=== PATIENT | female | born 1955 | race Caucasian/White ===

== ENCOUNTER → 2016-02-23 | Outpatient (CLI) | payer OTHER ==
--- NOTE | 2016-02-23 09:04 | DX ---
Left Hip, 2 views HISTORY: Follow-up hip replacement, Z09 COMPARISON: November 13, 2015 Findings: The bipolar left hip replacement remains in excellent anatomic alignment. There is no evide nce for loosening. Heterotopic ossification is present in the soft tissues lateral to the hip. Impression: Stable left hip replacement.
== END ==
LOC: BMCIMAGING 08:25
PROVIDERS: ATTEND Orthopaedic Surgery
DX: Z09 Encounter for follow-up examination after completed treatment for conditions other than malignant neoplasm (principal); Z96.642 Presence of left artificial hip joint

== ENCOUNTER → 2016-04-19 | Outpatient (CLI) | payer OTHER | LOC: BMCIMAGING 13:06 | PROVIDERS: ATTEND Physician Assistant | DX: Z09 Encounter for follow-up examination after completed treatment for conditions other than malignant neoplasm (principal); Z96.642 Presence of left artificial hip joint ==

== ENCOUNTER → 2016-09-07 | Outpatient (CLI) | payer OTHER | LOC: BMCIMAGING 09:11 | PROVIDERS: ATTEND Orthopaedic Surgery | DX: M25.552 Pain in left hip (principal); S72.001A Fracture of unspecified part of neck of right femur, initial encounter for closed fracture; Z96.642 Presence of left artificial hip joint ==

== ENCOUNTER → 2017-01-18 | Outpatient (CLI) | payer OTHER ==
[~2017-01-18] MED LIST: GADOBUTROL 10 ML VIAL IVP ONE
== END ==
LOC: FIMAGING 13:00
PROVIDERS: ATTEND Internal Medicine Hematology & Oncology
DX: M48.52XA Collapsed vertebra, not elsewhere classified, cervical region, initial encounter for fracture (principal); C79.89 Secondary malignant neoplasm of other specified sites; C16.0 Malignant neoplasm of cardia
CPT/HCPCS: A9585; J1642

== ENCOUNTER 2017-02-03 05:24 | Inpatient (IN) | payer OTHER ==
[2017-02-03] MEDS ORDERED: GABAPENTIN 300 MG CAP PO ONE (05:38)
[2017-02-03] MEDS ORDERED: ceFAZolin 2 GM/SWFI 2 GM/20 ML SYR IVP ONE (05:38)
[2017-02-03] MEDS ORDERED: ACETAMINOPHEN 500 MG TAB PO ONE (05:38)
[2017-02-03] MEDS ORDERED: morphINE SR 15 MG TAB PO ONE (05:38)
[2017-02-03] MEDS ORDERED: LR 1,000 ML IV ONE (05:48)
[2017-02-03] MEDS ORDERED: LIDOCAINE 1% 2 ML INJ ID PRN (05:48)
--- NOTE | 2017-02-03 06:06 | CPEKG ---
Heart Rate: 86 RR Interval: 698 P-R Interval: 148 QRSD Interval: 92 QT Interval: 384 QTC Interval: 460 P [place]: 45 QRS [place]: -32 T Wave [place]: 7 EKG Severity - ABNORMAL ECG - EKG Impression: SINUS RHYTHM EKG Impression: LEFT AXIS DEVIATION EKG Impression: PROBABLE LEFT VENTRICULAR HYPERTROPHY Electronically Signed By: Lance Suarez 03-Feb-2017 07:49:37
[2017-02-03] MEDS ORDERED: BACITRACIN 50,000 UNITS/10 ML SYR IRR ONE (06:26)
[2017-02-03] MEDS ORDERED: SURGIFLO MATRIX KIT WITH THROMBIN 8ml TP ONE (06:27)
[2017-02-03] MEDS ORDERED: CHLORHEXIDINE GLUC HIBICLENS 118 ML BTL TP ONE (06:27)
[2017-02-03] MEDS ORDERED: THROMBIN (BOVINE) 20,000 UNIT VIAL TP ONE (06:27)
[2017-02-03] MEDS ORDERED: MIDAZOLAM 2 MG/2 ML VIAL IVP ONE (07:10)
[2017-02-03] MEDS ORDERED: PROMETHAZINE HCL 25 MG/ML INJ IVP PRN ×2 (07:10→10:23)
[2017-02-03] MEDS ORDERED: NALOXONE HCL 0.4 MG/ML INJ IVP PRN (07:10)
[2017-02-03] MEDS ORDERED: ONDANSETRON 4 MG/2 ML VIAL IVP PRN ×2 (07:10→10:23)
[2017-02-03] MEDS ORDERED: ALBUTEROL 3 ML DEYVIAL IH PRN (07:10)
[2017-02-03] MEDS ORDERED: HYDROmorphONE/DILAUDID 1 MG/ML INJ IVP PRN ×2 (07:10→10:23)
--- NOTE | 2017-02-03 07:12 | PDANEPAE ---
ANE History of Present Illness C7 corpectomy ANE Past Medical History - Cardiovascular History Hx Hypertension: No Hx Arrhythmias: No Hx Chest Pain: No Hx Coronary Artery / Peripheral Vascular Disease: No Hx CHF / Valvular Disease: No Hx Palpitations: No - Pulmonary History Hx COPD: No Hx Asthma/Reactive Airway Disease: No Hx Recent Upper Respiratory Infection: No Hx Oxygen in Use at Home: No Hx Sleep Apnea: No Sleep Apnea Screening Result - Last Documented: Negative Pulmonary History Comment: SOB W/EXERTION - Neurologic History Hx Cerebrovascular Accident: No Hx Seizures: No Hx Dementia: No Neurologic History Comment: Peripheral neuropathy secondary to chemotherapy - Endocrine History Hx Diabetes: No Endocrine History Comment: Hypothyroid - Renal History Hx Renal Disorders: No - Liver History Hx Hepatic Disorders: Yes Hepatic History Comment: ESOPHAGEAL. Liver metastases. 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 last chemo 01-06-17 - Congenital Disorder History Hx Congenital Disorders: No - GI History Hx Gastrointestinal Disorders: Yes Gastrointestinal History Comment: Esophageal cancer - Other Health History Other Health History: Hx of DVT 03/2014 l leg, on xarelto - Chronic Pain History Chronic Pain: Yes (stomach, lower back, l hip) - Surgical History Prior Surgeries: I & D HIP W/WOUND VAC. Liver biopsy, colonoscopy. partial hip replacment L september 2015, hysterectomy 10/22 ANE Review of Systems Review of Systems: - Exercise capacity METS (RN): 3 METS ANE Patient History - Allergies Allergies/Adverse Reactions: naproxen Allergy (Severe, Verified 02/01/17 11:28) Hives, TROUBLE BREATHING NSAIDS (Non-Steroidal Anti-Inflamma Allergy (Intermediate, Verified 02/01/17 11: 28) Hives Penicillins Allergy (Intermediate, Verified 02/01/17 11:29) Hives Sulfa (Sulfonamide Antibiotics) Allergy (Intermediate, Verified 02/01/17 11:29) Hives - Home Medications Home Medications: Levothyroxine [Synthroid 112 mcg (*)] 112 mcg PO DAILY06 11/27/15 [Last Taken 04:00] Rivaroxaban [Xarelto 10mg (*)] 20 mg PO HS 11/27/15 [Last Taken 01/28/17] Acetaminophen [Tylenol 325mg (*)] 325 mg PO DAILY PRN 01/31/17 [Last Taken 02/03 04:00] Famotidine [Pepcid 20 MG (*)] 20 mg PO DAILY 01/31/17 [Last Taken 02/03/17 04:00 ] Herbals/Supplements -Info Only 1 ea PO DAILY 01/31/17 [Last Taken 1 Week Ago ~] Hyoscyamine Sulfate [Levsin, Hyomax-Sl 0.125 mg (*)] 0.125 mg PO DAILY PRN 01/31 [Last Taken Unknown] oxyCODONE IR [Oxycodone Ir (*)] 5 mg PO DAILY PRN 01/31/17 [Last Taken 1 Week Ago ~01/27/17] traZODone [traZODONE 50MG (*)] 25 mg PO HS PRN 01/31/17 [Last Taken 2 Days Ago ~ 02/01/17] Ciprofloxacin [Cipro] BID 02/03/17 [Last Taken 02/03/17 04:00] - NPO status NPO Since - Liquids (Date): 02/02/17 NPO Since - Liquids (Time): 19:30 NPO Since - Solids (Date): 02/02/17 NPO Since - Solids (Time): 19:30 - Smoking Hx Smoking Status: Never smoked - Family Anes Hx Family Hx Anesthesia Complications: None ANE Labs/Vital Signs - Vital Signs Blood Pressure: 117/91 Heart Rate: 95 Respiratory Rate: 14 O2 Sat (%): 96 Height: 165.1 cm Weight: 74.843 kg ANE Physical Exam - Airway Neck exam: FROM Mallampati Score: Class 2 Mouth exam: normal dental/mouth exam - Pulmonary Pulmonary: clear to auscultation - Cardiovascular Cardiovascular: regular rate and rhythym - ASA Status ASA Status: III ANE Anesthesia Plan Anesthesia Plan: general endotracheal anesthesia Lines/Monitors: arterial line Total IV Anesthesia: Yes
[2017-02-03] MEDS ORDERED: ACETAMINOPHEN 325 MG TAB PO ONE (07:15)
[2017-02-03] MEDS ORDERED: PROPOFOL/EMULSION 500 MG/50 ML BOTTLE IV ONE ×3 (07:16)
[2017-02-03] MEDS ORDERED: REMIFENTANIL HCL 1 MG VIAL ONE ×3 (07:16)
[2017-02-03 07:21] LABS: PLATELET COUNT 262 10^3/uL (150-400)
[2017-02-03] MEDS ORDERED: SUCCINYLCHOLINE CHLORIDE 200 MG/10 ML SYR IVP ONE (07:27)
[2017-02-03 07:32] LABS: INR 1.11 (0.83-1.16); PROTIME(PATIENT) 14.5 SEC (12.0-15.0)
--- NOTE | 2017-02-03 07:32 | PDHPUP ---
History & Physical Update H&P update statement: This history and physical update is based on an assessment of the patient which was completed after admission or registration (within 24 hours), but prior to the surgery/procedure. H&P update: H&P reviewed & patient examined, no change in patient's condition since H&P completed (Patient seen at 7 am this morning. Consents signed and site marked. All questions answered. We will check some labs given her current chemo and history of elevated coags.)
[2017-02-03] MEDS ORDERED: DEXAMETHASONE 4 MG/ML VIAL ONE (08:32)
[2017-02-03] MEDS ORDERED: ONDANSETRON 4 MG/2 ML VIAL ONE (08:33)
[2017-02-03] MEDS ORDERED: METOCLOPRAMIDE 10 MG/2 ML VIAL ONE (08:33)
[2017-02-03] MEDS ORDERED: RANITIDINE 50 MG/2 ML VIAL ONE (08:34)
[2017-02-03] MEDS ORDERED: THROMBIN (BOVINE) 5,000 UNIT VIAL TP ONE (09:34)
--- NOTE | 2017-02-03 10:15 | POSTANESTH ---
Post Anesthetic Evaluation Cardiovascular Status: Normal, Stable Respiratory Status: Normal, Stable Level of Consciousness/Mental Status: Can Participate in Eval, Alert and Oriented Pain Control: Adequate, Prn Tx Ordered Nausea/Vomiting Control: Adequate, Prn Tx Ordered Complications Possibly Related to Anesthesia: None Noted
[2017-02-03] MEDS ORDERED: ACETAMINOPHEN 325 MG TAB PO PRN (10:20)
[2017-02-03] MEDS ORDERED: traZODone 50 MG TAB PO PRN (10:20)
[2017-02-03] MEDS ORDERED: HYOSCYAMINE SULFATE 0.125 MG TAB PO PRN (10:20)
[2017-02-03] MEDS ORDERED: fentaNYL 100 MCG/2 ML INJ ONE (10:21)
[2017-02-03] MEDS ORDERED: DIAZEPAM 10 MG/2 ML SYR IVP PRN (10:23)
[2017-02-03] MEDS ORDERED: diphenhydrAMINE 25 MG CAP PO PRN (10:23)
[2017-02-03] MEDS ORDERED: LACTULOSE 20 GM/30 ML UDCUP PO PRN (10:23)
[2017-02-03] MEDS ORDERED: POLYETHYLENE GLYCOL 3350 17 GM PKT PO PRN (10:23)
[2017-02-03] MEDS ORDERED: BISACODYL 10 MG SUPP PR PRN (10:23)
[2017-02-03] MEDS ORDERED: ONDANSETRON DISINTEGRATING 4 MG TAB PO PRN (10:23)
[2017-02-03] MEDS ORDERED: MAGNESIUM HYDROXIDE 30 ML UDCUP PO PRN (10:23)
[2017-02-03] MEDS: fentaNYL 100 MCG/2 ML INJ IVP PRN ×2 (10:24→10:40)
--- NOTE | 2017-02-03 10:35 | POSTOPPROG ---
Post Op Note Date of Operation: 02/03/17 Surgeon: Kenneth Sanchez Auto Service Instructor: Kamala Kirk PA-C Anesthesiologist: David Anesthesia: GET(General Endotracheal) Pre-op Diagnosis: cervical fracture, metastasis Post-op Diagnosis: same Indication: instability Procedure: C7 corpectomy, C6-T1 anterior fusion Findings: Please see dictation Inf/Abcess present in the surg proc area at time of surgery?: No Depth: Organ Space EBL: 50-100 Complications: none Drains: Shaka Wood Specimen(s): C7 vertebral body sent for permanent PA Addendum - Addendum .: S: Pt in PACU, c/o low back pain. Denies neck pain. 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 Ok to resume xarelto POD#7 Call NS with any issues D/w Dr Sanchez
[2017-02-03] MEDS ORDERED: DIAZEPAM 10 MG/2 ML SYR ONE (10:56)
--- NOTE | 2017-02-03 11:17 | GOP ---
[f rep st] OPERATIVE REPORT DATE OF OPERATION: 02/03/2017 SURGEON: Kenneth Sanchez MD MEDICAL APPARATUS MODEL MAKER: STACIE Dyson. ANESTHESIA: General. PREOPERATIVE DIAGNOSIS: 1. C7 pathologic compression fracture and kyphotic deformity. 2. Neck pain. POSTOPERATIVE DIAGNOSIS: 1. C7 pathologic compression fracture and kyphotic deformity. 2. Neck pain. PROCEDURE PERFORMED: 1. Anterior arthrodesis with approach to C6, C7, T1. 2. C6-C7 and C7-T1 diskectomies with osteophytetctomies and foraminotomies. 3. C7 corpectomy with spinal cord decompression. 4. Interbody fusion between the endplates of C6-C7 and C7-T1 with a 22 mm Medtronic anatomic PEEK cage filled with morselized allograft. 5. Anterior cervical fusion C6-T1 spanning the C7 level with a 35 mm Medtronic Translational plate with screws into C6 and T1 and 1 screw into the interbody graft. 6. Use of intraoperative fluoroscopy, less than 1 hour physician time. 7. Use of neuromonitoring. 8. Use of operating microscope. FINDINGS: very soft C7 bone; osteoporitic C6 and T1 bone SPECIMENS: The C7 vertebral body was sent to Pathology for permanent analysis. ESTIMATED BLOOD LOSS: 100 mL. INDICATIONS: The patient is a 61-year-old woman with known history of metastatic cancer. She develop neck pain and imaging demonstrated a pathologic compression deformity of C7 in addition to additional metastatic lesions. After discussion of risks, benefits, and treatment alternatives, we decided to proceed forth with surgical stabilization in preparation for possible radiation therapy. DESCRIPTION OF PROCEDURE: Patient was brought to the operating theater and underwent general endotracheal anesthesia without complications. She had Venodynes, LEBRON hose, and the appropriate lines placed by Anesthesia. Her head was placed in slight extension on the operating table and all bony prominences were inspected and padded. Using lateral fluoroscopy and spinal needle, we picked our entry point to the C6 through T1 levels. This was marked as a transverse incision on the right side of her neck. The visualization down to the C7-T1 level was somewhat challenging secondary the patient's shoulders. This area then prepped and draped in the usual sterile surgical fashion. A time -out was completed per protocol. The patient received antibiotics within 1 hour of incision. The incision was taken down with the scalp blade and then, using monopolar, taken down through subcutaneous tissues to the level of the platysma. A Weitlaner was placed to maintain our exposure. We opened the fibers of the platysma cranially and caudally. Using both blunt and sharp dissection, we traveled in a plane medial to the carotid sheath and lateral to the esophagus and trachea to reach the prevertebral fascia. We placed a bayonetted needle into the disk space of C6-C7 and confirmed our level using lateral fluoroscopy. The patient's tissues were noted to be extremely soft at the C7 level. We elevated the longus colli muscles from the anterior vertebral bodies of C6, C7 and T1 and deep retractors were placed to maintain exposure. The microscope was brought into the field to assist with microscopic dissection and to maintain illumination and magnification. We placed a [place] pin into the vertebral body of C6 and T1 and confirmed our level using lateral fluoroscopy. At this point, we were able to use an 11 blade to incise the C6-C7 and C7-T1 disc spaces. We completed a C6-C7 and C7- T1 diskectomy, foraminotomies and osteophytectomies using pituitaries, curettes and Kerrison punches. At this point, the patient's tissue of the C7 vertebral body was noted to be so soft we were able to removed the bone with just the pituitaries and Kerrison punches. We sent much of this bone off to Pathology for permanent analysis. We continued dorsally until we identified the ligament , which we opened with the angled curettes. We completed our decompression posteriorly and laterally and then prepared the cartilaginous endplates of C6 and T1. We measured the interbody space and placed a 22 mm PEEK cage with morselized allograft between the endplates of C6 and T1. We removed the [place] pins and drilled down the anterior osteophytes. We secured a 35 mm Medtronic [place] translational plate onto the vertebral bodies of C6 and T1 with 1 screw into the interbody graft. AP and lateral x-rays demonstrated good placement of the hardware. The wound was irrigated copiously with bacitracin irrigation and a drain left in the subfascial space. The wound was closed in multiple layers using Vicryl sutures in the deep layers and Dermabond for the skin. The patient's wounds were dressed sterilely. She was awakened, extubated and taken to the recovery room in stable condition. There were no complications and no noted changes on neuromonitoring throughout the procedure. COMPLICATIONS: None. /[id number]/MODL MTDD
[2017-02-03] MEDS ORDERED: ceFAZolin 2 GM/DEXTROSE 100 ML IV SCH (14:00)
[2017-02-03] MEDS: ACETAMINOPHEN 500 MG TAB PO SCH ×2 (14:05→23:12)
[2017-02-03] MEDS: oxyCODONE IR 5 MG TAB PO PRN ×2 (14:07→20:20)
[2017-02-03] MEDS: NS W/ 20 KCl/L 1,000 ML IV SCH (14:08)
[2017-02-03] MEDS: CYCLOBENZAPRINE 10 MG TAB PO PRN (16:02)
[2017-02-03] MEDS: ceFAZolin 2 GM/DEXTROSE 100 ML IV SCH ×2 (16:03→23:13)
[2017-02-03] MEDS: CIPROFLOXACIN 500 MG TAB PO SCH (20:16)
[2017-02-03] MEDS: FAMOTIDINE 20 MG TAB PO SCH (20:17)
[2017-02-03] MEDS: SENNOSIDES/DOCUSATE SODIUM TAB PO SCH (20:18)
[2017-02-04] MEDS: oxyCODONE IR 5 MG TAB PO PRN ×3 (00:45→21:19)
[2017-02-04] MEDS: NS W/ 20 KCl/L 1,000 ML IV SCH (00:45)
[2017-02-04] MEDS: ACETAMINOPHEN 500 MG TAB PO SCH ×3 (05:17→21:17)
[2017-02-04] MEDS: LEVOTHYROXINE 112 MCG TAB PO SCH (05:17)
[2017-02-04 05:37] LABS: PLATELET COUNT 245 10^3/uL (150-400)
[2017-02-04] MEDS ORDERED: FAMOTIDINE 20 MG TAB PO SCH (09:00)
[2017-02-04] MEDS: SENNOSIDES/DOCUSATE SODIUM TAB PO SCH ×2 (09:03→21:18)
[2017-02-04] MEDS: FAMOTIDINE 20 MG TAB PO SCH ×2 (09:05→21:18)
[2017-02-04] MEDS: CIPROFLOXACIN 500 MG TAB PO SCH ×2 (09:05→21:19)
[2017-02-04] MEDS: CYCLOBENZAPRINE 10 MG TAB PO PRN ×2 (09:05→18:12)
--- NOTE | 2017-02-04 10:01 | ASMTCMCOM ---
CM Note CM Note Notes: Patient is POD #1 C7 corpectomy and C6-T1 anterior fusion. She lives with her and is normally independent. PT has cleared her for home with supervision. If she has any discharge needs, CM will assist. Date Signed: 02/04/2017 10:01 AM Electronically Signed By:Claudine Ortez RN
--- NOTE | 2017-02-04 11:57 | SOAPPROG ---
SOAP Progress Note Assessment/Plan: Assessment: POD #1 sp C7 corpectomy and C6-T 1 ACDF doing well with improved swallowing and shoulder pain Plan: Xrays cspine prior to DC DC SALVADOR per Dr. Sanchez Continue collar DC today to home with family as long xrays look good. discussed with Dr. Sanchez 02/04/17 11:57 Subjective: awake, alert, pain controlled, swallowing well. No new issues. urine clear with no further blood Objective: Vital Signs Temp Pulse Resp BP Pulse Ox 36.9 C 63 12 111/86 H 96 02/04/17 07:32 02/04/17 07:32 02/04/17 07:32 02/04/17 07:32 02/04/17 07:32 Laboratory Results 02/04/17 05:15 02/04/17 05:15 02/03/17 02/04/17 02/05/17 05:59 05:59 05:59 Intake Total 3383 Output Total 1170 Balance 2213 PT 14.5 SEC (12.0-15.0) 02/03/17 07:08 INR 1.11 (0.83-1.16) 02/03/17 07:08 Neuro: HOWELL, sens +LT equal strenght and sensation throughout [place]: 20ml Incision: CDI ICD10 Worksheet Patient Problems: Problems Problem Status Onset Prosthetic hip infection Acute
[2017-02-04 17:29] VITALS: RESP 16
[2017-02-05] MEDS: ACETAMINOPHEN 500 MG TAB PO SCH (05:09)
[2017-02-05] MEDS: LEVOTHYROXINE 112 MCG TAB PO SCH (05:09)
[2017-02-05] MEDS: oxyCODONE IR 5 MG TAB PO PRN ×2 (05:10→11:28)
[2017-02-05 08:28] VITALS: BP 134/96; PULSE 74; TEMP 97.9; O2SAT 95
[2017-02-05] MEDS: CIPROFLOXACIN 500 MG TAB PO SCH (09:27)
[2017-02-05] MEDS: SENNOSIDES/DOCUSATE SODIUM TAB PO SCH (09:27)
[2017-02-05] MEDS: FAMOTIDINE 20 MG TAB PO SCH (09:28)
--- NOTE | 2017-02-05 09:57 | SOAPPROG ---
SOAP Progress Note Assessment/Plan: Assessment: POD#2 s/p C7 corpectomy, C6-T1 fusion, doing well, hand numbness improved Plan: - patient says her hand numbness thought to be from neuropathy is much improved - d/c home today - scripts for oxycodone, flexeril, lovenox in chart - d/c [place] drain - cervical collar in place, fits well - cervical xrays show intact hardware with good alignment 02/05/17 09:55 Subjective: doing well, eating breakfast Objective: Vital Signs Temp Pulse Resp BP Pulse Ox 36.6 C 74 16 134/96 H 95 02/05/17 08:00 02/05/17 08:00 02/05/17 08:00 02/05/17 08:00 02/05/17 08:00 Laboratory Results 02/04/17 05:15 02/04/17 05:15 02/04/17 02/05/17 02/06/17 05:59 05:59 05:59 Intake Total 3383 500 Output Total 1170 Balance 2213 500 PT 14.5 SEC (12.0-15.0) 02/03/17 07:08 INR 1.11 (0.83-1.16) 02/03/17 07:08 AAOx3, full strength and sensation, no drift, wound c/d/i - Pending Discharge Pending Discharge Within 24 Hours: Yes Pending Discharge Date: 02/06/17 Pending Discharge Time: 11:00 ICD10 Worksheet Patient Problems: Problems Problem Status Onset Prosthetic hip infection Acute
--- NOTE | 2017-02-05 12:53 | PDIAF ---
- Diagnosis Diagnosis: cervical stenosis Code Status: Full Code - Medication Management Discharge Medications: Medications to Continue on Transfer Levothyroxine [Synthroid 112 mcg (*)] 112 mcg PO DAILY06 11/27/15 [Last Taken 04:00] Famotidine [Pepcid 20 MG (*)] 20 mg PO DAILY 01/31/17 [Last Taken 02/03/17 04:00 ] Herbals/Supplements -Info Only 1 ea PO DAILY 01/31/17 [Last Taken 1 Week Ago ~] Hyoscyamine Sulfate [Levsin, Hyomax-Sl 0.125 mg (*)] 0.125 mg PO DAILY PRN 01/31 [Last Taken Unknown] Ciprofloxacin [Cipro] 500 mg PO BID 02/03/17 [Last Taken 02/03/17 04:00] Acetaminophen [Tylenol ES 500 mg (*)] 1,000 mg PO Q8HRS tab 02/04/17 [Last Taken Unknown] Cyclobenzaprine [Flexeril 10 MG (*)] 10 mg PO TID PRN #60 tab 02/04/17 [Last Taken Unknown] Polyethylene Glycol 3350 [Miralax 17 gm (*)] 17 gm PO DAILY PRN pkt 02/04/17 [ Last Taken Unknown] Sennosides/Docusate Sodium [Senokot-S] 1 - 2 tab PO BID tab 02/04/17 [Last Taken Unknown] oxyCODONE IR [Oxycodone Ir (*)] 5 - 10 mg PO Q4HRS PRN #60 tab 02/04/17 [Last Taken Unknown] Enoxaparin [Lovenox 40 MG (*)] 40 mg SC DAILY #4 syr 02/06/17 [Last Taken Unknown] Rivaroxaban [Xarelto] 20 mg PO DAILY #1 tab 02/10/17 [Last Taken Unknown] Discharge Medications: Refer to the Discharge Home Medication list for PRN reason. - Orders Services needed: Home Care, Registered Nurse Home Care Face to Face: I certify that this patient was under my care and that I had the required [id number] encounter meeting the encounter requirements on the discharge day. My findings support the fact that the patient is homebound as defined in Home Care Face to Face Continued: CMS Chapter 7 Medicare Benefits Manual 30.1.1 , The condition of the patient is such that there exists a normal inability to leave home and consequently, leaving home would require a considerable and taxing effort. Isolation Type: None Diet Recommendation: no restrictions on diet Diet Texture: Regular Texture Diet, Dysphagia 2 - Mechanically Altered - Chopped , Ground, Thin Liquids, Meds Whole w/Liquids Osmin Stockings Discontinue Date: wear fo 5 days post op Wound Care Instructions: keep dry - Follow Up Care Current Providers and Referrals: Riki Chen MD [Primary Care Provider] - Kenneth Sanchez MD [Medical Doctor] -
--- NOTE | 2017-02-05 14:54 | ASDISCHSUM ---
Discharge Information Plan Status:Home with No Needs Medically Cleared to Leave:02/04/2017 Discharge Date:02/05/2017 01:47 PM CM D/C Disposition:Home, Routine, Self-Care ADT D/C Disposition:Home, Routine, Self-Care Projected Discharge Date:02/05/2017 12:00 AM Transportation at D/C:Family Discharge Delay Reason: Follow-Up Date:02/05/2017 12:00 AM Discharge Slot: Final Diagnosis:Cervical spine fx, malignancy Placement Information Patient Contact Information Contact Name:OUMOU Relationship: Address:[address] City:[place] Alternate Phone: [facility]/Zip Code:[place] [address] Email: Financial Information Financial Class:[employer] Primary Plan Desc:[facility] [place] [facility] Primary Plan Number:[id number] Secondary Plan Desc: Secondary Plan Number: Assessment Information [facility] CM Progress Note CM Note CM Note Notes: Patient is POD #1 C7 corpectomy and C6-T1 anterior fusion. She lives with her and is normally independent. PT has cleared her for home with supervision. If she has any discharge needs, CM will assist. Date Signed: 02/04/2017 10:01 AM Electronically Signed By:Claudine Ortez RN Case Management Discharge Plan Note Case Management Discharge Discharge Order Complete? Answers: Yes Patient to Obtain Answers: via Family Medications Transportation Arranged Answers: Family/Friends Transport will Pick (Date 02/05/2017 12:00 AM & Time) Family Notified Answers: Yes Notes: present to transport patient home Discharge Comments Notes: Patient has been discharged home. She and report that she will have family and friends at home to supervise her needs. Date Signed: 02/05/2017 11:27 AM Electronically Signed By:Mile Shields LCSW [facility] CM Progress Note CM Note CM Note Notes: Patient asked if she could have a HC RN assist with administrating the Lovenox injection. Contact made to 7 HC agencies who were either unable to staff her needs due to the holiday, didn't go to her location or didn't feel it was a skilled need. Contacted and gave him that info. Suggested that she could come back to [facility] for injection Monday or a friend? or perhaps her pharmacy would be willing to assist? He will check those options. Date Signed: 02/05/2017 02:54 PM Electronically Signed By:Mile Shields LCSW Intervention Information
[2017-02-06] MEDS ORDERED: ENOXAPARIN 40 MG/0.4 ML SYR SC SCH (09:00)
== END 2017-02-05 13:47 | disposition home or self-care (01) | DRG 472 ==
LOC: F3N 05:24
PROVIDERS: ADMIT Neurological Surgery; ATTEND Neurological Surgery
PROC: [UNRECOGNIZED PROCEDURE] (principal; 2017-02-03 07:15)
PROC: 0RG10A0 Fusion of Cervical Vertebral Joint with Interbody Fusion Device, Anterior Approach, Anterior Column, Open Approach (ICD-10-PCS; principal; 2017-02-03 07:15)
PROC: 8E0WXBZ Computer Assisted Procedure of Trunk Region (ICD-10-PCS; principal; 2017-02-03 07:15)
PROC: BR111ZZ Fluoroscopy of Cervical Disc(s) using Low Osmolar Contrast (ICD-10-PCS; principal; 2017-02-03 07:15)
PROC: 0RT50ZZ Resection of Cervicothoracic Vertebral Disc, Open Approach (ICD-10-PCS; principal; 2017-02-03 07:15)
PROC: 0RG40A0 Fusion of Cervicothoracic Vertebral Joint with Interbody Fusion Device, Anterior Approach, Anterior Column, Open Approach (ICD-10-PCS; principal; 2017-02-03 07:15)
DX: M84.58XA Pathological fracture in neoplastic disease, other specified site, initial encounter for fracture (principal); M48.02 Spinal stenosis, cervical region; C79.51 Secondary malignant neoplasm of bone; M54.2 Cervicalgia; C78.7 Secondary malignant neoplasm of liver and intrahepatic bile duct; C16.0 Malignant neoplasm of cardia; I10 Essential (primary) hypertension; E03.9 Hypothyroidism, unspecified; Z88.0 Allergy status to penicillin; Z88.2 Allergy status to sulfonamides
CPT/HCPCS: 92526-GN; 92610-GN; 97116-GP; 97161-GP; 97165-GO; 97535-GO; C1713; J0330; J0690; J1100; J2250; J2405; J2704; J2765; J2780; J3010

== ENCOUNTER 2017-02-11 11:17 | Inpatient (IN) | payer OTHER ==
[2017-02-11] MEDS ORDERED: NS 1,000 ML IV ONE (12:14)
[2017-02-11] MEDS ORDERED: ACETAMINOPHEN 325 MG TAB PO ONE (12:15)
--- NOTE | 2017-02-11 12:21 | EDPHY ---
H & P Time Seen by Provider: 02/11/17 11:55 HPI/ROS: CHIEF COMPLAINT: Hematuria HISTORY OF PRESENT ILLNESS: Patient is had 3 urinary tract infections in the last 6 weeks and previously after 10 days of Cipro her symptoms would go way, and then her symptoms come back. She finished her 3rd course of Cipro yesterday and then today had recurrence of hematuria and worsening low back pain. Back pain is associated with the hematuria, not with weakness or numbness in extremities. She has chronic neuropathy in her feet but that is unchanged from usual, no incontinence. No recent trauma or injury. Hematuria not associated with dysuria or frequency. No lightheadedness or dizziness. Symptoms moderate to severe today. REVIEW OF SYSTEMS: Eye: no change in vision ENT: no sore throat Cardiac: no chest pain or syncope Pulmonary: no cough or SOB Abdomen: no vomiting, diarrhea, abdominal pain Musculoskeletal: Back pain which the patient says is only better with Tylenol Skin: No bruising Neuro: no headache, peripheral neuropathy which is stable. Constitutional: no fever : HPI A comprehensive 10 point review of systems is otherwise negative aside from elements mentioned in the history of present illness. PAST MEDICAL HISTORY: Includes esophageal cancer, appendectomy and hysterectomy , frequent UTIs. DVT on Xarelto Social history: Here with spouse General Appearance: Alert and conversant, cooperative. Eyes: No scleral icterus. ENT, Mouth: Normal mucous membranes. Respiratory: Normal respiratory effort, breath sounds equal, lungs are clear to auscultation. Cardiovascular: Regular rate and rhythm. Gastrointestinal: Abdomen is soft and non tender. Neurological: Alert, normal motor and both feet with plantar and dorsiflexion, 2+ patellar reflexes bilaterally, toes downgoing, sensation present to light touch in both feet. Skin: Warm and dry, no rashes. Musculoskeletal: No peripheral edema. No midline spinal tenderness in the lumbar region. Psychiatric: Not agitated. Emergency Department course/MDM: Patient had PET-CT reviewed Dr. Sadler dated 01/31 which shows severe obstructive left-sided uropathy. Patient likely has recurrent and resistant UTI because of this, will consider admission with IV antibiotics and Urology consultation. Will likely need drainage of some type for her left obstructive uropathy in order to clear her UTI. Penicillin allergy a rash without critical symptoms. IV ceftriaxone 1 g, urine culture, urology consultation and admission. 1232: [place] will consult for urology, for obstruction. Smoking Status: Never smoked Constitutional: Initial Vital Signs Temperature (C) 36.5 C 02/11/17 11:19 Heart Rate 108 H 02/11/17 11:19 Respiratory Rate 18 02/11/17 11:19 Blood Pressure 135/95 H 02/11/17 11:19 O2 Sat (%) 97 02/11/17 11:19 O2 Delivery Mode Room Air Allergies/Adverse Reactions: naproxen Allergy (Severe, Verified 02/11/17 11:19) Hives, TROUBLE BREATHING adhesive tape Allergy (Intermediate, Verified 02/11/17 11:19) Rash NSAIDS (Non-Steroidal Anti-Inflamma Allergy (Intermediate, Verified 02/11/17 11: 19) Hives Penicillins Allergy (Intermediate, Verified 02/11/17 11:19) Hives Sulfa (Sulfonamide Antibiotics) Allergy (Intermediate, Verified 02/11/17 11:19) Hives Home Medications: Medication Instructions Recorded Levothyroxine [Synthroid 112 mcg 112 mcg PO DAILY06 11/27/15 (*)] Famotidine [Pepcid 20 MG (*)] 20 mg PO DAILY 01/31/17 Herbals/Supplements -Info Only 1 ea PO DAILY 01/31/17 Hyoscyamine Sulfate [Levsin, 0.125 mg PO DAILY PRN 01/31/17 Hyomax-Sl 0.125 mg (*)] Ciprofloxacin [Cipro] 500 mg PO BID 02/03/17 Acetaminophen [Tylenol ES 500 mg 1,000 mg PO Q8HRS tab 02/04/17 (*)] Cyclobenzaprine [Flexeril 10 MG 10 mg PO TID PRN #60 tab 02/04/17 (*)] Polyethylene Glycol 3350 [Miralax 17 gm PO DAILY PRN pkt 02/04/17 17 gm (*)] Sennosides/Docusate Sodium 1 - 2 tab PO BID tab 02/04/17 [Senokot-S] oxyCODONE IR [Oxycodone Ir (*)] 5 - 10 mg PO Q4HRS PRN #60 tab 02/04/17 Rivaroxaban [Xarelto] 20 mg PO DAILY #1 tab 02/10/17 Medical Decision Making Differential Diagnosis: Differential for hematuria considered including but not limited to coagulopathy , renal colic, UTI, renal cancer or tumor, other bladder problem Consult/Admit Bed Type: [place] [id number] - Data Points Laboratory Results: Laboratory Results 02/11/17 12:30 02/11/17 02/11/17 02/11/17 12:30 12:30 11:40 WBC 8.74 10^3/uL 10^3/uL (3.80-9.50) RBC 3.75 10^6/uL L 10^6/uL (4.18-5.33) Hgb 11.8 g/dL L g/dL (12.6-16.3) Hct 35.1 % L % (38.0-47.0) MCV 93.6 fL fL (81.5-99.8) MCH 31.5 pg pg (27.9-34.1) MCHC 33.6 g/dL g/dL (32.4-36.7) RDW 16.1 % H % (11.5-15.2) Plt Count 396 10^3/uL 10^3/uL (150-400) MPV 9.0 fL fL (8.7-11.7) Neut % (Auto) 74.2 % % (39.3-74.2) Lymph % (Auto) 16.0 % % (15.0-45.0) [place] % (Auto) 7.0 % % (4.5-13.0) Eos % (Auto) 1.7 % % (0.6-7.6) Baso % (Auto) 0.5 % % (0.3-1.7) Nucleat RBC Rel Count 0.0 % % (0.0-0.2) Absolute Neuts (auto) 6.49 10^3/uL 10^3/uL (1.70-6.50) Absolute Lymphs (auto) 1.40 10^3/uL 10^3/uL (1.00-3.00) Absolute Monos (auto) 0.61 10^3/uL 10^3/uL (0.30-0.80) Absolute Eos (auto) 0.15 10^3/uL 10^3/uL (0.03-0.40) Absolute Basos (auto) 0.04 10^3/uL 10^3/uL (0.02-0.10) Absolute Nucleated RBC 0.00 10^3/uL 10^3/uL (0-0.01) Immature Gran % 0.6 % % (0.0-1.1) Immature Gran # 0.05 10^3/uL 10^3/uL (0.00-0.10) Sodium Pending Potassium Pending Chloride Pending Carbon Dioxide Pending Anion Gap Pending BUN Pending Creatinine Pending Estimated GFR Pending Glucose Pending Calcium Pending Urine Color RED Urine Appearance MODERATELY TURBID Urine pH 6.0 (5.0-7.5) Ur Specific [place] 1.019 (1.002-1.030) Urine Protein 2+ H (NEGATIVE) Urine Ketones NEGATIVE (NEGATIVE) Urine Blood 3+ H (NEGATIVE) Urine Nitrate NEGATIVE (NEGATIVE) Urine Bilirubin NEGATIVE (NEGATIVE) Urine Urobilinogen NEGATIVE EU EU (0.2-1.0) Ur Leukocyte Esterase NEGATIVE (NEGATIVE) Urine RBC 50-182 /hpf H /hpf (0-3) Urine WBC 50-182 /hpf H /hpf (0-3) Ur Epithelial Cells NONE SEEN /lpf /lpf (NONE-1+) Urine Bacteria 4+ /hpf H /hpf (NONE SEEN) Urine Mucus TRACE /lpf /lpf (NONE-1+) Urine Glucose 1+ H (NEGATIVE) Medications Given: Discontinued Medications Acetaminophen (Tylenol) 650 mg PO EDNOW ONE Stop: 02/11/17 12:16 Last Admin: 02/11/17 12:34 Dose: 650 mg Ceftriaxone Sodium/Dextrose (Rocephin 1 Gm (Premix)) 50 mls @ 100 mls/hr IV EDNOW ONE PRN Reason: Protocol Stop: 02/11/17 12:44 Last Admin: 02/11/17 12:35 Dose: 50 mls Sodium Chloride (Ns) 1,000 mls @ 0 mls/hr IV EDNOW ONE; Wide Open PRN Reason: Protocol Stop: 02/11/17 12:15 Last Admin: 02/11/17 12:35 Dose: 1,000 mls Departure - Departure Disposition: [facility] Inpatient Acute Clinical Impression: Obstructive uropathy Urinary tract infection Qualifiers: Urinary tract infection type: site unspecified Hematuria presence: with hematuria Qualified Code(s): N39.0 - Urinary tract infection, site not specified Condition: Fair Referrals: Diamante Lofton MD [Primary Care Provider] - As per Instructions
[2017-02-11 12:40] LABS: PLATELET COUNT 396 10^3/uL (150-400)
[2017-02-11] MEDS ORDERED: ACETAMINOPHEN 325 MG TAB PO PRN (14:47)
[2017-02-11] MEDS ORDERED: ONDANSETRON DISINTEGRATING 4 MG TAB PO PRN (14:47)
[2017-02-11] MEDS ORDERED: traZODone 50 MG TAB PO PRN (14:50)
[2017-02-11] MEDS ORDERED: SENNOSIDES/DOCUSATE SODIUM TAB PO PRN (14:50)
[2017-02-11] MEDS ORDERED: POLYETHYLENE GLYCOL 3350 17 GM PKT PO PRN (14:50)
[2017-02-11] MEDS ORDERED: NS 1,000 ML IV SCH (15:00)
--- NOTE | 2017-02-11 15:03 | PDGENHP ---
History and Physical - Chief Complaint left flank pain, hematuria - History of Present Illness This is a 61 yo F with hx of Esophageal cancer with known mets to thoracic spine with recent C6-T1 fusion due to pathological C7 fracture who has been having UTI symptoms for the last 30 days. She has been receiving treatment with Cipro per her Oncologist. She initially was treated with 7 days of Cipro and she felt better but when sx's came back a second round of Cipro for 10 days was started. She also did well initially after the second regimen but when sx's returned she was restarted on a third course. She now has completed the third course and is complaining of left flank pain and hematuria. A recent PET-CT on 01/31 at [facility] is c/w Left sided uropathy In the E.D., Urology was consulted. She was given Rocephin. She c/o left flank pain She has been afebrile. She denies dysuria or increased urinary frequency. PMHx: Esophageal cancer, appendectomy, frequent UTI's, Hypothyroidism, Hx of DVT many years ago, chronic AC PSHx: c7 corpectomy, c6-t1 fusion, hysterectomy, left hip replacement soc hx: no tobacco, social etoh, fmhx: nc History Information - Allergies/Home Medication List Allergies/Adverse Reactions: naproxen Allergy (Severe, Verified 02/11/17 11:19) Hives, TROUBLE BREATHING adhesive tape Allergy (Intermediate, Verified 02/11/17 11:19) Rash NSAIDS (Non-Steroidal Anti-Inflamma Allergy (Intermediate, Verified 02/11/17 11: 19) Hives Penicillins Allergy (Intermediate, Verified 02/11/17 11:19) Hives Sulfa (Sulfonamide Antibiotics) Allergy (Intermediate, Verified 02/11/17 11:19) Hives Home Medications: Levothyroxine [Synthroid 112 mcg (*)] 112 mcg PO DAILY06 11/27/15 [Last Taken 04:00] Famotidine [Pepcid 20 MG (*)] 20 mg PO DAILY 01/31/17 [Last Taken 02/03/17 04:00 ] Herbals/Supplements -Info Only 1 ea PO DAILY 01/31/17 [Last Taken 1 Week Ago ~] Hyoscyamine Sulfate [Levsin, Hyomax-Sl 0.125 mg (*)] 0.125 mg PO DAILY PRN 01/31 [Last Taken Unknown] Rivaroxaban [Xarelto] 20 mg PO HS 02/11/17 [Last Taken 02/10/17] Sennosides/Docusate Sodium [Senokot-S] 1 - 2 tab PO BID PRN 02/11/17 [Last Taken Unknown] traZODone [traZODONE 50MG (*)] 50 mg PO HS PRN 02/11/17 [Last Taken Unknown] I have personally reviewed and updated: medical history, social history, surgical history - Social History Smoking Status: Never smoked Review of Systems Review of Systems: ROS: 10pt was reviewed & negative except for what was stated in HPI & below Physical Exam Physical Exam: Temp Pulse Resp BP Pulse Ox 36.9 C 101 H 18 134/107 H 95 02/11/17 13:25 02/11/17 13:25 02/11/17 13:25 02/11/17 13:25 02/11/17 13:25 Constitutional: no apparent distress Eyes: PERRL, EOMI Ears, Nose, Mouth, Throat: moist mucous membranes, hearing normal Cardiovascular: regular rate and rhythym, no murmur, rub, or gallop, No edema Respiratory: no respiratory distress, no rales or rhonchi, clear to auscultation Gastrointestinal: normoactive bowel sounds, soft, non-tender abdomen Genitourinary: other (left CVA tenderness) Skin: warm Musculoskeletal: full muscle strength Neurologic: AAOx3 Psychiatric: interacting appropriately, not anxious, not encephalopathic, thought process linear Lab Data & Imaging Review 02/11/17 12:30 02/11/17 12:30 WBC 8.74 10^3/uL (3.80-9.50) 02/11/17 12:30 RBC 3.75 10^6/uL (4.18-5.33) L 02/11/17 12:30 Hgb 11.8 g/dL (12.6-16.3) L 02/11/17 12:30 Hct 35.1 % (38.0-47.0) L 02/11/17 12:30 MCV 93.6 fL (81.5-99.8) 02/11/17 12:30 MCH 31.5 pg (27.9-34.1) 02/11/17 12:30 MCHC 33.6 g/dL (32.4-36.7) 02/11/17 12:30 RDW 16.1 % (11.5-15.2) H 02/11/17 12:30 Plt Count 396 10^3/uL (150-400) 02/11/17 12:30 MPV 9.0 fL (8.7-11.7) 02/11/17 12:30 Neut % (Auto) 74.2 % (39.3-74.2) 02/11/17 12:30 Lymph % (Auto) 16.0 % (15.0-45.0) 02/11/17 12:30 [place] % (Auto) 7.0 % (4.5-13.0) 02/11/17 12:30 Eos % (Auto) 1.7 % (0.6-7.6) 02/11/17 12:30 Baso % (Auto) 0.5 % (0.3-1.7) 02/11/17 12:30 Nucleat RBC Rel Count 0.0 % (0.0-0.2) 02/11/17 12:30 Absolute Neuts (auto) 6.49 10^3/uL (1.70-6.50) 02/11/17 12:30 Absolute Lymphs (auto) 1.40 10^3/uL (1.00-3.00) 02/11/17 12:30 Absolute Monos (auto) 0.61 10^3/uL (0.30-0.80) 02/11/17 12:30 Absolute Eos (auto) 0.15 10^3/uL (0.03-0.40) 02/11/17 12:30 Absolute Basos (auto) 0.04 10^3/uL (0.02-0.10) 02/11/17 12:30 Absolute Nucleated RBC 0.00 10^3/uL (0-0.01) 02/11/17 12:30 Immature Gran % 0.6 % (0.0-1.1) 02/11/17 12:30 Immature Gran # 0.05 10^3/uL (0.00-0.10) 02/11/17 12:30 Sodium 142 mEq/L (134-144) 02/11/17 12:30 Potassium 3.9 mEq/L (3.5-5.2) 02/11/17 12:30 Chloride 107 mEq/L (97-110) 02/11/17 12:30 Carbon Dioxide 19 mEq/l (22-31) L 02/11/17 12:30 Anion Gap 16 mEq/L (8-16) 02/11/17 12:30 BUN 14 mg/dL (7-23) 02/11/17 12:30 Creatinine 0.7 mg/dL (0.6-1.0) 02/11/17 12:30 Estimated GFR > 60 02/11/17 12:30 Glucose 90 mg/dL (70-100) 02/11/17 12:30 Calcium 10.0 mg/dL (8.5-10.4) 02/11/17 12:30 Urine Color RED 02/11/17 11:40 Urine Appearance MODERATELY TURBID 02/11/17 11:40 Urine pH 6.0 (5.0-7.5) 02/11/17 11:40 Ur Specific [place] 1.019 (1.002-1.030) 02/11/17 11:40 Urine Protein 2+ (NEGATIVE) H 02/11/17 11:40 Urine Ketones NEGATIVE (NEGATIVE) 02/11/17 11:40 Urine Blood 3+ (NEGATIVE) H 02/11/17 11:40 Urine Nitrate NEGATIVE (NEGATIVE) 02/11/17 11:40 Urine Bilirubin NEGATIVE (NEGATIVE) 02/11/17 11:40 Urine Urobilinogen NEGATIVE EU (0.2-1.0) 02/11/17 11:40 Ur Leukocyte Esterase NEGATIVE (NEGATIVE) 02/11/17 11:40 Urine RBC 50-182 /hpf (0-3) H 02/11/17 11:40 Urine WBC 50-182 /hpf (0-3) H 02/11/17 11:40 Ur Epithelial Cells NONE SEEN /lpf (NONE-1+) 02/11/17 11:40 Urine Bacteria 4+ /hpf (NONE SEEN) H 02/11/17 11:40 Urine Mucus TRACE /lpf (NONE-1+) 02/11/17 11:40 Urine Glucose 1+ (NEGATIVE) H 02/11/17 11:40 Assessment & Plan Assessment: #Obstructive uropathy #Urinary tract infection #chronic AC due to hx of DVT #Esophageal cancer #Left flank pain #Hematuria Plan: -Given recent reported imaging, will hold off additional imaging -Urology consult, await reccs -Hold Xarelto -IVF -Cont Rocephin -restart home meds -Full code
[2017-02-11] MEDS: CYCLOBENZAPRINE 10 MG TAB PO PRN (15:58)
[2017-02-11] MEDS ORDERED: LR 1,000 ML IV ONE (16:40)
[2017-02-11] MEDS ORDERED: LIDOCAINE 2% JELLY 20 ML (UROJECT) ONE (16:41)
[2017-02-11] MEDS ORDERED: IOPAMIDOL (ISOVUE-300) 150 ML BTL ONE (16:41)
--- NOTE | 2017-02-11 16:41 | PDCONSULT ---
Educational Sign Language Interpreter Note: CC left obstructive nephropathy HPI Very pleasant 61F w metastatic esophageal cancer presented to ER today w recurrent UTI, left flank pain. Had PET CT 01/2017 at [facility]. ER doctor reviewed these images and so did I - CT shows left hydronephrosis, hydroureter, hydro goes all the way down to the very distal ureter and there does seem to be an area of surrounding inflammation where the dilation of the ureter ends, but it is hard to tell given noncon with this film. Her left kidney has very good parenchyma and no perinepheric stranding at time of the image in January. She has had recurrent UTIs -I reviewed the UTIs in our system - recent Strep Agalactiae, but alcala sens E coli in the past. She was supposed to see me in clinic a few weeks ago, but due to cervical fx from mets and ortho procedure, she had to postpone that appointment. PMHx: Esophageal cancer, appendectomy, frequent UTI's, Hypothyroidism, Hx of DVT many years ago, chronic AC PSHx: c7 corpectomy, c6-t1 fusion, hysterectomy, left hip replacement soc hx: no tobacco, social etoh, fmhx: nc ROS 14PT ROS performed, as stated in HPI, otherwise negative PE AFVSS Gen NAD A&O Neck in C collar from recent fusion. Healing neck scar. CV regular Lungs Normal effort Abd soft Ext warm CVA tenderness - Yes left side Labs Cr. 0.7 WBC 8.74 UCx pending, but UA w WBC 50-182 RBC 50-182, Bacteria 4+ A/P Left sided obstructive nephropathy with UTI Needs stent today to decompress system. Will hold off on any ureteroscopy for purpose of investigating the obstruction today given UTI and risk of causing systemic infection with high pressure fluids needed for ureteroscopy. 1g Rocephin re dose in the OR for procedure. Discussed the above rationale for stent, discussed risks of injury to ureter, bladder, urethra, but those risks are VERY low. Benefits of relief of obs outweigh any risks. Discussed stent can be irritating. Also discussed option of perc neph, but I feel perc neph is too morbid for this lady and recommended against it. Only perc neph if I can't place the stent. Discussed that we can investigate the obstruction better with possible CT urogram and/or diagnostic ureteroscopy once the infection resolves. She understands and agrees to proceed today.
[2017-02-11] MEDS ORDERED: IOPAMIDOL (ISOVUE-M 300) 15 ML VIAL ONE (16:59)
[2017-02-11] MEDS ORDERED: MIDAZOLAM 2 MG/2 ML VIAL ONE (17:14)
[2017-02-11] MEDS ORDERED: MIDAZOLAM 2 MG/2 ML VIAL IVP ONE (17:15)
--- NOTE | 2017-02-11 17:18 | PDANEPAE ---
ANE History of Present Illness ureteral stent placement ANE Past Medical History - Cardiovascular History Hx Hypertension: No Hx Arrhythmias: No Hx Chest Pain: No Hx Coronary Artery / Peripheral Vascular Disease: No Hx CHF / Valvular Disease: No Hx Palpitations: No - Pulmonary History Hx COPD: No Hx Asthma/Reactive Airway Disease: No Hx Recent Upper Respiratory Infection: No Hx Oxygen in Use at Home: No Hx Sleep Apnea: No Sleep Apnea Screening Result - Last Documented: Positive Pulmonary History Comment: SOB W/EXERTION - Neurologic History Hx Cerebrovascular Accident: No Hx Seizures: No Hx Dementia: No Neurologic History Comment: Peripheral neuropathy secondary to chemotherapy - Endocrine History Hx Diabetes: No Hypothyroid: No Hyperthyroid: No Endocrine History Comment: Hypothyroid - Renal History Hx Renal Disorders: Yes Renal History Comment: ureteral compression - Liver History Hx Hepatic Disorders: Yes Hepatic History Comment: ESOPHAGEAL. Liver metastases. 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 last chemo 01-06-17 - Congenital Disorder History Hx Congenital Disorders: No - GI History Hx Gastrointestinal Disorders: Yes Gastrointestinal History Comment: Esophageal cancer - Other Health History Other Health History: Hx of DVT 03/2014 l leg, on xarelto - Chronic Pain History Chronic Pain: Yes (stomach, lower back, l hip) - Surgical History Prior Surgeries: I & D HIP W/WOUND VAC. Liver biopsy, colonoscopy. partial hip replacment L september 2015, hysterectomy 10/22 ANE Review of Systems Review of Systems: - Exercise capacity METS (RN): 3 METS ANE Patient History - Allergies Allergies/Adverse Reactions: naproxen Allergy (Severe, Verified 02/11/17 11:19) Hives, TROUBLE BREATHING adhesive tape Allergy (Intermediate, Verified 02/11/17 11:19) Rash NSAIDS (Non-Steroidal Anti-Inflamma Allergy (Intermediate, Verified 02/11/17 11: 19) Hives Penicillins Allergy (Intermediate, Verified 02/11/17 11:19) Hives Sulfa (Sulfonamide Antibiotics) Allergy (Intermediate, Verified 02/11/17 11:19) Hives - Home Medications Home Medications: Levothyroxine [Synthroid 112 mcg (*)] 112 mcg PO DAILY06 11/27/15 [Last Taken 04:00] Famotidine [Pepcid 20 MG (*)] 20 mg PO DAILY 01/31/17 [Last Taken 02/03/17 04:00 ] Herbals/Supplements -Info Only 1 ea PO DAILY 01/31/17 [Last Taken 1 Week Ago ~] Hyoscyamine Sulfate [Levsin, Hyomax-Sl 0.125 mg (*)] 0.125 mg PO DAILY PRN 01/31 [Last Taken Unknown] Rivaroxaban [Xarelto] 20 mg PO HS 02/11/17 [Last Taken 02/10/17] Sennosides/Docusate Sodium [Senokot-S] 1 - 2 tab PO BID PRN 02/11/17 [Last Taken Unknown] traZODone [traZODONE 50MG (*)] 50 mg PO HS PRN 02/11/17 [Last Taken Unknown] - NPO status NPO Since - Liquids (Date): 02/11/17 NPO Since - Liquids (Time): 14:00 NPO Since - Solids (Date): 02/11/17 NPO Since - Solids (Time): 08:00 - Anes Hx Anes Hx: no prior problems - Smoking Hx Smoking Status: Never smoked - Family Anes Hx Family Hx Anesthesia Complications: None ANE Labs/Vital Signs - Labs Result Diagrams: 02/11/17 12:30 02/11/17 12:30 - Vital Signs Blood Pressure: 151/97 Heart Rate: 81 Respiratory Rate: 16 O2 Sat (%): 99 Height: 165.1 cm Weight: 74.843 kg ANE Physical Exam - Airway Neck exam: C-collar in place Mallampati Score: Class 2 - Pulmonary Pulmonary: no respiratory distress - Cardiovascular Cardiovascular: regular rate and rhythym - ASA Status ASA Status: III ANE Anesthesia Plan Anesthesia Plan: GA w LMA
[2017-02-11] MEDS ORDERED: fentaNYL 100 MCG/2 ML INJ ONE (17:24)
[2017-02-11] MEDS ORDERED: PROPOFOL 200 MG/20 ML VIAL ONE (17:24)
[2017-02-11] MEDS ORDERED: LIDOCAINE 2% 5 ML SDV ONE (17:25)
[2017-02-11] MEDS ORDERED: DEXAMETHASONE 4 MG/ML VIAL ONE (17:25)
[2017-02-11] MEDS ORDERED: ONDANSETRON 4 MG/2 ML VIAL ONE (17:25)
[2017-02-11] MEDS ORDERED: METOPROLOL TARTRATE 5 MG/5 ML INJ ONE (17:48)
[2017-02-11] MEDS ORDERED: OPIUM/BELLADONNA ALKALO SUPP PR ONE (17:50)
--- NOTE | 2017-02-11 18:00 | POSTOPPROG ---
Post Op Note Date of Operation: 02/11/17 Surgeon: Madhuri Ontiveros Pre-op Diagnosis: left obstructive nephropathy, UTi Post-op Diagnosis: left obstructive nephropathy, cystitis, UTi Indication: left obstructive nephrpathy, UTI Procedure: cystoscopy, left ureteral stent placement, intraoperative fluoroscopy Findings: cystitis Inf/Abcess present in the surg proc area at time of surgery?: Yes Depth: Organ Space (bladder) EBL: Minimal Complications: none patient tolerated procedure well Drains: Other (dalal catheter) Specimen(s): urine for culture
[2017-02-11] MEDS ORDERED: HYDROmorphONE/DILAUDID 1 MG/ML INJ IVP PRN (18:07)
[2017-02-11] MEDS ORDERED: NALOXONE HCL 0.4 MG/ML INJ IVP PRN (18:07)
[2017-02-11] MEDS ORDERED: ONDANSETRON 4 MG/2 ML VIAL IVP PRN (18:07)
[2017-02-11] MEDS ORDERED: fentaNYL 100 MCG/2 ML INJ IVP PRN (18:07)
[2017-02-11] MEDS ORDERED: LR 500 ML IV PRN (18:07)
[2017-02-11] MEDS ORDERED: ALBUTEROL 3 ML DEYVIAL IH PRN (18:07)
--- NOTE | 2017-02-11 18:07 | POSTANESTH ---
Post Anesthetic Evaluation Cardiovascular Status: Normal, Stable Respiratory Status: Normal, Stable Level of Consciousness/Mental Status: Can Participate in Eval Pain Control: Adequate, Prn Tx Ordered Nausea/Vomiting Control: Adequate, Prn Tx Ordered Complications Possibly Related to Anesthesia: None Noted
[2017-02-11] MEDS: PHENAZOPYRIDINE HCL 200 MG TAB PO PRN (18:42)
[2017-02-11] MEDS: HYDROCODONE/APAP 5/325 TAB PO PRN (20:23)
--- NOTE | 2017-02-12 00:58 | GCON ---
[f rep st] CONSULTATION INITIAL ONCOLOGY VISIT REASON FOR VISIT: Evaluation and management for esophageal cancer. PRIMARY ONCOLOGIST: Dr. Valentina Chen. HISTORY OF PRESENT ILLNESS: The patient is a 61-year-old woman who was initially diagnosed with metastatic esophageal cancer in February 2014. It was a lower esophageal primary and she had associated liver metastasis. She was initially treated with FOLFOX with a good response, but developed peripheral neuropathy. She was maintained on 5-FU plus leucovorin, but eventually progressed. She was changed to Abraxane plus ramucirumab, and she was on this starting in June 2015 through about August 2015. She had to have Abraxane dropped due to neuropathy, but was able to switch to single agent ramucirumab. But then while vacationing in [place] she fell and fractured her hip. She then started on 5-FU, cisplatin and Irinotecan in June of 2016 and has been on that with a good result. She had been doing well and the last chemotherapy was on January 06, 2017. She was having some trouble with left hydroureteronephrosis and then was having some painless hematuria. She was treated with ciprofloxacin which seemed to clear her symptoms and then it recurred. She was restarted on the ciprofloxacin, I believe, around February 01. Because of the left hydronephrosis, she was recommended to see Urology, but had not been able to get in to see them. In the interim, she had a C6-T1 fusion due to a pathological C7 fracture by Dr. Sanchez. She finished her antibiotics a couple of days ago, but has started having hematuria again. She was also having back pain. She called me earlier today with these symptoms, and because of the recent surgery, cancer, and problems with infections, I referred her to the ER. At that time, I was unaware about the hydronephrosis. She was evaluated in the ER and her urine is abnormal again. But while here, she was evaluated by Urology and is being taken for stent placement. The patient is currently in the OR, so she was unavailable for questioning and information is obtained from the chart. Her is in the room. She was also started on Rocephin and had been complaining of left flank pain but no fever. ALLERGIES: She is allergic to Naprosyn, NSAIDs, penicillins, and sulfa. MEDICATION: Home medications include Xarelto, trazodone, oxycodone, senna, MiraLAX, levothyroxine, Levsin, famotidine, Flexeril, and Tylenol. PAST MEDICAL HISTORY: Chronic illnesses include: 1. Esophageal cancer as per History of Present Illness. 2. History of DVT. 3. B12 deficiency. 4. Drug induced peripheral neuropathy. 5. Hypothyroidism. 6. Hypertension. 7. MRSA left hip early 2016 PAST SURGICAL HISTORY: Includes a C7 corpectomy and C6-T1 fusion, hysterectomy , and left hip replacement. She has had knee surgery and tonsillectomy as well. SOCIAL HISTORY: She denies tobacco and only drinks alcohol occasionally. She is . 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 She has 2 children. PHYSICAL EXAM: VITALS SIGN: Temperature is 37.1, pulse 81, blood pressure 151/ 97. The rest of the physical exam unable to perform at this time. LAB DATA: CBC: White count is 8700, hemoglobin 11.8, platelet count 396,000. Chemistry panel is unremarkable. UA is abnormal, 3+ blood, 2+ protein, some white cells, and 4+ bacteria. Micro is pending. She had a PET-CT scan on January 31 that shows that she may have a T3 metastasis that is slightly increased in size. C7 lesion was stable, and she has a large hypermetabolic left adrenal gland consistent with metastases. Liver METS are about the same. Peritoneal carcinomatosis is also about the same IMPRESSION: 1. Left hydroureteronephrosis with blood and recurrent infections. 2. Metastatic esophageal cancer. Currently disease seems to be under decent control with 5-FU, cisplatin. Irinotecan has been on hold lately. PLAN: I agree with urology evaluation. It sounds like they are going to place a stent tonight. She also will continue antibiotics and cultures are pending. Hopefully, if she is draining well and feeling better, she might be able to go home in the next day or 2. She was actually due for chemotherapy on the , but did not receive it. But once she recovers, then she can return back to the office to restart chemotherapy and meet with Dr. Chen. Will follow along with you in the hospital. /[id number]/MODL MTDD
[2017-02-12] MEDS: HYDROCODONE/APAP 5/325 TAB PO PRN ×3 (01:07→12:36)
[2017-02-12 05:03] LABS: PLATELET COUNT 370 10^3/uL (150-400)
--- NOTE | 2017-02-12 05:06 | GOP ---
[f rep st] OPERATIVE REPORT DATE OF OPERATION: 02/11/2017 SURGEON: Madhuri Ontiveros MD PREOPERATIVE DIAGNOSIS: Left obstructive uropathy and urinary tract infection. POSTOPERATIVE DIAGNOSIS: Left obstructive uropathy, cystitis, and urinary tract infection. PROCEDURE PERFORMED: Cystoscopy, left ureteral stent placement. FINDINGS: Intraoperative fluoroscopy finding was cystitis. SPECIMENS: Urine for culture. ESTIMATED BLOOD LOSS: None. DESCRIPTION OF PROCEDURE: The patient was taken back to the cystoscopy suite, placed on the cystoscopy table in the supine position. General anesthesia induced without complication. A timeout performed and core measures satisfied including placement of a Nanci Hugger, SCDs, and administration of 1 g of Rocephin. Of note, she had received Rocephin already in the ER 4 hours prior. She was brought to the end of the table, placed in a dorsal lithotomy position. All pressure points padded. Genitalia draped and prepped in a standard surgical fashion with Betadine. A rigid cystoscope easily cannulated her urethral meatus, was advanced atraumatically into the bladder. Do cystoscopy performed and there was severe cystitis with debris in the bladder. The left ureteral orifice was identified, easily cannulated with a Glidewire, and then Glidewire with fluoroscopic guidance was advanced into the left collecting system. Then, a 6-[place] 26 cm double-J stent was advanced over the wire with fluoroscopic and videoscopic guidance. There was a nice curl in the renal pelvis, a nice curl in the bladder, and at this point, the scope was removed. A 16-[place] Citizen Banegas catheter was placed with lidocaine Uro-jet given prior, and then a belladonna opium suppository placed for comfort. She was woken from anesthesia and transferred to PACU in good condition. She will keep the Banegas in for overnight and we will watch and see how she does. If she continues to do well, we will discharge her tomorrow. COMPLICATIONS: None. The patient tolerated the procedure well. DRAINS: A Banegas catheter. INDICATIONS FOR PROCEDURE: The patient is a very pleasant 61-year-old female with a history of metastatic esophageal cancer and she has had recurrent urinary tract infections over the past few months. She presented to the ER today with signs of UTI and she had had a PET scan at the [facility] in January 2017 showing left hydronephrosis and hydroureter. The ER doctor called the urologist director radiation oncology, which was me, and I came to see her and she had symptoms of very bothersome left flank pain. Given her urinary tract infection, obstruction, I felt it was necessary to place a stent today to relieve that obstruction. The rationale, risks, and benefits were discussed including that the left pain that she feels may not be relieved with the stent and she understood this. She signed the consent and agreed to proceed. /[id number]/MODL MTDD
[2017-02-12] MEDS: LEVOTHYROXINE 112 MCG TAB PO SCH (05:32)
[2017-02-12] MEDS: FAMOTIDINE 20 MG TAB PO SCH (08:22)
--- NOTE | 2017-02-12 10:47 | PDDCSUM ---
Discharge Summary Discharge Summary: 61 yo female with esophogeal cancer and recently diagnosed obstructive uropathy admitted for obstructive uropathy mgmt and acute cystitis today i offered inpatient until urine cultures have returned, but she is requesting discharge She had left ureteral stent placed on the day of admission Rocephin was started she feels better, Left flank pain is much improved Had dalal catheter placed by urology, draining well, some hematuria but also on Pyridium ucx NGTF, but she will f/u with Urology on Monday where they can be followed will d/c on Omnicef BID until results of cultures are available. Hold Xarelto until hematuria resolves. Can be discussed on f/u cleared for d/c by Urology D/W Weston #Obstructive uropathy #Urinary tract infection #chronic AC due to hx of DVT #Esophageal cancer #Left flank pain #Hematuria Exam: VSS NAD AAOX3 RRR CTA B S/NT/ND MILD LEFT CVA TENDERNESS (IMPROVED) no le edema Meds: see med rec F/U: per above. Will also f/u with Onc next week total time spent on d/c is 35 mins
[2017-02-12] MEDS: OPIUM/BELLADONNA ALKALO SUPP PR PRN (11:03)
[2017-02-12] MEDS: PHENAZOPYRIDINE HCL 200 MG TAB PO PRN (11:27)
[2017-02-12] MEDS: OXYBUTYNIN 5 MG EXT REL TAB PO SCH (11:51)
[2017-02-12] MEDS: HYOSCYAMINE SULFATE 0.125 MG TAB PO PRN (13:22)
--- NOTE | 2017-02-12 13:27 | PDMN ---
Medical Necessity Medical necessity: C/M review: Patient meets INPT criteria under [facility] Urologic disease GRG: Acute and persistent severe bladder spasms, urinary tract infection, cystitis, S/P 02/11/2017 surgery - cystoscopy, left ureteral stent placement for left obstructive uropathy, hematuria, hydronephrosis requiring 02/12 discharge cancellation due to severity of bladder spasms, and ongoing UTI , cystitis, ongoing IV Ceftriaxone QD, IV fluids, IV Morphine, comorbid UTI x 30 days treated with 3 courses of oral Cipro (first course 7 days, second course 10 days, third course completed just prior this admission, failed outpt therapy, metastatic esophageal cancer with metastasis to liver and thoracic spine treated with chemotherapy, last chemo treatment 01/06/2017, 02/03/2017 surgery C7 corpectomy and C6-T1 fusion for pathologic C7 fracture, History of DVTs on chronic anticoagulation. MD anticipates > 2 MN LOS for ongoing med nec for eval and TX of above.
--- NOTE | 2017-02-12 13:39 | SOAPPROG ---
SOAP Progress Note Assessment/Plan: E&M esophageal cancer * Met Esophageal cancer: last chemo was 5FU + cis 01/06. Has been under good control. Labs ok today. * Left hydroureternephrosis: s/p left stent 02/11 * Recurrent UTI: hopefully stenting and rocephin will allow it to clear * Pain control: will get her on her home regimen Subjective: Was feeling better and hoping to go home this morning but started having low back and pelvis pain. doing a little better now. Objective: Vital Signs Temp Pulse Resp BP Pulse Ox 36.9 C 89 16 121/76 H 93 02/12/17 07:58 02/12/17 07:58 02/12/17 07:58 02/12/17 07:58 02/12/17 07:58 Physical Exam - Physical Exam General Appearance: no apparent distress Respiratory: lungs clear Cardiac/Chest: regular rate, rhythm Abdomen: non-tender, soft, No hepatomegaly ICD10 Worksheet Patient Problems: Problems Problem Status Onset Obstructive uropathy Acute Urinary tract infection Acute Prosthetic hip infection Acute
--- NOTE | 2017-02-12 13:43 | ASMTCMCOM ---
CM Note CM Note Notes: Pt admitted w/UTI, obstructive uropathy management; she has esophageal Ca and is pt at [facility]. Pt lives at home w/supportive . Discussed w/RN, no dc needs anticipated but CM will follow. Date Signed: 02/12/2017 01:43 PM Electronically Signed By:Maribeth Turner RN
--- NOTE | 2017-02-12 13:47 | ASMTCMCOM ---
CM Note CM Note Notes: PT recommendation pending. Cleared by OT. Anticipate pt will likely need C RN and PT, left voicemail for [facility] notifying them of pt's admission. Pt is on dialysis and will be dialyzed here tomorrow. CM will follow. Date Signed: 02/12/2017 01:47 PM Electronically Signed By:Maribeth Turner RN
[2017-02-12] MEDS: CYCLOBENZAPRINE 10 MG TAB PO PRN (13:53)
--- NOTE | 2017-02-12 13:54 | ASMTCMCOM ---
CM Note CM Note Notes: Please disregard last case management note which was entered at 13:47 on 02/12/17; this note was intended for different patient. Date Signed: 02/12/2017 01:54 PM Electronically Signed By:Maribeth Turner RN
[2017-02-12] MEDS: ACETAMINOPHEN 500 MG TAB PO PRN (18:03)
[2017-02-13] MEDS: ACETAMINOPHEN 500 MG TAB PO PRN ×4 (01:27→23:54)
[2017-02-13] MEDS: LEVOTHYROXINE 112 MCG TAB PO SCH (05:16)
[2017-02-13] MEDS: OXYBUTYNIN 5 MG EXT REL TAB PO SCH (08:48)
[2017-02-13] MEDS: CYCLOBENZAPRINE 10 MG TAB PO PRN ×2 (08:49→20:55)
[2017-02-13] MEDS: FAMOTIDINE 20 MG TAB PO SCH (08:49)
[2017-02-13] MEDS: OPIUM/BELLADONNA ALKALO SUPP PR PRN (12:53)
[2017-02-13] MEDS: oxyCODONE IR 5 MG TAB PO PRN (13:05)
[2017-02-13] MEDS: PHENAZOPYRIDINE HCL 200 MG TAB PO PRN (13:06)
[2017-02-13] MEDS: HYOSCYAMINE SULFATE 0.125 MG TAB PO PRN (13:23)
[2017-02-13] MEDS ORDERED: SIMETHICONE 80 MG TAB CHEW PO PRN (13:32)
--- NOTE | 2017-02-13 13:34 | HOSPPROG ---
Hospitalist Progress Note Assessment/Plan: 61 yo female with metastatic esophogeal cancer and recently diagnosed obstructive uropathy 1. obstructive uropathy -s/p L stent, discussed care with Dr Hernandez, she will come in to re-eval as now with L sided pain -CT stat ordered (concerning for stent issue vs obstruction) -IV dilaudid helped -urine cultures neg, stopped rocephin -Banegas removed earlier, still with some spasms #chronic AC due to hx of DVT -usually on xarelto, held bc of procedure/hematuria -restart tomorrow #metastatic Esophageal cancer -appreciate oncology consult #recent C6-T1 fusion due to pathological C7 fracture -in collar DISPO- > 2 mdnts likely due to worsening pain, need to eval/IV pain meds PCP FULL CODE DVT prophy- xarelto chronically Subjective: Per nursing, was feeling well in AM and eager to go home but by early PM was having significant L flank/LQ spasms. Says 'same as yesterday', but was not responding to meds like yesterday. Throughout PM became more painful and not responding to IV morhine or valium. Discussed with Dr Hernandez, stat CT ordered, dilaudid given- helped. Objective: Vital Signs Temp Pulse Resp BP Pulse Ox 97.9 F 85 12 111/76 96 02/13/17 07:38 02/13/17 07:38 02/13/17 07:38 02/13/17 07:38 02/13/17 07:38 02/12/17 02/13/17 02/14/17 11:59 11:59 11:59 Intake Total 950 Output Total 650 Balance 300 - Time Spent With Patient Time Spent with Patient: greater than 35 minutes Time Spent with Patient: Greater than 35 minutes spent on this patients care, greater than 50% of time spent counseling, educating, and coordinating care regarding the above mentioned plan. - Physical Exam Constitutional: chronically ill appearing, other (significant distress/pain, panting/verge of tears) Ears, Nose, Mouth, Throat: moist mucous membranes Cardiovascular: tachycardia, No edema Respiratory: clear to auscultation, other (hyperventilating bc of pain) Gastrointestinal: tenderness (L flank/pelvis/LLQ), No guarding, No rebound Skin: warm Psychiatric: interacting appropriately ICD10 Worksheet Patient Problems: Problems Problem Status Onset Obstructive uropathy Acute Urinary tract infection Acute Prosthetic hip infection Acute
[2017-02-13] MEDS: DIAZEPAM 10 MG/2 ML SYR IVP PRN ×2 (14:30→14:53)
[2017-02-13] MEDS: HYDROmorphONE/DILAUDID 1 MG/ML INJ IVP PRN (15:29)
[2017-02-13] MEDS ORDERED: IOPAMIDOL (ISOVUE-300) 100 ML BTL ONE (17:29)
[2017-02-13] MEDS: TAMSULOSIN HCL 0.4 MG CAP PO SCH (18:41)
[2017-02-13] MEDS ORDERED: BISACODYL 10 MG SUPP PR PRN (20:42)
[2017-02-13] MEDS ORDERED: LACTULOSE 20 GM/30 ML UDCUP PO PRN (20:42)
[2017-02-13] MEDS: SENNOSIDES/DOCUSATE SODIUM TAB PO SCH (20:56)
[2017-02-13] MEDS: MAGNESIUM HYDROXIDE 30 ML UDCUP PO SCH (23:47)
[2017-02-14] MEDS: LEVOTHYROXINE 112 MCG TAB PO SCH (04:29)
[2017-02-14] MEDS: ACETAMINOPHEN 500 MG TAB PO PRN ×2 (06:26→16:35)
[2017-02-14] MEDS: HYDROmorphONE/DILAUDID 1 MG/ML INJ IVP PRN (06:47)
--- NOTE | 2017-02-14 07:41 | SOAPPROG ---
SOAP Progress Note Assessment/Plan: Assessment: s/p Left ureteral stone for left hydro. Met esophageal cancer, carcinomatosis. Having bouts of severe left flank and abdominal pain. However, pain not clearly stent related. She had episodes like this prior to her stent. I personally reviewed her CT images today. CT shows resolution of hydro. Also urologic findings on CT shows R 4cm angiomyolipoma, known finding. Her urine culture has reported to be negative. However, I visually saw severe cystitis on her cysto with I placed the stent. Plan: Recommend continue stent for now. Consider IR angioablation of the right AML due to risk of spontaneous hemorrhage. Follow up in my office in 1 week for re-evaluation. Subjective: Having bouts of severe pain in her abdomen and left flank. She had her comment that exact same pain episodes happened 2 x before hospitalization and before stent was placed. She doesn't think the pain episodes in the hospital are stent related. Objective: Vital Signs Temp Pulse Resp BP Pulse Ox 36.9 C 87 14 101/68 92 02/13/17 22:14 02/13/17 22:14 02/13/17 22:14 02/13/17 22:14 02/13/17 22:14 02/13/17 02/14/17 02/15/17 05:59 05:59 05:59 Intake Total 950 550 Output Total 650 800 Balance 300 -250 Gen NAD A&O very comfortable CV regular Lungs normal effort Abd mild tenderness to palpation across entire lower abdomen. +CVA tenderness and tenderness lower flank - Time Spent With Patient Time Spent With Patient: 30 min ICD10 Worksheet Patient Problems: Problems Problem Status Onset Obstructive uropathy Acute Urinary tract infection Acute Prosthetic hip infection Acute
[2017-02-14] MEDS: FAMOTIDINE 20 MG TAB PO SCH (08:25)
[2017-02-14] MEDS: SENNOSIDES/DOCUSATE SODIUM TAB PO SCH ×2 (08:25→21:08)
[2017-02-14] MEDS: OXYBUTYNIN 5 MG EXT REL TAB PO SCH (08:25)
[2017-02-14] MEDS: TAMSULOSIN HCL 0.4 MG CAP PO SCH (08:25)
[2017-02-14] MEDS: MAGNESIUM HYDROXIDE 30 ML UDCUP PO SCH ×2 (08:32→19:21)
[2017-02-14] MEDS: CYCLOBENZAPRINE 10 MG TAB PO PRN ×2 (08:33→21:31)
[2017-02-14] MEDS ORDERED: HYDROmorphONE/DILAUDID 2 MG TAB PO PRN ×2 (09:08→20:58)
[2017-02-14] MEDS ORDERED: DIAZEPAM 2 MG TAB PO PRN (09:08)
--- NOTE | 2017-02-14 09:08 | HOSPPROG ---
Hospitalist Progress Note Assessment/Plan: 61 yo female with metastatic esophageal cancer and recently diagnosed obstructive uropathy 1. obstructive uropathy -s/p L stent, care per Dr Hernandez -CT stat revwd with her, asked radiology to compare to a prev done at [facility] to see if increased bulky mets in peritoneum -try to establish PO pain/nausea regimen -urine cultures neg, stopped rocephin yesterday -Banegas removed yest -repeat UA and cx sent #chronic AC due to hx of DVT -usually on xarelto, held bc of procedure/hematuria -restart today #metastatic Esophageal cancer -discussed care plan with Dr Chen and Dr Valladares -really appreciate their assistance #recent C6-T1 fusion due to pathological C7 fracture -in collar #constipation -aggressive bowel regimen DISPO- possible dc tomorrow PCP FULL CODE DVT prophy- xarelto chronically Subjective: [place] well in AM, really wanted to go home. However, in PM started to have severe abd pain/cramping again (but shorter episode and less severe than yesterday's episode). + n/v with pain. Objective: Vital Signs Temp Pulse Resp BP Pulse Ox 96.6 F L 87 18 120/85 H 91 L 02/14/17 08:00 02/14/17 08:00 02/14/17 08:00 02/14/17 08:00 02/14/17 08:00 02/12/17 02/13/17 02/14/17 11:59 11:59 11:59 Intake Total 950 550 Output Total 650 800 Balance 300 -250 - Time Spent With Patient Time Spent with Patient: greater than 35 minutes Time Spent with Patient: Greater than 35 minutes spent on this patients care, greater than 50% of time spent counseling, educating, and coordinating care regarding the above mentioned plan. - Pending Discharge Pending Discharge Within 48 Hours: Yes Pending Discharge Date: 02/16/17 Pending Discharge Time: 11:00 - Physical Exam Constitutional: chronically ill appearing, uncomfortable Ears, Nose, Mouth, Throat: moist mucous membranes Cardiovascular: regular rate and rhythym Respiratory: no rales or rhonchi, clear to auscultation Gastrointestinal: tenderness, No guarding, No rebound, No distension Skin: warm Psychiatric: interacting appropriately, not anxious, not encephalopathic, thought process linear ICD10 Worksheet Patient Problems: Problems Problem Status Onset Obstructive uropathy Acute Urinary tract infection Acute Prosthetic hip infection Acute
[2017-02-14] MEDS ORDERED: HYDROmorphone HCL/NS/PF 0.4 MG/2 ML SYR IVP PRN (09:24)
[2017-02-14] MEDS: ONDANSETRON 4 MG/2 ML VIAL IVP PRN ×3 (14:31→21:34)
[2017-02-14] MEDS: HYDROmorphone HCL/NS/PF 0.4 MG/2 ML SYR IVP PRN ×2 (14:34→22:07)
[2017-02-14] MEDS: HYOSCYAMINE SULFATE 0.125 MG TAB PO PRN (15:19)
--- NOTE | 2017-02-14 15:27 | SOAPPROG ---
SOAP Progress Note Assessment/Plan: Assessment: 1.) Esophageal Carcinoma with metastatic disease to C7, S/P C6-T1 fusion. Has been on systemic Tx with Cisplatin/5 FU infusional therapy. Suspected intra- abdominal disease progression. D/W patient at the bedside and patient has follow up with Dr. Valentina Chen later this week in the office. 2.) Constipation- D/W patient and balance staff inspector. Continue mult-agent approach. Likely to have some relief w/ repeat enema and bulk agent, stimulants 3.) Left hydroneproureteral obstruction, S/P Ureteral stent decompression. 4.) UTI 5.) Hx. of DVT- has been on Xarelto 6.) Discharge planning: likely discharge once severe constipation relieved. Plan: See above comments. our service will follow as inpatient/outpatient. Discharge when stable. 02/14/17 15:22 Subjective: Spasming GI pain associated with her constipation. She is uncomfortable from her constipation pain and having nausea. Objective: [place]ber[place], VSS as noted here HEENT- anicteric, no oral thrush Neck in hard collar Chest- clear CVS- RSR, no S3, S4 ABD- active BS, tender throughout EXT- minimal edema Vital Signs Temp Pulse Resp BP Pulse Ox 35.9 C L 87 18 120/85 H 91 L 02/14/17 08:00 02/14/17 08:00 02/14/17 08:00 02/14/17 08:00 02/14/17 08:00 02/13/17 02/14/17 02/15/17 05:59 05:59 05:59 Intake Total 950 550 Output Total 650 800 Balance 300 -250 ICD10 Worksheet Patient Problems: Problems Problem Status Onset Obstructive uropathy Acute Urinary tract infection Acute Prosthetic hip infection Acute
[2017-02-14] MEDS: RIVAROXABAN 20 MG TAB PO SCH (18:40)
[2017-02-14] MEDS ORDERED: HYOSCYAMINE SULFATE 0.125 MG TAB PO PRN (20:58)
[2017-02-14] MEDS: POLYETHYLENE GLYCOL 3350 17 GM PKT PO SCH (21:09)
[2017-02-14] MEDS: DIAZEPAM 10 MG/2 ML SYR IVP PRN (22:16)
[2017-02-14] MEDS: oxyCODONE IR 5 MG TAB PO PRN (22:16)
[2017-02-15] MEDS: LEVOTHYROXINE 112 MCG TAB PO SCH (05:03)
[2017-02-15 07:46] VITALS: O2SAT 94
[2017-02-15] MEDS: ONDANSETRON 4 MG/2 ML VIAL IVP PRN (08:06)
[2017-02-15] MEDS: ACETAMINOPHEN 500 MG TAB PO PRN ×3 (08:07→17:45)
[2017-02-15] MEDS: SENNOSIDES/DOCUSATE SODIUM TAB PO SCH (08:07)
[2017-02-15] MEDS: OXYBUTYNIN 5 MG EXT REL TAB PO SCH (08:08)
[2017-02-15] MEDS: FAMOTIDINE 20 MG TAB PO SCH (08:08)
[2017-02-15] MEDS: TAMSULOSIN HCL 0.4 MG CAP PO SCH (08:09)
[2017-02-15] MEDS: POLYETHYLENE GLYCOL 3350 17 GM PKT PO SCH (08:25)
[2017-02-15 15:16] VITALS: BP 111/86; PULSE 95; RESP 16; TEMP 98.6
[2017-02-15] MEDS: MAGNESIUM HYDROXIDE 30 ML UDCUP PO SCH (15:24)
[2017-02-15] MEDS ORDERED: MAGNESIUM CITRATE 300 ML BOTTLE PO ONE (15:45)
--- NOTE | 2017-02-15 16:01 | ASMTCMCOM ---
CM Note CM Note Notes: Plan remains the same, pt will dc home w/support of when medically stable. CM available for any changes. DC Plan: Home Date Signed: 02/15/2017 04:00 PM Electronically Signed By:Stella Peralta RN
[2017-02-15] MEDS: RIVAROXABAN 20 MG TAB PO SCH (17:45)
--- NOTE | 2017-02-16 10:08 | GDS ---
[f rep st] DISCHARGE SUMMARY SERVICE: [facility] hospitalist. CONSULTATIONS: Hematology/Oncology and Urology. PROCEDURES: Left ureteral stent placement by Dr. Ontiveros, two abdominal x- rays showing no indication of small-bowel obstruction, and abdomen CT showing peritoneal carcinomatosis, stable, small volume free fluid, liver and pelvis, slightly increased resolution of left hydro with left double-J ureteral stent, focal biliary ductal dilatation, stable esophageal wall thickening, stable. INITIAL H AND P: Please see previously dictated note by Dr. Pineda. ADMISSION DIAGNOSES: Left obstructive uropathy, possible urinary tract infection, chronic anticoagulation secondary to deep vein thrombosis, metastatic esophageal cancer. DISCHARGE DIAGNOSES: Left obstructive uropathy, possible urinary tract infection, chronic anticoagulation secondary to deep vein thrombosis, metastatic esophageal cancer, significant constipation. HOSPITAL COURSE: The patient was admitted for definitive treatment of left obstructive uropathy. Dr. Ontiveros was consulted, took her to the surgical suite and placed a left ureteral stent. She was initially started on Rocephin IV because of concern for a urinary tract infection. However, urine culture final showed no colony-forming units, and antibiotics were discontinued. A repeat urinalysis showed ongoing hematuria and pyuria, so another culture was sent and was pending at time of discharge. Patient's chronic anticoagulation had been held prior to the surgery and was restarted on the day prior to discharge because of her very high risk of recurrent thromboembolic event, with known metastatic esophageal cancer. She was initially going to be discharged the day following her procedure, but developed fairly significant left-sided abdominal pain and cramping, so her discharge was held. She developed the same similar pain the following day, it was quite severe and slow to respond to IV pain medications or benzodiazepines. Abdominal x-ray showed stent in good placement, with no indication of small-bowel obstruction. She had ongoing pain , so a stat CT was done, with results as above. A fairly aggressive bowel protocol was started, and the next day, she had a similar episode, but not quite as severe, and it was responsive to medications. On the day of discharge , she had no significant pain, and she was very eager to go home. Oral pain medication, nausea medication, and benzodiazepine/muscle relaxants were given. Hematology saw her during her stay, and arrangements have been made for her to follow up this week with her primary critical power install technician, Dr. Chen. On the day of discharge, she was tolerating a diet, ambulating, urinating, and had some small bowel movements. DISCHARGE INSTRUCTIONS: Bowel regimen will be continued. If at any time she has return of debilitating pain, she should return to the emergency department for evaluation. She has a followup appointment scheduled with Dr. Ontiveros next week. Urine culture is pending at time of discharge and will need to be followed up. She also has ongoing anemia, and this can be revisited with Hematology/Oncology as needed. DISCHARGE MEDICATIONS: Pyridium 200 mg as needed for bladder pain, Tylenol as needed for mild pain, Flexeril 10 mg as needed for spasms related to her neck injury (she has followup with Dr. Sanchez in a few days), Valium 2 mg to take as needed for abdominal spasm, Dilaudid 2 mg to take as needed for abdominal pain, Zofran to take as needed for nausea, Ditropan 10 mg daily, oxycodone to take as needed for pain, Xarelto daily, Flomax daily, and she should continue with thyroid medication, Levsin, and bowel medications. /[id number]/MODL MTDD
--- NOTE | 2017-02-16 13:56 | ASDISCHSUM ---
Discharge Information Plan Status:Home with No Needs Medically Cleared to Leave: Discharge Date:02/15/2017 07:01 PM CM D/C Disposition:Home, Routine, Self-Care ADT D/C Disposition:Home, Routine, Self-Care Projected Discharge Date:02/15/2017 07:01 PM Transportation at D/C: Discharge Delay Reason: Follow-Up Date:02/15/2017 07:01 PM Discharge Slot: Final Diagnosis: Placement Information Patient Contact Information Contact Name:OUMOU Relationship: Address:[address] [place] Alternate Phone: [facility]/Zip Code:[place] [address] Email: Financial Information Financial Class:[employer] Primary Plan Desc:[facility] Primary Plan Number:[id number] Secondary Plan Desc: Secondary Plan Number: Assessment Information [facility] CM Progress Note CM Note CM Note Notes: Pt admitted w/UTI, obstructive uropathy management; she has esophageal Ca and is pt at [facility]. Pt lives at home w/supportive . Discussed w/RN, no dc needs anticipated but CM will follow. Date Signed: 02/12/2017 01:43 PM Electronically Signed By:Maribeth Turner RN [facility] CM Progress Note CM Note CM Note Notes: PT recommendation pending. Cleared by OT. Anticipate pt will likely need C RN and PT, left voicemail for [facility] notifying them of pt's admission. Pt is on dialysis and will be dialyzed here tomorrow. CM will follow. Date Signed: 02/12/2017 01:47 PM Electronically Signed By:Maribeth Turner RN [facility] CM Progress Note CM Note CM Note Notes: Please disregard last case management note which was entered at 13:47 on 02/12/17; this note was intended for different patient. Date Signed: 02/12/2017 01:54 PM Electronically Signed By:Maribeth Turner RN [facility] CM Progress Note CM Note CM Note Notes: Plan remains the same, pt will dc home w/support of when medically stable. CM available for any changes. DC Plan: Home Date Signed: 02/15/2017 04:00 PM Electronically Signed By:Stella Peralta RN Intervention Information Intervention Type:*Incorrect Registration Date of Service:02/11/2017 02:50 PM Patient Type:Observation Staff Member:ELYSE Lopez, Sadia Hours:0.25 Discipline: Severity:1 (0-1 Hours) Comment:Registered inpatient, admit order writ ten for observation status.
== END 2017-02-15 19:01 | disposition home or self-care (01) | DRG 699 ==
LOC: INTOOBSV 12:23 → F3E 13:20 → OBSVTOIN 02-12 11:51
PROVIDERS: ADMIT Internal Medicine Pulmonary Disease; ATTEND Family Medicine
PROC: 0T777DZ Dilation of Left Ureter with Intraluminal Device, Via Natural or Artificial Opening (ICD-10-PCS; principal; 2017-02-11 17:00)
DX: N13.9 Obstructive and reflux uropathy, unspecified (principal); C15.9 Malignant neoplasm of esophagus, unspecified; C78.6 Secondary malignant neoplasm of retroperitoneum and peritoneum; K59.00 Constipation, unspecified; N30.10 Interstitial cystitis (chronic) without hematuria; D64.9 Anemia, unspecified; E03.9 Hypothyroidism, unspecified; G62.0 Drug-induced polyneuropathy; T45.1X5A Adverse effect of antineoplastic and immunosuppressive drugs, initial encounter; Z86.718 Personal history of other venous thrombosis and embolism; Z79.01 Long term (current) use of anticoagulants; Z96.642 Presence of left artificial hip joint; Z98.1 Arthrodesis status
CPT/HCPCS: 96365; 97165-GO; C1758; C1769; C2625; G0378; J0696; J1100; J1170; J2250; J2405; J2704; J3010; Q9967

== ENCOUNTER 2017-02-19 12:31 | Inpatient (IN) | payer OTHER ==
--- NOTE | 2017-02-19 13:35 | EDPHY ---
H & P Stated Complaint: back pain Source: Patient Exam Limitations: No limitations - Medical/Surgical History Hx Asthma: No Hx Chronic Respiratory Disease: No Hx Diabetes: No Hx Cardiac Disease: No Hx Renal Disease: No Hx Cirrhosis: No Hx Alcoholism: No Hx HIV/AIDS: No Hx Splenectomy or Spleen Trauma: No Other PMH: Appendectomy, hysterectomy, (2016), esophogial/stomach/liver cancer, Frequent UTIs partial hip replacement. - Social History Smoking Status: Never smoked Time Seen by Provider: 02/19/17 13:34 Constitutional: Initial Vital Signs Temperature (C) 36.7 C 02/19/17 12:45 Heart Rate 129 H 02/19/17 12:45 Respiratory Rate 20 02/19/17 12:45 O2 Sat (%) 99 02/19/17 12:45 O2 Delivery Mode Room Air Allergies/Adverse Reactions: naproxen Allergy (Severe, Verified 02/11/17 11:19) Hives, TROUBLE BREATHING adhesive tape Allergy (Intermediate, Verified 02/11/17 11:19) Rash NSAIDS (Non-Steroidal Anti-Inflamma Allergy (Intermediate, Verified 02/11/17 11: 19) Hives Penicillins Allergy (Intermediate, Verified 02/11/17 11:19) Hives Sulfa (Sulfonamide Antibiotics) Allergy (Intermediate, Verified 02/11/17 11:19) Hives Home Medications: Medication Instructions Recorded Levothyroxine [Synthroid 112 mcg 112 mcg PO DAILY06 11/27/15 (*)] Famotidine [Pepcid 20 MG (*)] 20 mg PO DAILY 01/31/17 Herbals/Supplements -Info Only 1 ea PO DAILY 01/31/17 Hyoscyamine Sulfate [Levsin, 0.125 mg PO DAILY PRN 01/31/17 Hyomax-Sl 0.125 mg (*)] Cyclobenzaprine [Flexeril 10 MG 10 mg PO TID PRN #60 tab 02/04/17 (*)] Polyethylene Glycol 3350 [Miralax 17 gm PO DAILY PRN pkt 02/04/17 17 gm (*)] oxyCODONE IR [Oxycodone Ir (*)] 5 - 10 mg PO Q4HRS PRN #60 tab 02/04/17 Sennosides/Docusate Sodium 1 - 2 tab PO BID PRN 02/11/17 [Senokot-S] traZODone [traZODONE 50MG (*)] 50 mg PO HS PRN 02/11/17 Phenazopyridine HCl [Pyridium] 200 mg PO PC PRN #20 tab 02/12/17 Acetaminophen [Tylenol ES 500 mg 1,000 mg PO Q6HRS PRN tab 02/15/17 (*)] Cyclobenzaprine [Flexeril 10 MG 10 mg PO TID PRN #30 tab 02/15/17 (*)] Diazepam [Valium 2 MG (*)] 2 mg PO Q6HRS PRN #10 tab 02/15/17 HYDROmorphone HCL [Dilaudid 2 mg 2 mg PO Q4HRS PRN #20 tab 02/15/17 (*)] Ondansetron Odt [Zofran Odt 4 mg 4 mg PO Q4HRS PRN #30 tab 02/15/17 (*)] Oxybutynin Chloride Xl [Ditropan 10 mg PO DAILY #30 tab 02/15/17 Xl 5mg (*)] Rivaroxaban [Xarelto] 20 mg PO DAILY AT 6PM tab 02/15/17 Sennosides/Docusate Sodium 1 - 2 tab PO BID tab 02/15/17 [Senokot-S] Simethicone [Mylicon] 80 mg PO Q6 PRN tab.chew 02/15/17 Tamsulosin HCl [Flomax 0.4 MG (*)] 0.4 mg PO DAILY #7 cap 02/15/17 oxyCODONE IR [Oxycodone Ir (*)] 5 mg PO Q4HRS PRN tab 02/15/17 Medical Decision Making ED Course/Re-evaluation: 1500: The patient is signed out to me at change of shift by Dr. Zazueta. Per report, we are awaiting CT results. 15 12: I received a call from Dr. Robert Browning. He states that there is no change in her CT scan compared to 6 days ago. There are no new metastatic lesions or abnormalities. I discussed the result with the patient. I answered all her questions. She continues to have significant pain. Patient is not feel she would tolerate discharge home. She will be admitted for further evaluation and treatment. I discussed case with Dr. Allred. Due the patient's ongoing pain she was given fentanyl 100 mcg IV. 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 The patient had a cervical spinal fusion [address] Sanchez and is currently in a cervical collar. She presents today with acute low back and left hip pain. She broke her left hip 1 year ago and had a partial hip replacement, but states this pain is acute. The patient is very uncomfortable. She took Dilaudid at 10:30 AM and continues to have pain. REVIEW OF SYSTEMS: A 10 point review of systems was performed and is negative with the exception of the elements mentioned in the history of present illness. PHYSICAL EXAM: HR, BP, O2 Sat, RR. Temp noted General Appearance: Alert, well hydrated, appropriate, and non-toxic appearing. Head: Atraumatic without scalp tenderness or obvious injury Eyes: Pupils equal, round, reactive to light and accommodation, EOMI, no trauma , no injection. Ears: Clear bilaterally, no perforation, normal landmarks Nose: Atraumatic, no rhinorrhea, clear. Throat: There is no erythema or exudates, no lesions, normal tonsils, mucus membranes moist. Neck: Supple, 2+ carotid upstroke, nontender, no lymphadenopathy. Respiratory: No retractions, no distress, no wheezes, and no accessory muscle use. Lungs are clear to auscultation bilaterally. Cardiovascular: Regular rate and rhythm, no murmurs, rubs, or gallops. Bilateral carotid, radial, dorsalis pedis, and posterior tibial pulses intact. Good capillary refill all extremities. Gastrointestinal: Abdomen is soft, nontender, non-distended, no masses, no rebound, no guarding, no peritoneal signs. Musculoskeletal: Normal active ROM of all extremities, atraumatic. Neurological: Alert, appropriate, and interactive. The patient has normal DTRs and non-focal cranial nerves, motor, sensory, and cerebellar exam. Skin: No rashes, good turgor, no nodules on palpation. Past medical history: Esophageal cancer with metastasis to the liver and spine. DVT on Xarelto, Frequent UTIs. Past surgical history: Cervical fusion 2 weeks ago, Appendectomy, Hysterectomy. Family history: Noncontributory. Social history: Here with spouse. DIAGNOSTICS/PROCEDURES/CRITICAL CARE TIME: PET-CT reviewed by the radiologist Dr. Sadler 01/31/17 shows severe obstructive left-sided uropathy. DIFFERENTIAL DIAGNOSIS: The differential diagnosis for the patient's back pain included but was not limited to musculo-skeletal pain, epidural abscess, herniated disk, spinal fracture, and intra-abdominal causes including urinary system. 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 The patient appears to be in severe pain. She has been managing her pain with Valium, Flexeril, and Dilaudid at home, but continues to be in severe pain. Plan for CT lumbar spine and pelvis to rule out metastasis. 3:00 p.m.: The patient was signed out to Dr. Juarez pending CT imaging. ( Rafy Zazueta) - Data Points Laboratory Results: 02/19/17 13:30 Urine Color RED Urine Appearance TURBID Urine pH TNP Ur Specific Hamilton TNP Urine Protein TNP Urine Ketones TNP Urine Blood TNP Urine Nitrate TNP Urine Bilirubin TNP Urine Urobilinogen TNP Ur Leukocyte Esterase TNP Urine RBC 50-182 /hpf H /hpf (0-3) Urine WBC 50-182 /hpf H /hpf (0-3) Ur Epithelial Cells 2+ /lpf H /lpf (NONE-1+) Urine Mucus 2+ /lpf H /lpf (NONE-1+) Urine Glucose TNP Medications Given: Discontinued Medications Hydromorphone HCl (Dilaudid) 4 mg PO EDNOW ONE Stop: 02/19/17 13:48 Last Admin: 02/19/17 13:53 Dose: 4 mg Hydromorphone HCl (Dilaudid) 1 mg IVP EDNOW ONE Stop: 02/19/17 15:18 Last Admin: 02/19/17 15:18 Dose: 1 mg Sodium Chloride (Ns) 1,000 mls @ 0 mls/hr IV ONCE ONE PRN Reason: Wide Open Stop: 02/19/17 15:19 Last Admin: 02/19/17 15:19 Dose: 1,000 mls Ondansetron HCl (Zofran Odt) 4 mg PO EDNOW ONE Stop: 02/19/17 13:58 Last Admin: 02/19/17 13:57 Dose: 4 mg Departure - Departure Disposition: [facility] Acute Clinical Impression: Back pain Qualifiers: Back pain location: low back pain Chronicity: acute Back pain laterality: midline Sciatica presence: without sciatica Qualified Code(s): M54.5 - Low back pain Esophageal cancer Qualifiers: Malignant neoplasm of esophagus location: unspecified location Qualified Code(s ): C15.9 - Malignant neoplasm of esophagus, unspecified Condition: Fair Referrals: Diamante Lofton MD [Primary Care Provider] - As per Instructions Report Scribed for: Rafy Zazueta Report Scribed by: Seema Rodriguez Date of Report: 02/19/17 Time of Report: 15:15
[2017-02-19] MEDS ORDERED: HYDROmorphONE/DILAUDID 2 MG TAB PO ONE (13:47)
[2017-02-19] MEDS ORDERED: ONDANSETRON DISINTEGRATING 4 MG TAB ONE (13:55)
[2017-02-19] MEDS ORDERED: ONDANSETRON DISINTEGRATING 4 MG TAB PO ONE (13:57)
[2017-02-19] MEDS ORDERED: HYDROmorphONE/DILAUDID 1 MG/ML INJ ONE (15:12)
[2017-02-19] MEDS ORDERED: HYDROmorphONE/DILAUDID 1 MG/ML INJ IVP ONE (15:17)
[2017-02-19] MEDS ORDERED: NS 1,000 ML IV ONE (15:18)
[2017-02-19] MEDS ORDERED: fentaNYL 100 MCG/2 ML INJ IVP ONE (15:26)
[2017-02-19] MEDS: HYDROmorphONE/DILAUDID 1 MG/ML INJ IVP PRN ×4 (17:26→20:29)
[2017-02-19] MEDS ORDERED: HYDROmorphONE/DILAUDID 6 MG/30 ML PCA IV PRN (18:39)
[2017-02-19] MEDS ORDERED: NALOXONE HCL 0.4 MG/ML INJ IVP PRN (18:39)
[2017-02-19] MEDS ORDERED: ONDANSETRON DISINTEGRATING 4 MG TAB PO PRN ×2 (18:40→18:42)
[2017-02-19] MEDS ORDERED: ONDANSETRON 4 MG/2 ML VIAL IVP PRN (18:40)
[2017-02-19] MEDS ORDERED: ACETAMINOPHEN 325 MG TAB PO PRN (18:40)
[2017-02-19] MEDS ORDERED: POLYETHYLENE GLYCOL 3350 17 GM PKT PO PRN (18:42)
[2017-02-19] MEDS ORDERED: SIMETHICONE 80 MG TAB CHEW PO PRN (18:42)
[2017-02-19] MEDS ORDERED: CYCLOBENZAPRINE 10 MG TAB PO PRN (18:42)
[2017-02-19] MEDS ORDERED: HYOSCYAMINE SULFATE 0.125 MG TAB PO PRN (18:42)
[2017-02-19] MEDS ORDERED: PHENAZOPYRIDINE HCL 200 MG TAB PO PRN (18:42)
[2017-02-19] MEDS ORDERED: ZOLPIDEM TARTRATE 5 MG TAB PO PRN (18:42)
[2017-02-19] MEDS ORDERED: traZODone 50 MG TAB PO PRN (18:42)
[2017-02-19] MEDS ORDERED: SENNOSIDES/DOCUSATE SODIUM TAB PO PRN (18:42)
--- NOTE | 2017-02-19 19:29 | GHP ---
[f rep st] HISTORY AND PHYSICAL DATE OF ADMISSION: 02/19/2017 The patient is a 61-year-old female with a history of metastatic esophageal cancer with metastasis to her cervical spine, liver and peritoneum, who is was recently admitted with urinary urgency and foun d to have ureteral obstruction, so subsequently underwent ureteral stent placement. She also, over , had cervical spine corpectomy and fusion given metastasis there. She was discharged from the hospital 3 days ago, and she had new low back pain; really more significant worse sabas of her previous low back pain. She does not have any incontinence or lower extremity weakness. In fact, she has urinary urgency, which is reasonably attributed to her stent. She has not had feve r, chills. During our interview she is quite uncomfortable, having a hard time getting comfortable i n one position, moving around. REVIEW OF SYSTEMS: Complete 10-point review of systems conducted. Negative except as noted in the H PI. PAST MEDICAL HISTORY: 1. Esophageal cancer, metastatic when she presented. She has been treated only with chemotherapy. Last chemotherapy January 06. 2. Appendectomy. 3. Recurrent UTIs. 4. Hypothyroidism. 5. History of remote DVT, on chronic anticoagulation. 6. C7 corpectomy. 7. C6-T1 fusion. 8. Hysterectomy. 9. Left hip replacement. SOCIAL HISTORY: No tobacco. Social alcohol. . FAMILY HISTORY: Reviewed and unremarkable. ALLERGIES: Naproxen, adhesive tape, NSAID, penicillin, sulfa. MEDICATIONS: Trazodone, zolpidem, tamsulosin, simethicone, senna, docusate, rivaroxaban, polyethylen e glycol, oxycodone, oxybutynin, ondansetron, levothyroxine, Levsin, hydromorphone, famoti dine, diazepam, cyclobenzaprine and Tylenol. PHYSICAL EXAM: PRESENTING VITALS: Temp 36.7, blood pressure 160/112, now 144/84. Pulse 120s, now 1 02. Breathing 20 times a minute, 99% on room air. GENERAL: Uncomfortable. Moving around. HEENT: Sclerae anicteric. Oropharynx clear. Mucous membr anes moist. NECK: Supple. No lymphadenopathy or JVD. LUNGS: Clear to auscultation bilaterally. HEART: S1, S2. ABDOMEN: Soft, nontender, nondistended. LOWER EXTREMITIES: Without edema. Calves are nontender. SPINE: There is no tenderness to palpation over her vertebrae. There is no lower e xtremity weakness. LABS: White count 5, hematocrit 29, platelets are 356,000. Sodium 142, potassium 4.1, chloride 109, bicarb 21, BUN 8, creatinine 0.7. LFTs are essentially normal. CEA normal. Pelvis CT shows no evidence of pelvic fracture or metastasis. Peritoneal carcinomatosis and thickeni ng of her colon. Lumbar spine CT shows no pathologic fractures. Small lucency in the superior endplate of T12 is uncha nged, indeterminate from metastatic disease, peritoneal carcinomatosis, right renal angiomyolipoma. I reviewed and interpreted the images myself. I have discussed the case Dr. Jovanna Juarez. ASSESSMENT/PLAN: A 61-year-old female with pain secondary to esophageal cancer. 1. Pain. I think the patient probably warrants long-acting pain medicine, so I will put her on Dila udid patient controlled analgesia, start MS Contin and will follow. She has not had much relief from muscle relaxants so we will leave them as is. Will perform a lumbar spine MRI. 2. History of deep venous thrombosis. Will continue her anticoagulation. 3. Neck collar. She has a neck collar which that is interfering with her port. [facility] a different neck collar, or modify the one she has with scissors. I have made it jun ar that a soft collar is probably not adequate. 4. Esophageal cancer. She is due for chemotherapy this Monday. This admission probably does not re present a contraindication. 5. Prophylaxis. Therapeutically anticoagulated. DISPOSITION: Inpatient status. CODE: Full. /[id number]/MODL
[2017-02-19] MEDS: morphINE SR 15 MG TAB PO SCH (20:05)
[2017-02-19] MEDS: RIVAROXABAN 20 MG TAB PO SCH (22:24)
[2017-02-19] MEDS ORDERED: ALTEPLASE 2 MG VIAL IVP ONE (22:41)
[2017-02-20] MEDS: LEVOTHYROXINE 112 MCG TAB PO SCH (04:51)
--- NOTE | 2017-02-20 06:34 | PDMN ---
Medical Necessity Medical necessity: Pt meets INPT criteria per MD and 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
[2017-02-20] MEDS ORDERED: GADOBUTROL 10 ML VIAL IVP ONE (08:41)
[2017-02-20] MEDS: DIAZEPAM 2 MG TAB PO PRN (08:51)
[2017-02-20] MEDS: FAMOTIDINE 20 MG TAB PO SCH (08:53)
[2017-02-20] MEDS: morphINE SR 15 MG TAB PO SCH ×2 (08:53→21:59)
[2017-02-20] MEDS: TAMSULOSIN HCL 0.4 MG CAP PO SCH (08:53)
[2017-02-20] MEDS: OXYBUTYNIN 5 MG EXT REL TAB PO SCH (08:53)
[2017-02-20] MEDS ORDERED: Herbals/Supplements -Info Only PO SCH (09:00)
[2017-02-20] MEDS ORDERED: ENOXAPARIN 40 MG/0.4 ML SYR SC SCH (09:00)
--- NOTE | 2017-02-20 13:05 | HOSPPROG ---
Hospitalist Progress Note Assessment/Plan: 61 yo with a history of metastatic esophageal cancer is admitted with recurrent back pain. Evaluation is fairly unremarkable. Pt reviewed with Dr. Kendrick who feels symptoms are likely from constipation. # Back pain: MRI is unremarkable, pelvic CT OK. poss constipation from narcotic use * bowel protocol * dc in 1-2 days depending on pain control # Metastatic esophageal cancer with peritoneal carcinomatosis * Chemo, followed by Dr. Chen * Does not appear to be contributing to her current pain complaints * Follow up scheduled later this week. # Recent cervical fusion, currently has a hard collar on # Ureteral obstruction, s/p stent last week, follow up with urology as scheduled after hospitalization. # Hypothyroidism, on replacement, will make sure current TSH given constipation # Hx DVT on chronic anticoag with Xarelto. Subjective: Patient new to me and chart reviewed. Quite comfortable today and denies significant pain. Does admit to some constipation prior to admission. Objective: Vital Signs Temp Pulse Resp BP Pulse Ox 36.9 C 86 15 89/60 L 93 02/20/17 12:05 02/20/17 12:05 02/20/17 12:05 02/20/17 12:05 02/20/17 12:05 Laboratory Results 02/20/17 05:00 02/19/17 02/20/17 02/21/17 05:59 05:59 05:59 Intake Total 900 Balance 900 - Physical Exam Constitutional: chronically ill appearing Eyes: PERRL Ears, Nose, Mouth, Throat: moist mucous membranes Cardiovascular: regular rate and rhythym Respiratory: no respiratory distress Gastrointestinal: normoactive bowel sounds, No guarding, No distension Genitourinary: no bladder fullness Skin: warm, No normal color (Pale) Neurologic: AAOx3 Psychiatric: interacting appropriately ICD10 Worksheet Patient Problems: Problems Problem Status Onset Prosthetic hip infection Acute Urinary tract infection Acute Obstructive uropathy Acute Back pain Acute Esophageal cancer Acute
--- NOTE | 2017-02-20 13:47 | GCON ---
[f rep st] CONSULTATION MEDICAL FOLLOWUP CONSULTATION. REASON FOR CONSULTATION: Ongoing management of metastatic esophageal carcinoma and pain. RECOMMENDATIONS: 1. Agree with TESTER EQUIPMENT for now. 2. Start Metamucil and MiraLAX to help regulate the patient's stools. 3. We will convert her to appropriate long and short-acting pain medication when her requirements ar e known. 4. Provided there are no unforeseen circumstances, the patient will need to follow up in the office on Monday of this week for chemotherapy as planned. ASSESSMENT: This 61-year-old white female with a history of metastatic esophageal carcinoma presente d to the emergency room last night with severe left flank and lower back pain that could not be contr olled at home. She tells me that the pain had been building for several days but became unbearable l ast night. She has also noted she has had some constipation, which she feels like is "moving." She has had some intermittent diarrhea also. The patient has not been taking her pain medication on a re gular basis, but has been using a variety of medications for pain control at home, including oxycodon e, trazodone, and Tylenol. She feels the Tylenol seems to work fairly well. Her pain is much better today. She has had a bowel movement. The pain in her low back and left flan k is under excellent control at this time. Barring unforeseen circumstances, I would expect that she will be in the hospital another 24-48 hours. This will allow her to have her chemotherapy as planne d on Monday of this week. HISTORY OF PRESENT ILLNESS: Please see assessment. PAST MEDICAL HISTORY: Remarkable for her esophageal cancer. This presented with metastatic disease. She had C7 vertebral involvement at the time of her diagnosis and underwent a C7 corpectomy and a C 6 through T1 fusion. She is currently on chemotherapy with cisplatin and 5 fluorouracil. This has b een keeping her cancer under reasonable control. Her past medical history is also remarkable for rec urrent urinary tract infections and hypothyroidism. She has had a hysterectomy as well as a left hip replacement. PAST SURGICAL HISTORY: In addition to her cervical spine surgery includes appendectomy and her previ ously mentioned hip replacement. She has also had hysterectomy. SOCIAL HISTORY: The patient lives in the [facility]. She lives at home with her . She do es not smoke or drink. FAMILY HISTORY: Noncontributory to this admission. REVIEW OF SYSTEMS: Remarkable for some occasional nausea and vomiting. She has the above mentioned low back and left flank pain, which is now improved. She has intermittent diarrhea and constipation. Her 10 system review is otherwise unremarkable. PHYSICAL EXAMINATION: GENERAL: Reveals a well-developed alert woman in a hard cervical collar, but in no acute distress at this time. LUNGS: Clear to auscultation. CARDIAC: Shows a regular rhythm. ABDOMEN: Shows a soft abdomen. Active bowel sounds. There is no significant tenderness noted in he r abdominal exam or in palpation of her left flank at this time. LABORATORY: Showed normal creatinine of 0.6. Her CBC from the 15 February 2017 showed normal white count of 5.62 with a hemoglobin of 9.4 and a platelet count 356,000. Thank you very much for allowing us to participate in this pleasant woman's care. We look forward to assisting you with management during this hospitalization and also after discharge. /[id number]/MODL
--- NOTE | 2017-02-20 15:29 | ASMTCMCOM ---
CM Note CM Note Notes: Pt admitted with back pain. Hx of met esophageal CA. 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 She is a pt at [facility] and has a chemo treatment this Monday. Lives at home with her . OT cleared, PT is pending. CM will follow for any d/c needs. Date Signed: 02/20/2017 03:29 PM Electronically Signed By:MATY Merchant
[2017-02-20] MEDS ORDERED: diphenhydrAMINE 25 MG CAP PO PRN (16:45)
[2017-02-20] MEDS: RIVAROXABAN 20 MG TAB PO SCH (17:26)
[2017-02-20] MEDS: POLYETHYLENE GLYCOL 3350 17 GM PKT PO SCH (17:26)
[2017-02-20] MEDS: PSYLLIUM METAMUCIL 1 PKT PO SCH (22:00)
[2017-02-21] MEDS: LEVOTHYROXINE 112 MCG TAB PO SCH (05:43)
[2017-02-21] MEDS: PSYLLIUM METAMUCIL 1 PKT PO SCH ×2 (09:12→20:40)
[2017-02-21] MEDS: OXYBUTYNIN 5 MG EXT REL TAB PO SCH (09:12)
[2017-02-21] MEDS: POLYETHYLENE GLYCOL 3350 17 GM PKT PO SCH (09:12)
[2017-02-21] MEDS: morphINE SR 15 MG TAB PO SCH ×2 (09:13→20:37)
[2017-02-21] MEDS: TAMSULOSIN HCL 0.4 MG CAP PO SCH (09:13)
[2017-02-21] MEDS: FAMOTIDINE 20 MG TAB PO SCH (09:13)
--- NOTE | 2017-02-21 10:25 | SOAPPROG ---
SOAP Progress Note Assessment/Plan: Assessment: - Pain - under good control at this time. We will need to change her to oral pain meds in anticipation of discharge to home tomorrow 22 FEB 2017. - Esophageal CA - she is scheduled to chemo in the office on 23 FEB 2017 - she should keep this appointment. - Constipation/diarrhea - continue psyllium and miralax. Plan: convert to non IV pain meds Hope to d/c to home tomorrow. Subjective: Minor L flank pain. Eating toast. Objective: Vital Signs Temp Pulse Resp BP Pulse Ox 36.9 C 97 16 101/63 94 02/21/17 08:00 02/21/17 08:00 02/21/17 08:00 02/21/17 08:00 02/21/17 08:00 Laboratory Results 02/20/17 05:00 02/19/17 02/20/17 02/21/17 23:59 23:59 23:59 Intake Total 700 1724 808 Balance 700 1724 808 Physical Exam - Physical Exam General Appearance: alert, no apparent distress Neck: other (hard cervical collar in place) Respiratory: chest non-tender, lungs clear Cardiac/Chest: regular rate, rhythm Abdomen: normal bowel sounds, non-tender, soft Neuro/Psych: alert, normal mood/affect, oriented x 3 ICD10 Worksheet Patient Problems: Problems Problem Status Onset Back pain Acute Esophageal cancer Acute Obstructive uropathy Acute Prosthetic hip infection Acute Urinary tract infection Acute
[2017-02-21] MEDS ORDERED: LACTULOSE 20 GM/30 ML UDCUP PO PRN (11:41)
--- NOTE | 2017-02-21 11:45 | HOSPPROG ---
Hospitalist Progress Note Assessment/Plan: 61 yo with a history of metastatic esophageal cancer is admitted with recurrent back pain. Evaluation is fairly unremarkable. Pt reviewed with Dr. Kendrick who feels symptoms are likely from constipation. 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 Good BM yesterday. # Back pain: MRI is unremarkable, pelvic CT OK. poss constipation from narcotic use * BM yesterday and feels better. * continue miralax and senna * add lactulose prn * dc tomorrow after converting IV pain meds to oral today. # Metastatic esophageal cancer with peritoneal carcinomatosis * Chemo, followed by Dr. Chen * Chemo on , keep appointment # Recent cervical fusion, currently has a hard collar on # Ureteral obstruction, s/p stent last week, follow up with urology as scheduled after hospitalization. # Hypothyroidism, on replacement, will make sure current TSH given constipation # Hx DVT on chronic anticoag with Xarelto. 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 no bm today. abdo better also Objective: Vital Signs Temp Pulse Resp BP Pulse Ox 36.8 C 90 17 105/63 93 02/21/17 11:30 02/21/17 11:30 02/21/17 11:30 02/21/17 11:30 02/21/17 11:30 Laboratory Results 02/20/17 05:00 02/20/17 02/21/17 02/22/17 05:59 05:59 05:59 Intake Total 900 2332 Balance 900 2332 - Physical Exam Constitutional: chronically ill appearing Cardiovascular: regular rate and rhythym Respiratory: no respiratory distress Gastrointestinal: normoactive bowel sounds, tenderness (soft with mild tenderness), No guarding ICD10 Worksheet Patient Problems: Problems Problem Status Onset Prosthetic hip infection Acute Urinary tract infection Acute Obstructive uropathy Acute Back pain Acute Esophageal cancer Acute
[2017-02-21] MEDS ORDERED: HYDROmorphONE/DILAUDID 1 MG/ML INJ IVP PRN (11:50)
[2017-02-21] MEDS: HYDROmorphONE/DILAUDID 2 MG TAB PO PRN ×2 (15:05→23:30)
[2017-02-21] MEDS: ACETAMINOPHEN 500 MG TAB PO PRN (15:23)
--- NOTE | 2017-02-21 15:58 | ASMTCMCOM ---
CM Note CM Note Notes: PT/OT have cleared pt. She is followed by Dr Chen and the current plan is for her to d/c and have her chemo appt or Monday. Anticipate she will d/c with no CM needs but will continue to follow for any change in needs. Date Signed: 02/21/2017 03:57 PM Electronically Signed By:MATY Merchant
[2017-02-21] MEDS: RIVAROXABAN 20 MG TAB PO SCH (18:25)
[2017-02-22] MEDS: LEVOTHYROXINE 112 MCG TAB PO SCH (05:57)
[2017-02-22 07:52] VITALS: RESP 18
[2017-02-22] MEDS: OXYBUTYNIN 5 MG EXT REL TAB PO SCH (08:17)
[2017-02-22] MEDS: POLYETHYLENE GLYCOL 3350 17 GM PKT PO SCH (08:17)
[2017-02-22] MEDS: morphINE SR 15 MG TAB PO SCH (08:17)
[2017-02-22] MEDS: FAMOTIDINE 20 MG TAB PO SCH (08:17)
[2017-02-22] MEDS: TAMSULOSIN HCL 0.4 MG CAP PO SCH (08:17)
[2017-02-22] MEDS: PSYLLIUM METAMUCIL 1 PKT PO SCH (08:18)
--- NOTE | 2017-02-22 11:00 | GDS ---
[f rep st] DISCHARGE SUMMARY ALL DIAGNOSES: 1. Back pain, better controlled. 2. Metastatic esophageal cancer. 3. Recent cervical fusion with a hard collar. 4. Ureteral obstruction, status post a stent placement last week by Urology. 5. Hypothyroid. 6. History of a deep vein thrombosis. ALL CONSULTATIONS: Oncology, Dr. Kendrick. FOLLOWUP: 1. Dr. Chen tomorrow for chemotherapy. 2. Dr. Ontiveros for management of her ureteral stent. 3. Dr. Sanchez given her recent cervical corpectomy. HOSPITAL COURSE: A 61-year-old female, admitted with uncontrolled low back pain. MRI showed no evid ence of metastatic disease to her low back. Started on MS Contin as well as continued her p.o. Dilau did. She initially required an IV TRANSLATOR DEAF but was transitioned well to p.o. narcotics the day before dis charge. Unclear exactly the precipitant of her pain though it did improve with a bowel movement. Sh arnaud will also be sent out with a bowel regimen. She will follow up with the above physicians for ongoing management of her esophageal cancer and its complications. Dr. Chen will start immunotherapy tomorrow and consider radiation. I discussed this with Dr. Kendrick. BILLING: I spent more than 30 minutes on the day of discharge coordinating care. /[id number]/MODL
[2017-02-22] MEDS: HYDROmorphONE/DILAUDID 2 MG TAB PO PRN (11:20)
[2017-02-22] MEDS: ACETAMINOPHEN 500 MG TAB PO PRN (12:15)
[2017-02-22] MEDS: DIAZEPAM 2 MG TAB PO PRN (12:20)
[2017-02-22] MEDS ORDERED: LIDOCAINE 5% 1 EA PATCH TD SCH (12:45)
[2017-02-22 13:43] VITALS: BP 94/56; PULSE 86; TEMP 98.3; O2SAT 95
[2017-02-22] MEDS ORDERED: PATCH REMOVAL 1 EA PATCH TD SCH (21:00)
--- NOTE | 2017-02-23 13:53 | ASDISCHSUM ---
Discharge Information Plan Status: Medically Cleared to Leave: Discharge Date:02/22/2017 03:32 PM CM D/C Disposition: ADT D/C Disposition:Home, Routine, Self-Care Projected Discharge Date:02/22/2017 03:32 PM Transportation at D/C: Discharge Delay Reason: Follow-Up Date:02/22/2017 03:32 PM Discharge Slot: Final Diagnosis: Placement Information Patient Contact Information Contact Name:OUMOU Relationship: Address:[address] City:[place] Alternate Phone: State/Zip Code:[place] [address] Email: Financial Information Financial Class:[employer] Primary Plan Desc:JERMAINE O O OPEN ACC LOCAL Primary Plan Number:[id number] Secondary Plan Desc: Secondary Plan Number: Assessment Information [facility] CM Progress Note CM Note CM Note Notes: Pt admitted with back pain. Hx of met esophageal CA. Currently on FORENSIC SPECIALIST. She is a pt at [facility] and has a chemo treatment this Monday. Lives at home with her . OT cleared, PT is pending. CM will follow for any d/c needs. Date Signed: 02/20/2017 03:29 PM Electronically Signed By:MATY Merchant [facility] CM Progress Note CM Note CM Note Notes: PT/OT have cleared pt. She is followed by Dr Chen and the current plan is for her to d/c and have her chemo appt or Monday. Anticipate she will d/c with no CM needs but will continue to follow for any change in needs. Date Signed: 02/21/2017 03:57 PM Electronically Signed By:MATY Merchant Intervention Information Intervention Type:*Incorrect Registration Date of Service:02/20/2017 06:32 AM Patient Type:Inpatient Staff Member:ELYSE Gotti, Shirley Hours: Discipline: Severity: Comment:
== END 2017-02-22 15:32 | disposition home or self-care (01) | DRG 552 ==
LOC: OBSVTOIN 15:25 → F1N 16:23
PROVIDERS: ADMIT Internal Medicine; ATTEND Student in an Organized Health Care Education/Training Program
DX: M54.5 Low back pain (principal); K59.00 Constipation, unspecified; C15.9 Malignant neoplasm of esophagus, unspecified; C79.51 Secondary malignant neoplasm of bone; C78.7 Secondary malignant neoplasm of liver and intrahepatic bile duct; C78.6 Secondary malignant neoplasm of retroperitoneum and peritoneum; N13.8 Other obstructive and reflux uropathy; E03.9 Hypothyroidism, unspecified; Z98.1 Arthrodesis status; Z86.718 Personal history of other venous thrombosis and embolism; Z87.440 Personal history of urinary (tract) infections; Z96.642 Presence of left artificial hip joint; Z79.01 Long term (current) use of anticoagulants
CPT/HCPCS: 96374; 97116-GP; 97161-GP; 97165-GO; 97530-GP; 97535-GO; A9585; J1170; J1642; J2997; J3010

== ENCOUNTER 2017-02-23 21:51 | Inpatient (IN) | payer OTHER ==
[2017-02-23] MEDS ORDERED: HYDROmorphONE/DILAUDID 2 MG TAB ONE (22:18)
[2017-02-23] MEDS ORDERED: HYDROmorphONE/DILAUDID 2 MG TAB PO ONE (22:22)
--- NOTE | 2017-02-23 22:23 | EDPHY ---
H & P Stated Complaint: lower back pain Time Seen by Provider: 02/23/17 22:23 HPI/ROS: HPI: This is a 61-year-old female who presents with Chief Complaint: Lower back pain Location: Body Quality: Pain Duration: 1-2 hours Signs and Symptoms: No bleeding, no radiation, no numbness, no weakness, no tingling, no incontinence, no decreased range of motion, + swelling, + pain Timing: Acute on chronic Severity: 11/15 Context: Patient has a history of metastatic esophageal cancer with mets to her cervical spine, liver and peritoneum who presents with acute on chronic intractable lower back and neck pain since this evening around 6:00 p.m. approximately 2 hr prior to arrival. reports that she finished chemotherapy around 5:30 p.m. she then ate dinner. Approximately 1 hr later she began to experience pain that quickly accelerated and is unable to be controlled. gave patient her long-acting MS Contin as well as 4 mg of Dilaudid and Flexeril without pain relief. is extremely frustrated yet been to the emergency room 3 times for uncontrolled pain and feels like he is unable to manage her pain at home. Patient was recently admitted 02/19/2017 to 02/22/2017 for uncontrolled low back pain with an MRI showing no evidence of metastatic disease to her low back. She was controlled on MS Contin as well as p.o. Dilaudid for breakthrough pain. Unclear exactly the precipitant of her pain though did improve with a bowel movement in because of this she was started on a bowel regimen. She followed up with Dr. Chen today and was started on chemotherapy after 6 weeks break. Modifying Factors: Comment: ROS: Limited due to clinical condition Constitutional: No fever, no chills, no weight loss Eyes: No blurred vision Respiratory: No shortness of breath, no cough Cardiovascular: No chest pain Gastrointestinal: No nausea, no vomiting no diarrhea Genitourinary: No dysuria Extremities: No myalgias Neurologic: No weakness, no numbness Skin: No rashes Hematologic: No bruising, no bleeding MEDICAL/SURGICAL/SOCIAL HISTORY: Medical/surgical history: Appendectomy, hysterectomy, (2016), esophageal/stomach /liver cancer, Frequent UTIs partial hip replacement, wound vac after hip surgery Social history: . CONSTITUTIONAL: Pacing around room, crying, yelling out, chronically ill- appearing adult white female, awake and alert, no obvious distress HEENT: Atraumatic and normocephalic. NECK: supple, no midline tenderness, flexion 45 degrees, extension 45 degrees, right and left lateral flexion 45 degrees. No meningismus. Cardiovascular: Normal S1/S2, tachycardia, regular rhythm, without murmur rub or gallop. PULMONARY/CHEST: Symmetrical and nontender. no crepitus. Clear to auscultation bilaterally. Good air movement. No accessory muscle usage. ABDOMEN: Soft, nondistended, nontender, no ecchymosis. PELVIC: no pain with rocking; bilateral hips flexion 125 degrees, extension 30 degrees, with no pain internal rotation and no pain external rotation. BACK: No midline tenderness, no paraspinous spasm, deep tendon reflexes 2/2, no pain with straight leg raise EXTREMITIES: 2/2 pulses, no deformities, no clubbing, no cyanosis or edema. Calves nontender. NEUROLOGICAL: no focal neuro deficits. GCS 15. Light touch sensation intact. SKIN: Warm and dry, no erythema. no rash. Good capillary refill. Source: Patient, Family ( and daughter) Exam Limitations: No limitations - Personal History Current Tetanus/Diphtheria Vaccine: Yes - Medical/Surgical History Hx Asthma: No Hx Chronic Respiratory Disease: No Hx Diabetes: No Hx Cardiac Disease: No Hx Renal Disease: No Hx Cirrhosis: No Hx Alcoholism: No Hx HIV/AIDS: No Hx Splenectomy or Spleen Trauma: No Other PMH: Appendectomy, hysterectomy, (2016), esophogial/stomach/liver cancer, Frequent UTIs partial hip replacement, wound vac after hip surgery - Social History Smoking Status: Never smoked Constitutional: Initial Vital Signs Temperature (C) 36.8 C 02/23/17 21:52 Heart Rate 121 H 02/23/17 21:52 Respiratory Rate 26 H 02/23/17 21:52 Blood Pressure 154/100 H 02/23/17 21:52 O2 Sat (%) 99 02/23/17 21:52 O2 Delivery Mode Nasal Cannula O2 (L/minute) 2 Allergies/Adverse Reactions: naproxen Allergy (Severe, Verified 02/23/17 21:55) Hives, TROUBLE BREATHING adhesive tape Allergy (Intermediate, Verified 02/23/17 21:55) Rash NSAIDS (Non-Steroidal Anti-Inflamma Allergy (Intermediate, Verified 02/23/17 21: 55) Hives Penicillins Allergy (Intermediate, Verified 02/23/17 21:55) Hives Sulfa (Sulfonamide Antibiotics) Allergy (Intermediate, Verified 02/23/17 21:55) Hives Home Medications: Medication Instructions Recorded Famotidine [Pepcid 20 MG (*)] 20 mg PO DAILY 01/31/17 Herbals/Supplements -Info Only 1 ea PO DAILY 01/31/17 Hyoscyamine Sulfate [Levsin, 0.125 mg PO DAILY PRN 01/31/17 Hyomax-Sl 0.125 mg (*)] Sennosides/Docusate Sodium 1 - 2 tab PO BID PRN 02/11/17 [Senokot-S] traZODone [traZODONE 50MG (*)] 50 mg PO HS PRN 02/11/17 Acetaminophen [Tylenol ES 500 mg 1,000 mg PO Q6HRS PRN tab 02/15/17 (*)] Cyclobenzaprine [Flexeril 10 MG 10 mg PO TID PRN #30 tab 02/15/17 (*)] Ondansetron Odt [Zofran Odt 4 mg 4 mg PO Q4HRS PRN #30 tab 02/15/17 (*)] Tamsulosin HCl [Flomax 0.4 MG (*)] 0.4 mg PO DAILY #7 cap 02/15/17 Diazepam [Valium 2 MG (*)] 2 mg PO Q6HRS PRN 02/19/17 Oxybutynin Chloride [Ditropan Xl] 10 mg PO DAILY 02/19/17 Phenazopyridine HCl [Pyridium] 200 mg PO DAILY PRN 02/19/17 Polyethylene Glycol 3350 [Miralax 17 gm PO DAILY PRN 02/19/17 17 gm (*)] Rivaroxaban [Xarelto] 20 mg PO DAILY@18 02/19/17 Simethicone [Mylicon] 80 mg PO Q6 PRN 02/19/17 Zolpidem Tartrate [Ambien 5MG (*)] 2.5 mg PO HS PRN 02/19/17 HYDROmorphone HCL [Dilaudid 2 mg 2 - 4 mg PO Q4HRS PRN #30 tab 02/22/17 (*)] Levothyroxine [Synthroid 112 mcg 112 mcg PO DAILY06 #30 tab 02/22/17 (*)] morphINE SR [Ms Contin/Oramorph 15 15 mg PO BID #60 tab 02/22/17 mg (*)] Medical Decision Making ED Course/Re-evaluation: Labs, IV fluids, IV medications ordered Patient given 2 mg p.o. Dilaudid and IV fentanyl 100 mcg upon arrival 2320: Reassessed patient who reports pain is down to 7/10. IV Ativan 2 mg given Placed on manager monitoring and oxygen 2 L nasal cannula 0054: Notified by nurse that patient is lying in bed now but acute moving legs and around in bed and patient's family is concerned that she is still in pain. IV Dilaudid 2 mg ordered Unfortunately we do not have any beds available at this facility as patient will need admission for intractable pain. Will keep in ER until AM when beds become available. 0125: Spoke with Dr. Novoa who kindly agrees to admit patient once beds become available. 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 Benefit from inpatient custodial placement. 0135: Reassessed patient who is sleeping soundly. This patient was seen under the supervision of my secondary supervising physician. I evaluated care for this patient independently. Discussed this patient with Dr. Alexis who did not see the patient. Patient's presentation, labs/imaging, treatment and plan of care were discussed with secondary supervising physician. Differential Diagnosis: Differential diagnosis includes but is not limited to chronic pain, metastatic disease, chemotherapy side effects, encephalopathy. - Data Points Laboratory Results: Laboratory Results 02/23/17 23:10 02/23/17 23:10 02/24/17 02/23/17 02/23/17 00:35 23:10 23:10 WBC 5.30 10^3/uL 10^3/uL (3.80-9.50) RBC 3.32 10^6/uL L 10^6/uL (4.18-5.33) Hgb 10.2 g/dL L g/dL (12.6-16.3) Hct 30.6 % L % (38.0-47.0) MCV 92.2 fL fL (81.5-99.8) MCH 30.7 pg pg (27.9-34.1) MCHC 33.3 g/dL g/dL (32.4-36.7) RDW 15.6 % H % (11.5-15.2) Plt Count 551 10^3/uL H 10^3/uL (150-400) MPV 9.0 fL fL (8.7-11.7) Neut % (Auto) 88.4 % H % (39.3-74.2) Lymph % (Auto) 8.9 % L % (15.0-45.0) Nolan % (Auto) 1.9 % L % (4.5-13.0) Eos % (Auto) 0.0 % L % (0.6-7.6) Baso % (Auto) 0.2 % L % (0.3-1.7) Nucleat RBC Rel Count 0.0 % % (0.0-0.2) Absolute Neuts (auto) 4.69 10^3/uL 10^3/uL (1.70-6.50) Absolute Lymphs (auto) 0.47 10^3/uL L 10^3/uL (1.00-3.00) Absolute Monos (auto) 0.10 10^3/uL L 10^3/uL (0.30-0.80) Absolute Eos (auto) 0.00 10^3/uL L 10^3/uL (0.03-0.40) Absolute Basos (auto) 0.01 10^3/uL L 10^3/uL (0.02-0.10) Absolute Nucleated RBC 0.00 10^3/uL 10^3/uL (0-0.01) Immature Gran % 0.6 % % (0.0-1.1) Immature Gran # 0.03 10^3/uL 10^3/uL (0.00-0.10) PT 25.0 SEC H SEC (12.0-15.0) INR 2.26 H (0.83-1.16) APTT 39.4 SEC H SEC (23.0-38.0) Sodium 141 mEq/L mEq/L (135-145) Potassium 3.7 mEq/L mEq/L (3.5-5.2) Chloride 104 mEq/L mEq/L (97-110) Carbon Dioxide 18 mEq/l L D mEq/l (22-31) Anion Gap 19 mEq/L H mEq/L (8-16) BUN 14 mg/dL mg/dL (7-23) Creatinine 0.6 mg/dL mg/dL (0.6-1.0) Estimated GFR > 60 Glucose 129 mg/dL H mg/dL (70-100) Calcium 10.4 mg/dL mg/dL (8.5-10.4) Total Bilirubin 0.9 mg/dL D mg/dL (0.1-1.4) Conjugated Bilirubin 0.0 mg/dL mg/dL (0.0-0.5) Unconjugated Bilirubin 0.9 mg/dL mg/dL (0.0-1.1) AST 38 IU/L IU/L (14-46) ALT 30 IU/L IU/L (9-52) Alkaline Phosphatase 179 IU/L H IU/L (38-126) Total Protein 6.9 g/dL g/dL (6.3-8.2) Albumin 4.3 g/dL g/dL (3.5-5.0) Lipase 429 IU/L H IU/L (23-300) Medications Given: Discontinued Medications Fentanyl (Sublimaze) 50 mcg IVP EDNOW ONE Stop: 02/23/17 22:35 Last Admin: 02/23/17 23:28 Dose: Not Given Fentanyl (Sublimaze) 100 mcg IVP EDNOW ONE Stop: 02/23/17 23:17 Last Admin: 02/23/17 23:17 Dose: 100 mcg Hydromorphone HCl (Dilaudid) 2 mg PO EDNOW ONE Stop: 02/23/17 22:23 Last Admin: 02/23/17 22:23 Dose: 2 mg Hydromorphone HCl (Dilaudid) 1 mg IVP EDNOW ONE Stop: 02/23/17 23:33 Last Admin: 02/23/17 23:40 Dose: 1 mg Hydromorphone HCl (Dilaudid) 2 mg IVP EDNOW ONE Stop: 02/24/17 00:49 Last Admin: 02/24/17 00:50 Dose: 2 mg Sodium Chloride (Ns) 1,000 mls @ 0 mls/hr IV EDNOW ONE; Wide Open PRN Reason: Protocol Stop: 02/23/17 22:35 Last Admin: 02/23/17 23:17 Dose: 1,000 mls Lorazepam (Ativan Injection) 2 mg IVP EDNOW ONE Stop: 02/23/17 23:20 Last Admin: 02/23/17 23:27 Dose: 2 mg Departure - Departure Disposition: [facility] Inpatient Acute Clinical Impression: Metastatic cancer, Intractable pain Condition: Fair Referrals: Diamante Lofton MD [Primary Care Provider] - As per Instructions
[2017-02-23] MEDS ORDERED: fentaNYL 100 MCG/2 ML INJ IVP ONE ×2 (22:34→23:16)
[2017-02-23] MEDS ORDERED: NS 1,000 ML IV ONE (22:34)
[2017-02-23 23:17] LABS: PLATELET COUNT 551 10^3/uL (150-400)
[2017-02-23] MEDS ORDERED: LORazepam 2 MG/ML INJ IVP ONE (23:19)
[2017-02-23] MEDS ORDERED: HYDROmorphONE/DILAUDID 1 MG/ML INJ IVP ONE (23:32)
[2017-02-24] MEDS ORDERED: HYDROmorphONE/DILAUDID 1 MG/ML INJ IVP ONE (00:48)
[2017-02-24] MEDS ORDERED: HYDROmorphONE/DILAUDID 2 MG/ML INJ ONE (00:49)
[2017-02-24 01:12] LABS: INR 2.26 (0.83-1.16)
[2017-02-24] MEDS ORDERED: ONDANSETRON DISINTEGRATING 4 MG TAB PO PRN (01:37)
[2017-02-24] MEDS ORDERED: HYDROmorphONE/DILAUDID 1 MG/ML INJ IVP PRN (01:37)
--- NOTE | 2017-02-24 01:58 | PDGENHP ---
History and Physical - Chief Complaint Back pain - History of Present Illness 61 yo F w/ metastatic esophageal CA w/ metastases to C-spine, liver, and peritoneum presents with ongoing back pain. Patient was admitted from 02/19-02/22 for treatment of intractable back pain of unclear etiology. MRI of L-spine showed only mild DJD. Per family at bedside, patient was doing somewhat ok at home until yesterday when her pain became difficult to control. She has acute pain episodes that lead to delirium per family. They describe these symptoms as similar to prior presentation. Patient is currently heavily sedated and unable to contribute to HPI. History Information - Allergies/Home Medication List Allergies/Adverse Reactions: naproxen Allergy (Severe, Verified 02/23/17 21:55) Hives, TROUBLE BREATHING adhesive tape Allergy (Intermediate, Verified 02/23/17 21:55) Rash NSAIDS (Non-Steroidal Anti-Inflamma Allergy (Intermediate, Verified 02/23/17 21: 55) Hives Penicillins Allergy (Intermediate, Verified 02/23/17 21:55) Hives Sulfa (Sulfonamide Antibiotics) Allergy (Intermediate, Verified 02/23/17 21:55) Hives Home Medications: Famotidine [Pepcid 20 MG (*)] 20 mg PO DAILY 01/31/17 [Last Taken 02/19/17 0800] Herbals/Supplements -Info Only 1 ea PO DAILY 01/31/17 [Last Taken 1 Week Ago ~] Hyoscyamine Sulfate [Levsin, Hyomax-Sl 0.125 mg (*)] 0.125 mg PO DAILY PRN 01/31 [Last Taken 02/19/17] Sennosides/Docusate Sodium [Senokot-S] 1 - 2 tab PO BID PRN 02/11/17 [Last Taken 02/18/17 PM] traZODone [traZODONE 50MG (*)] 50 mg PO HS PRN 02/11/17 [Last Taken Unknown] Diazepam [Valium 2 MG (*)] 2 mg PO Q6HRS PRN 02/19/17 [Last Taken 02/19/17 0845] Oxybutynin Chloride [Ditropan Xl] 10 mg PO DAILY 02/19/17 [Last Taken 02/19/17] Phenazopyridine HCl [Pyridium] 200 mg PO DAILY PRN 02/19/17 [Last Taken 0800] Polyethylene Glycol 3350 [Miralax 17 gm (*)] 17 gm PO DAILY PRN 02/19/17 [Last Taken Unknown] Rivaroxaban [Xarelto] 20 mg PO DAILY@18 02/19/17 [Last Taken 02/18/17] Simethicone [Mylicon] 80 mg PO Q6 PRN 02/19/17 [Last Taken Unknown] Zolpidem Tartrate [Ambien 5MG (*)] 2.5 mg PO HS PRN 02/19/17 [Last Taken Unknown ] I have personally reviewed and updated: family history, medical history - Past Medical History cancer (Esophageal), DVT - Surgical History Reports: hysterectomy, spinal surgery (C7 corpectomy, C6-T1 fusion) - Family History Additional family history: Unable to provide - Social History Smoking Status: Never smoked Review of Systems Review of Systems: ROS: 10pt was reviewed & negative except for what was stated in HPI & below Physical Exam Physical Exam: Temp Pulse Resp BP Pulse Ox 36.8 C 114 H 16 146/97 H 97 02/23/17 21:52 02/24/17 00:00 02/24/17 00:00 02/24/17 00:00 02/24/17 00:00 Constitutional: other (C-collar in place, sedated) Eyes: PERRL, anicteric sclera Ears, Nose, Mouth, Throat: moist mucous membranes, no oral mucosal ulcers Cardiovascular: regular rate and rhythym, no murmur, rub, or gallop Respiratory: no respiratory distress, clear to auscultation Gastrointestinal: normoactive bowel sounds, soft, non-tender abdomen Skin: warm, normal color Neurologic: sensation intact bilaterally, other (Sedated) Lab Data & Imaging Review 02/23/17 23:10 02/23/17 23:10 WBC 5.30 10^3/uL (3.80-9.50) 02/23/17 23:10 RBC 3.32 10^6/uL (4.18-5.33) L 02/23/17 23:10 Hgb 10.2 g/dL (12.6-16.3) L 02/23/17 23:10 Hct 30.6 % (38.0-47.0) L 02/23/17 23:10 MCV 92.2 fL (81.5-99.8) 02/23/17 23:10 MCH 30.7 pg (27.9-34.1) 02/23/17 23:10 MCHC 33.3 g/dL (32.4-36.7) 02/23/17 23:10 RDW 15.6 % (11.5-15.2) H 02/23/17 23:10 Plt Count 551 10^3/uL (150-400) H 02/23/17 23:10 MPV 9.0 fL (8.7-11.7) 02/23/17 23:10 Neut % (Auto) 88.4 % (39.3-74.2) H 02/23/17 23:10 Lymph % (Auto) 8.9 % (15.0-45.0) L 02/23/17 23:10 Harrison % (Auto) 1.9 % (4.5-13.0) L 02/23/17 23:10 Eos % (Auto) 0.0 % (0.6-7.6) L 02/23/17 23:10 Baso % (Auto) 0.2 % (0.3-1.7) L 02/23/17 23:10 Nucleat RBC Rel Count 0.0 % (0.0-0.2) 02/23/17 23:10 Absolute Neuts (auto) 4.69 10^3/uL (1.70-6.50) 02/23/17 23:10 Absolute Lymphs (auto) 0.47 10^3/uL (1.00-3.00) L 02/23/17 23:10 Absolute Monos (auto) 0.10 10^3/uL (0.30-0.80) L 02/23/17 23:10 Absolute Eos (auto) 0.00 10^3/uL (0.03-0.40) L 02/23/17 23:10 Absolute Basos (auto) 0.01 10^3/uL (0.02-0.10) L 02/23/17 23:10 Absolute Nucleated RBC 0.00 10^3/uL (0-0.01) 02/23/17 23:10 Immature Gran % 0.6 % (0.0-1.1) 02/23/17 23:10 Immature Gran # 0.03 10^3/uL (0.00-0.10) 02/23/17 23:10 PT 25.0 SEC (12.0-15.0) H 02/24/17 00:35 INR 2.26 (0.83-1.16) H 02/24/17 00:35 APTT 39.4 SEC (23.0-38.0) H 02/24/17 00:35 Sodium 141 mEq/L (135-145) 02/23/17 23:10 Potassium 3.7 mEq/L (3.5-5.2) 02/23/17 23:10 Chloride 104 mEq/L (97-110) 02/23/17 23:10 Carbon Dioxide 18 mEq/l (22-31) L D 02/23/17 23:10 Anion Gap 19 mEq/L (8-16) H 02/23/17 23:10 BUN 14 mg/dL (7-23) 02/23/17 23:10 Creatinine 0.6 mg/dL (0.6-1.0) 02/23/17 23:10 Estimated GFR > 60 02/23/17 23:10 Glucose 129 mg/dL (70-100) H 02/23/17 23:10 Calcium 10.4 mg/dL (8.5-10.4) 02/23/17 23:10 Total Bilirubin 0.9 mg/dL (0.1-1.4) D 02/23/17 23:10 Conjugated Bilirubin 0.0 mg/dL (0.0-0.5) 02/23/17 23:10 Unconjugated Bilirubin 0.9 mg/dL (0.0-1.1) 02/23/17 23:10 AST 38 IU/L (14-46) 02/23/17 23:10 ALT 30 IU/L (9-52) 02/23/17 23:10 Alkaline Phosphatase 179 IU/L (38-126) H 02/23/17 23:10 Total Protein 6.9 g/dL (6.3-8.2) 02/23/17 23:10 Albumin 4.3 g/dL (3.5-5.0) 02/23/17 23:10 Lipase 429 IU/L (23-300) H 02/23/17 23:10 Assessment & Plan Assessment: 61 yo F w/ metastatic esophageal cancer presents with intractable back pain after recent admission for the same. Plan: 1. Acute on chronic back pain - With recurrent delirium-inducing pain episodes seemingly only remedied by high dose IV opiates. Recent admission did not elucidate cause of pain noting MRI showed only mild DJD. Constipation was cited as a possible contributor; also wonder if peritoneal mets and sigmoid inflammation could be playing a role. It is unclear how frequently patient is using pain medications at home, grandson thinks she may be having trouble swallowing pills. - Will control pain for now with Dilaudid IV and PO - Consider palliative care consult for symptom management - May benefit from Fentanyl patch or liquid analgesics 2. Metastatic esophageal CA - With mets to C-spine, liver, and peritoneum. She is currently receiving chemotherapy. 3. Hx DVT - On therapeutic AC with Xarelto chronically. Diet - Regular Code - Full Ppx - Xarelto Dispo - Admit to observation status
[2017-02-24] MEDS ORDERED: HYDROmorphONE/DILAUDID 2 MG TAB ONE ×2 (03:21→03:22)
[2017-02-24] MEDS: ACETAMINOPHEN 325 MG TAB PO PRN ×2 (03:34→07:34)
[2017-02-24] MEDS: HYDROmorphONE/DILAUDID 2 MG TAB PO PRN ×4 (03:34→14:22)
[2017-02-24] MEDS: HYDROmorphONE/DILAUDID 1 MG/ML INJ IVP PRN ×4 (03:35→14:22)
[2017-02-24 06:05] LABS: PLATELET COUNT 362 10^3/uL (150-400)
[2017-02-24] MEDS ORDERED: NS 1,000 ML IV SCH (07:00)
[2017-02-24] MEDS ORDERED: HYOSCYAMINE SULFATE 0.125 MG TAB PO PRN (12:55)
[2017-02-24] MEDS ORDERED: traZODone 50 MG TAB PO PRN (12:55)
[2017-02-24] MEDS ORDERED: POLYETHYLENE GLYCOL 3350 17 GM PKT PO PRN (12:55)
[2017-02-24] MEDS ORDERED: ZOLPIDEM TARTRATE 5 MG TAB PO PRN (12:55)
[2017-02-24] MEDS ORDERED: CYCLOBENZAPRINE 10 MG TAB PO PRN (12:55)
[2017-02-24] MEDS ORDERED: PHENAZOPYRIDINE HCL 200 MG TAB PO PRN (12:55)
--- NOTE | 2017-02-24 12:56 | HOSPPROG ---
Hospitalist Progress Note Assessment/Plan: # paroxysms of severe L sided pelvic/back pain - discussed at length with family , Dr Kendrick and Dr Graves - ddx: metastatic disease not seen on previous imaging, pain from obstructed ureter, pain from sigmoid colon - check bone scan, consider flex sig if no clear etiology - cont symptomatic treatment for now # esophageal cancer - treatment per onc # hx DVT - xarelto 35 minutes of direct face to face patient care time spent Objective: Vital Signs Temp Pulse Resp BP Pulse Ox 36.9 C 78 12 112/72 95 02/24/17 12:00 02/24/17 12:00 02/24/17 12:00 02/24/17 12:00 02/24/17 12:00 Laboratory Results 02/24/17 05:59 02/24/17 05:59 PT 25.0 SEC (12.0-15.0) H 02/24/17 00:35 INR 2.26 (0.83-1.16) H 02/24/17 00:35 ICD10 Worksheet Patient Problems: Problems Problem Status Onset Prosthetic hip infection Acute Urinary tract infection Acute Obstructive uropathy Acute Back pain Acute Esophageal cancer Acute Metastatic cancer Acute Intractable pain Acute
--- NOTE | 2017-02-24 13:12 | SOAPPROG ---
KULWINDER Progress Note Assessment/Plan: Assessment: - LL back pain - recurrent. I'm suspicious that this might be malignant in nature. She is point tender over her L sacroiliac area. Pain is also reproduced by pressure on her L anterior iliac crest. Her LLQ of the abdomen is not tender. I would recommend a bone scan to further evaluate for bony metastatic lesions. If one is found that correlates, then palliative XRT may be appropriate. - nausea - probably secondary to pain meds/chemo - esophageal CA - had treatment yesterday (cisplatin and CI 5FU). See consultation note from earlier this week. Plan: - Agree with bone scan - work on pain management. Consider adding dexamethasone 4mg BID to pain regimen. - control nausea Subjective: Nauseated from pain meds. She doesn't think it is from chemo. Objective: Vital Signs Temp Pulse Resp BP Pulse Ox 36.9 C 78 12 112/72 95 02/24/17 12:00 02/24/17 12:00 02/24/17 12:00 02/24/17 12:00 02/24/17 12:00 Laboratory Results 02/24/17 05:59 02/24/17 05:59 PT 25.0 SEC (12.0-15.0) H 02/24/17 00:35 INR 2.26 (0.83-1.16) H 02/24/17 00:35 Physical Exam - Physical Exam General Appearance: moderate distress Respiratory: lungs clear Cardiac/Chest: regular rate, rhythm Abdomen: soft Back: Other (tender over L SI region and L iliac crest) Neuro/Psych: oriented x 3 ICD10 Worksheet Patient Problems: Problems Problem Status Onset Intractable pain Acute Metastatic cancer Acute Back pain Acute Esophageal cancer Acute Obstructive uropathy Acute Prosthetic hip infection Acute Urinary tract infection Acute
[2017-02-24] MEDS: morphINE SR 15 MG TAB PO SCH ×3 (14:22→23:00)
[2017-02-24] MEDS: DIAZEPAM 2 MG TAB PO PRN (14:23)
[2017-02-24] MEDS ORDERED: NALOXONE HCL 0.4 MG/ML INJ IVP PRN (14:35)
--- NOTE | 2017-02-24 14:47 | ASMTCMCOM ---
CM Note CM Note Notes: Pt in current treatment for esophageal ca admitted for LL back pain. Testing in progress to determine cause. Pt not available to discuss DC plan. Pt discharged from [facility] on 02/22 with no identified needs at that time. Pt would benefit from a community-based palliative care referral. Pt may also benefit from HC RN. CM will continue to follow for DC needs. Date Signed: 02/24/2017 02:47 PM Electronically Signed By:Elba Smith LCSW
[2017-02-24] MEDS: morphINE PCA 30 MG/30 ML PCA IV PRN (15:16)
[2017-02-24] MEDS: LORazepam 2 MG/ML INJ IVP PRN (15:52)
[2017-02-24] MEDS: ACETAMINOPHEN 500 MG TAB PO SCH ×2 (16:48→23:00)
[2017-02-24] MEDS ORDERED: DEXMEDETOMIDINE HCL 400 MCG in NS 100 ML IV SCH (17:30)
--- NOTE | 2017-02-24 17:33 | ASMTCMCOM ---
CM Note CM Note Notes: Pt tx to ICU where she will put on precedex. Talked with pt's and children about community-based palliative care at [place]. They were interested but want to wait to see the course of her treatment. CM to follow. Date Signed: 02/24/2017 05:32 PM Electronically Signed By:Elba Smith LCSW
[2017-02-24] MEDS: DEXMEDETOMIDINE IN 0.9 % NACL 100 ML IV SCH ×2 (17:42→22:27)
[2017-02-24] MEDS ORDERED: ALTEPLASE 2 MG VIAL IVP PRN (17:56)
[2017-02-24] MEDS ORDERED: KETOROLAC 15 MG/1 ML SDV IVP SCH (18:00)
[2017-02-24] MEDS: DEXAMETHASONE 4 MG/ML VIAL IVP SCH (21:20)
[2017-02-24] MEDS: ONDANSETRON 4 MG/2 ML VIAL IVP PRN (21:44)
[2017-02-24] MEDS: RIVAROXABAN 20 MG TAB PO SCH (23:00)
[2017-02-25] MEDS: DEXAMETHASONE 4 MG/ML VIAL IVP SCH ×2 (00:58→05:23)
[2017-02-25] MEDS: LEVOTHYROXINE 112 MCG TAB PO SCH (05:23)
[2017-02-25 06:07] LABS: PLATELET COUNT 435 10^3/uL (150-400)
[2017-02-25] MEDS: morphINE PCA 30 MG/30 ML PCA IV PRN (07:44)
--- NOTE | 2017-02-25 08:56 | HOSPPROG ---
Hospitalist Progress Note Assessment/Plan: # pain crisis - unclear etiology, suspect bony mets though not seen on previous imaging -> check bone scan today - other less likely considerations include pain from obstructed ureter, pain from inflamed sigmoid colon - cont precedex, morphine gtt, increase MS contin 15->30, add roxinol today, cont dilaudid PO # esophageal cancer - treatment per onc # hx DVT - xarelto Subjective: pain better controlled overnight; denies abdominal pain; discussed at length with patient and her son Objective: Vital Signs Temp Pulse Resp BP Pulse Ox 37.1 C 62 18 117/68 98 02/25/17 07:46 02/25/17 08:15 02/25/17 08:15 02/25/17 08:15 02/25/17 08:15 Laboratory Results 02/25/17 05:15 02/25/17 05:15 02/24/17 02/25/17 02/26/17 05:59 05:59 05:59 Intake Total 855.5 Output Total 1800 Balance -944.5 PT 25.0 SEC (12.0-15.0) H 02/24/17 00:35 INR 2.26 (0.83-1.16) H 02/24/17 00:35 - Time Spent With Patient Time Spent with Patient: greater than 35 minutes Time Spent with Patient: Greater than 35 minutes spent on this patients care, greater than 50% of time spent counseling, educating, and coordinating care regarding the above mentioned plan. - Physical Exam Constitutional: other (somnolent) Cardiovascular: regular rate and rhythym, no murmur, rub, or gallop Respiratory: no respiratory distress, no rales or rhonchi, clear to auscultation Gastrointestinal: normoactive bowel sounds, soft, non-tender abdomen ICD10 Worksheet Patient Problems: Problems Problem Status Onset Prosthetic hip infection Acute Urinary tract infection Acute Obstructive uropathy Acute Back pain Acute Esophageal cancer Acute Metastatic cancer Acute Intractable pain Acute
[2017-02-25] MEDS: GABAPENTIN 300 MG CAP PO SCH ×3 (09:13→21:39)
[2017-02-25] MEDS: FAMOTIDINE 20 MG TAB PO SCH (09:13)
[2017-02-25] MEDS: ACETAMINOPHEN 500 MG TAB PO SCH ×3 (09:14→21:39)
[2017-02-25] MEDS: morphINE SR 30 MG TAB PO SCH ×2 (09:16→21:39)
[2017-02-25] MEDS: TAMSULOSIN HCL 0.4 MG CAP PO SCH (09:16)
--- NOTE | 2017-02-25 09:36 | PDMN ---
Medical Necessity Medical necessity: C/M review: Patient meets INPT criteria under MCG M-63 Back pain, Pain management GRG, medical Oncology GRG: Acute and persistent severe pain crisis of unclear etiology, suspect bony metastasis requiring planned 2017 whole body scan (nuclear medicine), transfer 02/24/2017 pm from med/surg to SDU, planned Palliative Care consult, ongoing IV Precedex infusion, IV Morphine [employer]OR[employer] PHYSICAL THERAPIST, titration of oral MC contin, continue oral Dilaudid in SDU, comorbid metastatic esophageal cancer. MD anticipates > 2 MN LOS for ongoing med nec for eval and TX of above.
[2017-02-25] MEDS: OXYBUTYNIN 5 MG EXT REL TAB PO SCH (10:30)
[2017-02-25] MEDS: DEXMEDETOMIDINE IN 0.9 % NACL 100 ML IV SCH (10:30)
[2017-02-25] MEDS ORDERED: POVIDONE-IODINE 30 GM OINTTUBE TP PRN (11:54)
--- NOTE | 2017-02-25 13:37 | SOAPPROG ---
SOAP Progress Note Assessment/Plan: Assessment/Plan: 61 yo woman w esophageal cancer on treatment admitted w pain crisis 1. pain crisis - in left sacral area MRI and bone scan unrevealing up walking around today w PT doing better on current pain regimen unclear etiology sigmoid inflammation 2. nausea - improved 3. esophageal ca - last treated w 5Fu/cisplatin on 02/23/2018 02/25/17 13:34 4. Hx of dvt - xarelto Subjective: In ICU on precedex due to increasing pain better on current pain regimen she did get some steroids yesterday Objective: Vital Signs Temp Pulse Resp BP Pulse Ox 37.1 C 70 15 109/60 100 02/25/17 07:46 02/25/17 10:00 02/25/17 10:00 02/25/17 10:00 02/25/17 10:00 PT 25.0 SEC (12.0-15.0) H 02/24/17 00:35 INR 2.26 (0.83-1.16) H 02/24/17 00:35 Up walking w PT ICD10 Worksheet Patient Problems: Problems Problem Status Onset Intractable pain Acute Metastatic cancer Acute Back pain Acute Esophageal cancer Acute Obstructive uropathy Acute Prosthetic hip infection Acute Urinary tract infection Acute
[2017-02-25] MEDS: BIOTENE DRY MOUTH MOUTHWASH 237 ML BTL MM PRN (14:31)
[2017-02-25] MEDS: RIVAROXABAN 20 MG TAB PO SCH (18:14)
[2017-02-26] MEDS: LEVOTHYROXINE 112 MCG TAB PO SCH (06:31)
--- NOTE | 2017-02-26 08:48 | HOSPPROG ---
Hospitalist Progress Note Assessment/Plan: # pain crisis - still unclear etiology, but pain is much better controlled - considerations include ureteral stent, sigmoid inflammation though on exam these are unlikely - concerned that she is somewhat somnolent, will taper off narcotics slightly - MS Contin 30 bid -> 15 TID - cont gabapentin 300 tid - cont apap 1G TID - add lidoderm patch # esophageal cancer - treatment per onc # hx DVT - xarelto Subjective: pain much better today; somewhat somnolent Objective: Vital Signs Temp Pulse Resp BP Pulse Ox 35.9 C L 58 L 9 L 122/68 H 98 02/26/17 06:00 02/26/17 06:00 02/26/17 06:00 02/26/17 06:00 02/26/17 06:00 02/25/17 02/26/17 02/27/17 05:59 05:59 05:59 Intake Total 550 Balance 550 PT 25.0 SEC (12.0-15.0) H 02/24/17 00:35 INR 2.26 (0.83-1.16) H 02/24/17 00:35 high risk uptitrating narcotics - Physical Exam Constitutional: no apparent distress, appears nourished, other (sleeping but easily awakes and is alert) Cardiovascular: regular rate and rhythym, no murmur, rub, or gallop Respiratory: no respiratory distress, no rales or rhonchi, clear to auscultation Gastrointestinal: normoactive bowel sounds, soft, non-tender abdomen ICD10 Worksheet Patient Problems: Problems Problem Status Onset Prosthetic hip infection Acute Urinary tract infection Acute Obstructive uropathy Acute Back pain Acute Esophageal cancer Acute Metastatic cancer Acute Intractable pain Acute
[2017-02-26] MEDS: GABAPENTIN 300 MG CAP PO SCH ×3 (09:20→23:05)
[2017-02-26] MEDS: ACETAMINOPHEN 500 MG TAB PO SCH ×3 (09:20→23:19)
[2017-02-26] MEDS: FAMOTIDINE 20 MG TAB PO SCH (09:20)
[2017-02-26] MEDS: TAMSULOSIN HCL 0.4 MG CAP PO SCH (09:20)
[2017-02-26] MEDS: morphINE SR 15 MG TAB PO SCH ×3 (09:20→23:06)
[2017-02-26] MEDS: OXYBUTYNIN 5 MG EXT REL TAB PO SCH (09:20)
[2017-02-26] MEDS: LIDOCAINE 5% 1 EA PATCH TD SCH (09:21)
--- NOTE | 2017-02-26 11:49 | SOAPPROG ---
SOAP Progress Note Assessment/Plan: Assessment/Plan: 61 yo woman w esophageal cancer on treatment admitted w pain crisis 1. pain crisis - in left sacral area MRI, CT, and bone scan unrevealing pain really localized over left SI joint up walking around today w PT but pain still present reports very different pain than C spine involvement of cancer doing better on current pain regimen ?benefit of anti-inflammatory but reports steroids no help out PT may be beneficial 2. nausea - improved 3. esophageal ca - last treated w 5Fu/cisplatin on 02/23/2018 02/25/17 13:34 4. Hx of dvt - xarelto 02/26/17 11:50 Subjective: no acute events off precedex pain 02/15 Objective: Vital Signs Temp Pulse Resp BP Pulse Ox 35.9 C L 52 L 17 119/62 98 02/26/17 06:00 02/26/17 08:35 02/26/17 08:35 02/26/17 08:35 02/26/17 08:35 02/25/17 02/26/17 02/27/17 05:59 05:59 05:59 Intake Total 550 Balance 550 PT 25.0 SEC (12.0-15.0) H 02/24/17 00:35 INR 2.26 (0.83-1.16) H 02/24/17 00:35 Gen - NAD, sitting in chair HEENT - C collar, anicteric CV - RRR Resp - clear to auscultation Abd - soft, NT Ext - no sig edema TTP over let SI joint ICD10 Worksheet Patient Problems: Problems Problem Status Onset Intractable pain Acute Metastatic cancer Acute Back pain Acute Esophageal cancer Acute Obstructive uropathy Acute Prosthetic hip infection Acute Urinary tract infection Acute
[2017-02-26] MEDS: DIAZEPAM 2 MG TAB PO PRN (12:13)
[2017-02-26] MEDS: BIOTENE DRY MOUTH MOUTHWASH 237 ML BTL MM PRN (12:15)
[2017-02-26] MEDS ORDERED: GADOBUTROL 10 ML VIAL IVP ONE (12:48)
[2017-02-26] MEDS: RIVAROXABAN 20 MG TAB PO SCH (17:16)
[2017-02-26] MEDS: morphINE 10 MG/0.5 ML UDSYR PO PRN (23:04)
[2017-02-26] MEDS: SENNOSIDES/DOCUSATE SODIUM TAB PO PRN (23:05)
[2017-02-26] MEDS: ACETAMINOPHEN 650 MG/20.3 ML UDCUP PO SCH (23:13)
[2017-02-26] MEDS: PATCH REMOVAL 1 EA PATCH TD SCH (23:17)
[2017-02-27] MEDS: DIAZEPAM 2 MG TAB PO PRN (03:28)
[2017-02-27] MEDS: LEVOTHYROXINE 112 MCG TAB PO SCH (06:35)
[2017-02-27 06:51] LABS: PLATELET COUNT 417 10^3/uL (150-400)
[2017-02-27] MEDS: morphINE 10 MG/0.5 ML UDSYR PO PRN (06:55)
[2017-02-27] MEDS: ONDANSETRON 4 MG/2 ML VIAL IVP PRN (07:01)
[2017-02-27] MEDS: HYDROmorphONE/DILAUDID 1 MG/ML INJ IVP PRN (07:05)
[2017-02-27] MEDS ORDERED: fentaNYL 100 MCG/2 ML INJ IVP ONE (07:13)
[2017-02-27] MEDS ORDERED: fentaNYL 100 MCG/2 ML INJ ONE (07:18)
[2017-02-27] MEDS: LORazepam 2 MG/ML INJ IVP PRN (07:25)
[2017-02-27] MEDS: DEXMEDETOMIDINE IN 0.9 % NACL 100 ML IV SCH (07:26)
[2017-02-27] MEDS: LIDOCAINE 5% 1 EA PATCH TD SCH (10:24)
[2017-02-27] MEDS: ACETAMINOPHEN 650 MG/20.3 ML UDCUP PO SCH ×2 (11:12→17:32)
[2017-02-27] MEDS: TAMSULOSIN HCL 0.4 MG CAP PO SCH (11:13)
[2017-02-27] MEDS: FAMOTIDINE 20 MG TAB PO SCH (11:13)
[2017-02-27] MEDS: morphINE SR 15 MG TAB PO SCH ×3 (11:13→21:02)
[2017-02-27] MEDS: OXYBUTYNIN 5 MG EXT REL TAB PO SCH (11:13)
[2017-02-27] MEDS: SENNOSIDES/DOCUSATE SODIUM TAB PO PRN (11:13)
[2017-02-27] MEDS: GABAPENTIN 300 MG CAP PO SCH ×3 (11:13→21:02)
[2017-02-27] MEDS: BIOTENE DRY MOUTH MOUTHWASH 237 ML BTL MM PRN (11:15)
--- NOTE | 2017-02-27 13:29 | PDPCPN ---
Palliative Care Progress Note Assessment/Plan: Referring provider: Dr Ventura Reason for consult: Complex medical decision making Symptom control HPI: Lola Saba is a 61 yo with PMH met esophageal cancer with mets to liver and spine admitted to the hospital with back pain. Recent hospital admission for similar issue. Silva states her pain started about an hour after she had a "bigger" dinner with chocolate pudding and pasta last night. She describes is as a dull ache that comes and goes located mostly in her lower left back with some radiation to her mid back and abdomen. Denies any radiation down her legs. She states it is hard for her to describe but she also gets anxious due to not being able to control the pain. She admits when she is in the hospital the pain gets better but she is also eating a blander diet and when she gets home she likes to eat richer foods like nachos. She states she has a hx of IBS and wonders if the pain is more related to IBS then something new. Her pain has improved throughout the day today. Some constipation with no BM in a few days, getting bowel regimen last night. She states she varies between constipation and diarrhea. We talked about her goals which are to continue with chemo as well as quality of life. She enjoys being mentally clear and being physically independent. She is hoping to get back to working but also wants to make sure her symptom are controlled. She understands the incurable nature of her cancer but is hoping with treatment she can continue to live with quality of life. Assessment: Physical: - Pain: left back pain, abdominal pain - suspect more due to IBS as no acute cause found yet - continue hyoscyamine PRN for abdominal cramping - follow simple diet without a lot of rich foods - continue to work on opiate induced constipation as below - on scheduled MScontin 15 mg TID, gabapentin 300mg TID, and tylenol scheduled - continue roxanol 5mg PO PRN - weakness - PT/OT - constipation - continue bowel regimen with senna and colace scheduled Emotional/psychological: Has a lot of support from family. Advanced Care Planning: Is patient decisional?: Yes Code Status: Full MD POA: unknown MDPOA Plan: Will continue to follow for symptom management. Would benefit from outpatient community based palliative care for ongoing symptom management and support. Subjective: my pain is getting better Objective: Social History: to [place]. 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 Has 2 adult children local. Medication list reviewed ROS: General: fatigue, weakness, weight loss ENT: dry mouth, dysphagia Resp: negative GI: constipation, abdominal pain : negative MS: left back pain Skin: negative Neuro: negative Psych: negative Functional assessment: PPS: 50% Functional status: needs some help with ADLs. Vital Signs Temp Pulse Resp BP Pulse Ox 36.5 C 62 10 L 101/73 100 02/27/17 11:27 02/27/17 11:27 02/27/17 11:27 02/27/17 11:27 02/27/17 11:27 Laboratory Results 02/27/17 06:40 02/27/17 06:40 02/26/17 02/27/17 02/28/17 05:59 05:59 05:59 Intake Total 550 1000 20.4 Output Total 1000 Balance 550 0 20.4 PT 25.0 SEC (12.0-15.0) H 02/24/17 00:35 INR 2.26 (0.83-1.16) H 02/24/17 00:35 Physical Exam - Physical Exam General Appearance: alert, no apparent distress Respiratory: No respiratory distress, No accessory muscle use Skin: normal color, warm/dry Extremities: No pedal edema Neuro/Psych: alert, oriented x 3 ICD10 Worksheet Patient Problems: Problems Problem Status Onset Intractable pain Acute Metastatic cancer Acute Palliative care encounter Acute Back pain Acute Esophageal cancer Acute Obstructive uropathy Acute Prosthetic hip infection Acute Urinary tract infection Acute - ICD10 Problem Qualifiers (1) Palliative care encounter
--- NOTE | 2017-02-27 14:49 | SOAPPROG ---
SOAP Progress Note Assessment/Plan: Assessment/Plan: 61 yo woman w esophageal cancer on treatment admitted w/ pain crisis (LLQ primarily, on admission also L iliac crest/SI jt). * Pain: very unclear etiology. Extensive evaluation demonstrates no bone etiology (chronic L hip pain longstanding/unchanged, chronic R hip fracture since 09/2016). CT earlier this month with stable carcinomatosis. Pain began prior to L ureteral stent. UCx neg. ?GI origin. - As etiology unclear after extensive evaluation, pain management seems best plan - Appreciate palliative care consultation * Metastatic esophageal cancer: most recent chemo C15D1 cis/5FU 02/23/17. * Hx of LLE 04/2014 DVT: Xarelto 02/27/17 14:53 Subjective: LLQ pain was significant this morning, much better now. She feels it is different than her chronic L hip pain. O: VS reviewed. Gen: A&O, NAD. Lungs: breathing comfortably. Abd: soft, NT. Laboratory Tests 02/23/17 02/27/17 02/27/17 23:10 06:40 06:40 WBC 5.59 Hgb 9.4 L Hct 28.7 L Plt Count 417 H Sodium 140 Potassium 4.5 Chloride 102 Carbon Dioxide 25 Anion Gap 13 BUN 23 Creatinine 0.8 Estimated GFR > 60 Glucose 92 Total Bilirubin 0.9 D Conjugated Bilirubin 0.0 Unconjugated Bilirubin 0.9 AST 38 ALT 30 Alkaline Phosphatase 179 H Objective: Vital Signs Temp Pulse Resp BP Pulse Ox 36.5 C 62 10 L 101/73 100 02/27/17 11:27 02/27/17 11:27 02/27/17 11:27 02/27/17 11:27 02/27/17 11:27 Laboratory Results 02/27/17 06:40 02/27/17 06:40 02/26/17 02/27/17 02/28/17 05:59 05:59 05:59 Intake Total 550 1000 20.4 Output Total 1000 Balance 550 0 20.4 PT 25.0 SEC (12.0-15.0) H 02/24/17 00:35 INR 2.26 (0.83-1.16) H 02/24/17 00:35 ICD10 Worksheet Patient Problems: Problems Problem Status Onset Intractable pain Acute Metastatic cancer Acute Palliative care encounter Acute Back pain Acute Esophageal cancer Acute Obstructive uropathy Acute Prosthetic hip infection Acute Urinary tract infection Acute
[2017-02-27] MEDS: RIVAROXABAN 20 MG TAB PO SCH (17:32)
[2017-02-27] MEDS: PATCH REMOVAL 1 EA PATCH TD SCH (21:00)
--- NOTE | 2017-02-27 21:41 | HOSPPROG ---
Hospitalist Progress Note Assessment/Plan: #. Left hip/abdominal pain - overnight with acute worsening again necessitating use of Precedex. Palliative care and orthopedic consults today. I will defer to Palliative care regarding and pain medication adjustments. Await orthopedic recommendations. #. Esophageal Cancer - metastatic but negative bone scan. Dr. Chen following as outpatient and patient motivated to keep up with her chemotherapy regimen. #. Femoral Neck Fracture - this was noted on MRI and apparently old for last summer. Orthopedic surgery consulted. #. Hx DVT - on Xarelto. #. Bowel/Bladder - bowel regimen in place. #. Dispo - hopeful for discharge home to keep outpatient follow up with Dr. Chen. Subjective: F/U pain complaints. Patient states her pain is localzing around the left hip area. She had acute worsening this morning requiring use of precedex to make her comfortable. Objective: Vital Signs Temp Pulse Resp BP Pulse Ox 36.9 C 67 11 L 103/66 96 02/27/17 21:00 02/27/17 21:00 02/27/17 21:00 02/27/17 21:00 02/27/17 21:00 Laboratory Results 02/27/17 06:40 02/27/17 06:40 02/26/17 02/27/17 02/28/17 05:59 05:59 05:59 Intake Total 550 1000 620.4 Output Total 1000 Balance 550 0 620.4 PT 25.0 SEC (12.0-15.0) H 02/24/17 00:35 INR 2.26 (0.83-1.16) H 02/24/17 00:35 - Physical Exam Constitutional: no apparent distress, not in pain Cardiovascular: regular rate and rhythym, no murmur, rub, or gallop Respiratory: no respiratory distress, no rales or rhonchi Gastrointestinal: normoactive bowel sounds, soft, non-tender abdomen Genitourinary: No dalal in urethra Skin: no rashes or abrasions, No erythema, No fluctuance Neurologic: AAOx3 Psychiatric: not anxious ICD10 Worksheet Patient Problems: Problems Problem Status Onset Intractable pain Acute Metastatic cancer Acute Palliative care encounter Acute Back pain Acute Esophageal cancer Acute Obstructive uropathy Acute Prosthetic hip infection Acute Urinary tract infection Acute
--- NOTE | 2017-02-28 01:50 | GCON ---
[f rep st] CONSULTATION ORTHOPEDIC CONSULTATION DATE OF CONSULTATION: 02/27/2017 CHIEF COMPLAINT: Left posterior-lateral flank/buttock pelvic pain. HISTORY OF PRESENT ILLNESS: This is a 61-year-old female with metastatic esophageal cancer with metastases to her C-spine, liver, and peritoneum. She notes acute onset of back and left posterior lateral pelvic pain. She describes the pain currently as 4/10 and achy. She denies any numbness or tingling or radiation of the pain up her back or down her lower extremity. She denies any right-sided symptoms whatsoever. She is unable to locate the pain and/or able to make it worse. She is unclear on what exacerbates or relieves her pain other than pain medication. Of note, patient did have a left bipolar [place]miarthro[place], which was subsequently irrigated and debrided by Dr. Matt for a periprosthetic joint infection. She has done well since this. She currently denies any fevers, chills, redness, swelling, drainage, or pain about the hip itself. She was also diagnosed with a nondisplaced femoral neck insufficiency fracture on her right hip several months ago. She did not undergo any sort of surgery for this. She has been weightbearing as tolerated. She has no symptoms on the right side. ALLERGIES: Include naproxen, adhesive tape, nonsteroidal anti-inflammatories, penicillin, and sulfa. MEDICATIONS: At home, include famotidine, herbal supplements, hyoscyamine sulfate, docusate/Senokot, trazodone, diazepam, oxybutynin chloride, polyethylene glycol, Xarelto, simethicone, Ambien. PAST MEDICAL HISTORY: As above. Also with a history of DVT. PAST SURGICAL HISTORY: Includes hysterectomy, recent spinal surgery, a C7 corpectomy for a metastatic lesion, also with a C6-T1 fusion, as well as the left hip hemiarthroplasty. SOCIAL HISTORY: Patient denies smoking. REVIEW OF SYSTEMS: Ten point is reviewed and negative except for what is stated in HPI and below. PHYSICAL EXAMINATION: VITAL SIGNS: Stable. There is no fever. CONSTITUTIONAL : She is awake, alert and oriented x3, in no acute distress. LUNGS: She has easy and non labored breathing. GI: Soft, nontender abdomen. EXTREMITIES: Left lower extremity examination, patient has well-healed posterior lateral incision. There is no erythema, drainage, or signs of infection. No swelling. She does have a Lidoderm patch on the posterior lateral aspect of the gluteus medius muscle belly. She has no pain with log roll of the left lower extremity. She is able to flex to 90 degrees without pain. External rotation to 50, internal rotation to 10. She has no tenderness to palpation over the iliac crest, ASIS, pubic symphysis, adductor tubercle, groin ileus psoas, greater trochanter, SI joint, hamstring origins, or lumbar spine. She is able to ambulate without pain, but does have an altered gait, which she cannot explain and states it is not due to pain. LABORATORY DATA: Reviewed. White count is within normal limits 5.59, hemoglobin 9.4, neutrophil percentage 86.0. IMAGING: Reviewed. Pelvis MRI reveals bone marrow edema in the right femoral neck, significant artifact in the left hemipelvis related to the left hemiarthroplasty, which is interfering with soft tissue evaluation in her area of pain. AP pelvis x-ray, there is subtle cortical step-off on the right femoral neck. This is likely healed, as she is not having any pain. She has no pain with log roll of the right hip and has full motion. The left hip bipolar hemiarthroplasty is cemented without signs of fracture. There appears to be Bynum class 3 heterotopic ossification in the adductor complex of the left hip. This does not coincide with any abnormalities in her recent bone scan , however. ASSESSMENT AND PLAN: A 61-year-old female with metastatic esophageal cancer with vague left hip/flank pain. It is very unlikely that her pain source is coming from the hemiarthroplasty. It is possible there are insufficiency fractures of the pelvis, however, that were not identified on the MRI due to artifact. However, she has no tenderness to palpation and, therefore, these are also unlikely. It is possible these are related to muscle spasm given the acuity and severity and/or deconditioning. Likelihood of a periprosthetic joint infection is very low based on current labs, signs and symptoms, and imaging from the patient. I would recommend physical therapy without weightbearing restrictions. The patient is not having any symptoms in her right hip. This is a known non-operatively treated femoral neck stress fracture , which appears to be clinically healed. The patient understands and agrees with this treatment plan. Questions were answered. /[id number]/MODL MTDD
[2017-02-28] MEDS: ACETAMINOPHEN 650 MG/20.3 ML UDCUP PO SCH ×5 (02:11→21:03)
[2017-02-28] MEDS: LEVOTHYROXINE 112 MCG TAB PO SCH (06:42)
[2017-02-28] MEDS: HYDROmorphONE/DILAUDID 1 MG/ML INJ IVP PRN ×3 (06:47→11:55)
[2017-02-28] MEDS: LORazepam 2 MG/ML INJ IVP PRN (06:47)
[2017-02-28] MEDS: GABAPENTIN 300 MG CAP PO SCH ×4 (11:18→21:02)
[2017-02-28] MEDS: FAMOTIDINE 20 MG TAB PO SCH ×2 (11:18→13:06)
[2017-02-28] MEDS: OXYBUTYNIN 5 MG EXT REL TAB PO SCH ×2 (11:18→13:05)
[2017-02-28] MEDS: morphINE SR 15 MG TAB PO SCH ×4 (11:18→21:02)
[2017-02-28] MEDS: SENNOSIDES/DOCUSATE SODIUM TAB PO PRN ×2 (11:19→13:04)
[2017-02-28] MEDS: TAMSULOSIN HCL 0.4 MG CAP PO SCH ×2 (11:19→12:54)
[2017-02-28] MEDS: LIDOCAINE 5% 1 EA PATCH TD SCH (11:27)
[2017-02-28] MEDS: morphINE 10 MG/0.5 ML UDSYR PO PRN (11:29)
[2017-02-28] MEDS: DIAZEPAM 2 MG TAB PO PRN (12:21)
--- NOTE | 2017-02-28 13:40 | PDPCPN ---
Palliative Care Progress Note Assessment/Plan: HPI: Lola Saba is a 61 yo with PMH met esophageal cancer with mets to liver and spine admitted to the hospital with back pain. Recent hospital admission for similar issue. Work up negative for acute cause of pain. Silva seen this Am and again in the afternoon. Had another pain episode this early AM needing IV dilaudid and ativan x1 each. MScontin delayed administration with increased pain this morning. Seen again this afternoon with much improved pain and tolerable pain level. No BM yet but taking senna. Discussed with , RN, and DR Vo to readdress pain plan. Allergic to most topical and adhesives so will avoid fentanyl patch for now. Also try heating pad. Assessment: Physical: - Pain: left back pain, abdominal pain - suspect more due to IBS as no acute cause found yet - continue hyoscyamine PRN for abdominal cramping - follow simple diet without a lot of rich foods - continue to work on opiate induced constipation as below - Reschedule MScontin 15mg QAM and 30 mg QHS to help with AM pain - heating pad PRN - on gabapentin 300mg TID, and tylenol scheduled - continue roxanol 5mg PO PRN - weakness - PT/OT - constipation - continue bowel regimen with senna and colace scheduled Emotional/psychological: Has a lot of support from family. Advanced Care Planning: Is patient decisional?: Yes Code Status: Full MD POA: unknown MDPOA Plan: Will continue to follow for symptom management. Would benefit from outpatient community based palliative care for ongoing symptom management and support. Subjective: I think i'm improving Objective: Vital Signs Temp Pulse Resp BP Pulse Ox 36.9 C 67 17 128/84 H 98 02/28/17 06:40 02/28/17 06:40 02/28/17 06:40 02/28/17 06:40 02/28/17 06:40 Laboratory Results 02/27/17 06:40 02/27/17 06:40 02/27/17 02/28/17 03/01/17 05:59 05:59 05:59 Intake Total 1000 770.4 Output Total 1000 Balance 0 770.4 PT 25.0 SEC (12.0-15.0) H 02/24/17 00:35 INR 2.26 (0.83-1.16) H 02/24/17 00:35 Physical Exam - Physical Exam General Appearance: alert, no apparent distress Respiratory: No respiratory distress, No accessory muscle use Skin: normal color, warm/dry Extremities: No pedal edema Neuro/Psych: alert, oriented x 3 ICD10 Worksheet Patient Problems: Problems Problem Status Onset Intractable pain Acute Metastatic cancer Acute Palliative care encounter Acute Back pain Acute Esophageal cancer Acute Obstructive uropathy Acute Prosthetic hip infection Acute Urinary tract infection Acute - ICD10 Problem Qualifiers (1) Palliative care encounter
--- NOTE | 2017-02-28 15:37 | ASMTCMCOM ---
CM Note CM Note Notes: Spoke to patient and about HC services on discharge. They have had [facility] in the past and would like to use them again. HC: PT/OT/RN/[facility]. Contact made and referral sent to [facility]. Date Signed: 02/28/2017 03:37 PM Electronically Signed By:Mile Shields LCSW
[2017-02-28] MEDS: RIVAROXABAN 20 MG TAB PO SCH (18:01)
[2017-02-28] MEDS ORDERED: NS 1,000 ML IV ONE (18:04)
--- NOTE | 2017-02-28 18:13 | HOSPPROG ---
Hospitalist Progress Note Assessment/Plan: # acute hypotension- called by nurse for systolic blood pressure in the 80s- patient p.o. intake very poor today suspect volume related - normal saline bolus now on follow # Left hip/abdominal pain - intermittent acute worsening throughout the day MRI (personally reviewed and interpreted) no acute fractures found Oxygen saturations 96% on room air - orthopedic recommendations- no clear fracture as cause - adjusting MS Contin doses today to increase p.m. dosing to 30 mg assisting in early a.m. pain - will cleanup other pain medications to avoid somnolence - up titrate bowel regimen # Esophageal Cancer - metastatic but negative bone scan. Dr. Chen following as outpatient and patient motivated to keep up with her chemotherapy regimen. # Femoral Neck Fracture - this was noted on MRI and apparently old for last summer. Orthopedic surgery consulted- no intervention recommended # Hx DVT - on Xarelto- creatinine is 0.8 # Bowel/Bladder - increase bowel regimen in place. # Dispo - hopeful for discharge home to keep outpatient follow up with Dr. Chen Have discussed the case with palliative care and RN- will titrate medications to encourage long-acting pain meds and improved coverage of chronic symptoms Subjective: Pain Objective: Vital Signs Temp Pulse Resp BP Pulse Ox 36.9 C 83 12 78/57 L 96 02/28/17 17:51 02/28/17 17:51 02/28/17 17:51 02/28/17 17:51 02/28/17 17:51 Laboratory Results 02/27/17 06:40 02/27/17 06:40 02/27/17 02/28/17 03/01/17 05:59 05:59 05:59 Intake Total 1000 770.4 240 Output Total 1000 Balance 0 770.4 240 PT 25.0 SEC (12.0-15.0) H 02/24/17 00:35 INR 2.26 (0.83-1.16) H 02/24/17 00:35 - Physical Exam Constitutional: chronically ill appearing Eyes: anicteric sclera Ears, Nose, Mouth, Throat: dry mucous membranes Cardiovascular: regular rate and rhythym Respiratory: no respiratory distress Gastrointestinal: normoactive bowel sounds Genitourinary: no bladder fullness Skin: warm Musculoskeletal: No asymmetric calves Neurologic: AAOx3 Psychiatric: other (Somnolent) Lymph, Heme, Immunologic: no cervical LAD ICD10 Worksheet Patient Problems: Problems Problem Status Onset Intractable pain Acute Metastatic cancer Acute Palliative care encounter Acute Back pain Acute Esophageal cancer Acute Obstructive uropathy Acute Prosthetic hip infection Acute Urinary tract infection Acute
[2017-02-28] MEDS: SENNOSIDES/DOCUSATE SODIUM TAB PO SCH (21:02)
[2017-02-28] MEDS: PATCH REMOVAL 1 EA PATCH TD SCH (21:12)
[2017-03-01] MEDS: DIAZEPAM 2 MG TAB PO PRN (03:03)
[2017-03-01] MEDS: HYDROmorphONE/DILAUDID 1 MG/ML INJ IVP PRN ×2 (03:04→11:36)
[2017-03-01] MEDS: morphINE SR 15 MG TAB PO SCH ×3 (06:29→21:06)
[2017-03-01] MEDS: LEVOTHYROXINE 112 MCG TAB PO SCH (06:29)
[2017-03-01] MEDS: GABAPENTIN 300 MG CAP PO SCH ×3 (09:31→21:11)
[2017-03-01] MEDS: OXYBUTYNIN 5 MG EXT REL TAB PO SCH (09:31)
[2017-03-01] MEDS: TAMSULOSIN HCL 0.4 MG CAP PO SCH (09:31)
[2017-03-01] MEDS: FAMOTIDINE 20 MG TAB PO SCH (09:31)
[2017-03-01] MEDS: LIDOCAINE 5% 1 EA PATCH TD SCH (09:32)
[2017-03-01] MEDS: POLYETHYLENE GLYCOL 3350 17 GM PKT PO SCH ×2 (09:44→14:33)
[2017-03-01] MEDS: SENNOSIDES/DOCUSATE SODIUM TAB PO SCH ×2 (09:44→21:06)
[2017-03-01] MEDS: SIMETHICONE 80 MG TAB CHEW PO PRN (09:49)
[2017-03-01] MEDS: ACETAMINOPHEN 650 MG/20.3 ML UDCUP PO SCH (09:49)
[2017-03-01] MEDS ORDERED: NS 1,000 ML IV ONE (10:10)
[2017-03-01] MEDS: morphINE 10 MG/0.5 ML UDSYR PO PRN ×2 (11:05→13:07)
--- NOTE | 2017-03-01 11:21 | SOAPPROG ---
SOAP Progress Note Assessment/Plan: Assessment/Plan: 61 yo woman w esophageal cancer on treatment admitted w/ pain crisis (LLQ primarily, on admission also L iliac crest/SI jt). * Pain: very unclear etiology. Extensive evaluation demonstrates no bone etiology (chronic L hip pain longstanding/unchanged, chronic R hip fracture since 09/2016). CT earlier this month with stable carcinomatosis. Pain began prior to L ureteral stent. UCx neg. ?GI origin. h/o IBS, pain today seems very crampy in nature. - start duloxetine - ?GI consultation - Appreciate palliative care consultation, d/w with Flori Mercedes today * Metastatic esophageal cancer: most recent chemo C15D1 cis/5FU 02/23/17. * Hx of LLE 04/2014 DVT: Xarelto 03/01/17 11:20 Subjective: Significant left bacl/LLQ pain this morning. Sounds cramping in nature. Daughter, Arminda, present. O: VS reviewed. Gen: significant pain. Comes and goes in waves, needs to sit up forward intermittently. Laboratory Tests 02/27/17 03/01/17 06:40 04:25 WBC 4.88 Hgb 8.3 L Plt Count 263 D BUN 23 Creatinine 0.8 Objective: Vital Signs Temp Pulse Resp BP Pulse Ox 36.9 C 81 16 79/53 L 98 03/01/17 08:00 03/01/17 08:00 03/01/17 08:00 03/01/17 08:00 03/01/17 08:00 Laboratory Results 03/01/17 04:25 02/27/17 06:40 02/28/17 03/01/17 03/02/17 05:59 05:59 05:59 Intake Total 770.4 5335 Balance 770.4 5335 PT 25.0 SEC (12.0-15.0) H 02/24/17 00:35 INR 2.26 (0.83-1.16) H 02/24/17 00:35 ICD10 Worksheet Patient Problems: Problems Problem Status Onset Intractable pain Acute Metastatic cancer Acute Palliative care encounter Acute Back pain Acute Esophageal cancer Acute Obstructive uropathy Acute Prosthetic hip infection Acute Urinary tract infection Acute
[2017-03-01] MEDS: DULoxetine 30 MG CAP PO SCH (12:24)
[2017-03-01] MEDS: NS 1,000 ML IV SCH (12:25)
--- NOTE | 2017-03-01 13:26 | HOSPPROG ---
Hospitalist Progress Note Assessment/Plan: # acute hypotension- intermittent SBP 80s- patient p.o. intake remains nearly nothing in last 24 hours - suspect volume related Oxygen saturations 93% on room air - repeat NS bolus now - start maintenance fluids # Left hip/abdominal pain - intermittent acute worsening - uptitrated evening MS Contin to 30mg - avoided 0700 poain - however with new crampy pain 1000 MRI (personally reviewed and interpreted) no acute fractures found - remains unclear if pain orthopedic in origin or GI - diarrhea yesterday followed by no BM- normal WBC CT abdomen 02/13/17 (personally reviewed and interpreted) carcinomatosis - minimal free fluid- double J ureteral stent - check Abd xray now to rule-out SBO - continue adjusted MS Contin doses 15mg QAM, 15mg Qnoon and 30mg QPM- prn roxanol or IV dilaudid - cymbalt added today by ONC - orthopedic recommendations- no clear fracture as cause - continue bowel regimen # Esophageal Cancer - metastatic Bone Scan (reviewed) negative for bone mets. Dr. Chen following as outpatient and patient motivated to keep up with her chemotherapy regimen. # Femoral Neck Fracture Right- this was noted on MRI and apparently old for last summer. Orthopedic surgery consulted- no intervention recommended # Hx DVT - on Xarelto- creatinine is 0.8 # Bowel/Bladder - increase bowel regimen in place. # Dispo - hopeful for discharge home to keep outpatient follow up with Dr. Chen Have discussed the case with Oncology - source of pain is very unclear- checking flim today and adding Cymbalta - consider GI consult if persists Subjective: pain with associated SOB Objective: Vital Signs Temp Pulse Resp BP Pulse Ox 36.9 C 81 16 98/70 L 98 03/01/17 08:00 03/01/17 08:00 03/01/17 08:00 03/01/17 10:45 03/01/17 08:00 Laboratory Results 03/01/17 04:25 02/27/17 06:40 02/28/17 03/01/17 03/02/17 05:59 05:59 05:59 Intake Total 770.4 5335 Balance 770.4 5335 PT 25.0 SEC (12.0-15.0) H 02/24/17 00:35 INR 2.26 (0.83-1.16) H 02/24/17 00:35 - Physical Exam Constitutional: chronically ill appearing Eyes: anicteric sclera Ears, Nose, Mouth, Throat: dry mucous membranes Cardiovascular: regular rate and rhythym Respiratory: no respiratory distress, no rales or rhonchi Gastrointestinal: normoactive bowel sounds, tenderness, No guarding, No rebound Genitourinary: no bladder fullness Skin: warm Musculoskeletal: No asymmetric calves Neurologic: AAOx3 Psychiatric: depressed, flat affect Lymph, Heme, Immunologic: no cervical LAD ICD10 Worksheet Patient Problems: Problems Problem Status Onset Intractable pain Acute Metastatic cancer Acute Palliative care encounter Acute Back pain Acute Esophageal cancer Acute Obstructive uropathy Acute Prosthetic hip infection Acute Urinary tract infection Acute
[2017-03-01] MEDS: ACETAMINOPHEN 500 MG TAB PO SCH ×2 (16:16→21:07)
[2017-03-01] MEDS: BIOTENE DRY MOUTH MOUTHWASH 237 ML BTL MM PRN (16:18)
[2017-03-01] MEDS: RIVAROXABAN 20 MG TAB PO SCH (18:10)
[2017-03-02] MEDS: LEVOTHYROXINE 112 MCG TAB PO SCH (05:47)
[2017-03-02] MEDS: morphINE SR 15 MG TAB PO SCH ×3 (07:41→20:16)
[2017-03-02] MEDS: morphINE 10 MG/0.5 ML UDSYR PO PRN ×3 (08:35→20:40)
[2017-03-02] MEDS: OXYBUTYNIN 5 MG EXT REL TAB PO SCH (08:36)
[2017-03-02] MEDS: FAMOTIDINE 20 MG TAB PO SCH (08:36)
[2017-03-02] MEDS: SIMETHICONE 80 MG TAB CHEW PO PRN ×2 (08:36→14:13)
[2017-03-02] MEDS: DULoxetine 30 MG CAP PO SCH (08:36)
[2017-03-02] MEDS: GABAPENTIN 300 MG CAP PO SCH (08:36)
[2017-03-02] MEDS: ACETAMINOPHEN 500 MG TAB PO SCH ×3 (08:37→23:34)
[2017-03-02] MEDS: TAMSULOSIN HCL 0.4 MG CAP PO SCH (08:37)
[2017-03-02] MEDS: POLYETHYLENE GLYCOL 3350 17 GM PKT PO SCH (08:37)
[2017-03-02] MEDS: DIAZEPAM 2 MG TAB PO PRN (09:05)
[2017-03-02] MEDS: HYDROmorphONE/DILAUDID 1 MG/ML INJ IVP PRN ×4 (09:05→20:16)
[2017-03-02] MEDS: SENNOSIDES/DOCUSATE SODIUM TAB PO SCH ×2 (09:48→20:16)
[2017-03-02] MEDS ORDERED: PROTOCOL POTASSIUM 1 DOSE MISC PRN (10:11)
[2017-03-02] MEDS ORDERED: METOCLOPRAMIDE 10 MG TAB PO PRN (10:17)
--- NOTE | 2017-03-02 10:30 | SOAPPROG ---
SOAP Progress Note Assessment/Plan: Assessment: SOAP Progress Note Assessment/Plan: Assessment/Plan: 61 yo woman w esophageal cancer on treatment admitted w/ pain crisis (LLQ primarily, on admission also L iliac crest/SI jt). * Pain: Unclear etiology. ? motility abnormality related to peritoneal carcinomatosis. Intermittent, acute, seems spasmotic. Triggered by eating. Extensive evaluation demonstrates no bone etiology (chronic L hip pain longstanding/unchanged, chronic R hip fracture since 09/2016). CT earlier this month with stable carcinomatosis. Pain began prior to L ureteral stent. UCx neg. Duloxetine started yesterday, so far, no significant improvement. - Agree with GI consultation - Appreciate palliative care consultation - Consider integrative therapy consult. Pain seems 'real', but she may benefit from some strategies to help her cope with it, ie reiki, massage, meditation, acupuncture, etc. * Metastatic esophageal cancer: most recent chemo C15D1 cis/5FU 02/23/17. * Hx of LLE 04/2014 DVT: Xarelto Subjective: clearly in severe pain, unable to answer my questions. pain increased after taking a bit of food. Objective: Vital Signs Temp Pulse Resp BP Pulse Ox 36.6 C 80 16 108/67 94 03/02/17 07:42 03/02/17 07:42 03/02/17 07:42 03/02/17 07:42 03/02/17 07:42 Laboratory Results 03/02/17 04:25 03/02/17 04:25 03/01/17 03/02/17 03/03/17 05:59 05:59 05:59 Intake Total 5335 2930 Output Total 500 Balance 5335 2430 PT 25.0 SEC (12.0-15.0) H 02/24/17 00:35 INR 2.26 (0.83-1.16) H 02/24/17 00:35 Physical Exam - Physical Exam General Appearance: severe distress Abdomen: soft, other (tender to palp, R>L, /increased bowel sounds) Neuro/Psych: other (appears somewhat dissociated, doesn't answer questions) ICD10 Worksheet Patient Problems: Problems Problem Status Onset Intractable pain Acute Metastatic cancer Acute Palliative care encounter Acute Back pain Acute Esophageal cancer Acute Obstructive uropathy Acute Prosthetic hip infection Acute Urinary tract infection Acute
[2017-03-02] MEDS ORDERED: POTASSIUM CL 10 MEQ TAB PO ONE (11:06)
[2017-03-02] MEDS ORDERED: POTASSIUM Cl (KCl) 50 ML IV SCH (11:30)
[2017-03-02] MEDS: ONDANSETRON 4 MG/2 ML VIAL IVP PRN (11:40)
[2017-03-02] MEDS ORDERED: LORazepam 0.5 MG TAB PO PRN (11:52)
[2017-03-02] MEDS: POTASSIUM Cl (KCl) 20 MEQ in D5W 50 ML IV SCH ×2 (11:53→14:14)
--- NOTE | 2017-03-02 11:58 | HOSPPROG ---
Hospitalist Progress Note Assessment/Plan: # Abdominal pain - intermittent acute worsening - uptitrated evening MS Contin to 30mg - without meaningful change- pattern upredictable MRI (personally reviewed and interpreted) no acute fractures found - remains unclear if pain orthopedic in origin or GI - diarrhea yesterday followed by no BM- normal WBC CT abdomen 02/13/17 (personally reviewed and interpreted) carcinomatosis - minimal free fluid- double J ureteral stent Abd xray (personally reviewed and interpreted) possible ileus - continue adjusted MS Contin doses 15mg QAM, 15mg Qnoon and 30mg QPM- prn roxanol or IV dilaudid - cont new cymbalta - consulting GI - for recs regarding additional work up - consulting integrative care for pain management assistance and coping strategies # anxiety - pt expressing a panicky feeling today - certainly is contributing to pain - trial prn ativan # intermittent hypotension- SBP 80s-100's patient p.o. intake remains minimal in last 24 hours - suspect volume related Oxygen saturations 98% on room air - cont maintenance fluids 3 hypokalemia - electrolyte protocol # Esophageal Cancer - metastatic Bone Scan (reviewed) negative for bone mets. Dr. Chen following as outpatient and patient motivated to keep up with her chemotherapy regimen. # Femoral Neck Fracture Right- this was noted on MRI and apparently old for last summer. Orthopedic surgery consulted- no intervention recommended # Hx DVT - on Xarelto- creatinine is 0.7 # Bowel/Bladder - increase bowel regimen in place. # Dispo - hopeful for discharge home Have discussed the case with Dr. Loomis - he will consult and leave recs for possible diagnostic options Subjective: pain intermittently severe Objective: Vital Signs Temp Pulse Resp BP Pulse Ox 36.6 C 66 20 103/64 99 03/02/17 07:42 03/02/17 11:47 03/02/17 11:47 03/02/17 11:47 03/02/17 11:47 Laboratory Results 03/02/17 10:30 03/02/17 10:30 03/01/17 03/02/17 03/03/17 05:59 05:59 05:59 Intake Total 5335 2930 Output Total 500 Balance 5335 2430 PT 25.0 SEC (12.0-15.0) H 02/24/17 00:35 INR 2.26 (0.83-1.16) H 02/24/17 00:35 - Physical Exam Constitutional: chronically ill appearing Eyes: anicteric sclera Ears, Nose, Mouth, Throat: dry mucous membranes Cardiovascular: regular rate and rhythym Respiratory: no respiratory distress, no rales or rhonchi Gastrointestinal: normoactive bowel sounds, tenderness Genitourinary: no bladder fullness Skin: warm Musculoskeletal: No asymmetric calves Neurologic: AAOx3 Psychiatric: anxious, depressed Lymph, Heme, Immunologic: no cervical LAD ICD10 Worksheet Patient Problems: Problems Problem Status Onset Intractable pain Acute Metastatic cancer Acute Palliative care encounter Acute Back pain Acute Esophageal cancer Acute Obstructive uropathy Acute Prosthetic hip infection Acute Urinary tract infection Acute
--- NOTE | 2017-03-02 13:02 | GCON ---
[f rep st] CONSULTATION INPATIENT CONSULTATION NOTE REFERRING PHYSICIAN: Kimmy Vo MD REASON FOR CONSULTATION: Nausea and abdominal pain. CHIEF COMPLAINT: Nausea. HISTORY OF PRESENT ILLNESS: Briefly, the patient is a 61-year-old female with metastatic esophageal cancer, who presented to the hospital earlier this week for the evaluation of left lower quadrant abdominal pain. She reports that her abdominal symptoms have been gradually worsening during her hospital stay. She now has a significant degree of associated nausea and vomiting, as well. During my viait today, in fact, she is fairly miserable with abdominal pain and nausea and retching, that she has a difficult time answering questions. Her hospital course has included abd and hip x-ray. She was noted to have some bony fractures, but they are not felt to explain her symptoms. Her abdominal x-ray was consistent with partial ileus. She has had significant difficulty with po intake. She reports no fevers, chills. She denies bloody emesis. Her esophageal cancer has been complicated by wide metastases, including to the abdominal cavity. ALLERGIES: Naprosyn, adhesive tape, NSAIDs, penicillin, and sulfa. MEDICATIONS: Home medicines were histamine receptor blockers, laxative therapies, trazodone, diazepam, Pyridium, MiraLAX, Xarelto, Mylicon, and Ambien. PAST MEDICAL HISTORY: Includes esophageal cancer and DVT. PAST SURGICAL HISTORY: Includes hysterectomy and spinal surgery. FAMILY HISTORY: She reports no history of esophagus cancer. SOCIAL HISTORY: She does not smoke, use drugs, or drink alcohol. REVIEW OF SYSTEMS: A complete 10-point review of systems was negative except for those details described in the History of Present Illness. PHYSICAL EXAMINATION: GENERAL: This is a well-developed female, in moderate distress. She has significant hyperventilation and nausea with associated nonproductive retching. HEENT: Her pupils are equal, round, and reactive to light and accommodation. Her sclerae are nonicteric. Oropharynx is clear. NECK: Supple without lymphadenopathy. HEART: Regular without murmur. ABDOMEN : Her abdomen is diffusely tender. EXTREMITIES: Free of cyanosis, clubbing, and edema. NEUROLOGIC: Grossly nonfocal. LABORATORY DATA: Reveals a white count of 5.7, hemoglobin of 8.2, hematocrit of 25.7, and platelet count of 284. INR of 2.21. Sodium of 137, potassium of 3.2, chloride of 108, bicarb of 22, BUN of 12, creatinine of 0.7. IMAGING DATA: Abdominal x-ray on 03/01/2017 revealed possible ileus. MRI and x -ray of the pelvis on 02/26/2017 revealed subcapital right hip fracture with soft tissue edema. Bone scan on 02/25/2017 revealed normal bone scan without evidence of osseous metastatic disease. IMPRESSION AND RECOMMENDATIONS: Nausea, vomiting, abdominal pain. I suspect the patient's symptoms are related to her esophageal cancer with widely spread intraabdominal metastases. It is also possible she could have some localizing worsening disease in the esophagus and stomach. Medication side effect related to increasing narcotic dose is also possible. Ongoing progressing ileus is also possible. While she is having some bowel movements, she reports that she feels constipated. LEGAL OFFICER metastasis could explain worsening nausea, but patient denies dizziness. And, LEGAL OFFICER mets would not be explanation for pain. Still, could consider brain imaging. Upper GI series or abdominal/chest CAT scan could be helpful to evaluate for localizing gastric and esophageal spread of her primary malignancy. Abd CT might also help resolve is intra-abdominal mets are leading to any degree of partial obstuction or, fistual, fluid collection, ileus, etc. At this point, I recommend ongoing symptomatic care with antiemetics and pain therapies. I do not suspect that there will be a reversible source of her symptoms that could be discovered with additional GI workup. Consider additional abdominal imaging. Will sign off, call with questions. /[id number]/MODL MTDD
[2017-03-02] MEDS: LORazepam 2 MG/ML INJ IVP PRN (17:35)
[2017-03-02] MEDS: RIVAROXABAN 20 MG TAB PO SCH (18:11)
[2017-03-02] MEDS: NS 1,000 ML IV SCH (20:45)
[2017-03-02] MEDS: POTASSIUM Cl (KCl) 10 MEQ in NS 100 ML IV SCH (23:58)
[2017-03-03] MEDS: morphINE 10 MG/0.5 ML UDSYR PO PRN ×5 (00:37→16:48)
[2017-03-03] MEDS: POTASSIUM Cl (KCl) 10 MEQ in NS 100 ML IV SCH ×3 (01:28→04:19)
[2017-03-03] MEDS: HYDROmorphONE/DILAUDID 1 MG/ML INJ IVP PRN ×4 (07:43→20:09)
[2017-03-03] MEDS: morphINE SR 15 MG TAB PO SCH ×3 (07:45→20:04)
[2017-03-03] MEDS: LEVOTHYROXINE 112 MCG TAB PO SCH (07:45)
[2017-03-03] MEDS: ACETAMINOPHEN 500 MG TAB PO SCH ×4 (08:04→21:14)
[2017-03-03] MEDS: FAMOTIDINE 20 MG TAB PO SCH (08:06)
[2017-03-03] MEDS: TAMSULOSIN HCL 0.4 MG CAP PO SCH (08:06)
[2017-03-03] MEDS: DULoxetine 30 MG CAP PO SCH (08:06)
[2017-03-03] MEDS: POLYETHYLENE GLYCOL 3350 17 GM PKT PO SCH (08:07)
[2017-03-03] MEDS: LORazepam 2 MG/ML INJ IVP PRN ×3 (08:28→21:15)
[2017-03-03] MEDS: SENNOSIDES/DOCUSATE SODIUM TAB PO SCH ×2 (08:34→20:10)
[2017-03-03] MEDS ORDERED: POTASSIUM CL 10 MEQ TAB PO ONE (09:53)
[2017-03-03] MEDS: NS 1,000 ML IV SCH ×2 (10:05→18:59)
[2017-03-03] MEDS: OXYBUTYNIN 5 MG EXT REL TAB PO SCH (10:05)
--- NOTE | 2017-03-03 12:01 | PDPCPN ---
Palliative Care Progress Note Assessment/Plan: HPI: Lola Saba is a 61 yo with PMH met esophageal cancer with mets to liver and spine admitted to the hospital with back pain. Recent hospital admission for similar issue. Work up negative for acute cause of pain. Met with Silva, her daughter and DIL at the bedside with Elba CHARLES this morning. Discussed her medication regimen as well as resulting anxiety that comes due to pain crisis. Silva states she feels her pain is better and was feeling pretty good last night and this morning. Per RN she had another pain crisis this morning that needed IV dilaudid and ativan. Silva still states pain is crampy/ achy and comes and goes. Last BM 2 days ago. eating fair. Assessment: Physical: - Pain: left back pain, abdominal pain - on scheduled: MS contin 15 mg QAM Qafternoon 30mg QHS Gabapentin 300mg TID tylenol 1000mg TID cymbalta 30mg QD Recommend trying scheduled hyoscyamine BID - For PRN Roxanol 5-10 mg PO Q2hr PRN Ativan 0.5-1 mg PO Q4hr PRN dilaudid IV- tried to use last as will not be available at home -prevent opiate induced constipation as below - weakness - PT/OT - constipation - continue bowel regimen with senna and colace scheduled Emotional/psychological: Has a lot of support from family. Advanced Care Planning: Is patient decisional?: Yes Code Status: Full MD POA: Dusty is MDPOA Plan: CM setting up outpt palliative care to continue to follow for symptom management. Subjective: my pain is tolerable right now Objective: Vital Signs Temp Pulse Resp BP Pulse Ox 36.3 C 69 21 H 122/69 H 97 03/03/17 07:37 03/03/17 07:37 03/03/17 07:37 03/03/17 07:37 03/03/17 07:37 Laboratory Results 03/02/17 10:30 03/03/17 06:15 03/02/17 03/03/17 03/04/17 05:59 05:59 05:59 Intake Total 2930 200 Output Total 500 685 200 Balance 2430 -485 -200 PT 25.0 SEC (12.0-15.0) H 02/24/17 00:35 INR 2.26 (0.83-1.16) H 02/24/17 00:35 Physical Exam - Physical Exam General Appearance: alert, no apparent distress Respiratory: No respiratory distress, No accessory muscle use Skin: normal color, warm/dry Extremities: No pedal edema Neuro/Psych: alert, oriented x 3 ICD10 Worksheet Patient Problems: Problems Problem Status Onset Intractable pain Acute Metastatic cancer Acute Palliative care encounter Acute Back pain Acute Esophageal cancer Acute Obstructive uropathy Acute Prosthetic hip infection Acute Urinary tract infection Acute - ICD10 Problem Qualifiers (1) Palliative care encounter
[2017-03-03] MEDS: HYOSCYAMINE SULFATE 0.125 MG TAB PO SCH ×2 (12:28→17:00)
--- NOTE | 2017-03-03 14:31 | SOAPPROG ---
SOAP Progress Note Assessment/Plan: Assessment/Plan: 61 yo woman w esophageal cancer on treatment admitted w/ pain crisis (LLQ primarily, on admission also L iliac crest/SI jt). * Pain: very unclear etiology. Extensive evaluation demonstrates no bone etiology (chronic L hip pain longstanding/unchanged, chronic R hip fracture since 09/2016). CT 02/13/17 earlier this month with stable carcinomatosis ( compared with [facility] PET 01/2017). Pain began prior to L ureteral stent. UCx neg. Seems most likely GI origin. h/o IBS, pain today seems very crampy in nature, and has known peritoneal involvement. Unclear why it has worsened. At this point, focusing on symptomatic management and then continuing with cancer therapy. - continue duloxetine - schedule hyoscyamine and simethicone - Appreciate palliative care consultation, d/w with Flori Mercedes today * Metastatic esophageal cancer: most recent chemo C15D1 cis/5FU 02/23/17. * Hx of LLE 04/2014 DVT: Xarelto 03/03/17 14:29 Subjective: Better morning so far. Daughter, Arminda, and DIL, Francisco, present. O: VS reviewed. Gen: Appears comfortable. Mildly sedated but participates in entire conversation. Abd: soft. Objective: Vital Signs Temp Pulse Resp BP Pulse Ox 36.3 C 69 21 H 122/69 H 97 03/03/17 07:37 03/03/17 07:37 03/03/17 07:37 03/03/17 07:37 03/03/17 07:37 Laboratory Results 03/02/17 10:30 03/03/17 06:15 03/02/17 03/03/17 03/04/17 05:59 05:59 05:59 Intake Total 2930 200 Output Total 500 685 202 Balance 2430 -485 -202 PT 25.0 SEC (12.0-15.0) H 02/24/17 00:35 INR 2.26 (0.83-1.16) H 02/24/17 00:35 ICD10 Worksheet Patient Problems: Problems Problem Status Onset Intractable pain Acute Metastatic cancer Acute Palliative care encounter Acute Back pain Acute Esophageal cancer Acute Obstructive uropathy Acute Prosthetic hip infection Acute Urinary tract infection Acute
[2017-03-03] MEDS: RIVAROXABAN 20 MG TAB PO SCH (17:00)
[2017-03-03] MEDS ORDERED: BISACODYL 10 MG SUPP PR PRN (17:47)
[2017-03-03] MEDS ORDERED: LACTULOSE 20 GM/30 ML UDCUP PO PRN (17:59)
[2017-03-03] MEDS ORDERED: MAGNESIUM HYDROXIDE 30 ML UDCUP PO PRN (17:59)
[2017-03-03] MEDS: HALOPERIDOL LACT 5 MG/ML INJ IVP PRN (18:59)
--- NOTE | 2017-03-03 19:33 | HOSPPROG ---
Hospitalist Progress Note Assessment/Plan: Assessment: 61 yo F p/w acute abdominal pain in setting of esophageal cancer and peritoneal carcinamatosis Plan: # Abdominal pain. Primary symptom, intermittent, severe, uncontrolled in outpt setting, unclear if related to peritoneal mets vs. bowel spasm vs. colonic inflammation vs. ileus vs. functional component - intermittent acute worsening, quiescent today but flared in evening with increased visitors - MRI w/o orthopedic etiology of pain - reviewed 02/19/[address] w/ Dr. Ventura and discussed case, there is some colonic thickening which could be a contributing factor if it is e/o inflammation, will follow-up w/ GI residential solar sales consultant in AM to discuss limited colonoscopy - abd x-ray w/ possible ileus, will continue to work on bowels to ensure that ileus/distention not exacerbating issue - appreciate Palliative care consult today, Flori Arboleda rec scheduled hyoscamine - cont MS Contin doses - cont PRN tx w/ dilaudid (dose range expanded), PRN ativan (PO and IV), as well as haldol (given potentiating anxiety/functional component) - d/w Milagros Jacobsen, she reports she will notify [facility] and request assistance beginning Monday - offered on-call accupuncturist if patient is interested - counseled patient regarding above; plan to reassess with patient and family tomorrow - d/w Dr. Pineda, swing shift, signed out that if pain crisis occurs, trial current meds w/ current dose ranges, and, if not controlled, utilize anxiolytics preferentially # Anxiety. Contributing to pain, hence the dissociative effect of precedex in SDU resulting in more successful mgmt - counseled patient that precedex is an emergent, temporizing tool, and that use of PRN ativan may be more effective moving forward - expanded PO dose range - cont cymbalta # Acute hypotension. 2/2 hypovolemia in setting of poor PO intake, cont to monitor # Hypokalemia. Acute, 2/2 poor PO intake, monitoring # Esophageal Cancer. Stage IV, metastatic w/ peritoneal carcinamatosis - Dr. Chen is outpt f/u, patient planning on ongoing chemo if pain is able to be stabilized # Femoral Neck Fracture Right. Old, this was noted on MRI and apparently old for last summer - Orthopedic surgery consulted, no intervention recommended # Hx DVT. Cont on xarelto Diet. As tolerates PPx. High risk, xarelto Code. Full Dispo. ADD uncertain, pain yet to be consistently controlled. Subjective: pain crisis this AM, controlled w/ current Rx; comfortable now Objective: Vital Signs Temp Pulse Resp BP Pulse Ox 36.4 C 84 19 126/75 H 92 03/03/17 15:34 03/03/17 15:34 03/03/17 15:34 03/03/17 15:34 03/03/17 15:34 Laboratory Results 03/02/17 10:30 03/03/17 18:30 03/02/17 03/03/17 03/04/17 05:59 05:59 05:59 Intake Total 2930 200 2017 Output Total 500 685 202 Balance 2430 -485 1815 PT 25.0 SEC (12.0-15.0) H 02/24/17 00:35 INR 2.26 (0.83-1.16) H 02/24/17 00:35 - Time Spent With Patient Time Spent with Patient: greater than 35 minutes Time Spent with Patient: Greater than 35 minutes spent on this patients care, greater than 50% of time spent counseling, educating, and coordinating care regarding the above mentioned plan. - Physical Exam Constitutional: no apparent distress, not in pain, chronically ill appearing, No uncomfortable Cardiovascular: regular rate and rhythym, no murmur, rub, or gallop Respiratory: no respiratory distress, no rales or rhonchi, clear to auscultation Gastrointestinal: No normoactive bowel sounds (hypoactive), No guarding, No distension Neurologic: AAOx3 Psychiatric: interacting appropriately, not anxious, not encephalopathic, thought process linear ICD10 Worksheet Patient Problems: Problems Problem Status Onset Prosthetic hip infection Acute Urinary tract infection Acute Obstructive uropathy Acute Back pain Acute Esophageal cancer Acute Metastatic cancer Acute Intractable pain Acute Palliative care encounter Acute
[2017-03-04] MEDS: HYOSCYAMINE SULFATE 0.125 MG TAB PO SCH ×4 (00:43→18:35)
[2017-03-04] MEDS: HYDROmorphONE/DILAUDID 1 MG/ML INJ IVP PRN ×2 (02:37→13:57)
[2017-03-04] MEDS: HALOPERIDOL LACT 5 MG/ML INJ IVP PRN (02:45)
[2017-03-04 04:12] LABS: PLATELET COUNT 262 10^3/uL (150-400)
[2017-03-04] MEDS: NS 1,000 ML IV SCH ×2 (06:17→16:01)
[2017-03-04] MEDS: LEVOTHYROXINE 112 MCG TAB PO SCH (06:17)
[2017-03-04] MEDS: morphINE SR 15 MG TAB PO SCH ×3 (06:17→21:06)
[2017-03-04] MEDS: DULoxetine 30 MG CAP PO SCH (10:16)
[2017-03-04] MEDS: TAMSULOSIN HCL 0.4 MG CAP PO SCH (10:16)
[2017-03-04] MEDS: OXYBUTYNIN 5 MG EXT REL TAB PO SCH (10:16)
[2017-03-04] MEDS: FAMOTIDINE 20 MG TAB PO SCH (10:17)
[2017-03-04] MEDS: ACETAMINOPHEN 500 MG TAB PO SCH ×4 (10:17→21:07)
[2017-03-04] MEDS: SENNOSIDES/DOCUSATE SODIUM TAB PO SCH ×2 (10:18→21:06)
[2017-03-04] MEDS: POLYETHYLENE GLYCOL 3350 17 GM PKT PO SCH (10:19)
[2017-03-04] MEDS ORDERED: HALOPERIDOL 2 MG TAB PO PRN (15:59)
[2017-03-04] MEDS: LORazepam 2 MG/ML INJ IVP PRN (16:00)
--- NOTE | 2017-03-04 16:13 | HOSPPROG ---
Hospitalist Progress Note Assessment/Plan: Assessment: 61 yo F p/w acute abdominal pain in setting of esophageal cancer and peritoneal carcinomatosis Plan: # Abdominal pain. Primary symptom, intermittent, severe, uncontrolled in outpt setting, unclear if related to peritoneal mets vs. bowel spasm vs. colonic inflammation vs. ileus, but does have strong stress/anxiety component - intermittent acute worsening, quiescent today but flared last evening - abd x-ray w/ possible ileus, will continue to work on bowels to ensure that ileus/distention not exacerbating issue - cont scheduled hyoscamine - cont MS Contin doses - cont PRN tx w/ dilaudid (dose range expanded), PRN ativan (PO and IV), as well as haldol (given potentiating anxiety/functional component) - [facility] and requested assistance beginning Monday - will d/w Dr. Valentin regarding possible sigmoidoscopy/colonoscopy to eval thickened colon on CT - counseled patient regarding above; plan to reassess with patient and family tomorrow # Anxiety. Contributing to pain, hence the dissociative effect of precedex in SDU resulting in more successful mgmt - cont cymbalta - dose ativan 1st for pain # Acute hypotension. 2/2 hypovolemia in setting of poor PO intake, cont to monitor # Hypokalemia. Acute, 2/2 poor PO intake, monitoring # Esophageal Cancer. Stage IV, metastatic w/ peritoneal carcinomatosis - Dr. Chen is outpt f/u, patient planning on ongoing chemo if pain is able to be stabilized - above d/w Dr. Kendrick # Femoral Neck Fracture Right. Old, this was noted on MRI and apparently old for last summer - Orthopedic surgery consulted, no intervention recommended # Hx DVT. Cont on xarelto Diet. As tolerates PPx. High risk, xarelto Code. Full Dispo. ADD uncertain, pain yet to be consistently controlled. Subjective: patient w/ some agitation / pain last PM, responded to reassurance from family + Rx; some confusion and agitation regarding meds this AM; ate lunch and worked w/ PT Objective: Vital Signs Temp Pulse Resp BP Pulse Ox 36.5 C 76 15 108/77 98 03/04/17 08:00 03/04/17 08:00 03/04/17 08:00 03/04/17 08:00 03/04/17 08:00 Laboratory Results 03/04/17 02:55 03/04/17 02:55 03/03/17 03/04/17 03/05/17 05:59 05:59 05:59 Intake Total 200 2392 Output Total 685 752 Balance -485 1640 PT 25.0 SEC (12.0-15.0) H 02/24/17 00:35 INR 2.26 (0.83-1.16) H 02/24/17 00:35 - Time Spent With Patient Time Spent with Patient: greater than 35 minutes Time Spent with Patient: Greater than 35 minutes spent on this patients care, greater than 50% of time spent counseling, educating, and coordinating care regarding the above mentioned plan. - Physical Exam Constitutional: no apparent distress, chronically ill appearing, uncomfortable, No not in pain (4/10) Cardiovascular: regular rate and rhythym, no murmur, rub, or gallop, No edema Respiratory: reduced air movement (bilat bases), No expiratory wheeze, No inspiratory crackles, No bronchial breath sounds Gastrointestinal: normoactive bowel sounds, distension (mild), No tenderness, No guarding Neurologic: AAOx3 Psychiatric: interacting appropriately, not anxious, not encephalopathic, thought process linear, other (lethargic but arousable to tactile/verbal stimuli ) ICD10 Worksheet Patient Problems: Problems Problem Status Onset Prosthetic hip infection Acute Urinary tract infection Acute Obstructive uropathy Acute Back pain Acute Esophageal cancer Acute Metastatic cancer Acute Intractable pain Acute Palliative care encounter Acute
--- NOTE | 2017-03-04 16:15 | ASMTCMCOM ---
CM Note CM Note Notes: Pt, dtr, Arminda, dtr-in-law Flori Singh, DIET ATTENDANT and this CM met yesterday to discuss ongoing pain management and DC plan. Flori adjusted some of pt's meds. Family agreed to a [facility] palliative referral which was made. They will come to meet with family prior to DC to go over pain mgmt plan. Dtr also considering hiring pvt duty help for the first week or so to assist pt and her . Forrest simpson requested to help with this. Pt is set up with [facility] for RN, PT, OT, RN CARDIAC. Pt could also use ST as well. Lm for [facility]. [facility] would like to be notified 24 hrs before DC so they can arrange to meet with family. CM will continue to follow. Date Signed: 03/04/2017 04:14 PM Electronically Signed By:Elba Smith LCSW
[2017-03-04] MEDS: RIVAROXABAN 20 MG TAB PO SCH (18:36)
[2017-03-04] MEDS: LORazepam 0.5 MG TAB PO PRN (21:07)
[2017-03-05] MEDS: HYOSCYAMINE SULFATE 0.125 MG TAB PO SCH ×5 (00:06→23:45)
[2017-03-05] MEDS: LEVOTHYROXINE 112 MCG TAB PO SCH (06:31)
[2017-03-05] MEDS: morphINE SR 15 MG TAB PO SCH ×3 (06:32→21:19)
[2017-03-05] MEDS: ACETAMINOPHEN 500 MG TAB PO SCH ×3 (08:20→23:45)
[2017-03-05] MEDS: POLYETHYLENE GLYCOL 3350 17 GM PKT PO SCH (08:21)
[2017-03-05] MEDS: SENNOSIDES/DOCUSATE SODIUM TAB PO SCH ×2 (08:21→21:18)
[2017-03-05] MEDS: DULoxetine 30 MG CAP PO SCH (08:22)
[2017-03-05] MEDS: TAMSULOSIN HCL 0.4 MG CAP PO SCH (08:22)
[2017-03-05] MEDS: OXYBUTYNIN 5 MG EXT REL TAB PO SCH (08:22)
[2017-03-05] MEDS: FAMOTIDINE 20 MG TAB PO SCH (08:22)
[2017-03-05] MEDS: LORazepam 0.5 MG TAB PO PRN (08:22)
[2017-03-05] MEDS: HYDROmorphONE/DILAUDID 1 MG/ML INJ IVP PRN ×3 (11:07→17:10)
[2017-03-05] MEDS: LORazepam 2 MG/ML INJ IVP PRN (11:25)
--- NOTE | 2017-03-05 12:45 | SOAPPROG ---
[facility] Progress Note Assessment/Plan: Assessment: - Pain - seems to be under adequate control at the moment on current med regimen. - nausea - under control - esophageal CA - Had palliative care consult and family meeting yesterday. She will hopefully be discharged from the hospital in the next 24-48hrs. The plan is to use [facility] upon discharge. She will need to follow up with our office within the week to decide on future course of action as far as her esophageal CA is concerned. Plan: - Hope to d/c from hospital in next 24-48 hours - Follow up with Dr. Chen/[facility] within 1 week - D/C with [facility] I'll sign off for now. Please call with additional questions. I answered her questions and her 's question to their satisfaction today. Subjective: Pain under good control. She is asking for pain meds at the first hint that pain is 'ramping up'. Objective: Vital Signs Temp Pulse Resp BP Pulse Ox 37.0 C 95 18 122/90 H 97 03/05/17 08:39 03/05/17 12:16 03/05/17 12:16 03/05/17 12:16 03/05/17 12:16 Laboratory Results 03/04/17 02:55 03/04/17 02:55 03/03/17 03/04/17 03/05/17 23:59 23:59 23:59 Intake Total 2017 715 350 Output Total 702 550 Balance 1315 165 350 PT 25.0 SEC (12.0-15.0) H 02/24/17 00:35 INR 2.26 (0.83-1.16) H 02/24/17 00:35 Physical Exam - Physical Exam General Appearance: alert Respiratory: lungs clear Cardiac/Chest: regular rate, rhythm Skin: pallor Neuro/Psych: normal mood/affect, oriented x 3 ICD10 Worksheet Patient Problems: Problems Problem Status Onset Intractable pain Acute Metastatic cancer Acute Palliative care encounter Acute Back pain Acute Esophageal cancer Acute Obstructive uropathy Acute Prosthetic hip infection Acute Urinary tract infection Acute
[2017-03-05] MEDS: RIVAROXABAN 20 MG TAB PO SCH (17:11)
--- NOTE | 2017-03-05 19:30 | HOSPPROG ---
Hospitalist Progress Note Assessment/Plan: Assessment: 61 yo F p/w acute abdominal pain in setting of esophageal cancer and peritoneal carcinomatosis Plan: # Abdominal pain. Primary symptom, intermittent, severe, uncontrolled in outpt setting, unclear if related to peritoneal mets vs. bowel spasm vs. colonic inflammation vs. ileus, but does have strong stress/anxiety component - intermittent acute worsening, quiescent today and patient is being much more proactive in requesting pain Rx prior to severe escalations - cont scheduled hyoscamine - cont MS Contin doses - cont PRN tx w/ PRN ativan (PO and IV) 1st line, dilaudid (PO and IV) 2nd line , as well as haldol (until intranasal ketamine available) 3rd line - for "last resort" strategy of pain mgmt at home, I have suggested starting a low dose of intranasal ketamine (given the potentiating anxiety/functional component) given it's accessible administration and likelihood of being able to effectively de-escalate the stress-component of her pain - provided w/ Rx (after receiving pharmacy assistance w/ appropriate dosing), and he will fill at local pharmacy ([facility]) either this afternoon or tomorrow AM, and the compounded Rx should be available 03/06 evening for family to bring in and get reconciled as "home medication" - I would recommend trialing the above method of 1st line (PO ativan), 2nd line (PO dilaudid), "last resort" (IN ketamine) if needed while she is hospitalized, to help instill confidence that future pain crises can be averted at home w/ a structured plan - counseled patient and regarding above, they are very satisfied w/ this approach and willing to trial - [facility] (accupuncture/massage) requested and beginning Monday; recommend patient receive resources for outpt therapy as adjunctive method of pain mgmt - d/w Dr. Valentin regarding possible sigmoidoscopy/colonoscopy to eval thickened colon on CT, he did not advise additional imaging/scoping, but did rec obtaining previous colonoscopy records (from [facility]) for him to eval - see RN note by July 07, nursing plan includes keeping nursing assistance during pain crises to family and familiar RNs only, avoiding stat teams (if possible) to avoid escalating anxiety/stress component # Anxiety. Contributing to pain, hence the dissociative effect of precedex in SDU resulting in more successful mgmt - cont cymbalta - dose ativan 1st for pain - will benefit from [facility] services from [facility], patient and family very interested # Acute hypotension. 2/2 hypovolemia in setting of poor PO intake, cont to monitor # Hypokalemia. Acute, 2/2 poor PO intake, monitoring # Esophageal Cancer. Stage IV, metastatic w/ peritoneal carcinomatosis - Dr. Chen is outpt f/u, patient planning on ongoing chemo if pain is able to be stabilized - d/w Dr. Kendrick, patient and would like to meet w/ oncology tomorrow to discuss when she will restart chemo, and whether it will be possible to receive first dosing before discharge # Femoral Neck Fracture Right. Old, this was noted on MRI and apparently old for last summer - Orthopedic surgery consulted, no intervention recommended, able to weight-bear , no pain # Hx DVT. Cont on xarelto Diet. As tolerates PPx. High risk, xarelto Code. Full Dispo. ADD uncertain, pain yet to be consistently controlled. Recommend co-rounding on patient w/ oncology to demonstrate effective communication between providers and family Recommend rounding on patient when or other family members present, as the patient's memory on pain Rx is limits her ability to convey information to her family effectively and has been a chief concern of family Subjective: asked for pain Rx today, ate breakfast, patient feels confident in her plan Objective: Vital Signs Temp Pulse Resp BP Pulse Ox 37.1 C 82 18 111/72 94 03/05/17 16:56 03/05/17 16:56 03/05/17 16:56 03/05/17 16:56 03/05/17 16:56 Laboratory Results 03/04/17 02:55 03/04/17 02:55 03/04/17 03/05/17 03/06/17 05:59 05:59 05:59 Intake Total 2392 690 Output Total 752 Balance 1640 690 PT 25.0 SEC (12.0-15.0) H 02/24/17 00:35 INR 2.26 (0.83-1.16) H 02/24/17 00:35 - Time Spent With Patient Time Spent with Patient: greater than 35 minutes Time Spent with Patient: Greater than 35 minutes spent on this patients care, greater than 50% of time spent counseling, educating, and coordinating care regarding the above mentioned plan. - Physical Exam Constitutional: no apparent distress, chronically ill appearing, uncomfortable ( Left flank) Cardiovascular: regular rate and rhythym, no murmur, rub, or gallop, No edema Respiratory: no respiratory distress, no rales or rhonchi, clear to auscultation Gastrointestinal: normoactive bowel sounds, soft, non-tender abdomen, no palpable masses, No distension Musculoskeletal: other (no tenderness over left hip/iliac crest) Neurologic: AAOx3 Psychiatric: interacting appropriately, not anxious, not encephalopathic, thought process linear, other (more alert than day prior) ICD10 Worksheet Patient Problems: Problems Problem Status Onset Prosthetic hip infection Acute Urinary tract infection Acute Obstructive uropathy Acute Back pain Acute Esophageal cancer Acute Metastatic cancer Acute Intractable pain Acute Palliative care encounter Acute
--- NOTE | 2017-03-05 21:56 | GCON ---
[f rep st] CONSULTATION GASTROENTEROLOGY INPATIENT CONSULTATION DATE OF CONSULTATION: 03/05/2017 REASON FOR CONSULTATION: I was kindly requested to see this patient by Dr. Vinnie Chavira in consultation for the chief complaint of an abnormal x-ray of the abdomen. HISTORY OF PRESENT ILLNESS: She is a 61-year-old white female, who recently had CT and MRI lumbar spine imaging performed. Both showed her known peritoneal carcinomatosis in the pelvis, with peritoneal implants, free fluid in the pelvis, and some secondary thickening of the sigmoid colon in the low pelvis. This was unchanged. She has known esophageal cancer with metastatic disease, including to her C- spine, liver, and peritoneum. She was admitted to the hospital with intractable back pain. This also involved the left lower quadrant, as well as the left iliac crest and left-sided SI joint. She has a left ureteral stent. She has a past history of irritable bowel syndrome. Presently, she is feeling somewhat better. In terms of intensity, the pain can be quite severe. PAST MEDICAL HISTORY: 1. As above. 2. DVT. 3. Hysterectomy. 4. Spine surgery. 5. Otherwise, noncontributory. INPATIENT MEDICATIONS: Include Xarelto and pain medications. ALLERGIES: Include naproxen, adhesive tape, nonsteroidals, penicillin, and sulfa. SOCIAL HISTORY: No cigarettes. FAMILY HISTORY: Negative for similar abdominal pain. REVIEW OF SYSTEMS: Positive review of systems as per my HPI. Otherwise, a complete review of systems is negative. PHYSICAL EXAMINATION: CONSTITUTIONAL: Sedated. VITAL SIGNS: Stable. SKIN: Warm, dry. EYES: Pupils equal, round, and react to light and accommodation. EAR, NOSE, MOUTH AND THROAT: Moist mucous membranes. No masses seen. CARDIOVASCULAR: Normal S2. Normal PMI. RESPIRATORY: Lungs clear to auscultation and percussion anteriorly. GASTROINTESTINAL: Soft. No masses felt. NEUROLOGIC: Sensation intact bilaterally. Sedated. PSYCHIATRIC: Sedated. MUSCULOSKELETAL: Strength grossly normal throughout. Normal station. LABORATORIES: Include the above. ASSESSMENT: Abnormal x-ray of the gastrointestinal tract, with thickening in the sigmoid colon seen on CT and MRI of the lumbar spine. Both of these were done for unrelated reasons. Indeed, a more formal CT scan of the abdomen and pelvis with IV contrast did not mention significant thickening of the sigmoid colon. Regardless, I suspect the thickening of her sigmoid colon in the low pelvis is not significant and secondary to irritation from her peritoneal carcinomatosis in this area, which is also causing free fluid in the pelvis. I do not suspect it is the primary cause of her pain symptoms. Even if it was contributing, very little therapeutic management options to help this. No flexible sigmoidoscopy or colonoscopy needed at this juncture. PLAN: As above. Thank you for allowing me to help in the management of this patient. /[id number]/MODL MTDD
[2017-03-06] MEDS: LEVOTHYROXINE 112 MCG TAB PO SCH (05:06)
[2017-03-06] MEDS: HYOSCYAMINE SULFATE 0.125 MG TAB PO SCH ×4 (05:06→23:38)
[2017-03-06] MEDS: POLYETHYLENE GLYCOL 3350 17 GM PKT PO SCH (08:46)
[2017-03-06] MEDS: SENNOSIDES/DOCUSATE SODIUM TAB PO SCH ×2 (08:47→21:20)
[2017-03-06] MEDS: TAMSULOSIN HCL 0.4 MG CAP PO SCH (08:47)
[2017-03-06] MEDS: ACETAMINOPHEN 500 MG TAB PO SCH ×3 (08:47→21:19)
[2017-03-06] MEDS: OXYBUTYNIN 5 MG EXT REL TAB PO SCH (08:47)
[2017-03-06] MEDS: morphINE SR 15 MG TAB PO SCH ×3 (08:48→21:18)
[2017-03-06] MEDS: FAMOTIDINE 20 MG TAB PO SCH (08:48)
[2017-03-06] MEDS: DULoxetine 30 MG CAP PO SCH (08:48)
[2017-03-06] MEDS ORDERED: morphINE 10 MG/0.5 ML UDSYR PO PRN (09:08)
[2017-03-06] MEDS: HYDROmorphONE/DILAUDID 1 MG/ML INJ IVP PRN (11:55)
--- NOTE | 2017-03-06 16:40 | HOSPPROG ---
Hospitalist Progress Note Assessment/Plan: 61 yo F p/w acute abdominal pain in setting of esophageal cancer and peritoneal carcinomatosis Plan: # Abdominal pain. P on long acting MS contin w roxanol for breakthrough in process of obtaining ketamine nasal spray 2/2 known intraperitoneal mets unremarkable exam Anxiety. Contributing to pain, hence the dissociative effect of precedex in SDU resulting in more successful mgmt cont cymbalta dose ativan 1st for pain will benefit from [facility] services from [facility], patient and family very interested Acute hypotension. 2/2 hypovolemia in setting of poor PO intake, cont to monitor not hypotensive Hypokalemia. Acute, 2/2 poor PO intake, monitoring Esophageal Cancer. Stage IV, metastatic w/ peritoneal carcinomatosis Dr. Chen is outpt f/u, patient planning on ongoing chemo if pain is able to be stabilized Femoral Neck Fracture Right. Old, this was noted on MRI and apparently old for last summer Orthopedic surgery consulted, no intervention recommended, able to weight- bear, no pain # Hx DVT. Cont on xarelto Diet. As tolerates PPx. High risk, xarelto Code. Full Dispo. ADD uncertain, pain yet to be consistently controlled. Subjective: pain reasonably well controlled. case d/w dr brandon. 35 minutes spent at bedside Objective: Vital Signs Temp Pulse Resp BP Pulse Ox 37.0 C 70 16 143/87 H 94 03/06/17 16:00 03/06/17 16:00 03/06/17 16:00 03/06/17 16:00 03/06/17 16:00 Laboratory Results 03/04/17 02:55 03/04/17 02:55 03/05/17 03/06/17 03/07/17 05:59 05:59 05:59 Intake Total 690 450 Balance 690 450 PT 25.0 SEC (12.0-15.0) H 02/24/17 00:35 INR 2.26 (0.83-1.16) H 02/24/17 00:35 - Physical Exam Constitutional: no apparent distress, appears nourished Eyes: PERRL, anicteric sclera Ears, Nose, Mouth, Throat: moist mucous membranes, hearing normal, other (neck w hard collar) Cardiovascular: regular rate and rhythym, no murmur, rub, or gallop Respiratory: no respiratory distress, no rales or rhonchi Gastrointestinal: normoactive bowel sounds, soft, non-tender abdomen Genitourinary: no bladder fullness, No dalal in urethra Skin: warm, normal color Musculoskeletal: full muscle strength, no muscle tenderness Neurologic: AAOx3 Psychiatric: interacting appropriately ICD10 Worksheet Patient Problems: Problems Problem Status Onset Intractable pain Acute Metastatic cancer Acute Palliative care encounter Acute Back pain Acute Esophageal cancer Acute Obstructive uropathy Acute Prosthetic hip infection Acute Urinary tract infection Acute
--- NOTE | 2017-03-06 16:54 | ASMTCMCOM ---
CM Note CM Note Notes: Spoke with Arminda ([phone]) at [facility]; updates provided. Arminda plans to be onsite tomorrow to meet with pt. CM will continue to follow. DC plan: Home with [facility] Date Signed: 03/06/2017 04:54 PM Electronically Signed By:Lucinda Allred RN
[2017-03-06] MEDS: RIVAROXABAN 20 MG TAB PO SCH (17:36)
[2017-03-06] MEDS ORDERED: KETAMINE EACHNARE PRN (18:00)
[2017-03-07] MEDS: HYOSCYAMINE SULFATE 0.125 MG TAB PO SCH ×4 (05:08→23:43)
[2017-03-07] MEDS: LEVOTHYROXINE 112 MCG TAB PO SCH (05:08)
[2017-03-07] MEDS: morphINE SR 15 MG TAB PO SCH ×3 (06:22→21:07)
[2017-03-07] MEDS: ONDANSETRON 4 MG/2 ML VIAL IVP PRN (08:27)
[2017-03-07] MEDS: LORazepam 2 MG/ML INJ IVP PRN ×2 (08:42→17:20)
[2017-03-07] MEDS: HYDROmorphONE/DILAUDID 1 MG/ML INJ IVP PRN (09:30)
[2017-03-07] MEDS: DULoxetine 30 MG CAP PO SCH (10:15)
[2017-03-07] MEDS: OXYBUTYNIN 5 MG EXT REL TAB PO SCH (10:15)
[2017-03-07] MEDS: ACETAMINOPHEN 500 MG TAB PO SCH ×3 (10:16→21:08)
[2017-03-07] MEDS: TAMSULOSIN HCL 0.4 MG CAP PO SCH (10:16)
[2017-03-07] MEDS: FAMOTIDINE 20 MG TAB PO SCH (10:16)
[2017-03-07] MEDS: SENNOSIDES/DOCUSATE SODIUM TAB PO SCH ×2 (10:21→21:08)
[2017-03-07] MEDS: POLYETHYLENE GLYCOL 3350 17 GM PKT PO SCH (10:22)
--- NOTE | 2017-03-07 15:09 | ASMTCMCOM ---
CM Note CM Note Notes: Arminda with [facility] here to meet with patient and today - [facility] will see her at home 03/15/17; consent signed. I called [facility] to give them an update - we anticipate discharge home tomorrow. Current CM Discharge Plan: home with [facility] and [facility] Date Signed: 03/07/2017 03:08 PM Electronically Signed By:Claudine Ortez RN
--- NOTE | 2017-03-07 15:54 | HOSPPROG ---
Hospitalist Progress Note Assessment/Plan: 61 yo F p/w acute abdominal pain in setting of esophageal cancer and peritoneal carcinomatosis Plan: # Abdominal pain. P on long acting MS contin w roxanol for breakthrough in process of obtaining ketamine nasal spray 2/2 known intraperitoneal mets unremarkable exam Anxiety. Contributing to pain, hence the dissociative effect of precedex in SDU resulting in more successful mgmt cont cymbalta dose ativan 1st for pain will benefit from Integrative Med services from [facility], patient and family very interested Acute hypotension. 2/2 hypovolemia in setting of poor PO intake, cont to monitor not hypotensive Hypokalemia. Acute, 2/2 poor PO intake, monitoring Esophageal Cancer. Stage IV, metastatic w/ peritoneal carcinomatosis Dr. Chen is outpt f/u, patient planning on ongoing chemo if pain is able to be stabilized Femoral Neck Fracture Right. Old, this was noted on MRI and apparently old for last summer Orthopedic surgery consulted, no intervention recommended, able to weight- bear, no pain # Hx DVT. Cont on xarelto Diet. As tolerates PPx. High risk, xarelto Code. Full Dispo. ADD uncertain, pain yet to be consistently controlled. Subjective: 40' spent on case, 30 of which spent at bedside wi pt and family Objective: Vital Signs Temp Pulse Resp BP Pulse Ox 36.7 C 87 18 122/79 H 96 03/07/17 08:08 03/07/17 08:08 03/07/17 08:08 03/07/17 08:08 03/07/17 08:08 Laboratory Results 03/04/17 02:55 03/04/17 02:55 03/06/17 03/07/17 03/08/17 05:59 05:59 05:59 Intake Total 650 Balance 650 PT 25.0 SEC (12.0-15.0) H 02/24/17 00:35 INR 2.26 (0.83-1.16) H 02/24/17 00:35 - Physical Exam Constitutional: no apparent distress, appears nourished Eyes: PERRL, anicteric sclera Ears, Nose, Mouth, Throat: moist mucous membranes, hearing normal Cardiovascular: regular rate and rhythym, no murmur, rub, or gallop Respiratory: no respiratory distress, no rales or rhonchi Gastrointestinal: normoactive bowel sounds, soft, non-tender abdomen Genitourinary: no bladder fullness, No dalal in urethra Skin: warm, normal color Musculoskeletal: full muscle strength, no muscle tenderness Neurologic: AAOx3, sensation intact bilaterally Psychiatric: interacting appropriately, not anxious Lymph, Heme, Immunologic: no cervical LAD, no supraclavicular LAD ICD10 Worksheet Patient Problems: Problems Problem Status Onset Prosthetic hip infection Acute Urinary tract infection Acute Obstructive uropathy Acute Back pain Acute Esophageal cancer Acute Metastatic cancer Acute Intractable pain Acute Palliative care encounter Acute
[2017-03-07] MEDS: RIVAROXABAN 20 MG TAB PO SCH (17:20)
[2017-03-08] MEDS: HYOSCYAMINE SULFATE 0.125 MG TAB PO SCH ×2 (06:11→11:44)
[2017-03-08] MEDS: morphINE SR 15 MG TAB PO SCH ×2 (06:11→11:44)
[2017-03-08] MEDS: LEVOTHYROXINE 112 MCG TAB PO SCH (06:11)
[2017-03-08 08:42] VITALS: BP 123/80; PULSE 59; RESP 18; TEMP 98.5; O2SAT 96
[2017-03-08] MEDS: FAMOTIDINE 20 MG TAB PO SCH (09:34)
[2017-03-08] MEDS: TAMSULOSIN HCL 0.4 MG CAP PO SCH (09:34)
[2017-03-08] MEDS: DULoxetine 30 MG CAP PO SCH (09:34)
[2017-03-08] MEDS: OXYBUTYNIN 5 MG EXT REL TAB PO SCH (09:35)
[2017-03-08] MEDS: ACETAMINOPHEN 500 MG TAB PO SCH (09:35)
[2017-03-08] MEDS: SENNOSIDES/DOCUSATE SODIUM TAB PO SCH (09:35)
--- NOTE | 2017-03-08 10:07 | HOSPPROG ---
Hospitalist Progress Note Assessment/Plan: 61 yo F p/w acute abdominal pain in setting of esophageal cancer and peritoneal carcinomatosis Plan: # Abdominal pain. P on long acting MS contin w roxanol for breakthrough in process of obtaining ketamine nasal spray 2/2 known intraperitoneal mets unremarkable exam Anxiety. Contributing to pain, hence the dissociative effect of precedex in SDU resulting in more successful mgmt cont cymbalta dose ativan 1st for pain will benefit from Integrative Med services from [facility], patient and family very interested Acute hypotension. 2/2 hypovolemia in setting of poor PO intake, cont to monitor not hypotensive Hypokalemia. Acute, 2/2 poor PO intake, monitoring Esophageal Cancer. Stage IV, metastatic w/ peritoneal carcinomatosis Dr. Chen is outpt f/u, patient planning on ongoing chemo if pain is able to be stabilized Femoral Neck Fracture Right. Old, this was noted on MRI and apparently old for last summer Orthopedic surgery consulted, no intervention recommended, able to weight- bear, no pain # Hx DVT. Cont on xarelto Diet. As tolerates PPx. High risk, xarelto Code. Full home today > 30 minutes on dc Subjective: ready for dc Objective: Vital Signs Temp Pulse Resp BP Pulse Ox 36.9 C 59 L 18 123/80 H 96 03/08/17 08:40 03/08/17 08:40 03/08/17 08:40 03/08/17 08:40 03/08/17 08:40 Laboratory Results 03/04/17 02:55 03/04/17 02:55 03/07/17 03/08/17 03/09/17 05:59 05:59 05:59 Intake Total 650 1800 Balance 650 1800 PT 25.0 SEC (12.0-15.0) H 02/24/17 00:35 INR 2.26 (0.83-1.16) H 02/24/17 00:35 - Physical Exam Constitutional: no apparent distress, appears nourished Eyes: PERRL, anicteric sclera Ears, Nose, Mouth, Throat: moist mucous membranes, hearing normal Cardiovascular: regular rate and rhythym, no murmur, rub, or gallop Respiratory: no respiratory distress, no rales or rhonchi Gastrointestinal: normoactive bowel sounds, soft, non-tender abdomen Genitourinary: no bladder fullness, No dalal in urethra Skin: warm, normal color Musculoskeletal: full muscle strength Neurologic: AAOx3 Psychiatric: interacting appropriately ICD10 Worksheet Patient Problems: Problems Problem Status Onset Intractable pain Acute Metastatic cancer Acute Palliative care encounter Acute Back pain Acute Esophageal cancer Acute Obstructive uropathy Acute Prosthetic hip infection Acute Urinary tract infection Acute
--- NOTE | 2017-03-08 10:20 | PDIAF ---
- Diagnosis Diagnosis: esophageal CA Code Status: Full Code - Medication Management Discharge Medications: Medications to Continue on Transfer Famotidine [Pepcid 20 MG (*)] 20 mg PO DAILY 01/31/17 [Last Taken 02/23/17] Herbals/Supplements -Info Only 1 ea PO DAILY 01/31/17 [Last Taken 1 Week Ago ~] Hyoscyamine Sulfate [Levsin, Hyomax-Sl 0.125 mg (*)] 0.125 mg PO DAILY PRN 01/31 [Last Taken 02/19/17] Sennosides/Docusate Sodium [Senokot-S] 1 - 2 tab PO BID PRN 02/11/17 [Last Taken 02/18/17 PM] traZODone [traZODONE 50MG (*)] 50 mg PO HS PRN 02/11/17 [Last Taken Unknown] Acetaminophen [Tylenol ES 500 mg (*)] 1,000 mg PO Q6HRS PRN tab 02/15/17 [Last Taken 02/23/17 09:00] Cyclobenzaprine [Flexeril 10 MG (*)] 10 mg PO TID PRN #30 tab 02/15/17 [Last Taken 02/23/17 18:00] Ondansetron Odt [Zofran Odt 4 mg (*)] 4 mg PO Q4HRS PRN #30 tab 02/15/17 [Last Taken Unknown] Tamsulosin HCl [Flomax 0.4 MG (*)] 0.4 mg PO DAILY #7 cap 02/15/17 [Last Taken 02/23/17] Diazepam [Valium 2 MG (*)] 2 mg PO Q6HRS PRN 02/19/17 [Last Taken 02/19/17 0845] Oxybutynin Chloride [Ditropan Xl] 10 mg PO DAILY 02/19/17 [Last Taken 02/23/17] Phenazopyridine HCl [Pyridium] 200 mg PO DAILY PRN 02/19/17 [Last Taken 0800] Polyethylene Glycol 3350 [Miralax 17 gm (*)] 17 gm PO DAILY PRN 02/19/17 [Last Taken Unknown] Rivaroxaban [Xarelto] 20 mg PO DAILY@18 02/19/17 [Last Taken 02/23/17] Simethicone [Mylicon] 80 mg PO Q6 PRN 02/19/17 [Last Taken Unknown] Zolpidem Tartrate [Ambien 5MG (*)] 2.5 mg PO HS PRN 02/19/17 [Last Taken Unknown ] HYDROmorphone HCL [Dilaudid 2 mg (*)] 2 - 4 mg PO Q4HRS PRN #30 tab 02/22/17 [ Last Taken 02/23/17 20:00 2 TABS] Levothyroxine [Synthroid 112 mcg (*)] 112 mcg PO DAILY06 #30 tab 02/22/17 [Last Taken 02/23/17] DULoxetine [Cymbalta 30 MG (*)] 30 mg PO DAILY #30 cap 03/08/17 [Last Taken Unknown] Gluc Oxid/l-Peroxid/Muramidase [Biotene Mouthwash (*)] 15 ml MM Q8H PRN #1 bottle 03/08/17 [Last Taken Unknown] LORazepam [Ativan (*)] 0.5 - 1 mg PO Q4HRS PRN #30 tab 03/08/17 [Last Taken Unknown] morphINE SR [Ms Contin/Oramorph 15 mg (*)] 15 mg PO BID@0700,1200 #60 tab [Last Taken Unknown] morphINE SR [Ms Contin/Oramorph 15 mg (*)] 30 mg PO HS #30 tab 03/08/17 [Last Taken Unknown] morphINE [Roxanol 10 mg/0.5 ml oral soln (*)] 5 - 10 mg PO Q2HRS PRN #100 udsyr 03/08/17 [Last Taken Unknown] Discharge Medications: Refer to the Discharge Home Medication list for PRN reason. - Orders Services needed: Home Care, Registered Nurse, Certified Special Delivery Clerk, Master Airfield Operations Specialist, Physical Therapy, Occupational Therapy Home Care Face to Face: I certify that this patient was under my care and that I had the required [id number] encounter meeting the encounter requirements on the discharge day. My findings support the fact that the patient is homebound as defined in Home Care Face to Face Continued: CMS Chapter 7 Medicare Benefits Manual 30.1.1 , The condition of the patient is such that there exists a normal inability to leave home and consequently, leaving home would require a considerable and taxing effort. Isolation Type: None Diet Texture: Regular Texture Diet, Thin Liquids, Meds Whole w/Liquids - Follow Up Care Current Providers and Referrals: Diamante Lofton MD [Primary Care Provider] - As per Instructions
[2017-03-08] MEDS: POLYETHYLENE GLYCOL 3350 17 GM PKT PO SCH (10:33)
--- NOTE | 2017-03-08 17:03 | ASDISCHSUM ---
Discharge Information Plan Status:Home with Home Health Medically Cleared to Leave: Discharge Date:03/08/2017 01:12 PM D/C Disposition:Home Health Service ADT D/C Disposition:Home, Routine, Self-Care Projected Discharge Date:03/06/2017 11:00 AM Transportation at D/C:Family Discharge Delay Reason: Follow-Up Date:03/06/2017 11:00 AM Discharge Slot: Final Diagnosis:Acute pain: Esophageal CA mets to liver and spine Placement Information Referral Type:*Home Health Care Services Referral ID:[id number] Provider Name:[facility] Address 1:[address] Address 2: City:[place] Selection Factors: State:[place] Referral Type:Palliative Care Referral ID:[id number] Provider Name:[facility] Address 1:[address] Phone Number: Address 2: Fax Number: [facility]:[place] Selection Factors: State:[place] Patient Contact Information Contact Name:OUMOU Relationship: Address:[address] City:[place] Alternate Phone: State/Zip Code:[place] [address] Email: Financial Information Financial Class:[id number] [facility] Number:[id number] Secondary Plan Desc: Secondary Plan Number: Assessment Information [facility] CM Progress Note CM Note CM Note Notes: Pt in current treatment for esophageal ca admitted for LL back pain. Testing in progress to determine cause. Pt not available to discuss DC plan. Pt discharged from [facility] on 02/22 with no identified needs at that time. Pt would benefit from a community-based palliative care referral. Pt may also benefit from HC RN. CM will continue to follow for DC needs. Date Signed: 02/24/2017 02:47 PM Electronically Signed By:Elba Smith LCSW [facility] CM Progress Note CM Note CM Note Notes: Pt tx to ICU where she will put on precedex. Talked with pt's and children about community-based palliative care at [place]. They were interested but want to wait to see the course of her treatment. CM to follow. Date Signed: 02/24/2017 05:32 PM Electronically Signed By:Elba Smith LCSW [facility] CM Progress Note CM Note CM Note Notes: Spoke to patient and about HC services on discharge. They have had [facility] in the past and would like to use them again. HC: PT/OT/RN/CHUCKING MACHINE OPERATOR. Contact made and referral sent to [facility]. Date Signed: 02/28/2017 03:37 PM Electronically Signed By:Mile Shields LCSW [facility] CM Progress Note CM Note CM Note Notes: Pt, dtr, Arminda, dtr-in-law Flori Singh, MIGUELINA and this CM met yesterday to discuss ongoing pain management and DC plan. Flori adjusted some of pt's meds. Family agreed to a [facility] palliative referral which was made. They will come to meet with family prior to DC to go over pain mgmt plan. Dtr also considering hiring pvt duty help for the first week or so to assist pt and her . Forrest castorenabladimir calvin requested to help with this. Pt is set up with [facility] for RN, PT, OT, CHUCKING MACHINE OPERATOR. Pt could also use ST as well. for [facility]. [facility] would like to be notified 24 hrs before DC so they can arrange to meet with family. CM will continue to follow. Date Signed: 03/04/2017 04:14 PM Electronically Signed By:Elba Smith LCSW [facility] CM Progress Note CM Note CM Note Notes: Spoke with Arminda ([phone]) at [facility]; updates provided. Arminda plans to be onsite tomorrow to meet with pt. CM will continue to follow. DC plan: Home with [facility] Date Signed: 03/06/2017 04:54 PM Electronically Signed By:Lucinda Allred RN [facility] CM Progress Note CM Note CM Note Notes: Arminda with [facility] here to meet with patient and today - [facility] will see her at home 03/15/17; consent signed. I called [facility] to give them an update - we anticipate discharge home tomorrow. Current CM Discharge Plan: home with [facility] and [facility] Date Signed: 03/07/2017 03:08 PM Electronically Signed By:Claudine Ortez RN Case Management Discharge Plan Note Case Management Discharge Discharge Order Complete? Answers: Yes Patient to Obtain Answers: Independently Medications Transportation Arranged Answers: Family/Friends Faxed Final Orders Answers: Yes Family Notified Answers: Yes Discharge Comments Notes: Patient was discharged home with [facility] (to see patient 03/15) and [facility]. I spoke with patient's son multiple times during the day to help him understand the role of [facility]. He requested information on additional services at home, particularly someone to stay with his mother when his father was at work. I explained that this role was best filled by private duty caregivers. I emailed him a list of these, per his request. In the meantime, patient's son called [facility] and requested that their nurse stay at the home for 2-4 hours. He also requested a CHUCKING MACHINE OPERATOR, which [facility] cannot staff in patient's location. I spoke with both [facility] and patient's son multiple times and got conflicting stories, ultimately coninciding with [facility] telling patient's son they could not meet his needs. Patient's son then called me to tell me he was coming to the hospital to talk to me face to face. We sat down and I tried to explain, again, the difference between home care and private duty caregiving. He requested that I call another home care agency - [facility] - to see if they could provide skilled and unskilled are. He requested that I make the call on speakerphone so that he could hear the conversation. I did this, and Smitha from [facility] explained what had been discussed before: they staff skilled care and not unskilled. She offered to run insurance benefits for the skilled care. In the meantime, I called [facility] back, spoke with a animal shelter supervisor named [facility], and requested that they open patient as originally planned with the understanding that there would be no CHUCKING MACHINE OPERATOR, only RN/PT/OT. Cuauhtemoc wanted to make sure that patient's son understood that an RN would not be available for his originally requested needs (2-4 hours, as mentioned above). I confirmed with Ulisses, patient's son, that he understood this, and he did. Per [facility], they will have an RN open patient tomorrow or the next day. Ulisses was ok with this. I encouraged him to call us with any questions or concerns. Date Signed: 03/08/2017 04:57 PM Electronically Signed By:Claudine Ortez RN Intervention Information
--- NOTE | 2017-03-09 03:05 | GDS ---
[f rep st] DISCHARGE SUMMARY DISCHARGE DIAGNOSES: 1. Esophageal cancer, widely metastatic. 2. Pain crisis. 3. Intractable back pain. 4. Encephalopathy, now resolved. CONSULTATIONS: Gastroenterology and Oncology. HOSPITAL COURSE: The patient was admitted with pain crisis. The patient had a lot of anxiety around pain. She had previously been on MS Contin. She had encephalopathy in the setting of pain and pain medications. After considerable effort, the patient was stabilized on a regimen of MS Contin 15 b.i .d. with 30 at night, as well as Roxanol for breakthrough pain and ketamine for pain crises. She was noted to have colon thickening. This was felt consistent with possible metastatic disease, but would not change her prognosis. She is discharged home today with these new prescriptions, as well as an outpatient followup with Dr. Chen for consideration of ongoing outpatient chemotherapy. /[id number]/MODL
== END 2017-03-08 13:12 | disposition home health service (06) | DRG 947 ==
LOC: F1N 02-24 10:10 → F2N 02-24 17:18 → OBSVTOIN 02-25 09:20 → F1N 03-02 14:47
PROVIDERS: ADMIT Student in an Organized Health Care Education/Training Program; ATTEND Internal Medicine
DX: G89.3 Neoplasm related pain (acute) (chronic) (principal); G92 Toxic encephalopathy; C15.9 Malignant neoplasm of esophagus, unspecified; T40.2X5A Adverse effect of other opioids, initial encounter; T48.1X5A Adverse effect of skeletal muscle relaxants [neuromuscular blocking agents], initial encounter; T40.605A Adverse effect of unspecified narcotics, initial encounter; M84.551A Pathological fracture in neoplastic disease, right femur, initial encounter for fracture; K56.7 Ileus, unspecified; C79.51 Secondary malignant neoplasm of bone; C78.7 Secondary malignant neoplasm of liver and intrahepatic bile duct; C78.6 Secondary malignant neoplasm of retroperitoneum and peritoneum; K58.1 Irritable bowel syndrome with constipation; K59.03 Drug induced constipation; I95.9 Hypotension, unspecified; E87.6 Hypokalemia; E86.1 Hypovolemia; Z87.440 Personal history of urinary (tract) infections; F41.1 Generalized anxiety disorder; Z88.0 Allergy status to penicillin; Z88.1 Allergy status to other antibiotic agents; Z98.1 Arthrodesis status; Z86.718 Personal history of other venous thrombosis and embolism; Z96.641 Presence of right artificial hip joint
CPT/HCPCS: 86301-90; 92526-GN; 92610-GN; 96374; 97110-GP; 97116-GP; 97162-GP; 97166-GO; 97530-GO; 97530-GP; 97535-GO; A9503; A9585; J1100; J1170; J1630; J1642; J2060; J2270; J2405; J3010

== ENCOUNTER 2017-03-17 02:15 | Inpatient (IN) | payer OTHER ==
[2017-03-17] MEDS ORDERED: HYDROmorphONE/DILAUDID 1 MG/ML INJ IVP ONE (02:58)
--- NOTE | 2017-03-17 03:23 | EDPHY ---
H & P Stated Complaint: Altered mental status x3 days. Time Seen by Provider: 03/17/17 02:35 HPI/ROS: Chief Complaint: Anxiety, headache, behavior change HPI: 61-year-old woman with a history of metastatic esophageal cancer with recent admissions for pain control. Patient has been home for about a week. She is on a regimen of daily morphine, any her oxycodone, hydrocodone. She also is taking medications for agitation including Ativan, Valium, and she has ketamine spray as needed. states that for the last 3 days in the afternoon she is getting increasingly agitated. She is unable to take her pain medications because she is not willing to swallow them because of throat pain. He is given her ketamine spray for the last 3 evenings with minimal relief. Tonight he gave her ketamine spray twice, each 3 hr apart. Patient has been up and pacing around the house with her walker. She is restless will not sit still. Also complaining of a new headache for the last several days. No nausea or vomiting. She does have. Is of lucency were she is able to converse when she is medicated however 's concern that she is unable to swallow her medications and he is not able to keep up with her and she is occasionally refusing to take her pills. No fevers or chills. ROS: 10 point Review of Systems is negative except as noted in the HPI. Family History: Physical Exam: Gen: Awake, Alert, No Distress mild confusion HEENT: Nose: no rhinorrhea Eyes: PERRLA, EOMI Mouth: By mucosa Neck: Soft collar in place Chest: She has tenderness to the left anterior lower ribs, lungs clear to auscultation Heart: S1, S2 normal, no murmur Abd: Soft, mild right upper quadrant tenderness, no guarding Back: no CVA tenderness, no midline tenderness Ext: no edema, non-tender Skin: no rash Neuro: CN II-XII intact, Sensation grossly intact, Strength 5/5 in bilateral upper and lower extremities - Personal History Current Tetanus/Diphtheria Vaccine: Unsure Current Tetanus Diphtheria and Acellular Pertussis (TDAP): Unsure - Medical/Surgical History Hx Asthma: No Hx Chronic Respiratory Disease: No Hx Diabetes: No Hx Cardiac Disease: No Hx Renal Disease: No Hx Cirrhosis: No Hx Alcoholism: No Hx HIV/AIDS: No Hx Splenectomy or Spleen Trauma: No Other PMH: Appendectomy, hysterectomy, (2016), esophogial/stomach/liver cancer, Frequent UTIs partial hip replacement, wound vac after hip surgery, Ureter stent , C7 sx. - Social History Smoking Status: Never smoked Constitutional: Initial Vital Signs Temperature (C) 37.4 C 03/17/17 02:20 Heart Rate 118 H 03/17/17 02:20 Respiratory Rate 17 03/17/17 02:20 Blood Pressure 118/80 03/17/17 02:20 O2 Sat (%) 97 03/17/17 02:20 O2 Delivery Mode Room Air Allergies/Adverse Reactions: naproxen Allergy (Severe, Verified 02/23/17 21:55) Hives, TROUBLE BREATHING adhesive tape Allergy (Intermediate, Verified 02/23/17 21:55) Rash NSAIDS (Non-Steroidal Anti-Inflamma Allergy (Intermediate, Verified 02/23/17 21: 55) Hives Penicillins Allergy (Intermediate, Verified 02/23/17 21:55) Hives Sulfa (Sulfonamide Antibiotics) Allergy (Intermediate, Verified 02/23/17 21:55) Hives Home Medications: Medication Instructions Recorded Famotidine [Pepcid 20 MG (*)] 20 mg PO DAILY 01/31/17 Hyoscyamine Sulfate [Levsin, 0.125 mg PO DAILY PRN 01/31/17 Hyomax-Sl 0.125 mg (*)] Sennosides/Docusate Sodium 1 - 2 tab PO BID PRN 02/11/17 [Senokot-S] Acetaminophen [Tylenol ES 500 mg 1,000 mg PO Q6HRS PRN tab 02/15/17 (*)] Cyclobenzaprine [Flexeril 10 MG 10 mg PO TID PRN #30 tab 02/15/17 (*)] Diazepam [Valium 2 MG (*)] 2 mg PO Q6HRS PRN 02/19/17 Phenazopyridine HCl [Pyridium] 200 mg PO DAILY PRN 02/19/17 Polyethylene Glycol 3350 [Miralax 17 gm PO DAILY PRN 02/19/17 17 gm (*)] Rivaroxaban [Xarelto] 20 mg PO DAILY@18 02/19/17 Simethicone [Mylicon] 80 mg PO Q6 PRN 02/19/17 HYDROmorphone HCL [Dilaudid 2 mg 2 - 4 mg PO Q4HRS PRN #30 tab 02/22/17 (*)] Levothyroxine [Synthroid 112 mcg 112 mcg PO DAILY06 #30 tab 02/22/17 (*)] DULoxetine [Cymbalta 30 MG (*)] 30 mg PO DAILY #30 cap 03/08/17 Gluc Oxid/l-Peroxid/Muramidase 15 ml MM Q8H PRN #1 bottle 03/08/17 [Biotene Mouthwash (*)] LORazepam [Ativan (*)] 0.5 - 1 mg PO Q4HRS PRN #30 tab 03/08/17 morphINE SR [Ms Contin/Oramorph 15 15 mg PO BID@0700,1200 #60 tab 03/08/17 mg (*)] morphINE SR [Ms Contin/Oramorph 15 30 mg PO HS #30 tab 03/08/17 mg (*)] morphINE [Roxanol 10 mg/0.5 ml 5 - 10 mg PO Q2HRS PRN #100 udsyr 03/08/17 oral soln (*)] Medical Decision Making - Diagnostics Imaging Results: CT scan of the head is negative. Study interpreted by Dr. Andres. Imaging: Discussed imaging studies w/ scallop raker Radiologist ED Course/Re-evaluation: 61-year-old woman with metastatic esophageal cancer who is coming in dehydrated , pain is not adequately controlled and altered. She is also complaining of headache. is taking care of her at home with some resources but does not really have home care anything set up at this point. He feels that he is unable to adequately care for her. She is not drinking liquids. She is not swallowing her pain medicines is getting quite agitated and wondering because of this. She is clinically dehydrated here. Will give her some IV fluids. I have also ordered analgesia 1 mg of hydromorphone IV. Will discussed with hospitalist for admission for pain control, hydration and consultation with case management for implementing further services. - Data Points Medications Given: Discontinued Medications Hydromorphone HCl (Dilaudid) 1 mg IVP EDNOW ONE Stop: 03/17/17 02:59 Last Admin: 03/17/17 03:43 Dose: 1 mg Departure - Departure Disposition: [facility] Inpatient Acute Clinical Impression: Dehydration, Pain Condition: Fair Referrals: Diamante Lofton MD [Primary Care Provider] - As per Instructions
[2017-03-17] MEDS: NS 1,000 ML IV SCH ×3 (04:12→11:24)
[2017-03-17] MEDS ORDERED: HALOPERIDOL LACT 5 MG/ML INJ IVP ONE (04:14)
[2017-03-17 04:20] LABS: PLATELET COUNT 444 10^3/uL (150-400)
--- NOTE | 2017-03-17 04:59 | PDGENHP ---
History and Physical - Chief Complaint Delirium episodes - History of Present Illness 61 yo F w/ hx of metastatic esophageal CA and DVT presents again with repeated episodes of delirium. Patient was admitted for several weeks in February for management of severe symptom burden. During that stay her treatment was initially focused on pain as patient was complaining of abdominal and back pain. During her course it became clear that anxiety was playing a significant role in her symptoms. She required aggressive therapies including a stint in the ICU for Precedex. She was discharged on 03/08 with a myriad of oral medications aimed at pain and anxiety for control of her symptoms. These medications included MS Contin, oxycodone, hydromorphone, cyclobenzaprine, diazepam, lorazepam, haloperidol, ketamine, and duloxetine. Her Dusty explains that after discharge a combination of these medications were able to calm her "episodes". As the week wore on, however, her "episodes" became more frequent and difficult to control. On the evening prior to admission patient experienced an "episode" for more than 3 hours so they decided to come to the ED. They even tried ketamine twice during that episode without control. In terms of what Dusty describes as her "episodes", he has a hard time describing this in clear terms. As far as I can gather she experiences acute onset of altered mental status during which the patient communicates minimally. She usually closes her eyes, moves her jaw, and will often pace without aim. For example, during today's episode, patient walked into the laundry room and tried to walk out of a non-existent door on the other side of the room for several minutes. Dusty states that she has not been complaining of pain during these episodes and does not appear particularly anxious. Dusty also states that she usually does not remember what happens during these episodes. When I ask the patient about today's episode, she cannot recall the events that spanned over those 3 hours. History Information - Allergies/Home Medication List Allergies/Adverse Reactions: naproxen Allergy (Severe, Verified 02/23/17 21:55) Hives, TROUBLE BREATHING adhesive tape Allergy (Intermediate, Verified 02/23/17 21:55) Rash NSAIDS (Non-Steroidal Anti-Inflamma Allergy (Intermediate, Verified 02/23/17 21: 55) Hives Penicillins Allergy (Intermediate, Verified 02/23/17 21:55) Hives Sulfa (Sulfonamide Antibiotics) Allergy (Intermediate, Verified 02/23/17 21:55) Hives Home Medications: Famotidine [Pepcid 20 MG (*)] 20 mg PO DAILY 01/31/17 [Last Taken 02/23/17] Hyoscyamine Sulfate [Levsin, Hyomax-Sl 0.125 mg (*)] 0.125 mg PO DAILY PRN 01/31 [Last Taken 02/19/17] Sennosides/Docusate Sodium [Senokot-S] 1 - 2 tab PO BID PRN 02/11/17 [Last Taken 02/18/17 PM] Diazepam [Valium 2 MG (*)] 2 mg PO Q6HRS PRN 02/19/17 [Last Taken 02/19/17 0845] Phenazopyridine HCl [Pyridium] 200 mg PO DAILY PRN 02/19/17 [Last Taken 0800] Polyethylene Glycol 3350 [Miralax 17 gm (*)] 17 gm PO DAILY PRN 02/19/17 [Last Taken Unknown] Rivaroxaban [Xarelto] 20 mg PO DAILY@18 02/19/17 [Last Taken 02/23/17] Simethicone [Mylicon] 80 mg PO Q6 PRN 02/19/17 [Last Taken Unknown] I have personally reviewed and updated: family history, medical history - Past Medical History cancer (Esophageal), DVT - Surgical History Reports: hysterectomy, spinal surgery (C7 corpectomy, C6-T1 fusion) - Family History Positive for: cancer - Social History Smoking Status: Never smoked Review of Systems Review of Systems: ROS: 10pt was reviewed & negative except for what was stated in HPI & below Physical Exam Physical Exam: Temp Pulse Resp BP Pulse Ox 37.4 C 89 20 125/75 H 95 03/17/17 02:20 03/17/17 04:31 03/17/17 04:31 03/17/17 04:20 03/17/17 04:31 O2 (L/minute) 2 Constitutional: no apparent distress, not in pain Eyes: PERRL, EOMI Ears, Nose, Mouth, Throat: moist mucous membranes, no oral mucosal ulcers Cardiovascular: regular rate and rhythym, systolic murmur Respiratory: no respiratory distress, clear to auscultation Gastrointestinal: normoactive bowel sounds, tenderness (Epi-gastric) Skin: warm, other ([place] chest) Neurologic: CN II-XII Intact, other (A&Ox2: person and place) Psychiatric: interacting appropriately, flat affect Lab Data & Imaging Review 03/17/17 04:00 03/17/17 04:00 WBC 5.64 10^3/uL (3.80-9.50) 03/17/17 04:00 RBC 2.68 10^6/uL (4.18-5.33) L 03/17/17 04:00 Hgb 7.9 g/dL (12.6-16.3) L 03/17/17 04:00 Hct 24.6 % (38.0-47.0) L 03/17/17 04:00 MCV 91.8 fL (81.5-99.8) 03/17/17 04:00 MCH 29.5 pg (27.9-34.1) 03/17/17 04:00 MCHC 32.1 g/dL (32.4-36.7) L 03/17/17 04:00 RDW 18.2 % (11.5-15.2) H 03/17/17 04:00 Plt Count 444 10^3/uL (150-400) H 03/17/17 04:00 MPV 9.2 fL (8.7-11.7) 03/17/17 04:00 Neut % (Auto) 68.3 % (39.3-74.2) 03/17/17 04:00 Lymph % (Auto) 17.4 % (15.0-45.0) 03/17/17 04:00 [place] % (Auto) 12.1 % (4.5-13.0) 03/17/17 04:00 Eos % (Auto) 0.4 % (0.6-7.6) L 03/17/17 04:00 Baso % (Auto) 0.7 % (0.3-1.7) 03/17/17 04:00 Nucleat RBC Rel Count 0.0 % (0.0-0.2) 03/17/17 04:00 Absolute Neuts (auto) 3.86 10^3/uL (1.70-6.50) 03/17/17 04:00 Absolute Lymphs (auto) 0.98 10^3/uL (1.00-3.00) L 03/17/17 04:00 Absolute Monos (auto) 0.68 10^3/uL (0.30-0.80) 03/17/17 04:00 Absolute Eos (auto) 0.02 10^3/uL (0.03-0.40) L 03/17/17 04:00 Absolute Basos (auto) 0.04 10^3/uL (0.02-0.10) 03/17/17 04:00 Absolute Nucleated RBC 0.00 10^3/uL (0-0.01) 03/17/17 04:00 Immature Gran % 1.1 % (0.0-1.1) 03/17/17 04:00 Immature Gran # 0.06 10^3/uL (0.00-0.10) 03/17/17 04:00 Sodium 140 mEq/L (135-145) 03/17/17 04:00 Potassium 3.6 mEq/L (3.5-5.2) 03/17/17 04:00 Chloride 103 mEq/L (97-110) 03/17/17 04:00 Carbon Dioxide 23 mEq/l (22-31) 03/17/17 04:00 Anion Gap 14 mEq/L (8-16) 03/17/17 04:00 BUN 17 mg/dL (7-23) 03/17/17 04:00 Creatinine 0.9 mg/dL (0.6-1.0) 03/17/17 04:00 Estimated GFR > 60 03/17/17 04:00 Glucose 106 mg/dL (70-100) H 03/17/17 04:00 Calcium 9.0 mg/dL (8.5-10.4) 03/17/17 04:00 Imaging Review: CTH Prelim: Negative unenhanced CT of the head. Results called to Dr. Alden Alexis at 3:43 am. MB Assessment & Plan Assessment: 61 yo F w/ metastatic esophageal CA and hx of DVT presents again with acute delirium episodes of unclear etiology. Plan: 1. Acute delirium episodes - These episodes are quite atypical and it is unclear wether they are due to pain, anxiety, seizures, or possibly psychiatric disease. See HPI for expanded description. Family has had difficulty controlling the episodes despite use of MS Contin, oxycodone, hydromorphone, cyclobenzaprine, diazepam, lorazepam, haloperidol, ketamine, and duloxetine. During her last 2 admissions work-up was focused on finding a source of pain in her LLQ and L flank as it was thought that severe pain was inducing delirium; it was postulated that the source of pain was peritoneal mets as MRI of pelvis and L-spine were not otherwise elucidating. Interestingly, her states that she has not complained of significant pain during the last week to explain these most recent episodes. CTH performed on admission showed no acute abnormality and her laboratory work-up is relatively unremarkable aside from fairly stable anemia. - Will control pain and anxiety with Dilaudid IV and Ativan IV PRN for now - Will order Neurology consult to help consider the possibility of seizures contributing to her presentation, I will defer to them wether a trial of Keppra and evaluation with an MRI of the brain are merited - Consider Psychiatry consult if symptom control remains elusive 2. Metastatic esophageal cancer - Withe mets to C-spine, liver, and peritoneum. She is in the process of receiving chemotherapy. 3. Hx of DVT - On Xarelto 4. Status post cervical spinal fusion - C-collar in place; has been in place for 6 weeks and patient is due for possible removal. 5. Chronic R femoral neck fx - Noted last admission; Ortho consulted at that time and no intervention recommended. 6. Normocytic anemia - Slightly worsened from prior, no e/o bleeding. Will send iron panel. Diet - Regular Code - Full Ppx - Xarelto Dispo - Admit to observation status
[2017-03-17] MEDS: LORazepam 2 MG/ML INJ IVP PRN ×4 (05:47→23:37)
[2017-03-17] MEDS: HYDROmorphONE/DILAUDID 1 MG/ML INJ IVP PRN ×4 (05:47→16:25)
[2017-03-17] MEDS: ONDANSETRON 4 MG/2 ML VIAL IVP PRN ×3 (09:21→20:58)
--- NOTE | 2017-03-17 09:38 | NEUROPROG ---
Assessment: HOSPITAL NEUROLOGY CONSULT REQUESTING: Brandon Thacker MD REASON: spells HPI: 61 year old woman with metastatic esophageal cancer, cancer related pain, anxiety presented to our ED yesterday with worsening episodes of agitation and delirium. She was discharged form our hospital on 03/08 for admission related to pain control, where her pain episodes were associated with profound anxiety and agitation. She did require a brief stay in the ICU for dexmedetomidine infusion. She was discharged with MS contin, oxycodone, hydromorphone and cyclobenzaprine for pain control. Diazepam, lorazepam, duloxetine, haloperidol and intranasal ketamine were prescribed for anxiety/agitation. Since her discharge her notes she will have spells where she seems to pace around , sometimes become incoherent. Most of the time she responds appropriately, but sometimes she will just sit down, her jaw will move [id number], and she will pick at herself and fumble her hands. He states the anxiety medication, particularly haloperidol, will slowly resolve the episodes. He has needed to use ketamine a few times for "bad" episodes, and this will also seem to calm the episodes. He's not noted any convulsive activity. No indication of DELGADO, neck stiffness or photophobia per patient report. ROS: As per the HPI, otherwise a complete 12 point ROS was performed and is negative ALLERGIES AND MEDS: As recorded in the EMR - reviewed and reconciled PFSH: As per the intake H&P by Dr. Thacker from today EXAM: VS reviewed in EMR GEN: chronically ill appearing woman laying in NAD HEENT: NCAT, sclera anicteric, conjunctiva not injected, MMM, oropharynx clear, no scalp tenderness NECK: supple, nontender, no meningismus CV: RRR s1 s2 wo m/r/c/g. Carotid pulses 2+ wo bruit NEURO: MS: somnolent, arouses to voice, oriented to self only. Speech nondysarthric, but content is perseverative. No obvious language disturbance. Follows simple commands with prompting. Attends to both sides. Unable to assess higher cortical function due to somnolence. CN: pupils 3mm round OS, 3.5mm round OD and both reactive. Intolerant of fundoscopy. Blinks to threat OU. Primary gaze centered. Full horizontal ocular motility when tracking examiner. Grimace to nox stim of the face. Face symmetric. Hearing grossly intact to spoken word. Palatoglossal movements intact. Shoulder shrug intact. MOTOR: normal bulk. Low tone. No adventitial movements. Raises arms and legs against gravity - doesn't participate in formal exam SENSORY: localizes to nox stim in BUEs, withdraws briskly to nox stim BLEs COORD: no gross ataxia. REFLEX: plantars down. No clonus. DTRS 2/4. GAIT: unable to safely assess DATA REVIEW: Labs reviewed in EMR PERSONALLY INTERPRETED RESULTS AND DATA: CT head wo - nothing acute - otherwise unremarkable study IMPRESSION AND RECOMMENDATIONS: // DELIRIUM // METASTATIC ESOPHAGEAL CANCER // ANXIETY // AGITATION // CHRONIC PAIN Patient will spells of abnormal behavior, likely delirium from pain, anxiety and polypharmacy. However, some features of her spells could represent seizure activity. Her cancer history is of concern, as well. Will evaluate for brain mets with MRI brain wow. Check routine EEG for any epileptiform discharges. May need CSF sampling. Delirium precautions - lights on/window shade up from [id number], frequent orientation, regular meal times, OOB to chair when able (or at least HOB elevated), sensory optimization, family at bedside, streamline sedating/ disinhibiting medications. Objective: Vital Signs Temp Pulse Resp BP Pulse Ox 36.4 C 105 H 18 137/82 H 100 03/17/17 09:16 03/17/17 09:16 03/17/17 09:16 03/17/17 09:16 03/17/17 09:16 03/16/17 03/17/17 03/18/17 05:59 05:59 05:59 Intake Total 200 Balance 200 Allergies/Adverse Reactions: naproxen Allergy (Severe, Verified 02/23/17 21:55) Hives, TROUBLE BREATHING adhesive tape Allergy (Intermediate, Verified 02/23/17 21:55) Rash NSAIDS (Non-Steroidal Anti-Inflamma Allergy (Intermediate, Verified 02/23/17 21: 55) Hives Penicillins Allergy (Intermediate, Verified 02/23/17 21:55) Hives Sulfa (Sulfonamide Antibiotics) Allergy (Intermediate, Verified 02/23/17 21:55) Hives
--- NOTE | 2017-03-17 11:33 | WOCRNPDOC ---
WOCRN Advanced Assessment Note - Skin Integrity Problem, Advanced Assess Left Gluteal Cleft Pressure Injury Dressing Type: Open to Air Exudate Amount: None Exudate Characteristic(s): None Integumentary Issue Intervention: Dressing Applied, Hydrogel Applied Magdalena Wound Tissue: Blanching, Intact [place] Wound Swelling: None Wound Bed Color: Red Wound Bed Constitution: Red/[place] - Non Granular Tissue Site Odor: None Site Measurement - Head-to-Toe Length X Width X Depth (cm): 0.9cmx0.8cmx0.1cm Pressure Injury Stage: Stage 2 Pressure Injury Present on Admit: Yes (Hospitalist notified) Skin Integrity Problem Comment: Discrete, circular-shaped partial-thickness wound on patient's L intergluteal cleft, consistent in appearance w/ stage 2 pressure injury. Periwound skin is intact, blanching. Protective dressing applied and pressure-relieving precautions initiated.
--- NOTE | 2017-03-17 12:27 | HOSPPROG ---
Hospitalist Progress Note Assessment/Plan: # Acute delirium episodes - Suspect polypharmacy, she appears over-medicated. Acknowledge her prior pain crises and she is certainly comfortable from pain perspective. Reviewed medications with pt, and pharmacist. Also consider underlying neurologic etiology such as seizure, brain mets, infection. -D/C Valium, cont prn ativan -D/C Dilaudid, increase MS Contin to 30 mg TID with roxanol for breakthrough -D/C Flexeril -MRI with and without contrast today -Neurology to consult regarding indication for EEG and / or LP # Metastatic esophageal cancer - Withe mets to C-spine, liver, and peritoneal carcinomatosis. She is in the process of receiving chemotherapy. -will alert oncology of her admission -pain control as above # Left ureteral stent - hematuria noted. Cr normal. notes left flank pain was prior pain complaint, though no pain currently. -consider imaging to evaluate stent placement # Hx of DVT 2014 - On Xarelto, last dose Monday. -hold for possible LP in am # Status post cervical spinal fusion - C-collar in place; has been in place for 6 weeks and pt had appt today for possible removal, which was canceled due to admission -neurosurgery has ordered c-spine films, appreciate their attention # Chronic R femoral neck fx - Noted last admission; Ortho consulted at that time and no intervention recommended. # Normocytic anemia - Slightly worsened from prior, no e/o bleeding. -iron studies c/w ACD Diet - Regular Code - Full Ppx - Xarelto Dispo - Change to inpt for ongoing neurologic evaluation and medication management Subjective: Pt is resting, a bit somnolent, but awakens to verbal stimuli and answers questions with yes/no replies. Denies pain at this time. Objective: Vital Signs Temp Pulse Resp BP Pulse Ox 36.4 C 105 H 18 137/82 H 100 03/17/17 09:16 03/17/17 09:16 03/17/17 09:16 03/17/17 09:16 03/17/17 09:16 03/16/17 03/17/17 03/18/17 05:59 05:59 05:59 Intake Total 200 Balance 200 - Physical Exam Constitutional: no apparent distress Eyes: PERRL Ears, Nose, Mouth, Throat: moist mucous membranes Cardiovascular: regular rate and rhythym Respiratory: no respiratory distress Gastrointestinal: normoactive bowel sounds, soft, non-tender abdomen Skin: warm Musculoskeletal: generalized weakness Psychiatric: encephalopathic ICD10 Worksheet Patient Problems: Problems Problem Status Onset Dehydration Acute Pain Acute Back pain Acute Esophageal cancer Acute Intractable pain Acute Metastatic cancer Acute Obstructive uropathy Acute Palliative care encounter Acute Prosthetic hip infection Acute Urinary tract infection Acute
[2017-03-17] MEDS: SENNOSIDES/DOCUSATE SODIUM TAB PO PRN (14:04)
[2017-03-17] MEDS: DULoxetine 30 MG CAP PO SCH (14:04)
[2017-03-17] MEDS: FAMOTIDINE 20 MG TAB PO SCH (14:04)
[2017-03-17] MEDS: morphINE 10 MG/0.5 ML UDSYR PO PRN ×3 (14:04→23:08)
[2017-03-17] MEDS: LEVOTHYROXINE 112 MCG TAB PO SCH (14:19)
[2017-03-17] MEDS ORDERED: morphINE SR 15 MG TAB PO SCH (16:00)
[2017-03-17] MEDS: morphINE SR 30 MG TAB PO SCH ×2 (17:36→21:01)
--- NOTE | 2017-03-17 17:41 | ASMTCMCOM ---
CM Note CM Note Notes: Pt with hx of metastatic esophageal cancer admitted with acute delerium and for pain control. Pt has had two recent admissions. At her last admission she DC'd with [facility]. Both were alerted to her admission. Pt had a neuro consult and a brain MRI is pending. CM will continue to follow. Date Signed: 03/17/2017 05:41 PM Electronically Signed By:Elba Smith LCSW
[2017-03-17] MEDS ORDERED: GADOBUTROL 10 ML VIAL IVP ONE (18:35)
[2017-03-17] MEDS: LORazepam 0.5 MG TAB PO PRN (21:01)
[2017-03-17] MEDS: SIMETHICONE 80 MG TAB CHEW PO PRN (23:08)
[2017-03-18] MEDS: HYDROmorphONE/DILAUDID 1 MG/ML INJ IVP PRN ×2 (00:42→20:37)
[2017-03-18] MEDS: NS 1,000 ML IV SCH ×2 (00:42→09:55)
[2017-03-18] MEDS: LORazepam 2 MG/ML INJ IVP PRN (02:52)
[2017-03-18] MEDS ORDERED: HALOPERIDOL LACT 5 MG/ML INJ IVP ONE (03:08)
--- NOTE | 2017-03-18 04:34 | CPEEG ---
[f rep st] ELECTROENCEPHALOGRAM [facility] EEG REPORT DATE OF STUDY: 03/17/2017 INTRODUCTION: This is a multichannel EEG using standard international 10-20 system of disc electrode placement. A single EKG channel is monitored for the duration of the study. This study is undertak en for evaluation of paroxysmal spells of abnormal behavior. Pertinent medications include duloxetin e, hydromorphone, lorazepam, morphine. The duration of the study is 22 minutes. DESCRIPTION OF RECORDING: For the entirety of the tracing, there is continuous and variable 5-6 Hz t heta activity with periods of superimposed 4 Hz delta. The tracing is frequently contaminated by paula ctrode artifact at F7, F8, and F3 derivations. No activating measures were undertaken. No sleep cyc ling was observed. The EKG demonstrated normal sinus rhythm. INTERPRETATION: This is an abnormal EKG due to the presence of continuous and variable generalized s lowing in the theta and delta bandwidths. CLINICAL CORRELATION: This EEG represents a nonspecific encephalopathy, likely toxic/metabolic origi n. No focal lateralizing epileptiform discharges. /[id number]/MODL
[2017-03-18] MEDS: LEVOTHYROXINE 112 MCG TAB PO SCH (05:40)
--- NOTE | 2017-03-18 07:50 | PDMN ---
Medical Necessity Medical necessity: C/M review: Patient meets INPT criteria per [employer] M-590 Delirium: Acute and persistent delirium episodes of ubnclear etiology, suspect polypharmacy, pain, hematuria, requiring planned Oncology consult, possible 03/18 lumbar puncture, ongoing frequent doses IV Dilaudid, IV Morphine, IV Ativan, IV fluids, pulse oximetry, supplemental O2, acute inpt PT/OT/ST, comorbid esophageal cancer metastatic to C-spine, liver, peritoneal carcinomatosis currently receiving chemotherapy, left ureteral stent, history of DVT in 2014, Xarelto on hold, S/P post cervical spinal fusion, chronic right femoral neck fracture nonoperative, noromocytic anemia. MD anticipates > 2 MN LOS for ongoing med nec for eval and TX of above.
[2017-03-18] MEDS: FAMOTIDINE 20 MG TAB PO SCH (09:20)
[2017-03-18] MEDS: DULoxetine 30 MG CAP PO SCH (09:20)
[2017-03-18] MEDS: morphINE SR 30 MG TAB PO SCH (09:20)
[2017-03-18] MEDS: SENNOSIDES/DOCUSATE SODIUM TAB PO PRN (09:34)
--- NOTE | 2017-03-18 10:12 | NEUSURGPN ---
Assessment/Plan: 61 yo female s/p ACDF C6-T1 by Dr. Sanchez on 01/24/17. Patient had follow up appointment with Dr. Sanchez for routine postop check, but missed due to hospitalization. C-spine x-rays reviewed and hardware is stable - Hard collar discontinued - Continue to refrain from lifting more than 10-15 pounds - Avoid Ibuprofen, Motrin, Aleve, Advil, NSAIDs as these inhibit the bone growth and fusion process - FU with Dr. Sanchez in 6 weeks with new C-spine x-rays Subjective: Having some neck pain that radiates to the tops of the shoulders. Objective: Awake. Alert. Following commands Strength full Incision c/d/i Neurosurgery Physical Exam - Vitals, I&O, Labs I and O 03/17/17 03/18/17 03/19/17 05:59 05:59 05:59 Output Total 500 Balance -500 Output: Urine (ml) 500 Bedside Commode 500 Other: Number of Voids Incontinence 1 Bladder Scan Volume (ml) Incontinence 632 Post Void Residual Scan Volume (ml) Incontinence 508 Vital Signs Temp Pulse Resp BP Pulse Ox 36.8 C 142 H 18 126/103 H 95 03/18/17 07:46 03/18/17 07:46 03/18/17 07:46 03/18/17 07:46 03/18/17 07:46 ICD10 Worksheet Patient Problems: Problems Problem Status Onset Dehydration Acute Pain Acute Back pain Acute Esophageal cancer Acute Intractable pain Acute Metastatic cancer Acute Obstructive uropathy Acute Palliative care encounter Acute Prosthetic hip infection Acute Urinary tract infection Acute
--- NOTE | 2017-03-18 11:33 | CPEKG ---
Heart Rate: Invalid QTC Interval: 0 P [place]: 0 QRS [place]: 0 EKG Severity - DEFECTIVE ECG - EKG Impression: ALL 12 LEADS ARE MISSING Electronically Signed By: Wicho Blue 19-Mar-2017 12:21:45
--- NOTE | 2017-03-18 12:48 | NEUROPROG ---
Assessment: BACKGROUND: 03/17 61 year old woman with metastatic esophageal cancer, cancer related pain, anxiety presented to our ED yesterday with worsening episodes of agitation and delirium. She was discharged form our hospital on 03/08 for admission related to pain control, where her pain episodes were associated with profound anxiety and agitation. She did require a brief stay in the ICU for dexmedetomidine infusion. She was discharged with MS contin, oxycodone, hydromorphone and cyclobenzaprine for pain control. Diazepam, lorazepam, duloxetine, haloperidol and intranasal ketamine were prescribed for anxiety/agitation. Since her discharge her notes she will have spells where she seems to pace around , sometimes become incoherent. Most of the time she responds appropriately, but sometimes she will just sit down, her jaw will move [id number], and she will pick at herself and fumble her hands. He states the anxiety medication, particularly haloperidol, will slowly resolve the episodes. He has needed to use ketamine a few times for "bad" episodes, and this will also seem to calm the episodes. He's not noted any convulsive activity. No indication of DELGADO, neck stiffness or photophobia per patient report. INTERVAL HISTORY: 03/18: Still encephalopathic. Required haloperidol overnight. No other new issues. EXAM: VS reviewed in EMR GEN: chronically ill appearing woman laying in NAD MS: somnolent, arouses to voice, oriented to self only. Speech nondysarthric, but content is perseverative. No obvious language disturbance. Follows simple commands with prompting. Attends to both sides. Unable to assess higher cortical function due to somnolence. CN: pupils 3mm round OS, 3.5mm round OD and both reactive. Blinks to threat OU. Primary gaze centered. Full horizontal ocular motility when tracking examiner. Grimace to nox stim of the face. Face symmetric. Hearing grossly intact to spoken word. Palatoglossal movements intact. Shoulder shrug intact. MOTOR: normal bulk. Low tone. No adventitial movements. Raises arms and legs against gravity - doesn't participate in formal exam SENSORY: localizes to nox stim in BUEs, withdraws briskly to nox stim BLEs COORD: no gross ataxia. REFLEX: plantars down. No clonus. DTRS 2/4. GAIT: unable to safely assess DATA REVIEW: Labs reviewed in EMR PERSONALLY INTERPRETED RESULTS AND DATA: CT head wo - nothing acute - otherwise unremarkable study MRI brain wow - some motion artifact - no pathologic enhancement EEG - continuous variable slowing in theta/delta range IMPRESSION AND RECOMMENDATIONS: // DELIRIUM // METASTATIC ESOPHAGEAL CANCER // ANXIETY // AGITATION // CHRONIC PAIN Patient will spells of abnormal behavior, likely delirium from pain, anxiety and polypharmacy. However, some features of her spells could represent seizure activity. Her cancer history is of concern, as well. MRI was unremarkable EEG consistent with toxic/metabolic encephalopathy Will go ahead with LP today - check cell count/diff, culture, protein, glu, cytology and PNP Delirium precautions - lights on/window shade up from [id number], frequent orientation, regular meal times, OOB to chair when able (or at least HOB elevated), sensory optimization, family at bedside, streamline sedating/ disinhibiting medications. 35 mins in direct patient care activities on the floor. Case discussed with Dr. Arreguin on the floor. Objective: Vital Signs Temp Pulse Resp BP Pulse Ox 36.6 C 99 12 123/82 H 99 03/18/17 11:50 03/18/17 11:50 03/18/17 11:50 03/18/17 11:50 03/18/17 11:50 03/17/17 03/18/17 03/19/17 05:59 05:59 05:59 Output Total 500 Balance -500 Allergies/Adverse Reactions: naproxen Allergy (Severe, Verified 02/23/17 21:55) Hives, TROUBLE BREATHING adhesive tape Allergy (Intermediate, Verified 02/23/17 21:55) Rash NSAIDS (Non-Steroidal Anti-Inflamma Allergy (Intermediate, Verified 02/23/17 21: 55) Hives Penicillins Allergy (Intermediate, Verified 02/23/17 21:55) Hives Sulfa (Sulfonamide Antibiotics) Allergy (Intermediate, Verified 02/23/17 21:55) Hives
--- NOTE | 2017-03-18 14:12 | HOSPPROG ---
Hospitalist Progress Note Assessment/Plan: # Acute delirium episodes - Suspect polypharmacy, she appears over-medicated. Acknowledge her prior pain crises and she is certainly comfortable from pain perspective. Seems to have agitation / anxiety / coping crises when not sedated. Reviewed medications with pt, and pharmacist. Also consider underlying neurologic etiology such as seizure, brain mets, infection. -D/C'd Valium, cont prn ativan -D/C'd Dilaudid, cont MS Contin 15 mg 0800,1400 and 30 mg HS with prn roxanol for breakthrough pain -D/C'd Flexeril -MRI with and without contrast neg for mets or infectious etiology -LP planned for today - unable to perform due to agitation # Metastatic esophageal cancer - With mets to C-spine, liver, and peritoneal carcinomatosis. She is in the process of receiving chemotherapy. -will alert oncology of her admission -pain control as above # Left ureteral stent - hematuria noted. Cr normal. notes left flank pain was prior pain complaint, though no pain currently. Hematuria noted on initial UA, resolving on repeat ua, which looks non-infectious. -consider imaging to evaluate stent placement if flank pain or hematuria worsens # Hx of DVT 2014 - On Xarelto, last dose 72 hrs ago. -holding Xarelto for LP today, resume tomorrow # Status post cervical spinal fusion - C-collar in place; has been in place for 6 weeks and pt had appt today for possible removal, which was canceled due to admission -neurosurgery cleared her and removed the c-spine collar -f/u with Dr. Sanchez in 6 weeks for repeat xrays -avoid nsaids # Chronic R femoral neck fx - Noted last admission; Ortho consulted at that time and no intervention recommended. # Normocytic anemia - Slightly worsened from prior, no e/o bleeding. -iron studies c/w ACD Diet - Regular Code - Full Ppx - Xarelto Dispo - Cont inpt Goals of care - followed by outpt palliative care. It is not unreasonable to consider hospice given her poor QOL and need for sedation in order to cope with pain and anxiety. [facility] will visit pt in-house tomorrow. Appreciate their support. Subjective: Pt is a little more awake today, opens eyes and follows commands, but not conversive. No fevers. No pain. It seems she is either sedated from pain meds or agitated from pain. Objective: Vital Signs Temp Pulse Resp BP Pulse Ox 36.6 C 99 12 123/82 H 99 03/18/17 11:50 03/18/17 11:50 03/18/17 11:50 03/18/17 11:50 03/18/17 11:50 Laboratory Results 03/18/17 13:10 03/17/17 03/18/17 03/19/17 05:59 05:59 05:59 Output Total 500 Balance -500 - Physical Exam Constitutional: no apparent distress Eyes: PERRL Ears, Nose, Mouth, Throat: moist mucous membranes Cardiovascular: regular rate and rhythym Respiratory: no respiratory distress Gastrointestinal: normoactive bowel sounds, soft, non-tender abdomen Skin: warm Musculoskeletal: full muscle strength Neurologic: AAOx3 Psychiatric: interacting appropriately ICD10 Worksheet Patient Problems: Problems Problem Status Onset Dehydration Acute Pain Acute Back pain Acute Esophageal cancer Acute Intractable pain Acute Metastatic cancer Acute Obstructive uropathy Acute Palliative care encounter Acute Prosthetic hip infection Acute Urinary tract infection Acute
[2017-03-18 14:21] LABS: INR 1.34 (0.83-1.16); PROTIME(PATIENT) 16.8 SEC (12.0-15.0)
[2017-03-18 14:29] LABS: PLATELET COUNT 463 10^3/uL (150-400)
--- NOTE | 2017-03-18 14:51 | CPEKG ---
Heart Rate: 93 RR Interval: 645 P-R Interval: 140 QRSD Interval: 100 QT Interval: 380 QTC Interval: 473 P [place]: 46 QRS [place]: -21 T Wave [place]: 8 EKG Severity - BORDERLINE ECG - EKG Impression: SINUS RHYTHM EKG Impression: PROBABLE LEFT ATRIAL ABNORMALITY EKG Impression: BORDERLINE LEFT AXIS DEVIATION Electronically Signed By: Wicho Blue 19-Mar-2017 12:21:38
[2017-03-18] MEDS ORDERED: LIDOCAINE 1% 300 MG/30 ML SDV ONE (15:43)
[2017-03-18] MEDS ORDERED: HALOPERIDOL 2 MG TAB PO PRN (15:53)
--- NOTE | 2017-03-18 16:11 | ASMTCMCOM ---
CM Note CM Note Notes: [facility] Spoke with material planning analystKirill; requesting Jairo Martinezanjel meet with pt & her , Dusty to provide additional support & discuss pt goals. Discussed with MD & RN as well; both agreeable to [place] meeting with pt to discuss goals & possible transition into hospice care. Alerted Meagan ([phone]), at [facility]; updates faxed; confirmed received. Arrangements made for Jairo Boykin to meet with pt & Dusty, here in pt's room, tomorrow at 0930. Updated RNMD, material planning analyst & Dusty. CM will continue to follow. Date Signed: 03/18/2017 04:10 PM Electronically Signed By:Lucinda Allred RN
[2017-03-18] MEDS: LORazepam 0.5 MG TAB PO PRN (17:13)
[2017-03-18] MEDS: morphINE 10 MG/0.5 ML UDSYR PO PRN (20:34)
[2017-03-18] MEDS: HALOPERIDOL LACT 5 MG/ML INJ IVP PRN (20:36)
[2017-03-18] MEDS ORDERED: morphINE SR 30 MG TAB PO SCH (21:00)
[2017-03-19] MEDS: HALOPERIDOL LACT 5 MG/ML INJ IVP PRN (03:50)
[2017-03-19] MEDS: HYDROmorphONE/DILAUDID 1 MG/ML INJ IVP PRN (04:38)
[2017-03-19 04:46] LABS: PLATELET COUNT 488 10^3/uL (150-400)
[2017-03-19] MEDS: LEVOTHYROXINE 112 MCG TAB PO SCH (06:06)
[2017-03-19] MEDS: DULoxetine 30 MG CAP PO SCH (07:55)
[2017-03-19] MEDS: SENNOSIDES/DOCUSATE SODIUM TAB PO PRN (07:56)
[2017-03-19] MEDS: FAMOTIDINE 20 MG TAB PO SCH (07:56)
[2017-03-19] MEDS: RIVAROXABAN 20 MG TAB PO SCH (07:56)
[2017-03-19] MEDS ORDERED: morphINE SR 15 MG TAB PO SCH (08:00)
--- NOTE | 2017-03-19 12:20 | NEUROPROG ---
Assessment: BACKGROUND: 03/17 61 year old woman with metastatic esophageal cancer, cancer related pain, anxiety presented to our ED yesterday with worsening episodes of agitation and delirium. She was discharged form our hospital on 03/08 for admission related to pain control, where her pain episodes were associated with profound anxiety and agitation. She did require a brief stay in the ICU for dexmedetomidine infusion. She was discharged with MS contin, oxycodone, hydromorphone and cyclobenzaprine for pain control. Diazepam, lorazepam, duloxetine, haloperidol and intranasal ketamine were prescribed for anxiety/agitation. Since her discharge her notes she will have spells where she seems to pace around , sometimes become incoherent. Most of the time she responds appropriately, but sometimes she will just sit down, her jaw will move [id number], and she will pick at herself and fumble her hands. He states the anxiety medication, particularly haloperidol, will slowly resolve the episodes. He has needed to use ketamine a few times for "bad" episodes, and this will also seem to calm the episodes. He's not noted any convulsive activity. No indication of DELGADO, neck stiffness or photophobia per patient report. INTERVAL HISTORY: 03/18: Still encephalopathic. Required haloperidol overnight. No other new issues. 03/19: Unable to get LP yesterday due to patient agitation with procedure. She is brighter today. Up in chair this AM - actually called her this AM from hospital indicating she wants to go home. Seems to be improving overall since streamlining medications. No new symptoms. EXAM: VS reviewed in EMR GEN: chronically ill appearing woman laying in NAD MS: more alert today, able to maintaine attention moreso, oriented to self and that she's in a hospital. Speech nondysarthric. No obvious language disturbance. Follows simple commands with prompting. Attends to both sides. Unable to assess higher cortical function due to somnolence. CN: pupils 3mm round OS, 3.5mm round OD and both reactive. Blinks to threat OU. Primary gaze centered. Full horizontal ocular motility when tracking examiner. Endorses symmetric facial sensation. Face symmetric. Hearing grossly intact to spoken word. Palatoglossal movements intact. Shoulder shrug intact. MOTOR: normal bulk. Normal tone. No adventitial movements. Raises arms and legs against gravity - doesn't participate in formal exam SENSORY: endorses symmetric LT in all extremities COORD: no gross ataxia. REFLEX: plantars down. No clonus. DTRS 2/4. GAIT: unable to safely assess DATA REVIEW: Labs reviewed in EMR PERSONALLY INTERPRETED RESULTS AND DATA: CT head wo - nothing acute - otherwise unremarkable study MRI brain wow - some motion artifact - no pathologic enhancement EEG - continuous variable slowing in theta/delta range IMPRESSION AND RECOMMENDATIONS: // DELIRIUM // METASTATIC ESOPHAGEAL CANCER // ANXIETY // AGITATION // CHRONIC PAIN Patient will spells of abnormal behavior, likely delirium from pain, anxiety and polypharmacy. She is slowly improving with streamlining of her medications. Unable to get LP yesterday - reviewed what treatment is available for leptomeningeal spread of her esophageal cancer and there is no targeted/ directed therapy available, so LP won't pattern changer and repairer - discussed with who is OK with not pursuing further neurologic testing. MRI was unremarkable EEG consistent with toxic/metabolic encephalopathy Delirium precautions - lights on/window shade up from 1169-5606, frequent orientation, regular meal times, OOB to chair when able (or at least HOB elevated), sensory optimization, family at bedside, streamline sedating/ disinhibiting medications. Case management to see today to comment on resources available for home support , as is main caregiver. 35 mins in direct patient care activities on the floor. Case discussed at length with Dr. Arreguin and nursing on the floor. Will sign off. Objective: Vital Signs Temp Pulse Resp BP Pulse Ox 37.0 C 113 H 17 104/69 99 03/19/17 11:26 03/19/17 11:26 03/19/17 11:26 03/19/17 11:26 03/19/17 11:26 Laboratory Results 03/19/17 04:15 03/19/17 04:15 03/18/17 03/19/17 03/20/17 05:59 05:59 05:59 Intake Total 150 Output Total 700 200 Balance -550 -200 PT 16.8 SEC (12.0-15.0) H 03/18/17 13:10 INR 1.34 (0.83-1.16) H 03/18/17 13:10 Allergies/Adverse Reactions: naproxen Allergy (Severe, Verified 02/23/17 21:55) Hives, TROUBLE BREATHING adhesive tape Allergy (Intermediate, Verified 02/23/17 21:55) Rash NSAIDS (Non-Steroidal Anti-Inflamma Allergy (Intermediate, Verified 02/23/17 21: 55) Hives Penicillins Allergy (Intermediate, Verified 02/23/17 21:55) Hives Sulfa (Sulfonamide Antibiotics) Allergy (Intermediate, Verified 02/23/17 21:55) Hives
--- NOTE | 2017-03-19 12:56 | WOCRNPDOC ---
CHIVO Advanced Assessment Note - Skin Integrity Problem, Advanced Assess Left Gluteal Cleft Dressing Type: Allevyn Life Exudate Amount: None Integumentary Issue Intervention: Visualized Under Dressing Magdalena Wound Tissue: Blanching, Erythema, Scarred Wound Bed Constitution: Red/[place] - Non Granular Tissue Wound Edges: Well Defined Site Measurement - Head-to-Toe Length X Width X Depth (cm): 2.3x2.1x0.1 Pressure Injury Stage: Stage 2 Pressure Injury Present on Admit: Yes Skin Integrity Problem Comment: Patient sitting up in chair. Assisted to stand using her own walker and with assistance from [facility] [place]. Allevyn removed to reveal partial thickness opening. Surrounding tissue shows evidence of scarring , indicating this wound has been present for some time. Waffle cushion placed in chair. Wound care will continue to follow this wound.
--- NOTE | 2017-03-19 13:12 | HOSPPROG ---
Hospitalist Progress Note Assessment/Plan: # Acute delirium episodes - Suspect polypharmacy, she appears over-medicated. Acknowledge her prior pain crises and she is certainly comfortable from pain perspective. Seems to have agitation / anxiety / coping crises when not sedated. Reviewed medications with pt, and pharmacist. Brain MRI neg for mets or infectious etiology. EEG neg for seizures. Unable to complete LP due to agitation and not a good candidate for general anesthesia. Even if she had leptomeningeal spread, there is nothing further to do. Discussed with neurology and onc. -D/C'd Valium, cont prn ativan -D/C'd Dilaudid, cont MS Guillermo, decrease to 15 mg bid as she continues to deny pain and mentation improved with holding doses -PRN Roxanol for breakthrough pain -deferring ketamine here as she has not had pain crises and we've actually been decreasing her opiates with improved mentation -D/C'd Flexeril -change haldol to prn zyprexa zydis for agitation as SNF's will not accept with use of haldol # Metastatic esophageal cancer - With mets to C-spine, liver, and peritoneal carcinomatosis. She is in the process of receiving chemotherapy. -oncology aware of admission, notes poor prognosis -pain control as above # Left ureteral stent - hematuria noted. Cr normal. notes left flank pain was prior pain complaint, though no pain currently. Hematuria noted on initial UA, resolving on repeat ua, which looks non-infectious. -consider imaging to evaluate stent placement if flank pain or hematuria worsens # Hx of DVT 2014 - On Xarelto, last dose 72 hrs ago. -resume xarelto as not going to pursue LP # Status post cervical spinal fusion - neurosurgery cleared her and removed the c-spine collar -f/u with Dr. Sanchez in 6 weeks for repeat xrays -avoid nsaids to maximize bone healing # Chronic R femoral neck fx - Noted last admission; Ortho consulted at that time and no intervention recommended. # Normocytic anemia - Slightly worsened from prior, no e/o bleeding. -iron studies c/w ACD Diet - Regular Code - Full Ppx - Xarelto Dispo - Cont inpt Goals of care - followed by outpt palliative care. It is not unreasonable to consider hospice given her poor QOL and need for sedation in order to cope with pain and anxiety. is open to this per our discussion. He desires SNF placement for now. Subjective: Pt much more awake and alert today. Denies pain. No N/V/D. EAting some. She ambulated today and sat up in chair and ate breakfast. No fevers. Objective: Vital Signs Temp Pulse Resp BP Pulse Ox 37.0 C 113 H 17 104/69 99 03/19/17 11:26 03/19/17 11:26 03/19/17 11:26 03/19/17 11:26 03/19/17 11:26 Laboratory Results 03/19/17 04:15 03/19/17 04:15 03/18/17 03/19/17 03/20/17 05:59 05:59 05:59 Intake Total 150 Output Total 700 200 Balance -550 -200 PT 16.8 SEC (12.0-15.0) H 03/18/17 13:10 INR 1.34 (0.83-1.16) H 03/18/17 13:10 - Physical Exam Constitutional: no apparent distress Eyes: PERRL Ears, Nose, Mouth, Throat: moist mucous membranes Cardiovascular: regular rate and rhythym Respiratory: no respiratory distress Gastrointestinal: normoactive bowel sounds, soft, non-tender abdomen Skin: warm Musculoskeletal: generalized weakness Psychiatric: other (mentation improving, alert to person, place) ICD10 Worksheet Patient Problems: Problems Problem Status Onset Dehydration Acute Pain Acute Back pain Acute Esophageal cancer Acute Intractable pain Acute Metastatic cancer Acute Obstructive uropathy Acute Palliative care encounter Acute Prosthetic hip infection Acute Urinary tract infection Acute
--- NOTE | 2017-03-19 14:31 | ASMTCMCOM ---
CM Note CM Note Notes: CM notified Lucretia with [facility] visited with patient and this morning. CM call to Lucretia [phone], she shared she had a long conversation with the , the patient was not alert and able to participate in the conversation. The stated a goal to pursue any treatment and continue current plan (chemo and possibly some experimental treatment). [facility] will follow for Palliative Care if the family is interested. Lucretia attempted to have a conversation about MOST form and code change, stated he was not going to have that conversation unti/unless family was present and patient was more lucid. 1N RN and pharmacist informed Felicitas the patients pain meds have been scaled back. Lumbar Puncture scheduled for yesterday was not performed due to patient agitation PT recommending home with 24 hour care. CM presented to patient room, Dusty ([phone]) talked with CM, patient was asleep. Dusty works, states he is trying to hold onto his job. He is attempting to coordinate home care with son and daughter and looking into home support through his insurance. [facility] is set up and Dusty will continue to talk with [facility]. CM to follow for discharge support. COBY Plan: D/C TBD. Date Signed: 03/19/2017 02:30 PM Electronically Signed By:Yumiko Herrera
--- NOTE | 2017-03-19 15:26 | ASMTCMCOM ---
CM Note CM Note Notes: Hospitalist reports that feeling overwhelmed about going home with patient at this time. Called to talk about SNF Rehab placement for at least the short term. Referrals sent to [facility], [facility]. Date Signed: 03/19/2017 03:26 PM Electronically Signed By:Mile Shields LCSW
--- NOTE | 2017-03-19 16:26 | ASMTCMCOM ---
CM Note CM Note Notes: Referrals sent by [facility] to [facility]. [facility] Date Signed: 03/19/2017 04:26 PM Electronically Signed By:Yumiko Herrera
[2017-03-19] MEDS: LORazepam 0.5 MG TAB PO PRN (17:30)
[2017-03-19] MEDS: morphINE 10 MG/0.5 ML UDSYR PO PRN (17:31)
[2017-03-19] MEDS ORDERED: OLANZapine DISINTEGR 5 MG TAB PO PRN (17:56)
[2017-03-19] MEDS: morphINE SR 15 MG TAB PO SCH (20:36)
[2017-03-19] MEDS: ACETAMINOPHEN 325 MG TAB PO PRN (20:36)
[2017-03-19] MEDS ORDERED: RIVAROXABAN 20 MG TAB PO SCH (21:00)
[2017-03-20] MEDS: morphINE 10 MG/0.5 ML UDSYR PO PRN ×3 (06:05→20:27)
[2017-03-20] MEDS: LEVOTHYROXINE 112 MCG TAB PO SCH (06:05)
[2017-03-20] MEDS: ACETAMINOPHEN 325 MG TAB PO PRN ×2 (06:05→21:27)
[2017-03-20] MEDS: DULoxetine 30 MG CAP PO SCH (09:35)
[2017-03-20] MEDS: RIVAROXABAN 20 MG TAB PO SCH (09:35)
[2017-03-20] MEDS: FAMOTIDINE 20 MG TAB PO SCH (09:35)
[2017-03-20] MEDS: morphINE SR 15 MG TAB PO SCH ×2 (09:35→20:27)
--- NOTE | 2017-03-20 14:37 | ASMTCMCOM ---
CM Note CM Note Notes: Pt improved today, much more clear and mobility improved. PT now recommending home w/HHC and supervision/assist from family. OT recommending HHC vs SNF. Met w/pt's , Dusty, who expressed that he really would like to get his home if they can provide enough support. He said they would resume care w/[facility] and that he would talk with his son and daughter to see how they would work out having someone w/pt at all times if she dc's home rather than SNF. Spoke w/Susana from [facility] who was on-site to meet pt- they would be able to accept once insurance auth is obtained but she is also aware that it is looking like pt may dc home at this point. did not make clear to me which facility is his first choice should they end up needing to go with SNF. CM will follow Date Signed: 03/20/2017 02:36 PM Electronically Signed By:Maribeth Turner RN
--- NOTE | 2017-03-20 17:28 | HOSPPROG ---
Hospitalist Progress Note Assessment/Plan: Assessment: 61 yo F acute toxic encephalopathy in setting of polypharmacy, metastatic pancreatic cancer Plan: # Acute toxic encephalopathy - Evidenced by global brain dysfunction characterized as impaired memory/amnesia, disorientation, somnolence, 2/2 toxic effects of opiates and benzos appropriately dosed for pain control, given her recent pain crises - Brain MRI neg for mets or infectious etiology. - EEG neg for seizures. - Unable to complete LP due to agitation and not a good candidate for general anesthesia. Even if she had leptomeningeal spread, there is nothing further to do. -D/C'd Valium, cont prn ativan -D/C'd Dilaudid, cont MS Contin, cont 15 mg bid as she continues to deny pain and mentation improved with holding doses -PRN Roxanol for breakthrough pain -deferring ketamine here as she has not had pain crises and we've actually been decreasing her opiates with improved mentation -D/C'd Flexeril -change haldol to prn zyprexa zydis for agitation as SNF's will not accept with use of haldol -counseled patient and extensively regarding approach outlined above , feels she is much closer to baseline today w/ improved awareness, interaction, and less amnesia, ambulating 300ft and likely appropriate for home w/ [facility] if able to continue improving over next 24hs # Metastatic esophageal cancer - With mets to C-spine, liver, and peritoneal carcinomatosis. -She is in the process of receiving chemotherapy s/p discharge -oncology aware of admission, notes poor prognosis -pain control as above # Left ureteral stent - hematuria noted. Cr normal. notes left flank pain was prior pain complaint, though no pain currently. Hematuria noted on initial UA, resolving on repeat ua, which looks non-infectious. -consider imaging to evaluate stent placement if flank pain or hematuria worsens # Hx of DVT 2014 - resumed xarelto # Status post cervical spinal fusion - neurosurgery cleared her and removed the c-spine collar -f/u with Dr. Sanchez in 6 weeks for repeat xrays -avoid nsaids to maximize bone healing # Chronic R femoral neck fx - Noted last admission; Ortho consulted at that time and no intervention recommended. # Normocytic anemia - Slightly worsened from prior, no e/o bleeding. -iron studies c/w ACD Diet - Regular Code - Full Ppx - Xarelto Dispo - Cont inpt Goals of care - followed by outpt palliative car, which will resume at home if discharged tomorrow Subjective: ambulating better today, less pain Objective: Vital Signs Temp Pulse Resp BP Pulse Ox 37.1 C 89 16 120/81 H 93 03/20/17 15:32 03/20/17 15:32 03/20/17 15:32 03/20/17 15:32 03/20/17 15:32 Laboratory Results 03/19/17 04:15 03/19/17 04:15 03/19/17 03/20/17 03/21/17 05:59 05:59 05:59 Intake Total 150 370 Output Total 700 240 Balance -550 130 PT 16.8 SEC (12.0-15.0) H 03/18/17 13:10 INR 1.34 (0.83-1.16) H 03/18/17 13:10 - Time Spent With Patient Time Spent with Patient: greater than 35 minutes Time Spent with Patient: Greater than 35 minutes spent on this patients care, greater than 50% of time spent counseling, educating, and coordinating care regarding the above mentioned plan. - Pending Discharge Pending Discharge Within 24 Hours: Yes Pending Discharge Date: 03/21/17 Pending Discharge Time: 11:00 - Physical Exam Constitutional: no apparent distress, appears nourished, not in pain, chronically ill appearing Cardiovascular: regular rate and rhythym, no murmur, rub, or gallop, No edema Respiratory: no respiratory distress, no rales or rhonchi, clear to auscultation Gastrointestinal: normoactive bowel sounds, soft, non-tender abdomen, tenderness (mild), No distension Skin: other (no erythema around port) Neurologic: AAOx3 Psychiatric: interacting appropriately, not anxious, thought process linear, flat affect ICD10 Worksheet Patient Problems: Problems Problem Status Onset Prosthetic hip infection Acute Urinary tract infection Acute Obstructive uropathy Acute Back pain Acute Esophageal cancer Acute Metastatic cancer Acute Intractable pain Acute Palliative care encounter Acute Dehydration Acute Pain Acute
[2017-03-20] MEDS: SIMETHICONE 80 MG TAB CHEW PO PRN (20:45)
[2017-03-21] MEDS: morphINE 10 MG/0.5 ML UDSYR PO PRN ×4 (03:58→13:50)
[2017-03-21 05:21] LABS: PLATELET COUNT 492 10^3/uL (150-400)
[2017-03-21] MEDS: LEVOTHYROXINE 112 MCG TAB PO SCH (05:21)
[2017-03-21] MEDS: SIMETHICONE 80 MG TAB CHEW PO PRN ×2 (05:21→13:59)
[2017-03-21] MEDS: ACETAMINOPHEN 325 MG TAB PO PRN ×2 (05:21→16:49)
[2017-03-21] MEDS: FAMOTIDINE 20 MG TAB PO SCH (09:43)
[2017-03-21] MEDS: morphINE SR 15 MG TAB PO SCH ×2 (09:43→20:38)
[2017-03-21] MEDS: RIVAROXABAN 20 MG TAB PO SCH (09:43)
[2017-03-21] MEDS: DULoxetine 30 MG CAP PO SCH (09:43)
[2017-03-21] MEDS: LORazepam 0.5 MG TAB PO PRN (13:03)
[2017-03-21] MEDS: ONDANSETRON DISINTEGRATING 4 MG TAB PO PRN (14:00)
[2017-03-21] MEDS ORDERED: OLANZapine 5 MG TAB PO ONE (15:00)
--- NOTE | 2017-03-21 15:44 | ASMTCMCOM ---
CM Note CM Note Notes: Patient's daughter Arminda called to discuss her concerns about her mother's upcoming discharge from the hospital. She wanted family and marriage counsellor from us about how to approach the conversation with her parents that the plan they have in place (home with homecare and family supervision) has not been effective and may not be in the future, either. I brought up the option of SNF, and was unsure of how Arminda would react, but she seemed relieved to hear that this was an option. Her concern, again, is how to broach the topic with her parents. I told her that we could, as a care team, gently suggest this plan to her father. She believes that he sees small successes in her health and forgets what a difficult situation patient is in. I encouraged her to remind him that patient has failed being discharged home a few times already in a short period, and that a temporary SNF stay may help them get better set up at home. I offered a family meeting, and Arminda will talk with her brother and aunt about both this and how they would like to proceed with pursuing SNF. I also passed on a summary of our conversation to the hospitalist. Patient has been accepted by [facility] in [place] should family decide to pursue SNF. Date Signed: 03/21/2017 03:44 PM Electronically Signed By:Claudine Ortez RN
[2017-03-21] MEDS: ONDANSETRON 4 MG/2 ML VIAL IVP PRN (15:48)
--- NOTE | 2017-03-21 21:31 | HOSPPROG ---
Hospitalist Progress Note Assessment/Plan: Assessment: 61 yo F acute toxic encephalopathy in setting of polypharmacy, metastatic pancreatic cancer, c/b acute pain crisis today Plan: # Acute toxic encephalopathy - Evidenced by global brain dysfunction characterized as impaired memory/amnesia, disorientation, somnolence, 2/2 toxic effects of opiates and benzos appropriately dosed for pain control, given her recent pain crises - Brain MRI neg for mets or infectious etiology. - EEG neg for seizures. - Unable to complete LP due to agitation and not a good candidate for general anesthesia. Even if she had leptomeningeal spread, there is nothing further to do. -D/C'd Valium, cont prn ativan -D/C'd Dilaudid, cont MS Contin, cont 15 mg bid w/ mentation improved with holding tid doses -PRN Roxanol for breakthrough pain -D/C'd Flexeril -as needed haldol or zyprexa PRN # Acute on chronic pain w/ continuous opiate and benzo dependency. Patient w/ worsening central abdominal pain today, likely 2/2 combination of peritoneal carcinomatosis + bowel distension from constipation + underlying anxiety and functional component -evaluated/intervened w/ patient and during the crisis, able to gently escalate Rx in a calculated, step-meehan method (started w/ roxanol, then gave ativan, then repeated roxanol, then trialed dilaudid, then gave zyprexa, and pain was controlled) -given the strong anxiety component, patient responds best to intervening w/ PRN ativan early in process, and may benefit from incorporating zyprexa earlier as well, followed by roxanol -deferring ketamine here as she has not had pain crises and we've actually been decreasing her opiates with improved mentation, but if situation escalating , would recommend reconsidering usage -reassurance provided to patient/ during episode, avoided escalating the anxiety level, and encouraged patient to cope w/ the discomfort as best she could, ambulating/repositioning as necessary -counseled that this episode should be stabilized today and discharge deferred -patient's daughter suggested reconsideration of SNF, and, if issues continue tomorrow, would recommend counseling patient/ that it may be the optimal care setting # Metastatic esophageal cancer - With mets to C-spine, liver, and peritoneal carcinomatosis. -She is in the process of receiving chemotherapy s/p discharge -oncology aware of admission, notes poor prognosis -pain control as above # Left ureteral stent - hematuria noted. Cr normal. notes left flank pain was prior pain complaint, though no pain currently. Hematuria noted on initial UA, resolving on repeat ua, which looks non-infectious. -consider imaging to evaluate stent placement if flank pain or hematuria worsens # Hx of DVT 2014 - resumed xarelto # Status post cervical spinal fusion - neurosurgery cleared her and removed the c-spine collar -f/u with Dr. Sanchez in 6 weeks for repeat xrays -avoid nsaids to maximize bone healing # Chronic R femoral neck fx - Noted last admission; Ortho consulted at that time and no intervention recommended. # Normocytic anemia - Slightly worsened from prior, no e/o bleeding. -iron studies c/w ACD Diet - Regular Code - Full Ppx - Xarelto Dispo - Cont inpt Goals of care - followed by outpt palliative care, which will resume at home if discharged tomorrow Subjective: patient w/ escalating pain throughout course of afternoon, no BMs today Objective: Vital Signs Temp Pulse Resp BP Pulse Ox 37.2 C 92 16 150/84 H 94 03/21/17 16:37 03/21/17 16:37 03/21/17 16:37 03/21/17 16:37 03/21/17 16:37 Laboratory Results 03/21/17 05:11 03/21/17 05:11 03/20/17 03/21/17 03/22/17 05:59 05:59 05:59 Intake Total 370 450 500 Output Total 240 Balance 130 450 500 PT 16.8 SEC (12.0-15.0) H 03/18/17 13:10 INR 1.34 (0.83-1.16) H 03/18/17 13:10 - Time Spent With Patient Time Spent with Patient: greater than 35 minutes Time Spent with Patient: Greater than 35 minutes spent on this patients care, greater than 50% of time spent counseling, educating, and coordinating care regarding the above mentioned plan. - Physical Exam Constitutional: chronically ill appearing, uncomfortable, No not in pain ( moderate-severe pain) Cardiovascular: regular rate and rhythym, no murmur, rub, or gallop Respiratory: reduced air movement (poor insp effort) Gastrointestinal: normoactive bowel sounds, tenderness (mid-abd), No guarding, No distension Neurologic: AAOx3 Psychiatric: anxious, flat affect ICD10 Worksheet Patient Problems: Problems Problem Status Onset Prosthetic hip infection Acute Urinary tract infection Acute Obstructive uropathy Acute Back pain Acute Esophageal cancer Acute Metastatic cancer Acute Intractable pain Acute Palliative care encounter Acute Dehydration Acute Pain Acute
[2017-03-22] MEDS: ACETAMINOPHEN 325 MG TAB PO PRN ×3 (04:28→18:38)
[2017-03-22] MEDS: LEVOTHYROXINE 112 MCG TAB PO SCH (04:28)
[2017-03-22] MEDS: DULoxetine 30 MG CAP PO SCH (09:59)
[2017-03-22] MEDS: RIVAROXABAN 20 MG TAB PO SCH (09:59)
[2017-03-22] MEDS: morphINE SR 15 MG TAB PO SCH ×3 (09:59→22:08)
[2017-03-22] MEDS: FAMOTIDINE 20 MG TAB PO SCH (09:59)
[2017-03-22] MEDS: LORazepam 0.5 MG TAB PO PRN ×2 (10:57→18:39)
[2017-03-22] MEDS: ONDANSETRON DISINTEGRATING 4 MG TAB PO PRN (12:09)
[2017-03-22] MEDS: SENNOSIDES/DOCUSATE SODIUM TAB PO PRN ×2 (12:09→22:17)
--- NOTE | 2017-03-22 15:26 | SOAPPROG ---
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 Most recent Tx is fourth line Tx with Pembrolizumab, Cycle 1, Day 1 on 03/10/17, on a 21 day cycle, next dose due 03/31/17. Prior TX has included Cisplatin/5 FU and FOLFIRI and FOLFOX. 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 on 03/31/17. Will recheck Plan: Will recheck. Will inform Dr. Chen of admission. 03/22/17 15:26 Subjective: Reports she is doing well this afternoon, feels focused, comfortable, less anxiety, improved appetite and now w/o pain. Slept well last evening. Objective: Sitting in bedside lounge chair. in NAD, alert and comfortable. at bedside. VSS, Afebrile as noted here HEENT- anicteric, no alopecia, no oral thrush Neck- anterior C spine incision is well healed Chest- clear CVS- RSR, no extra HS ABD- soft , NT no mass or ascites, BS+ EXT- unilateral edema L>R LE edema. Skin intact. No ecchymoses/petechiae Labs as noted here: Hgb 8.3 PLT 492 WBC 5.93 BMP appears WNL Vital Signs Temp Pulse Resp BP Pulse Ox 37.2 C 90 18 140/96 H 96 03/22/17 12:50 03/22/17 12:50 03/22/17 12:50 03/22/17 12:50 03/22/17 12:50 Laboratory Results 03/21/17 05:11 03/21/17 05:11 03/21/17 03/22/17 03/23/17 05:59 05:59 05:59 Intake Total 450 1000 Output Total 100 Balance 450 900 PT 16.8 SEC (12.0-15.0) H 03/18/17 13:10 INR 1.34 (0.83-1.16) H 03/18/17 13:10 ICD10 Worksheet Patient Problems: Problems Problem Status Onset Dehydration Acute Pain Acute Back pain Acute Esophageal cancer Acute Intractable pain Acute Metastatic cancer Acute Obstructive uropathy Acute Palliative care encounter Acute Prosthetic hip infection Acute Urinary tract infection Acute
--- NOTE | 2017-03-22 15:31 | HOSPPROG ---
Hospitalist Progress Note Assessment/Plan: Assessment: 61 yo F acute toxic encephalopathy in setting of polypharmacy, metastatic pancreatic cancer, c/b acute pain crisis today Plan: # Acute toxic encephalopathy - Brain MRI neg for mets or infectious etiology. - EEG neg for seizures. - Unable to complete LP due to agitation and not a good candidate for general anesthesia. Even if she had leptomeningeal spread, there is nothing further to do. -D/C'd Valium, cont prn ativan -D/C'd Dilaudid, cont MS Contin - will try going back up on MS Contin to three times daily as she was having significant pain in the afternoon -PRN Roxanol for breakthrough pain # Acute on chronic pain * Due to advanced cancer * Will try going back up on MS Contin today * Continue Roxanol p.r.n. * Anxiety certainly a significant component * She would be better off symptom meehan of hospice was following rather than palliative care # Metastatic esophageal cancer - With mets to C-spine, liver, and peritoneal carcinomatosis. * Have discussed the case with oncology will see the patient * Is probably time to have jaimie discussions in regards to end of life planning # Left ureteral stent - hematuria noted. Cr normal. notes left flank pain was prior pain complaint, though no pain currently. Hematuria noted on initial UA, resolving on repeat ua, which looks non-infectious. -consider imaging to evaluate stent placement if flank pain or hematuria worsens # Hx of DVT 2014 - resumed xarelto # Status post cervical spinal fusion - neurosurgery cleared her and removed the c-spine collar -f/u with Dr. Sanchez in 6 weeks for repeat xrays -avoid nsaids to maximize bone healing # Chronic R femoral neck fx - Noted last admission; Ortho consulted at that time and no intervention recommended. # Normocytic anemia - Slightly worsened from prior, no e/o bleeding. -iron studies c/w ACD Diet - Regular Code - Full Ppx - Xarelto Dispo - Cont inpt Subjective: Did fine yesterday morning but then had significant pain in the evening. Objective: Vital Signs Temp Pulse Resp BP Pulse Ox 37.2 C 90 18 140/96 H 96 03/22/17 12:50 03/22/17 12:50 03/22/17 12:50 03/22/17 12:50 03/22/17 12:50 Laboratory Results 03/21/17 05:11 03/21/17 05:11 03/21/17 03/22/17 03/23/17 05:59 05:59 05:59 Intake Total 450 1000 Output Total 100 Balance 450 900 PT 16.8 SEC (12.0-15.0) H 03/18/17 13:10 INR 1.34 (0.83-1.16) H 03/18/17 13:10 Discussed with patient's cousin and Dr. Reece - Time Spent With Patient Time Spent with Patient: greater than 35 minutes (Discussing care with patient and family members) Time Spent with Patient: Greater than 35 minutes spent on this patients care, greater than 50% of time spent counseling, educating, and coordinating care regarding the above mentioned plan. - Physical Exam Constitutional: no apparent distress, appears nourished, not in pain Eyes: anicteric sclera, EOMI Ears, Nose, Mouth, Throat: moist mucous membranes, hearing normal Cardiovascular: regular rate and rhythym Respiratory: no respiratory distress Gastrointestinal: normoactive bowel sounds, soft, non-tender abdomen, no palpable masses Skin: warm Neurologic: AAOx3 Psychiatric: interacting appropriately, not anxious, not encephalopathic, thought process linear ICD10 Worksheet Patient Problems: Problems Problem Status Onset Dehydration Acute Pain Acute Back pain Acute Esophageal cancer Acute Intractable pain Acute Metastatic cancer Acute Obstructive uropathy Acute Palliative care encounter Acute Prosthetic hip infection Acute Urinary tract infection Acute
--- NOTE | 2017-03-22 16:04 | ASMTCMCOM ---
CM Note CM Note Notes: Multiple calls from Flori at [facility] ([phone] ex [phone]) regarding patient's discharge date and plan. I explained that family had still not decided on home vs SNF. [facility] also called requesting clinical updates, which I sent. I asked Flori to communicate directly with [facility] regarding authorization. Hospitalist ordered a Palliative consult because he feels that this patient's anxiety/pain are related to end of life. Salvador from Palliative met with patient and (who he knew from prior admissions), and from his conversation, it seems that patient's still believes she can come home with home care and supervision. I cannot discern if hospice has ever been addressed, but it might be the more appropriate conversation to be having. I spoke with patient's daughter yesterday, and she was to call back regarding whether she wanted us to further pursue SNF. [facility] will follow patient closely, and perhaps a family meeting is warranted. She is still complaining of too much pain to be discharged. [facility] will follow. Date Signed: 03/22/2017 04:04 PM Electronically Signed By:Claudine Ortez RN
[2017-03-23] MEDS: LORazepam 0.5 MG TAB PO PRN ×3 (00:38→23:15)
[2017-03-23] MEDS: LEVOTHYROXINE 112 MCG TAB PO SCH (04:59)
[2017-03-23] MEDS: ACETAMINOPHEN 325 MG TAB PO PRN ×3 (04:59→23:15)
[2017-03-23] MEDS: FAMOTIDINE 20 MG TAB PO SCH (08:58)
[2017-03-23] MEDS: DULoxetine 30 MG CAP PO SCH (08:59)
[2017-03-23] MEDS: morphINE SR 15 MG TAB PO SCH ×3 (08:59→21:51)
[2017-03-23] MEDS: RIVAROXABAN 20 MG TAB PO SCH (08:59)
[2017-03-23] MEDS: POLYETHYLENE GLYCOL 3350 17 GM PKT PO PRN (09:14)
--- NOTE | 2017-03-23 10:34 | HOSPPROG ---
Hospitalist Progress Note Assessment/Plan: Assessment: 61 yo F acute toxic encephalopathy in setting of polypharmacy, metastatic pancreatic cancer, c/b acute pain crisis today Plan: # Acute toxic encephalopathy - Brain MRI neg for mets or infectious etiology. - EEG neg for seizures. - Unable to complete LP due to agitation and not a good candidate for general anesthesia. Even if she had leptomeningeal spread, there is nothing further to do. -D/C'd Valium, cont prn ativan -D/C'd Dilaudid, cont MS Contin - three times daily MS Contin seems to be improving -PRN Roxanol for breakthrough pain # Acute on chronic pain * Due to advanced cancer * Will try going back up on MS Contin today * Continue Roxanol p.r.n. * Anxiety certainly a significant component * She would be better off symptom meehan of hospice was following rather than palliative care # Metastatic esophageal cancer - With mets to C-spine, liver, and peritoneal carcinomatosis. * Had some discussions in terms of poor prognosis * She will meet with Dr. Chen next week for more in-depth discussion # Left ureteral stent - hematuria noted. Cr normal. notes left flank pain was prior pain complaint, though no pain currently. Hematuria noted on initial UA, resolving on repeat ua, which looks non-infectious. -consider imaging to evaluate stent placement if flank pain or hematuria worsens # Hx of DVT 2014 - resumed xarelto # Status post cervical spinal fusion - neurosurgery cleared her and removed the c-spine collar -f/u with Dr. Sanchez in 6 weeks for repeat xrays -avoid nsaids to maximize bone healing # Chronic R femoral neck fx - Noted last admission; Ortho consulted at that time and no intervention recommended. # Normocytic anemia - Slightly worsened from prior, no e/o bleeding. -iron studies c/w ACD Disposition - as agree to custodial facility. Will plan on DC tomorrow if everything goes well Subjective: Pain seem better yesterday. Complaining of discomfort in her upper abdomen and feeling tana currently Objective: Vital Signs Temp Pulse Resp BP Pulse Ox 36.7 C 91 16 135/98 H 94 03/23/17 08:25 03/23/17 08:25 03/23/17 08:25 03/23/17 08:25 03/23/17 08:25 Laboratory Results 03/21/17 05:11 03/21/17 05:11 03/22/17 03/23/17 03/24/17 05:59 05:59 05:59 Intake Total 1000 1240 Output Total 100 Balance 900 1240 PT 16.8 SEC (12.0-15.0) H 03/18/17 13:10 INR 1.34 (0.83-1.16) H 03/18/17 13:10 - Physical Exam Constitutional: no apparent distress, appears nourished, not in pain Eyes: anicteric sclera, EOMI Respiratory: no respiratory distress Skin: warm Neurologic: AAOx3 Psychiatric: interacting appropriately, not anxious, not encephalopathic, thought process linear ICD10 Worksheet Patient Problems: Problems Problem Status Onset Dehydration Acute Pain Acute Back pain Acute Esophageal cancer Acute Intractable pain Acute Metastatic cancer Acute Obstructive uropathy Acute Palliative care encounter Acute Prosthetic hip infection Acute Urinary tract infection Acute
--- NOTE | 2017-03-23 11:24 | WOCRNPDOC ---
WOCRN Advanced Assessment Note - Skin Integrity Problem, Advanced Assess Left Gluteal Cleft Pressure Injury Dressing Type: Open to Air Magdalena Wound Tissue: Blanching, Intact Site Measurement - Head-to-Toe Length X Width X Depth (cm): 0.7x0.5xintact Pressure Injury Present on Admit: Yes (Now healed) Skin Integrity Problem Comment: Patient rolled to her right side unassisited. Wound now pink and blanching with skin completely intact. Continue current plan including turns and offloading to keep skin intact. Wound care will not continue to follow this wound.
[2017-03-23] MEDS: morphINE 10 MG/0.5 ML UDSYR PO PRN ×2 (12:35→14:35)
[2017-03-23] MEDS: HYDROmorphONE/DILAUDID 2 MG TAB PO PRN (13:22)
--- NOTE | 2017-03-23 16:35 | SOAPPROG ---
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 Most recent Tx is fourth line Tx with Pembrolizumab, Cycle 1, Day 1 on 03/10/17, on a 21 day cycle, next dose due 03/31/17. Prior TX has included Cisplatin/5 FU and FOLFIRI and FOLFOX. 2.) Acute Delirium, clearing. Of note GE junction carcinomas have a propensity have [employer] and CSF involvement. Her waxing and waning of behavioral sx. 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 Potentially, Lumbar Puncture for CSF sample would be quite valuable. However, patient is now on Rivaroxaban which would have to be held before elective LP/ Spinal tap. Family meeting as to their understanding/expectations/future involvement with care would be valuable. D/W SW and Pastoral Care this afternoon. Will recheck. 03/23/17 16:35 Subjective: C/o fatigue, mild headache. Objective: middle aged WF in NAD, she drifts off to sleep while listening to conversation. Her speech is fluent and she speaks appropriately to content of conversation VSS afebrile HEENT- anicteric, no facial assymetry no oral lesions Neck- supple Chest- clear anteriorly CVS- RSR, no extra HS ABD- mildly distended, NT no mass or HSM. BS+ EXT- no edema, skin intact. Labs as noted here: PLT 492 Hgb 8.3 Vital Signs Temp Pulse Resp BP Pulse Ox 37 C 101 H 16 159/94 H 94 03/23/17 15:16 03/23/17 15:16 03/23/17 15:16 03/23/17 15:16 03/23/17 15:16 Laboratory Results 03/21/17 05:11 03/21/17 05:11 03/22/17 03/23/17 03/24/17 05:59 05:59 05:59 Intake Total 1000 1240 Output Total 100 Balance 900 1240 PT 16.8 SEC (12.0-15.0) H 03/18/17 13:10 INR 1.34 (0.83-1.16) H 03/18/17 13:10 ICD10 Worksheet Patient Problems: Problems Problem Status Onset Dehydration Acute Pain Acute Back pain Acute Esophageal cancer Acute Intractable pain Acute Metastatic cancer Acute Obstructive uropathy Acute Palliative care encounter Acute Prosthetic hip infection Acute Urinary tract infection Acute
--- NOTE | 2017-03-23 16:52 | ASMTCMCOM ---
CM Note CM Note Notes: Met with pt and dtr, Arminda earlier today and had conversations throughout the day by phone with dtr Arminda ([phone]) and Dusty ([phone]). Many options for DC were discussed. Pt, , and dtr interested in SNF. The problem is that at this time pt is planning on getting her next round of immunotherapy next Monday (03/31). No SNF will take pt if she is continuing with treatment though because it is too expensive. Dr Mcclellan spoke with pt and dtr this morning about discontinuing treatment. However, pt and family want to make that decision after discussing options with their primary onc, Dr Chen. He is currently on vacation. Spoke with about the need for 29/08 care if they cannot find a SNF that will accept pt. He tentatively agreed. DC unclear. Cm to follow for DC plan. Date Signed: 03/23/2017 04:51 PM Electronically Signed By:Elba Smith LCSW
[2017-03-24] MEDS: FAMOTIDINE 20 MG TAB PO SCH (09:36)
[2017-03-24] MEDS: morphINE SR 15 MG TAB PO SCH ×3 (09:36→22:02)
[2017-03-24] MEDS: LEVOTHYROXINE 112 MCG TAB PO SCH (09:36)
[2017-03-24] MEDS: DULoxetine 30 MG CAP PO SCH (09:36)
[2017-03-24] MEDS: RIVAROXABAN 20 MG TAB PO SCH (09:36)
[2017-03-24] MEDS ORDERED: ACETAMINOPHEN 325 MG TAB PO SCH (11:00)
[2017-03-24] MEDS: ACETAMINOPHEN 500 MG TAB PO SCH ×3 (11:50→22:00)
[2017-03-24] MEDS: LORazepam 0.5 MG TAB PO PRN (12:13)
[2017-03-24] MEDS: ONDANSETRON DISINTEGRATING 4 MG TAB PO PRN (12:13)
--- NOTE | 2017-03-24 13:53 | SOAPPROG ---
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 Most recent Tx is fourth line Tx with Pembrolizumab, Cycle 1, Day 1 on 03/10/17, on a 21 day cycle, next dose due 03/31/17. Prior TX has included Cisplatin/5 FU and FOLFIRI and FOLFOX. 2.) Acute Delirium, clearing. 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 Her waxing and waning of behavioral sx. 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 Potentially, Lumbar Puncture for CSF sample would be quite valuable. However, patient is now on Rivaroxaban which would have to be held before elective LP/ Spinal tap. Family meeting as to their understanding/expectations/future involvement with care would be valuable. D/W SW and Pastoral Care this afternoon. Will recheck. Palliative care planning may be most reasonable approach, doyle. if TAILINGS DAM LABORER/CSF involvement is present. 03/24/17 13:53 Subjective: Seems comfortable. States that she fell on her side yesterday when out of bed and reports she is sore along the chest wall at the site of the fall. No other active sx. Objective: Afebrile, VSS as noted here. appears a bit confused and lethargic- was awoken from a nap this afternoon. in NAD HEENT- anicteric, no oral lesions Neck- supple Chest- clear CVS- RSR , no extra HS ABD- BS+, soft, Nt mild hepatomegaly, no ascites EXT- no change in mild LE edema Labs as noted here: Hgb 8.3 on 03/21. Vital Signs Temp Pulse Resp BP Pulse Ox 37.2 C 109 H 17 120/79 92 03/24/17 13:00 03/24/17 13:00 03/24/17 13:00 03/24/17 13:00 03/24/17 13:00 Laboratory Results 03/21/17 05:11 02/13/18 05:11 03/23/17 03/24/17 03/25/17 05:59 05:59 05:59 Intake Total 1240 200 100 Balance 1240 200 100 PT 16.8 SEC (12.0-15.0) H 03/18/17 13:10 INR 1.34 (0.83-1.16) H 03/18/17 13:10 ICD10 Worksheet Patient Problems: Problems Problem Status Onset Dehydration Acute Pain Acute Back pain Acute Esophageal cancer Acute Intractable pain Acute Metastatic cancer Acute Obstructive uropathy Acute Palliative care encounter Acute Prosthetic hip infection Acute Urinary tract infection Acute
--- NOTE | 2017-03-24 14:45 | HOSPPROG ---
Hospitalist Progress Note Assessment/Plan: Assessment: 61 yo F acute toxic encephalopathy in setting of polypharmacy, metastatic pancreatic cancer, c/b acute pain crisis today Plan: # Acute toxic encephalopathy - Brain MRI neg for mets or infectious etiology. - EEG neg for seizures. - Unable to complete LP due to agitation and not a good candidate for general anesthesia. Even if she had leptomeningeal spread, there is nothing further to do. -D/C'd Valium, cont prn ativan -D/C'd Dilaudid, cont MS Contin - three times daily MS Contin seems to be improving -PRN Roxanol for breakthrough pain - add low dose clonipin for long acting anxiety help - oncology considering LP # Acute on chronic pain * Due to advanced cancer * Will try going back up on MS Contin today * Continue Roxanol p.r.n. * Anxiety certainly a significant component * She would be better off symptom meehan of hospice was following rather than palliative care # Metastatic esophageal cancer - With mets to C-spine, liver, and peritoneal carcinomatosis. * Had some discussions in terms of poor prognosis * She will meet with Dr. Chen next week for more in-depth discussion # Left ureteral stent - hematuria noted. Cr normal. notes left flank pain was prior pain complaint, though no pain currently. Hematuria noted on initial UA, resolving on repeat ua, which looks non-infectious. -consider imaging to evaluate stent placement if flank pain or hematuria worsens # Hx of DVT 2014 - hold xarleto for possible LP # Status post cervical spinal fusion - neurosurgery cleared her and removed the c-spine collar -f/u with Dr. Sanchez in 6 weeks for repeat xrays -avoid nsaids to maximize bone healing # Chronic R femoral neck fx - Noted last admission; Ortho consulted at that time and no intervention recommended. # Normocytic anemia - Slightly worsened from prior, no e/o bleeding. -iron studies c/w ACD Disposition - family meeting tomorrow with oncology. If she were to cont with therapy - SNF will not accept her since they will have to pay for it. Subjective: pain seems pretty well controlled Objective: Vital Signs Temp Pulse Resp BP Pulse Ox 37.2 C 109 H 17 120/79 92 03/24/17 13:00 03/24/17 13:00 03/24/17 13:00 03/24/17 13:00 03/24/17 13:00 Laboratory Results 03/21/17 05:11 03/21/17 05:11 03/23/17 03/24/17 03/25/17 05:59 05:59 05:59 Intake Total 1240 200 100 Balance 1240 200 100 PT 16.8 SEC (12.0-15.0) H 03/18/17 13:10 INR 1.34 (0.83-1.16) H 03/18/17 13:10 - Physical Exam Constitutional: no apparent distress, appears nourished, not in pain Eyes: anicteric sclera, EOMI Ears, Nose, Mouth, Throat: moist mucous membranes, hearing normal Cardiovascular: regular rate and rhythym Respiratory: no respiratory distress Skin: warm Neurologic: AAOx3 Psychiatric: interacting appropriately, not anxious, not encephalopathic, thought process linear ICD10 Worksheet Patient Problems: Problems Problem Status Onset Dehydration Acute Pain Acute Back pain Acute Esophageal cancer Acute Intractable pain Acute Metastatic cancer Acute Obstructive uropathy Acute Palliative care encounter Acute Prosthetic hip infection Acute Urinary tract infection Acute
--- NOTE | 2017-03-24 15:50 | ASMTCMCOM ---
CM Note CM Note Notes: Dr Valladares in incology spoke with dtr Arminda by phone today to update her. He recommended that pt's , Dusty, son Ulisses and Arminda meet with oncologist tomorrow. He stated that he recommended nursign facility with hospice. Family will need to decide on no further treatment before nursing facility would take. If pt does go with hospice, the any bed at a nursing facility would be private pay. CM will f/u with pt and family in the morning. Date Signed: 03/24/2017 03:49 PM Electronically Signed By:Elba Smith LCSW
[2017-03-24] MEDS ORDERED: ACETAMINOPHEN 500 MG TAB PO SCH (16:00)
[2017-03-24] MEDS: clonazePAM 1 MG TAB PO SCH (21:11)
[2017-03-25] MEDS: LEVOTHYROXINE 112 MCG TAB PO SCH (06:31)
[2017-03-25] MEDS: LORazepam 0.5 MG TAB PO PRN ×2 (07:20→16:44)
[2017-03-25] MEDS: morphINE 10 MG/0.5 ML UDSYR PO PRN ×3 (07:36→16:45)
[2017-03-25] MEDS: ACETAMINOPHEN 500 MG TAB PO SCH ×3 (08:53→22:26)
[2017-03-25] MEDS: RIVAROXABAN 20 MG TAB PO SCH (08:54)
[2017-03-25] MEDS: morphINE SR 15 MG TAB PO SCH ×3 (08:54→22:27)
[2017-03-25] MEDS: clonazePAM 1 MG TAB PO SCH ×2 (08:54→22:27)
[2017-03-25] MEDS: DULoxetine 30 MG CAP PO SCH (08:54)
[2017-03-25] MEDS: FAMOTIDINE 20 MG TAB PO SCH (08:55)
--- NOTE | 2017-03-25 13:03 | SOAPPROG ---
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 Most recent Tx is fourth line Tx with Pembrolizumab, Cycle 1, Day 1 on 03/10/17, on a 21 day cycle, next dose due 03/31/17. Prior TX has included Cisplatin/5 FU and FOLFIRI and FOLFOX. 2.) Acute Delirium, clearing. Of note GE junction carcinomas have a propensity have POINTER MACHINE OPERATOR and CSF involvement. She is oriented x 3 this afternoon. 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 Since her mental status is improving and she doesn't seem to have random focal neurologic deficits, I think my suspicion for carcinomatous meningitis is decreasing. I don't think a diagnostic LP is warranted in view of her need for anticoagulation and the fact that if she were to have proven carcinomatous meningitis, there is no effective treatment available in this clinical situation. Her overall prognosis is poor. I think she could be best served by pursuing best supportive care/hospice as an outpatient. This would hopefully allow for improved quality of life as an outpatient and decreased need for acute hospitalization. Plan: A family meeting is planned for later this afternoon with the rest of the care team. Subjective: She is alert but slightly dysarthric. She is able to tell me she is in [facility] and that this is the 25 of March. She feels that her pain is under adequate control at this time. Objective: Vital Signs Temp Pulse Resp BP Pulse Ox 36.7 C 114 H 20 135/119 H 98 03/25/17 12:02 03/25/17 12:02 03/25/17 09:17 03/25/17 12:02 03/25/17 12:02 Laboratory Results 03/21/17 05:11 03/21/17 05:11 03/23/17 03/24/17 03/25/17 23:59 23:59 23:59 Intake Total 440 450 Balance 440 450 PT 16.8 SEC (12.0-15.0) H 03/18/17 13:10 INR 1.34 (0.83-1.16) H 03/18/17 13:10 Physical Exam - Physical Exam General Appearance: alert, mild distress Respiratory: lungs clear Cardiac/Chest: regular rate, rhythm Abdomen: normal bowel sounds Skin: pallor Extremities: No pedal edema Neuro/Psych: oriented x 3 ICD10 Worksheet Patient Problems: Problems Problem Status Onset Dehydration Acute Pain Acute Back pain Acute Esophageal cancer Acute Intractable pain Acute Metastatic cancer Acute Obstructive uropathy Acute Palliative care encounter Acute Prosthetic hip infection Acute Urinary tract infection Acute
--- NOTE | 2017-03-25 15:45 | ASMTCMCOM ---
CM Note CM Note Notes: There was a family conference today with Dr Amaral, Dr Kendrick, this CM, pt and family. Treatment options, prognosis and DC needs all discussed. Family made decision that pt would benefit the most from inpatient hospice at [facility] where Shira has privileges. At this point, the family is most concerned with symptom management. Alerted Jairo. They will meet with family tomorrow. Date Signed: 03/25/2017 03:44 PM Electronically Signed By:Elba Smith LCSW
--- NOTE | 2017-03-25 18:36 | HOSPPROG ---
Hospitalist Progress Note Assessment/Plan: DIAGNOSES: Stage IV esophageal carcinoma Severe overall debility and deconditioning, ECOG score four Acute encephalopathy Uncontrolled cancer pain Anemia of cancer [id number] protein calorie malnutrition PLANS: -continue to titrate pain management -continue measures to deal with her encephalopathy and trying get improvement their -nutritional supplements -further exploration of her care needs and availability of home care via her insurance, as well as looking at shelter and other care facilities -recommending that we put her immunotherapy on hiatus for this time and try and build her strength and nutritional status up and get her back home, and review at that time further with Dr. Chen the merits of proceeding with further immunotherapy -repeat chemistry and CBC in the morning to make sure that these are all stable and do not need further therapy SUBJECTIVE: Extremely weak, tired, disappointed Still with poor control of her pain which is fluctuating quite a bit No other acute symptoms at this time OBJECTIVE Vitals reviewed: Stable without fever [place] Tribunal Member, my review: Exam: Awake and oriented to person place and time, but she is a bit slow in answering some questions and has trouble getting some of her answers out. Looks fairly uncomfortable Severe generalized weakness but she is able to get up with a walker and walk custodial across the room to sit in a chair skin warm dry color ok resps not labored lungs clear BSs heart regular abd soft nondistended nontender, bowel sounds present limbs warm, no edema iv site ok ADDENDUM: After my initial visit today a attended with Dr. Kamaljit Kendrick and with our medical case worker a 1 hr meeting with the patient and 6 of her family members at the bedside. We had a very full discussion of the patient's history in terms of her tumor, her progression and her treatments thus far, her recent course with 4 hospitalizations and less than 6 weeks and her severe debility with ECOG score of 4, as well as the details of her overall prognosis 3 years into a course of stage IV esophageal carcinoma. At this point the patient is able to tell us that the most important thing to her is to try and be at home and try and have most normal life that she can which include some degree of independence. She understands that normal has changed quite a bit for her. She understands that there are limitations into what can be achieved. She is unable to articulate in all detail some of the things she would like to say as but this was her #1 issue that she told us about repeatedly. We did review the high likelihood of further debility and complications from any further treatment for her tumor and that there is no guarantee in her case with no response to other recent treatments that she will respond to the current immunotherapy she is trying. We also reviewed that at this point she is going to need quite a bit of effort to try and get back to strength she would need to achieve her goal of being at home with some degree of independence. Her family also expresses that they will need quite a lot of help likely more help than she they can offer her to be at home at this time. It is very likely that she will need to be cared for at this time in either a shelter facility or other facility where she can get proper attention nutrition and therapies. It would be very helpful as we discussed with the patient and family if any such care would involve help from the [facility] palliative care group that she is currently involved with as they are going to be much more attuned to doing with her pain management and other issues as they exist. Visit time today approximately 40 min on my initial visit and 1 hr additional in the subsequent bedside family care conference Objective: Vital Signs Temp Pulse Resp BP Pulse Ox 36.9 C 85 18 143/100 H 99 03/25/17 17:00 03/25/17 17:00 03/25/17 17:00 03/25/17 17:00 03/25/17 17:00 Laboratory Results 03/21/17 05:11 03/21/17 05:11 03/24/17 03/25/17 03/26/17 06:59 06:59 06:59 Intake Total 300 350 Balance 300 350 PT 16.8 SEC (12.0-15.0) H 03/18/17 13:10 INR 1.34 (0.83-1.16) H 03/18/17 13:10 ICD10 Worksheet Patient Problems: Problems Problem Status Onset Dehydration Acute Pain Acute Back pain Acute Esophageal cancer Acute Intractable pain Acute Metastatic cancer Acute Obstructive uropathy Acute Palliative care encounter Acute Prosthetic hip infection Acute Urinary tract infection Acute
[2017-03-26] MEDS: LEVOTHYROXINE 112 MCG TAB PO SCH (05:45)
[2017-03-26] MEDS: morphINE 10 MG/0.5 ML UDSYR PO PRN ×4 (05:53→15:00)
[2017-03-26 06:02] LABS: PLATELET COUNT 501 10^3/uL (150-400)
[2017-03-26] MEDS: ACETAMINOPHEN 500 MG TAB PO SCH ×3 (08:22→21:31)
[2017-03-26] MEDS: FAMOTIDINE 20 MG TAB PO SCH (08:23)
[2017-03-26] MEDS: clonazePAM 1 MG TAB PO SCH ×2 (08:23→21:32)
[2017-03-26] MEDS: morphINE SR 15 MG TAB PO SCH ×3 (08:23→21:31)
[2017-03-26] MEDS: DULoxetine 30 MG CAP PO SCH (08:25)
[2017-03-26] MEDS: RIVAROXABAN 20 MG TAB PO SCH (08:25)
--- NOTE | 2017-03-26 13:38 | SOAPPROG ---
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 Most recent Tx is fourth line Tx with Pembrolizumab, Cycle 1, Day 1 on 03/10/17, on a 21 day cycle, next dose due 03/31/17. Prior TX has included Cisplatin/5 FU and FOLFIRI and FOLFOX. 2.) Acute Delirium, clearing. Of note GE junction carcinomas have a propensity have PUBLISHING SYSTEMS ANALYST and CSF involvement. She is oriented x 3 this afternoon. 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 She is more alert. The current plan is for her to go to [facility] with [facility]. I think she could benefit from physical therapy and occupational therapy for the next few weeks to see if her functional status can improve adequately to consider additional therapy. Plan: Patient an family met with [facility] premium representative today. I would anticipate discharge from this acute care setting to the SNF associated with [facility] in the next 24-48 hours. Subjective: Pain is under better control today. Wants to try to get stronger. Objective: Vital Signs Temp Pulse Resp BP Pulse Ox 36.9 C 95 14 125/89 H 93 03/26/17 11:16 03/26/17 11:16 03/26/17 11:16 03/26/17 11:16 03/26/17 11:16 Laboratory Results 03/26/17 05:45 03/26/17 05:45 03/24/17 03/25/17 03/26/17 23:59 23:59 23:59 Intake Total 450 200 Balance 450 200 PT 16.8 SEC (12.0-15.0) H 03/18/17 13:10 INR 1.34 (0.83-1.16) H 03/18/17 13:10 Physical Exam - Physical Exam General Appearance: alert Respiratory: lungs clear Cardiac/Chest: regular rate, rhythm Abdomen: normal bowel sounds, soft ICD10 Worksheet Patient Problems: Problems Problem Status Onset Dehydration Acute Pain Acute Back pain Acute Esophageal cancer Acute Intractable pain Acute Metastatic cancer Acute Obstructive uropathy Acute Palliative care encounter Acute Prosthetic hip infection Acute Urinary tract infection Acute
[2017-03-26] MEDS ORDERED: LACTULOSE 20 GM/30 ML UDCUP PO PRN (16:34)
[2017-03-26] MEDS ORDERED: MAGNESIUM HYDROXIDE 30 ML UDCUP PO PRN (16:34)
[2017-03-26] MEDS ORDERED: BISACODYL 10 MG SUPP PR PRN (16:34)
[2017-03-26] MEDS ORDERED: NS 1,000 ML IV SCH (16:45)
[2017-03-26] MEDS: LIDOCAINE 4%/MENTHOL 1% PATCH TD SCH (17:11)
[2017-03-26] MEDS: PANTOPRAZOLE SODIUM 40 MG VIAL IVP SCH (17:13)
--- NOTE | 2017-03-26 17:43 | HOSPPROG ---
Hospitalist Progress Note Assessment/Plan: DIAGNOSES: -Stage IV esophageal carcinoma -Severe overall debility and deconditioning, ECOG score four -Acute encephalopathy -Uncontrolled cancer pain -Anemia of cancer -Rcie-ra-zdtmbecx protein calorie malnutrition; this is likely aggravated by dyspepsia and esophagitis -Dyspepsia and esophagitis with heartburn and odynophagia, partially improved with outpatient Pepcid but quite symptomatic here(new issue today) -Ribcage injury from a fall at home still with pain making movement harder -Ongoing constipation last bowel movement 4 days ago -Rising alkaline phosphatase some blood tests, question if there could be some type of biliary obstruction or a medication side effect, will need to assess this further with repeat test and if is not resolving will need abdominal ultrasound and review of her medications I reviewed her diagnoses, condition, progress and treatment plan in detail with Dr. Kamaljit Kendrick today, also review with the patient and her family in detail at the bedside today PLANS: -continue to titrate pain management; will give a trial of some Lidoderm patch today, she has had some medical tape allergies under skin so will do a small tests with a have in diameter piece of Lidoderm and see how she tolerates the adhesive; will also add cold packs for her ribcage pain, no other changes in pain medicines now -continue measures to deal with her encephalopathy and trying get improvement their -nutritional supplements -will change her from Pepcid to Protonix and see if she is able to eat more comfortably and more successfully with that; could consider adding Carafate if necessary -begin bowel protocol -further exploration of her care needs and availability of home care via her insurance, as well as looking at long-term and other care facilities -recommending that we put her immunotherapy on hiatus for this time and try and build her strength and nutritional status up and get her back home, and review at that time further with Dr. Chen the merits of proceeding with further immunotherapy -repeat liver panel in the morning and if alk-phos is not better will get liver ultrasound SUBJECTIVE: Continues have left-sided rib pain from where she fell at home Also notes no bowel movement for 5 days She is also telling me today that she has some ongoing esophageal heartburn as well as some odynophagia and a lot of dyspepsia. She was started a while back on Pepcid by Dr. Chen and this has mildly improved this set of symptoms but she still is bothered by it quite a bit and feels it is interfering with her eating and drinking. No chills or sweats today, no respiratory symptoms. OBJECTIVE Vitals reviewed: She was mildly tachycardic at this time without abnormality of blood pressure and without fever, respirations stable Exam: Awake and oriented to person place and time, and her processing is faster and better overall today. More conversant Still with generalized weakness but she is able to get up with a walker skin warm dry color ok resps not labored lungs clear BSs heart regular abd soft nondistended nontender, bowel sounds present limbs warm, no edema iv site ok Laboratory data: Alkaline phosphatase is little higher at 407 today but the rest of the liver panel and metabolic panel are unremarkable CBC with stable anemia hemoglobin 8 otherwise unchanged Objective: Vital Signs Temp Pulse Resp BP Pulse Ox 36.9 C 99 17 103/78 95 03/26/17 16:35 03/26/17 16:35 03/26/17 16:35 03/26/17 16:35 03/26/17 16:35 Laboratory Results 03/26/17 05:45 03/26/17 05:45 03/25/17 03/26/17 03/27/17 06:59 06:59 06:59 Intake Total 350 200 Balance 350 200 PT 16.8 SEC (12.0-15.0) H 03/18/17 13:10 INR 1.34 (0.83-1.16) H 03/18/17 13:10 - Time Spent With Patient Time Spent with Patient: greater than 35 minutes Time Spent with Patient: Greater than 35 minutes spent on this patients care, greater than 50% of time spent counseling, educating, and coordinating care regarding the above mentioned plan. ICD10 Worksheet Patient Problems: Problems Problem Status Onset Dehydration Acute Pain Acute Back pain Acute Esophageal cancer Acute Intractable pain Acute Metastatic cancer Acute Obstructive uropathy Acute Palliative care encounter Acute Prosthetic hip infection Acute Urinary tract infection Acute
[2017-03-26] MEDS: POLYETHYLENE GLYCOL 3350 17 GM PKT PO PRN (21:44)
[2017-03-26] MEDS: PATCH REMOVAL 1 EA PATCH TD SCH (21:47)
[2017-03-27] MEDS: LEVOTHYROXINE 112 MCG TAB PO SCH (06:10)
[2017-03-27] MEDS: morphINE 10 MG/0.5 ML UDSYR PO PRN ×5 (06:10→22:18)
[2017-03-27] MEDS: LORazepam 0.5 MG TAB PO PRN ×2 (09:20→22:20)
[2017-03-27] MEDS: ONDANSETRON 4 MG/2 ML VIAL IVP PRN (09:28)
[2017-03-27] MEDS: clonazePAM 1 MG TAB PO SCH ×2 (09:34→22:20)
[2017-03-27] MEDS: morphINE SR 15 MG TAB PO SCH ×3 (09:39→22:20)
[2017-03-27] MEDS: PANTOPRAZOLE SODIUM 40 MG VIAL IVP SCH (09:52)
[2017-03-27] MEDS: LIDOCAINE 4%/MENTHOL 1% PATCH TD SCH (10:04)
[2017-03-27] MEDS: ACETAMINOPHEN 500 MG TAB PO SCH ×3 (10:08→22:19)
[2017-03-27] MEDS: RIVAROXABAN 20 MG TAB PO SCH (10:13)
[2017-03-27] MEDS: DULoxetine 30 MG CAP PO SCH (10:13)
--- NOTE | 2017-03-27 12:19 | SOAPPROG ---
SOAP Progress Note Assessment/Plan: E&M for esophageal cancer * GE junction adenocarcinoma; since 2014 with mets at diagnosis: Most recent Tx is fourth line Tx with Pembrolizumab, Cycle 1, Day 1 on 03/10/17, on a 21 day cycle, next dose due 03/31/17. Prior TX has included Cisplatin/5 FU and FOLFIRI and FOLFOX. 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 She needs to improve PFS before any systemic therapy can be considered. No curative therapy and pembro has RR o 10-15%. * Acute Delirium, clearing. Of note GE junction carcinomas have a propensity have SPRAY PILOT and CSF involvement; brain MRI ok. She is oriented x 3 this afternoon. * Pain and Anxiety: Worsened by advanced cancer and its complications. Not clear what is causing the dyskinesia; possibly MS Contin but symptoms not consistent. 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 I think she could benefit from physical therapy and occupational therapy for the next few weeks to see if her functional status can improve adequately to consider additional therapy. Subjective: Spoke with patient and . Has "spells" associated with pain crisis with dyskinesia and anxiety. Seems to happen just prior or with the pain. Treating with acute meds seems to help calm it. Did not have these prior to starting MS contin last month. Cannot tolerate oxycodone (nausea) and worried about patch due to adhesive tape allergy. notes that she has some visual hallucinations (seeing colors in a painting) around pain episodes but not clear if prior to or after meds. Objective: Vital Signs Temp Pulse Resp BP Pulse Ox 37.0 C 96 18 117/83 H 94 03/27/17 12:00 03/27/17 12:00 03/27/17 12:00 03/27/17 12:00 03/27/17 12:00 Laboratory Results 03/26/17 05:45 03/26/17 05:45 03/26/17 03/27/17 03/28/17 05:59 05:59 05:59 Intake Total 200 500 Balance 200 500 PT 16.8 SEC (12.0-15.0) H 03/18/17 13:10 INR 1.34 (0.83-1.16) H 03/18/17 13:10 Physical Exam - Physical Exam General Appearance: no apparent distress Respiratory: lungs clear Cardiac/Chest: regular rate, rhythm ICD10 Worksheet Patient Problems: Problems Problem Status Onset Dehydration Acute Pain Acute Back pain Acute Esophageal cancer Acute Intractable pain Acute Metastatic cancer Acute Obstructive uropathy Acute Palliative care encounter Acute Prosthetic hip infection Acute Urinary tract infection Acute
[2017-03-27] MEDS ORDERED: MULTIVITAMINS W-IRON (PEDS) 1 ML UDSYR PO SCH (15:28)
--- NOTE | 2017-03-27 16:01 | ASMTCMCOM ---
CM Note CM Note Notes: Spoke with Salvador from palliative care. There will be another family meeting this Monday to discuss d/c options. Referrals have been sent to several SNFs. [facility] [place] [facility] accepted pt pending insurance authorization when pt is ready for d/c. Date Signed: 03/27/2017 04:01 PM Electronically Signed By:MATY Merchant
--- NOTE | 2017-03-27 18:19 | HOSPPROG ---
Hospitalist Progress Note Assessment/Plan: DIAGNOSES: -Stage IV esophageal carcinoma -Severe overall debility and deconditioning, ECOG score four -Acute encephalopathy: Slowly improving but fluctuates a lot with medication and pain -Uncontrolled cancer pain: This consists primarily of an epigastric colicky pain that is intermittent but quite severe * So far she has been treated in a p.r.n. Symptomatic fashion with narcotics and benzodiazepine for this * As it is a an intermittent colicky symptoms suspected is due to either gut spasm or gut distension and may be susceptible to medication for that -Anemia of cancer -Xqes-ys-[id number] protein calorie malnutrition; this is likely aggravated by dyspepsia and esophagitis -Dyspepsia and esophagitis with heartburn and odynophagia, partially improved with outpatient Pepcid but quite symptomatic here(new issue 03/26) * Hard to tell if this is any better as she has not eaten much of anything today -Ribcage injury from a fall at home still with pain making movement harder * Significant pain from this is responding to Lidoderm so far -Ongoing constipation last bowel movement 4 days ago -Rising alkaline phosphatase some blood tests, question if there could be some type of biliary obstruction or a medication side effect, will need to assess this further with repeat test and if is not resolving will need abdominal ultrasound and review of her medications I reviewed her diagnoses, condition, progress and treatment plan in detail with Dr. Tijerina today, PLANS: -will give a trial of Levsin for her colicky pain and see if this improves things -continue Lidoderm patch for her ribcage injury pain -continue measures to deal with her encephalopathy and trying get improvement their -nutritional supplements -continue Protonix and see if she is able to eat more comfortably and more successfully with that; could consider adding Carafate if necessary -begin bowel protocol -further exploration of her care needs and availability of home care via her insurance, as well as looking at alf and other care facilities -recommending that we put her immunotherapy on hiatus for this time and try and build her strength and nutritional status up and get her back home, and review at that time further with Dr. Chen the merits of proceeding with further immunotherapy -repeat liver panel in the morning and if alk-phos is not better will get liver ultrasound SUBJECTIVE: Rib pain is better with the Lidoderm patch Continues to have severe episodes of intermittent colic in the epigastric area that lead her to have significant anxiety. She has been getting narcotics and anxiety medicines for these episodes and they do give her some relief but also a lot of side effect. Mainly confusion and decreased alertness side effects. No nausea or vomiting no fever symptoms. Did eat some food earlier today but then had a very significant episode of abdominal pain OBJECTIVE Vitals reviewed: Still with intermittent episodes of mild sinus tachycardia with her pain, otherwise stable without fevers Exam: Awake and oriented to person place and time, though I am seeing her again after she has had some narcotic and some benzodiazepine and she is fairly slow with processing, unable to get some answers to questions out. Slightly groggy Still with generalized weakness but she is able to get up with a walker skin warm dry color ok resps not labored lungs clear BSs heart regular abd soft nondistended nontender, bowel sounds present limbs warm, no edema iv site ok Objective: Vital Signs Temp Pulse Resp BP Pulse Ox 36.6 C 84 16 125/87 H 97 03/27/17 15:35 03/27/17 15:35 03/27/17 15:35 03/27/17 15:35 03/27/17 15:35 Laboratory Results 03/26/17 05:45 03/26/17 05:45 03/26/17 03/27/17 03/28/17 06:59 06:59 06:59 Intake Total 200 500 Balance 200 500 PT 16.8 SEC (12.0-15.0) H 03/18/17 13:10 INR 1.34 (0.83-1.16) H 03/18/17 13:10 - Time Spent With Patient Time Spent with Patient: greater than 35 minutes Time Spent with Patient: Greater than 35 minutes spent on this patients care, greater than 50% of time spent counseling, educating, and coordinating care regarding the above mentioned plan. ICD10 Worksheet Patient Problems: Problems Problem Status Onset Dehydration Acute Pain Acute Back pain Acute Esophageal cancer Acute Intractable pain Acute Metastatic cancer Acute Obstructive uropathy Acute Palliative care encounter Acute Prosthetic hip infection Acute Urinary tract infection Acute
[2017-03-27] MEDS: HYOSCYAMINE SULFATE 0.125 MG TAB PO SCH (22:20)
[2017-03-27] MEDS: PATCH REMOVAL 1 EA PATCH TD SCH (22:23)
[2017-03-28] MEDS: LEVOTHYROXINE 112 MCG TAB PO SCH (06:01)
[2017-03-28] MEDS: HYOSCYAMINE SULFATE 0.125 MG TAB PO SCH ×3 (06:01→18:25)
[2017-03-28 06:24] LABS: PLATELET COUNT 510 10^3/uL (150-400)
[2017-03-28] MEDS: LIDOCAINE 4%/MENTHOL 1% PATCH TD SCH (08:07)
[2017-03-28] MEDS: DULoxetine 30 MG CAP PO SCH (08:08)
[2017-03-28] MEDS: clonazePAM 1 MG TAB PO SCH ×2 (08:08→21:47)
[2017-03-28] MEDS: morphINE SR 15 MG TAB PO SCH ×3 (08:08→21:47)
[2017-03-28] MEDS: MULTIVITAMINS W-MINERALS 1 EACH TAB PO SCH (08:09)
[2017-03-28] MEDS: ACETAMINOPHEN 500 MG TAB PO SCH ×3 (08:18→21:46)
[2017-03-28] MEDS: RIVAROXABAN 20 MG TAB PO SCH (08:18)
[2017-03-28] MEDS: PANTOPRAZOLE SODIUM 40 MG VIAL IVP SCH (08:22)
--- NOTE | 2017-03-28 09:12 | HOSPPROG ---
Hospitalist Progress Note Assessment/Plan: DIAGNOSES: -Stage IV esophageal carcinoma -Severe overall debility and deconditioning, ECOG score four -Acute encephalopathy: Slowly improving but fluctuates a lot with medication and pain -Uncontrolled pain, currently 3 main pain syndromes: * Ribcage pain on left from a recent fall, slowly improving, Lidoderm helps * Ongoing severe heartburn and dyspepsia with some odynophagia, poor outpatient response to Pepcid -she is eating better after 2 days of Protonix but does not notice decrease in the severity of pain so far * Frequent intermittent episodes of epigastric colic min, quite severe and requiring narcotic as well as benzodiazepine for associated anxiety -so far no response to Levsin after 24 hr, casting some doubt on to whether this might be intestinal colic -alk-phos continues to rise, other liver tests normal, abdominal ultrasound showing some biliary dilation; ? If she may have some ductal stenosis, or obstructing tumor or stone, or if the alkaline phosphatase might be due to medication -Anemia of cancer -Nxxr-[id number] protein calorie malnutrition; this is likely aggravated by dyspepsia and esophagitis as well as her other pains -Ongoing constipation last bowel movement 4 days ago I reviewed her diagnoses, condition, progress and treatment plan in detail with Dr. Tijerina today. I have also asked Dr. Ulisses Dawson to see the patient and described her story along with all of the issues above in great detail with him. Differential diagnosis for all of her pain certainly could include peptic disease, infectious esophageal disease, obstructive biliary disease from stricture tumor or other cause, intestinal colic, and a variety of other mechanisms. It certainly would be good to try and see if we can relieve her pain in which case she could improve her nutrition, greatly decrease her reliance on narcotic and benzodiazepine medicines, and he build her strength back to get back home. Her main goal at this point is to try and gain her strength back to close to normal and trying get home again and be eating. She would if this can be accomplished like to consider resuming therapy with her check point inhibitor immune treatment for the tumor. She is aware that there is a possibility we may not be able to relieve the symptoms and she may have trouble regaining her strength and in that case eventually she would consider that she might want to take a hospice type approach. It is reasonable to look to see if there is anything else we can do to diagnose the mechanism her pains to improve treatment strategies. Dr. Dawson S 1st recommendation is to do an upper endoscopy to look for evidence of severe peptic disease, viral or fungal esophagitis, or other cause identifiable that way. If nothing is found and/or her symptoms persist he is considering that possibility that an endoscopic ultrasound may be useful to try and diagnose the cause of her biliary dilation and higher alk-phos, and assess if the stent or other treatment might be helpful. He would consider the possibility of MRCP or HIDA scan being useful but at the moment sees less utility and those tests. PLANS -will make her NPO after midnight tonight and Dr. Dawson will see her to consider doing an EGD tomorrow -continue trial of Levsin for her colicky epigastric pain episodes follow for any improvement -continue Lidoderm patch for her ribcage injury pain -increase Protonix to bid and add Carafate, monitor for improvement in heartburn dyspepsia and food intake; ? EGD to look for infectious esophagitis if no result -continue measures to deal with her encephalopathy and trying get improvement their -begin bowel protocol -nutritional supplements as she is able -further exploration of her care needs and availability of home care via her insurance, as well as looking at correction and other care facilities -recommending that we put her immunotherapy on hiatus for this time and try and build her strength and nutritional status up and get her back home, and review at that time further with Dr. Chen the merits of proceeding with further immunotherapy SUBJECTIVE: Rib pain is better with the Lidoderm patch No improvement in severe episodes of intermittent colic in the epigastric area after 1 day of Levsin treatment. She has been getting narcotics and anxiety medicines for these episodes and they do give her some relief but also a lot of side effect. Did eat somewhat better today but she does not feel that her blood odynophagia heartburn dyspepsia symptoms are better after 2 days of daily Protonix OBJECTIVE Vitals reviewed: Still with intermittent episodes of mild sinus tachycardia with her pain, otherwise stable without fevers Exam: Awake and oriented to person place and time, though I am seeing her again after she has had some narcotic and some benzodiazepine and she is fairly slow with processing, unable to get some answers to questions out. Slightly groggy Still with generalized weakness but she is able to get up with a walker skin warm dry color ok resps not labored lungs clear BSs heart regular abd soft nondistended nontender, bowel sounds present limbs warm, no edema iv site ok Lab data: Alk Phos continues to rise, but bili remains normal Objective: Vital Signs Temp Pulse Resp BP Pulse Ox 36.7 C 89 16 110/80 95 03/28/17 07:56 03/28/17 08:26 03/28/17 08:26 03/28/17 07:56 03/28/17 08:26 Laboratory Results 03/28/17 06:15 03/28/17 06:15 03/27/17 03/28/17 03/29/17 06:59 06:59 06:59 Intake Total 500 540 Balance 500 540 PT 16.8 SEC (12.0-15.0) H 03/18/17 13:10 INR 1.34 (0.83-1.16) H 03/18/17 13:10 - Time Spent With Patient Time Spent with Patient: greater than 35 minutes Time Spent with Patient: Greater than 35 minutes spent on this patients care, greater than 50% of time spent counseling, educating, and coordinating care regarding the above mentioned plan. ICD10 Worksheet Patient Problems: Problems Problem Status Onset Dehydration Acute Pain Acute Back pain Acute Esophageal cancer Acute Intractable pain Acute Metastatic cancer Acute Obstructive uropathy Acute Palliative care encounter Acute Prosthetic hip infection Acute Urinary tract infection Acute
[2017-03-28] MEDS: LORazepam 0.5 MG TAB PO PRN ×3 (09:17→21:46)
[2017-03-28] MEDS: HYDROmorphONE/DILAUDID 2 MG TAB PO PRN ×2 (10:36→18:25)
--- NOTE | 2017-03-28 11:22 | SOAPPROG ---
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 Prior TX has included Cisplatin/5 FU and FOLFIRI and FOLFOX. 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 She needs to improve PFS before any systemic therapy can be considered. No curative therapy and pembro has RR o 10-15%. * Acute Delirium, clearing. Of note GE junction carcinomas have a propensity have COMMUTATOR PRESSER and CSF involvement; brain MRI ok. She is oriented x 3 this afternoon. * Pain and Anxiety: Worsened by advanced cancer and its complications. Not clear what is causing the dyskinesia; possibly MS Contin but symptoms not consistent. * DVT 2014, continue Rivaroxaban * S/P L Ureteral stent placement * Anemia secondary to cancer/its treatment * Disposition: The current plan is for her to go to [facility] with [facility]. I think she could benefit from physical therapy and occupational therapy for the next few weeks to see if her functional status can improve adequately to consider additional therapy. Subjective: No acute complaints right now. Pain generally starts in LUQ without radiation. No pain right now. Objective: Vital Signs Temp Pulse Resp BP Pulse Ox 36.7 C 89 16 110/80 95 03/28/17 07:56 03/28/17 08:26 03/28/17 08:26 03/28/17 07:56 03/28/17 08:26 Laboratory Results 03/28/17 06:15 03/28/17 06:15 03/27/17 03/28/17 03/29/17 05:59 05:59 05:59 Intake Total 500 540 300 Balance 500 540 300 PT 16.8 SEC (12.0-15.0) H 03/18/17 13:10 INR 1.34 (0.83-1.16) H 03/18/17 13:10 Physical Exam - Physical Exam General Appearance: no apparent distress Respiratory: lungs clear Cardiac/Chest: regular rate, rhythm Abdomen: soft, No non-tender (tender RUQ but not in LUQ) ICD10 Worksheet Patient Problems: Problems Problem Status Onset Dehydration Acute Pain Acute Back pain Acute Esophageal cancer Acute Intractable pain Acute Metastatic cancer Acute Obstructive uropathy Acute Palliative care encounter Acute Prosthetic hip infection Acute Urinary tract infection Acute
[2017-03-28] MEDS: morphINE 10 MG/0.5 ML UDSYR PO PRN ×2 (11:52→21:46)
[2017-03-28] MEDS: HALOPERIDOL 2 MG TAB PO PRN (13:01)
--- NOTE | 2017-03-28 14:27 | ASMTCMCOM ---
CM Note CM Note Notes: Addison from [facility] ([phone]) and Gabby from [facility] ([phone]) both called, wanting to know about patient's status. I informed them both that patient and family will have a palliative care meeting tomorrow at 1300 to discuss discharge planning. [facility] will be there to facilitate. This family has been challenged by patient's unstable condition which has thus made discharge planning difficult. Hopefully, tomorrow's meeting will allow us to move forward with moving patient into a care facility or getting her home with services. [facility] conitnues to follow her, as well. Date Signed: 03/28/2017 02:27 PM Electronically Signed By:Claudine Ortez RN
[2017-03-28] MEDS: PATCH REMOVAL 1 EA PATCH TD SCH (21:52)
[2017-03-29] MEDS: HYOSCYAMINE SULFATE 0.125 MG TAB PO SCH ×2 (01:13→06:06)
[2017-03-29] MEDS: LEVOTHYROXINE 112 MCG TAB PO SCH (06:06)
[2017-03-29 06:36] LABS: PLATELET COUNT 541 10^3/uL (150-400)
[2017-03-29] MEDS ORDERED: LR 1,000 ML IV ONE (09:12)
[2017-03-29] MEDS: morphINE 10 MG/0.5 ML UDSYR PO PRN (09:22)
[2017-03-29] MEDS: PANTOPRAZOLE SODIUM 40 MG VIAL IVP SCH (09:23)
[2017-03-29] MEDS ORDERED: LIDOCAINE 2% 5 ML SDV ONE (09:57)
--- NOTE | 2017-03-29 09:58 | GCON ---
[f rep st] CONSULTATION DATE OF CONSULTATION: 03/29/2017 REFERRING PHYSICIAN: Avery Amaral MD REASON FOR CONSULTATION: Abdominal pain. Dear Dr. Amaral, thank you very kindly for asking me to evaluate this patient in consultation for chi ef complaint of abdominal pain. HISTORY OF PRESENT ILLNESS: She was admitted on March 17 for confusion that was felt to be related to medications aimed at pain control for unknown metastatic esophageal cancer. She has known liver metastasis and peritoneal carcinomatosis. She had been taking MS Contin, oxycodone, hydromorphone, c yclobenzaprine, lorazepam, haloperidol and ketamine which were believed to be causing her confusion. In addition to this, however she has been having episodes of ongoing left upper quadrant pain that s he describes as being "quite some time." She does not know exactly how long she has been having pain there but it is stems back in least 2 the diagnosis from her esophageal cancer in 2013. She has bee n receiving immunotherapy and originally had chemotherapy and radiation treatment for her esophageal cancer. She denies any difficulty with pain on swallowing and there has been no dysphagia. She had been suffering with a little bit of heartburn for which she says Pepcid was controlling it. There benton s been no vomiting. She does report trouble with episodic constipation and when she is constipated h er abdominal pain is worse. She denies any melena, diarrhea or hematochezia. Her appetite has been somewhat poor and she does feel that eating aggravates the pain. The predominant location of the melo n is epigastric and left upper quadrant. It does not radiate. I am asked to assist with further bartolo luation and management. PAST MEDICAL HISTORY: Significant for esophageal cancer with known metastasis, DVTs, ureteral obstru ction with a stent placement, hypothyroidism. PAST SURGICAL HISTORY: Is for hysterectomy. She has had spinal fusion. Left hip replacement and an appendectomy. FAMILY HISTORY: Negative for esophageal malignancy. ALLERGIES: Naprosyn, adhesive tape, penicillin and sulfa. MEDICATIONS: Currently include Tylenol, bisacodyl, Klonopin, Cymbalta, Haldol, Dilaudid, Levsin, lac tulose, Synthroid, Ativan, milk of magnesia, Lidoderm patch, MS Contin, Roxanol, multivitamin, Zyprex a, Zofran, Protonix, MiraLAX, Xarelto, Senokot, Mylicon. SOCIAL HISTORY: The patient is . Her is her primary caregiver. REVIEW OF SYSTEMS: CONSTITUTIONAL: Reports malaise, general weakness, poor appetite. HEENT: Denie s odynophagia. Does report dry mouth. No difficulty with her swallow. No headache. No visual dist urbances. PULMONARY: No cough or shortness of breath. CARDIOVASCULAR: No chest pain or palpitatio ns. NEURO: Denies any falls or focal weakness but does describe feeling generally weak. RHEUMATOLO GIC: Denies any back pain or joint pain. DERMATOLOGIC: No pruritus or jaundice. No rash. GENITOU RINARY: Denies dysuria or hematuria. PSYCHIATRIC: She describes some depression and difficulty wit h sleep. ENDOCRINE: No heat or cold intolerance. No polyuria or polydipsia. LYMPH: Denies any ad enopathy. GI: Is per the history of present illness only. PHYSICAL EXAM: VITAL SIGNS: Blood pressure is 122/83, pulse is 85, respirations are 12, oxygenation is 92% on 2 L. Temperature is 36.8. GENERAL: Elderly female. Somewhat lethargic appearing but ab le to provide most of her own history. She takes time to answer questions but does not seem terribly confused. She is oriented to person, place, and time. HEENT: No jugular venous distention. Mucou s membranes are dry. No oral thrush. NECK: Supple. Trachea is midline. No adenopathy or thyromeg bari. PULMONARY: Decreased breath sounds but clear. CARDIOVASCULAR: Regular rate and rhythm withou t murmur, rub, or gallop. ABDOMEN: Soft and nondistended. No organomegaly. No palpable tenderness , rebound or guarding. No abdominal bruit. No ascites is noted. RHEUMATOLOGIC: No joint deformity , swelling or warmth. SKIN: Without jaundice or rash. NEURO: Alert to person, place, and time. N onfocal motor exam. She does move slowly. She is able to follow commands appropriately. No asterix is is noted. LABORATORIES: Show sodium of 135, potassium 3.8, chloride 102, bicarbonate 23, BUN 18, creatinine 0. 7, calcium 8.9, total bilirubin is 0.4 with an AST of 39, ALT of 37, alkaline phosphatase is 527, alb umin is 2.9 with a total protein of 5.2. INR is 1.34. White blood count 9.4, hematocrit 27.2, with an MCV of 92.5, platelets are 541. IMAGING: Includes an abdominal ultrasound performed on March 28, 2017 which was compared to a CT scan done in February of the same year. This showed the left lobe of the liver shows capsular retract ion within a regular contour which was seen on CT scan. There is stable and mild biliary dilation of the left hepatic lobe. The common bile duct is 9 mm which is unchanged from CT scan. The gallbladd er is distended but without wall thickening. There is a trace amount of pericholecystic fluid and a small amount of underlying ascites. 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 CT scan of the abdomen and pelvis on February 13, 2017. Findings include peritoneal carcinomatosis, small volume of free fluid in the abdomen. Doubl e-J ureteral stent placement into the left kidney. Focal biliary ductal dilatation in segment 2 of t he left lobe of the liver. The esophageal wall thickening at the GE junction that is stable from pre vious imaging in January of 2017. The common bile duct is also dilated as it enters the pancreatic head at 11 mm but tapers normally through the ampulla. The pancreas is unremarkable. There is mild thickening of the gastric pylorus. Small bowel is unremarkable. The mesenteric fat is slightly lashon stinct along the right lateral portion of the ascending colon, with nodular peritoneal metastatic dis ease and a few sentinel lymph nodes identified in the left abdomen. There is no bowel obstruction, p neumoperitoneum or pneumatosis. There is extensive constipation. IMPRESSION: 1. Left upper quadrant and epigastric pain. 2. Metastatic esophageal cancer with peritoneal carcinomatosis. 3. Liver metastasis to the left hepatic lobe with focal biliary obstruction in this area, which I be lieve is due to probable liver involvement with her esophageal cancer based mostly on the retraction and the capsular abnormalities of the associated dilation in this segment. 4. Significant radiographic evidence of constipation correlated with the patient's clinical constipa tion which is likely narcotic induced. 5. Dilated extrahepatic biliary anatomy, which is likely due to narcotic medication use rather than obstruction given her relatively normal liver tests. 6. Elevated alkaline phosphatase which I think is due to peritoneal carcinomatosis and perhaps some liver involvement with the cancer. RECOMMENDATIONS: 1. Upper endoscopy will be arranged today to evaluate her left-sided pain and the gastric wall thick ening on CT imaging to see if there is a more treatable etiology for her symptoms to help her with pa in management. 2. I believe the predominant source of her pain is likely going to be peritoneal carcinomatosis and significant narcotic induced constipation. 3. There is also probably a component of abdominal discomfort that is related to the capsular retrac tion in the left lobe of the liver and the focal dilation but given her normal bilirubin and transami nases, the lack of jaundice I would not pursue ERCP or intervention at this time. 4. Daily proton pump inhibitor. 5. We will begin Movantik as an outpatient to help with narcotic induced constipation. She would al so likely benefit from additional medication management for this such as MiraLAX or Linzess which can be used to treat her constipation. I believe again this is narcotic induced and not obstructive in nature. 6. Further recommendations to follow her endoscopy today. If this is somewhat unremarkable then I w allison work on just continuing her pain management and constipation regimen without further interventio n regarding the biliary dilation at this time. 7. An MRCP could be used to further evaluate the biliary anatomy to see if there is focal stricturin g or evidence of obstruction predominantly in the left segments and to better exclude something dista l, but as the bile duct dilation tapers normally through the pancreatic head again I believe this is something functional related to her narcotic use. Thank you for allowing me to be involved in her care. Further recommendations to follow. /[id number]/MODL
[2017-03-29] MEDS ORDERED: NALOXONE HCL 0.4 MG/ML INJ IVP PRN (10:10)
[2017-03-29] MEDS ORDERED: fentaNYL 100 MCG/2 ML INJ IVP PRN (10:10)
--- NOTE | 2017-03-29 10:10 | PDANEPAE ---
ANE Past Medical History - Cardiovascular History Hx Hypertension: No Hx Arrhythmias: No Hx Chest Pain: No Hx Coronary Artery / Peripheral Vascular Disease: No Hx CHF / Valvular Disease: No Hx Palpitations: No - Pulmonary History Hx COPD: No Hx Asthma/Reactive Airway Disease: No Hx Recent Upper Respiratory Infection: No Hx Oxygen in Use at Home: No Hx Sleep Apnea: No Sleep Apnea Screening Result - Last Documented: Negative Pulmonary History Comment: SOB W/EXERTION - Neurologic History Hx Cerebrovascular Accident: No Hx Seizures: No Hx Dementia: No Neurologic History Comment: Peripheral neuropathy secondary to chemotherapy - Endocrine History Hx Diabetes: No Endocrine History Comment: Hypothyroid - Renal History Hx Renal Disorders: Yes Renal History Comment: ureteral compression - Liver History Hx Hepatic Disorders: Yes Hepatic History Comment: ESOPHAGEAL. Liver metastases. 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 last chemo 01-06-17 - Congenital Disorder History Hx Congenital Disorders: No - GI History Hx Gastrointestinal Disorders: Yes Gastrointestinal History Comment: Esophageal cancer - Other Health History Other Health History: Hx of DVT 03/2014 l leg, on xarelto - Chronic Pain History Chronic Pain: Yes (stomach, lower back, l hip) - Surgical History Prior Surgeries: I & D HIP W/WOUND VAC. Liver biopsy, colonoscopy. partial hip replacment L september 2015, hysterectomy 10/22 ANE Review of Systems Review of Systems: ANE Patient History - Allergies Allergies/Adverse Reactions: naproxen Allergy (Severe, Verified 02/23/17 21:55) Hives, TROUBLE BREATHING adhesive tape Allergy (Intermediate, Verified 02/23/17 21:55) Rash NSAIDS (Non-Steroidal Anti-Inflamma Allergy (Intermediate, Verified 02/23/17 21: 55) Hives Penicillins Allergy (Intermediate, Verified 02/23/17 21:55) Hives Sulfa (Sulfonamide Antibiotics) Allergy (Intermediate, Verified 02/23/17 21:55) Hives - Home Medications Home Medications: Famotidine [Pepcid 20 MG (*)] 20 mg PO DAILY 01/31/17 [Last Taken 03/16/17] Hyoscyamine Sulfate [Levsin, Hyomax-Sl 0.125 mg (*)] 0.125 mg PO DAILY PRN 01/31 [Last Taken 02/19/17] Sennosides/Docusate Sodium [Senokot-S] 1 - 2 tab PO BID PRN 02/11/17 [Last Taken 02/18/17 PM] Diazepam [Valium 2 MG (*)] 2 mg PO Q6HRS PRN 02/19/17 [Last Taken 03/16/17 21:00 ] Phenazopyridine HCl [Pyridium] 200 mg PO DAILY PRN 02/19/17 [Last Taken 0800] Polyethylene Glycol 3350 [Miralax 17 gm (*)] 17 gm PO DAILY PRN 02/19/17 [Last Taken Unknown] Rivaroxaban [Xarelto] 20 mg PO HS 02/19/17 [Last Taken 03/15/17] Simethicone [Mylicon] 80 mg PO Q6 PRN 02/19/17 [Last Taken Unknown] morphINE SR [Ms Contin/Oramorph 15 mg (*)] 15 mg PO TID@07,12,14 03/17/17 [Last Taken Unknown] - NPO status NPO Since - Liquids (Date): 03/28/17 NPO Since - Liquids (Time): 20:00 NPO Since - Solids (Date): 03/28/17 NPO Since - Solids (Time): 19:00 - Smoking Hx Smoking Status: Never smoked - Family Anes Hx Family Hx Anesthesia Complications: None ANE Labs/Vital Signs - Labs Result Diagrams: 03/29/17 06:20 03/29/17 06:20 - Vital Signs Blood Pressure: 122/90 Heart Rate: 85 Respiratory Rate: 20 O2 Sat (%): 99 Height: 167.64 cm Weight: 74.843 kg ANE Physical Exam - Airway Neck exam: decreased ROM Mallampati Score: Class 3 Mouth exam: poor dentition, small mouth opening - Pulmonary Pulmonary: no respiratory distress, reduced air movement - ASA Status ASA Status: IV ANE Anesthesia Plan Anesthesia Plan: GA with mask
--- NOTE | 2017-03-29 10:21 | GIREPORT ---
[facility] Surgical Services - Endoscopy Department Patient Name: Lola Smalls Procedure Date: 03/29/2017 9:49 AM Patient Type: Inpatient Attending MD/ ER Physician: Ulisses Dawson MD Procedure: Upper GI endoscopy Indications: Abdominal pain in the left upper quadrant Providers: Ulisses Dawson MD Medicines: Propofol per Anesthesia Complications: No immediate complications. Description of Procedure: After obtaining informed consent, the endoscope was passed under direct vision. Throughout the procedure, the patient's blood pressure, pulse, and oxygen saturations were monitored continuously. The Endoscope was intro duced through the mouth, and advanced to the second part of duodenum. The [facility] er GI endoscopy was accomplished without difficulty. The patient tolerated th e procedure well. Findings: The esophagus was normal. There was some mild scar at the GE junction b ut no tumor. The mucosa of the entire esophagus is normal. Localized moderate mucosal changes characterized by congestion, erythem a, friability (with spontaneous bleeding), granularity and nodularity were found in the gastric fundus and in the gastric body. Biopsies were take n with a cold forceps for histology. - This has the appearance of malignant involvement of the gastric body from known peritoneal carcinomatosis. A benign-appearing, intrinsic mild stenosis was found at the pylorus. T his was traversed. A medium amount of food (residue) was found in the gastric body. The duodenal bulb, first portion of the duodenum and second portion of the duodenum were normal. Estimated Blood Loss: Estimated blood loss was minimal. Post Op Diagnosis: - Normal esophagus. - Congested, erythematous, friable (with spontaneous bleeding), granula r and nodular mucosa in the gastric fundus and gastric body. Biopsied. Suspic ious for malignant extension from the peritoneum into the gastric body. - Gastric stenosis was found at the pylorus. Mild but causing some mild obstructive type symptoms possibly. This may also be due to malignant compression. - A medium amount of food (residue) in the stomach. - Normal duodenal bulb, first portion of the duodenum and second portio n of the duodenum. Recommendation: - Await pathology results. - Low residue diet. - Soft, small frequent meals. - Use Protonix (pantoprazole) 40 mg PO BID. - Her elevated alk-phos is likely a combination of liver involvement wi th malignancy (possibly) and her hip fracture (bone elevation). May be worth fractionating the alk-phos. - Some of her LUQ pain is due to the gastric findings today but I also feel there is an element of narcotic induced constipation and hip fracture p ain. - Given her other LFTs are normal I would not pursue the dilated biliar y anatomy at this time. Her dilated biliary anatomy is also likely due to narcotic use. - Bowel regimen (movantik and linzess would be best). - Stop levsin. - Return patient to [facility] for [facility] care. Attending Participation: I personally performed the entire procedure without the assistance of a fellow, resident or surg ical call center assistant. Ulisses Dawson MD Ulisses Dawson MD 03/29/2017 10:21:17 AM This report has been signed electronicallyDavid MD Samir Number of Addenda: 0 Note Initiated On: 03/29/2017 9:49 AM [email or web address]
--- NOTE | 2017-03-29 10:22 | POSTANESTH ---
Post Anesthetic Evaluation Cardiovascular Status: Normal, Stable, Similar to Pre-Op Cond Respiratory Status: Normal, Stable, Similar to Pre-op Cond. Level of Consciousness/Mental Status: Can Participate in Eval Pain Control: Adequate, Prn Tx Ordered Nausea/Vomiting Control: Adequate, Prn Tx Ordered Complications Possibly Related to Anesthesia: None Noted
--- NOTE | 2017-03-29 10:39 | HOSPPROG ---
Hospitalist Progress Note Assessment/Plan: A/P: -Stage IV esophageal carcinoma -Severe overall debility and deconditioning, ECOG score four -Acute encephalopathy: Slowly improving but fluctuates a lot with medication and pain -Uncontrolled pain, currently 3 main pain syndromes: * Ribcage pain on left from a recent fall, slowly improving, Lidoderm helps * Ongoing severe heartburn and dyspepsia with some odynophagia, poor outpatient response to Pepcid * Frequent intermittent episodes of epigastric colic min, quite severe and requiring narcotic as well as benzodiazepine for associated anxiety -Anemia of cancer -Vcfm-qo-xycvyysm protein calorie malnutrition; this is likely aggravated by dyspepsia and esophagitis as well as her other pains -Constipation -Increased Alk Phosp -DVT, chronic, on Xarelto -PCMN Plan: -Dr. Dawson to perform upper endoscopy today for further evaluation, r/o infective Esophagitis, PUD, other causes. -Cont with current meds, PPI, Levsin, Carafate -Monitor confusion -Bowel protocol Subjective: waiting for endoscopy today. Objective: Vital Signs Temp Pulse Resp BP Pulse Ox 36.8 C 85 14 128/86 H 100 03/29/17 10:24 03/29/17 10:09 03/29/17 10:25 03/29/17 10:25 03/29/17 10:25 Laboratory Results 03/29/17 06:20 03/29/17 06:20 03/28/17 03/29/17 03/30/17 05:59 05:59 05:59 Intake Total 540 800 Balance 540 800 PT 16.8 SEC (12.0-15.0) H 03/18/17 13:10 INR 1.34 (0.83-1.16) H 03/18/17 13:10 - Physical Exam Constitutional: no apparent distress Eyes: PERRL, EOMI Ears, Nose, Mouth, Throat: moist mucous membranes, hearing normal Cardiovascular: regular rate and rhythym Respiratory: no respiratory distress, no rales or rhonchi Gastrointestinal: normoactive bowel sounds, soft, non-tender abdomen Genitourinary: no bladder fullness Skin: warm Neurologic: AAOx3 Psychiatric: interacting appropriately, not anxious, encephalopathic Lymph, Heme, Immunologic: No petechiae ICD10 Worksheet Patient Problems: Problems Problem Status Onset Dehydration Acute Pain Acute Back pain Acute Esophageal cancer Acute Intractable pain Acute Metastatic cancer Acute Obstructive uropathy Acute Palliative care encounter Acute Prosthetic hip infection Acute Urinary tract infection Acute
[2017-03-29] MEDS: clonazePAM 1 MG TAB PO SCH ×2 (11:41→21:44)
[2017-03-29] MEDS: ACETAMINOPHEN 500 MG TAB PO SCH ×3 (11:41→21:43)
[2017-03-29] MEDS: LORazepam 0.5 MG TAB PO PRN (11:42)
[2017-03-29] MEDS: RIVAROXABAN 20 MG TAB PO SCH (11:43)
[2017-03-29] MEDS: morphINE SR 15 MG TAB PO SCH ×3 (11:43→21:44)
[2017-03-29] MEDS: LIDOCAINE 4%/MENTHOL 1% PATCH TD SCH (11:44)
[2017-03-29] MEDS: MULTIVITAMINS W-MINERALS 1 EACH TAB PO SCH (11:44)
[2017-03-29] MEDS: DULoxetine 30 MG CAP PO SCH (11:44)
--- NOTE | 2017-03-29 12:20 | SOAPPROG ---
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 Prior TX has included Cisplatin/5 FU and FOLFIRI and FOLFOX. 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 She needs to improve PFS before any systemic therapy can be considered. No curative therapy and pembro has RR o 10-15%. * Acute Delirium: Brain MRI ok. * Pain and Anxiety: Worsened by advanced cancer and its complications. Not clear what is causing the dyskinesia; possibly MS Contin but symptoms not consistent. EGD did not find a specific cause although some concern of malignant involvement. * DVT 2014: continue Rivaroxaban * S/P L Ureteral stent placement * Anemia secondary to cancer therapy: stable. * Disposition: The current plan is for her to go to [facility] with [facility] hospice. I think she could benefit from physical therapy and occupational therapy for the next few weeks to see if her functional status can improve adequately to consider additional therapy. Subjective: Little groggy from procedure but oriented. No pain right now. Reports BM yesterday. Objective: Vital Signs Temp Pulse Resp BP Pulse Ox 36.4 C 83 20 126/91 H 98 03/29/17 12:11 03/29/17 12:11 03/29/17 12:11 03/29/17 12:11 03/29/17 12:11 Laboratory Results 03/29/17 06:20 03/29/17 06:20 03/28/17 03/29/17 03/30/17 05:59 05:59 05:59 Intake Total 540 800 200 Output Total 0 Balance 540 800 200 PT 16.8 SEC (12.0-15.0) H 03/18/17 13:10 INR 1.34 (0.83-1.16) H 03/18/17 13:10 Complete Abdominal Ultrasound Impression: 1. Stable mild left intrahepatic biliary dilatation. 2. Stable gallbladder distention and common bile duct dilatation, without definite evidence of cholecystitis. 3. Stable right renal angiomyolipoma. 4. Additional findings as above. Dictated By: Ruddy Henderson MD Physical Exam - Physical Exam General Appearance: no apparent distress Abdomen: non-tender, soft ICD10 Worksheet Patient Problems: Problems Problem Status Onset Dehydration Acute Pain Acute Back pain Acute Esophageal cancer Acute Intractable pain Acute Metastatic cancer Acute Obstructive uropathy Acute Palliative care encounter Acute Prosthetic hip infection Acute Urinary tract infection Acute
[2017-03-29] MEDS: HYDROmorphONE/DILAUDID 2 MG TAB PO PRN (14:10)
[2017-03-29] MEDS: SENNOSIDES/DOCUSATE SODIUM TAB PO PRN (14:11)
[2017-03-29] MEDS: PANTOPRAZOLE SODIUM 40 MG TAB PO SCH (21:44)
[2017-03-29] MEDS: POLYETHYLENE GLYCOL 3350 17 GM PKT PO SCH (21:47)
[2017-03-29] MEDS: PATCH REMOVAL 1 EA PATCH TD SCH (21:52)
[2017-03-30] MEDS: LEVOTHYROXINE 112 MCG TAB PO SCH (03:55)
[2017-03-30] MEDS: LORazepam 0.5 MG TAB PO PRN ×2 (06:32→13:40)
[2017-03-30] MEDS: HYDROmorphONE/DILAUDID 2 MG TAB PO PRN ×2 (06:52→13:40)
[2017-03-30] MEDS: LIDOCAINE 4%/MENTHOL 1% PATCH TD SCH (08:29)
[2017-03-30] MEDS: ACETAMINOPHEN 500 MG TAB PO SCH ×3 (08:29→20:34)
[2017-03-30] MEDS: morphINE SR 15 MG TAB PO SCH ×3 (08:31→20:35)
[2017-03-30] MEDS: clonazePAM 1 MG TAB PO SCH ×2 (08:32→20:35)
[2017-03-30] MEDS: DULoxetine 30 MG CAP PO SCH (08:34)
[2017-03-30] MEDS: RIVAROXABAN 20 MG TAB PO SCH (08:35)
[2017-03-30] MEDS: PANTOPRAZOLE SODIUM 40 MG TAB PO SCH ×2 (08:36→20:34)
[2017-03-30] MEDS: MULTIVITAMINS W-MINERALS 1 EACH TAB PO SCH (08:37)
[2017-03-30] MEDS: POLYETHYLENE GLYCOL 3350 17 GM PKT PO SCH (11:12)
--- NOTE | 2017-03-30 12:34 | HOSPPROG ---
Hospitalist Progress Note Assessment/Plan: -Stage IV esophageal carcinoma -Severe overall debility and deconditioning, ECOG score four -Acute encephalopathy: Slowly improving but fluctuates a lot with medication and pain. MRI brain ok. -Uncontrolled pain, currently 3 main pain syndromes: * Ribcage pain on left from a recent fall, slowly improving, Lidoderm helps * Ongoing severe heartburn and dyspepsia with some odynophagia, on Protonix BID * Frequent intermittent episodes of epigastric colic min, quite severe and requiring narcotic as well as benzodiazepine for associated anxiety -Anemia of cancer -Dtfo-hp-gbqtdqng protein calorie malnutrition; this is likely aggravated by dyspepsia and esophagitis as well as her other pains -Constipation, per nursing she is having regular BM's -Increased Alk Phosp -DVT, chronic, on Xarelto -PCMN Plan: -EGD was concerning for Gastric malignancy and biopsies were obtained and results pending. No e/o infective Esophagitis. The recommendation is for PPI and for stool regimen -per Nursing she is having stools. She is on a stool softner -Palliative Care to meet with family again today. The plan is likely for d/c with hospice, likely tomorrow 2 l Subjective: Feeling about the same. Intermittend left sided abd and rib pain. Objective: Vital Signs Temp Pulse Resp BP Pulse Ox 37.1 C 96 17 123/82 H 94 03/30/17 11:39 03/30/17 11:39 03/30/17 11:39 03/30/17 11:39 03/30/17 11:39 Laboratory Results 03/29/17 06:20 03/29/17 06:20 03/29/17 03/30/17 03/31/17 05:59 05:59 05:59 Intake Total 800 800 Output Total 350 50 Balance 800 450 -50 PT 16.8 SEC (12.0-15.0) H 03/18/17 13:10 INR 1.34 (0.83-1.16) H 03/18/17 13:10 - Physical Exam Constitutional: chronically ill appearing Eyes: PERRL Ears, Nose, Mouth, Throat: moist mucous membranes, hearing normal Cardiovascular: regular rate and rhythym Respiratory: no respiratory distress Gastrointestinal: normoactive bowel sounds Genitourinary: no bladder fullness Skin: warm Musculoskeletal: generalized weakness Neurologic: AAOx3 Psychiatric: interacting appropriately, not anxious, not encephalopathic Lymph, Heme, Immunologic: No petechiae ICD10 Worksheet Patient Problems: Problems Problem Status Onset Dehydration Acute Pain Acute Back pain Acute Esophageal cancer Acute Intractable pain Acute Metastatic cancer Acute Obstructive uropathy Acute Palliative care encounter Acute Prosthetic hip infection Acute Urinary tract infection Acute
--- NOTE | 2017-03-30 14:37 | SOAPPROG ---
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 Prior TX has included Cisplatin/5 FU and FOLFIRI and FOLFOX. 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 She needs to improve PFS before any systemic therapy can be considered. No curative therapy and pembro has RR of 10-15%. * Acute Delirium: Brain MRI ok. prefer not to get LP * Pain and Anxiety: Worsened by advanced cancer and its complications. Not clear what is causing the dyskinesia; possibly MS Contin but symptoms not consistent. EGD did not find a specific cause although some concern of malignant involvement. * DVT 2014: continue Rivaroxaban * S/P L Ureteral stent placement * Anemia secondary to cancer therapy: stable. * Disposition: The current plan is for her to go to [facility] with [facility] hospice. I think in patient hospice would be best for her. I doubt she will get well enough to tolerate aggressive therapy. Subjective: Pain comes and goes. [employer]crete [employer] with her. Occasionally disoriented. Objective: Vital Signs Temp Pulse Resp BP Pulse Ox 37.1 C 96 17 123/82 H 94 03/30/17 11:39 03/30/17 11:39 03/30/17 11:39 03/30/17 11:39 03/30/17 11:39 Laboratory Results 03/29/17 06:20 03/29/17 06:20 03/29/17 03/30/17 03/31/17 05:59 05:59 05:59 Intake Total 800 800 Output Total 350 50 Balance 800 450 -50 PT 16.8 SEC (12.0-15.0) H 03/18/17 13:10 INR 1.34 (0.83-1.16) H 03/18/17 13:10 Physical Exam - Physical Exam General Appearance: no apparent distress Abdomen: soft Neuro/Psych: cognition abnormalities ICD10 Worksheet Patient Problems: Problems Problem Status Onset Dehydration Acute Pain Acute Back pain Acute Esophageal cancer Acute Intractable pain Acute Metastatic cancer Acute Obstructive uropathy Acute Palliative care encounter Acute Prosthetic hip infection Acute Urinary tract infection Acute
[2017-03-30] MEDS: morphINE 10 MG/0.5 ML UDSYR PO PRN (14:47)
--- NOTE | 2017-03-30 14:55 | ASMTCMCOM ---
CM Note CM Note Notes: Discussed w/Dr Edwin RN, and Salvador from [facility]. Per Dr Pineda, pt will likley be ready for dc tomorrow if we have plan in place. Salvador discussed w/pt's , Dusty who said he will be in this afternoon to discuss w/pt the option of going to [facility] w/[facility]. Left voicemail for Arminda from [facility] to discuss. Date Signed: 03/30/2017 02:55 PM Electronically Signed By:Maribeth Turner RN
[2017-03-30] MEDS: OLANZapine DISINTEGR 5 MG TAB PO PRN (16:01)
[2017-03-30] MEDS: HALOPERIDOL 2 MG TAB PO PRN (16:32)
[2017-03-30] MEDS: SENNOSIDES/DOCUSATE SODIUM TAB PO PRN (20:33)
[2017-03-30] MEDS: PATCH REMOVAL 1 EA PATCH TD SCH (20:35)
[2017-03-31] MEDS: LEVOTHYROXINE 112 MCG TAB PO SCH (06:37)
[2017-03-31 08:04] VITALS: RESP 15
[2017-03-31 08:52] LABS: PLATELET COUNT 678 10^3/uL (150-400)
[2017-03-31] MEDS: LORazepam 0.5 MG TAB PO PRN (09:58)
[2017-03-31] MEDS: morphINE SR 15 MG TAB PO SCH (09:59)
[2017-03-31] MEDS: DULoxetine 30 MG CAP PO SCH (10:01)
[2017-03-31] MEDS: RIVAROXABAN 20 MG TAB PO SCH (10:01)
[2017-03-31] MEDS: PANTOPRAZOLE SODIUM 40 MG TAB PO SCH (10:01)
[2017-03-31] MEDS: ACETAMINOPHEN 500 MG TAB PO SCH (10:02)
[2017-03-31] MEDS: clonazePAM 1 MG TAB PO SCH (10:17)
[2017-03-31] MEDS: HYDROmorphONE/DILAUDID 2 MG TAB PO PRN ×2 (10:17→14:53)
[2017-03-31] MEDS: LIDOCAINE 4%/MENTHOL 1% PATCH TD SCH (10:20)
[2017-03-31] MEDS: POLYETHYLENE GLYCOL 3350 17 GM PKT PO SCH (10:26)
[2017-03-31] MEDS: SIMETHICONE 80 MG TAB CHEW PO PRN (10:31)
[2017-03-31] MEDS: OLANZapine DISINTEGR 5 MG TAB PO PRN (10:31)
[2017-03-31] MEDS: MULTIVITAMINS W-MINERALS 1 EACH TAB PO SCH (11:22)
--- NOTE | 2017-03-31 12:23 | PDIAF ---
- Diagnosis Diagnosis: adenocarcinoma. Hospice care Code Status: Full Code - Medication Management Discharge Medications: Medications to Continue on Transfer Famotidine [Pepcid 20 MG (*)] 20 mg PO DAILY 01/31/17 [Last Taken 03/16/17] Hyoscyamine Sulfate [Levsin, Hyomax-Sl 0.125 mg (*)] 0.125 mg PO DAILY PRN 01/31 [Last Taken 02/19/17] Sennosides/Docusate Sodium [Senokot-S] 1 - 2 tab PO BID PRN 02/11/17 [Last Taken 02/18/17 PM] Acetaminophen [Tylenol ES 500 mg (*)] 1,000 mg PO Q6HRS PRN tab 02/15/17 [Last Taken 02/23/17 09:00] Cyclobenzaprine [Flexeril 10 MG (*)] 10 mg PO TID PRN #30 tab 02/15/17 [Last Taken 03/15/17] Diazepam [Valium 2 MG (*)] 2 mg PO Q6HRS PRN 02/19/17 [Last Taken 03/16/17 21:00 ] Phenazopyridine HCl [Pyridium] 200 mg PO DAILY PRN 02/19/17 [Last Taken 0800] Polyethylene Glycol 3350 [Miralax 17 gm (*)] 17 gm PO DAILY PRN 02/19/17 [Last Taken Unknown] Rivaroxaban [Xarelto] 20 mg PO HS 02/19/17 [Last Taken 03/15/17] Simethicone [Mylicon] 80 mg PO Q6 PRN 02/19/17 [Last Taken Unknown] HYDROmorphone HCL [Dilaudid 2 mg (*)] 2 - 4 mg PO Q4HRS PRN #30 tab 02/22/17 [ Last Taken 03/16/17 13:00] Levothyroxine [Synthroid 112 mcg (*)] 112 mcg PO DAILY06 #30 tab 02/22/17 [Last Taken 03/16/17] DULoxetine [Cymbalta 30 MG (*)] 30 mg PO DAILY #30 cap 03/08/17 [Last Taken 09/23] Gluc Oxid/l-Peroxid/Muramidase [Biotene Mouthwash (*)] 15 ml MM Q8H PRN #1 bottle 03/08/17 [Last Taken Unknown] LORazepam [Ativan (*)] 0.5 - 1 mg PO Q4HRS PRN #30 tab 03/08/17 [Last Taken 09/23 17:00] morphINE SR [Ms Contin/Oramorph 15 mg (*)] 30 mg PO HS #30 tab 03/08/17 [Last Taken 03/15/17] morphINE [Roxanol 10 mg/0.5 ml oral soln (*)] 5 - 10 mg PO Q2HRS PRN #100 udsyr 03/08/17 [Last Taken 03/16/17 20:00 5ML] morphINE SR [Ms Contin/Oramorph 15 mg (*)] 15 mg PO TID@07,12,14 03/17/17 [Last Taken Unknown] Discharge Medications: Refer to the Discharge Home Medication list for PRN reason. - Orders Isolation Type: None Diet Recommendation: no restrictions on diet Diet Texture: Regular Texture Diet - Follow Up Care Current Providers and Referrals: Diamante Lofton MD [Primary Care Provider] - As per Instructions
--- NOTE | 2017-03-31 12:28 | HOSPPROG ---
Hospitalist Progress Note Assessment/Plan: 61 yo female with Stage IV Esophageal carcinoma admitted with abd pain. Unfortunately a reversible etiology was not found. She was treated with pain medications. She has known mets and EGD was c/w likely Stomach Mets which may be contributing to her sx's. The patient remains somewhat confused. Family has choses hospice and this has been set up. DDX -Stage IV esophageal carcinoma -Severe overall debility and deconditioning, ECOG score four -Acute encephalopathy: Slowly improving but fluctuates a lot with medication and pain. MRI brain ok. -Uncontrolled pain, currently 3 main pain syndromes: * Ribcage pain on left from a recent fall, slowly improving, Lidoderm helps * Ongoing severe heartburn and dyspepsia with some odynophagia, on Protonix BID * Frequent intermittent episodes of epigastric colic min, quite severe and requiring narcotic as well as benzodiazepine for associated anxiety -Anemia of cancer -[id number] protein calorie malnutrition; this is likely aggravated by dyspepsia and esophagitis as well as her other pains -Constipation, per nursing she is having regular BM's -Increased Alk Phosp -DVT, chronic, on Xarelto -PCMN Exam: VSS NAD ALERT BUT NOT ORIENTED MMM RRR CTA B SOFT, NON DISTENDED NO LE EDEMA MEDS: SEE MED REC f/u: THE PATIENT IS BEING D/C TO [facility] INPATIENT WITH [facility] TOTAL CARE TIME SPENT ON DISCHARGE IS 35 MINS Objective: Vital Signs Temp Pulse Resp BP Pulse Ox 36.5 C 94 15 134/91 H 94 03/31/17 08:02 03/31/17 08:02 03/31/17 08:02 03/31/17 08:02 03/31/17 08:02 Laboratory Results 03/31/17 08:45 03/29/17 06:20 03/30/17 03/31/17 04/01/17 05:59 05:59 05:59 Intake Total 800 200 Output Total 350 50 Balance 450 150 PT 16.8 SEC (12.0-15.0) H 03/18/17 13:10 INR 1.34 (0.83-1.16) H 03/18/17 13:10 ICD10 Worksheet Patient Problems: Problems Problem Status Onset Dehydration Acute Pain Acute Back pain Acute Esophageal cancer Acute Intractable pain Acute Metastatic cancer Acute Obstructive uropathy Acute Palliative care encounter Acute Prosthetic hip infection Acute Urinary tract infection Acute
[2017-03-31 12:48] VITALS: BP 131/86; PULSE 106; TEMP 98.3; O2SAT 91
--- NOTE | 2017-03-31 13:00 | SOAPPROG ---
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 Prior TX has included Cisplatin/5 FU and FOLFIRI and FOLFOX. 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 She needs to improve PFS before any systemic therapy can be considered. No curative therapy and pembro has RR of 10-15%. * Acute Delirium: Brain MRI ok. prefer not to get LP * Pain and Anxiety: Worsened by advanced cancer and its complications. path from EGD shows malignant involvement. * DVT 2014: continue Rivaroxaban * S/P L Ureteral stent placement * Anemia secondary to cancer therapy: stable. * Disposition: The current plan is for her to go to [facility] with [facility] hospice. I think in patient hospice would be best for her. I doubt she will get well enough to tolerate aggressive therapy. Subjective: with patient. She is going out today. More alert today. Currently no pain. Objective: Vital Signs Temp Pulse Resp BP Pulse Ox 36.8 C 106 H 15 131/86 H 91 L 03/31/17 12:46 03/31/17 12:46 03/31/17 12:46 03/31/17 12:46 03/31/17 12:46 Laboratory Results 03/31/17 08:45 03/29/17 06:20 03/30/17 03/31/17 04/01/17 05:59 05:59 05:59 Intake Total 800 200 Output Total 350 50 Balance 450 150 PT 16.8 SEC (12.0-15.0) H 03/18/17 13:10 INR 1.34 (0.83-1.16) H 03/18/17 13:10 Physical Exam - Physical Exam General Appearance: no apparent distress Abdomen: normal bowel sounds, soft ICD10 Worksheet Patient Problems: Problems Problem Status Onset Dehydration Acute Pain Acute Back pain Acute Esophageal cancer Acute Intractable pain Acute Metastatic cancer Acute Obstructive uropathy Acute Palliative care encounter Acute Prosthetic hip infection Acute Urinary tract infection Acute
--- NOTE | 2017-03-31 14:24 | ASMTCMCOM ---
CM Note CM Note Notes: Arminda from [facility] met with pt and Dusty today. They agreed for pt to go to inpatient hospice at [facility]. Pt signed MOSt with Dr Pineda to be a DNR. Transport set for 3PM. Adamaris Rae gave report. Final orders and DC summary faxed. Date Signed: 03/31/2017 02:24 PM Electronically Signed By:Elba Smith LCSW
--- NOTE | 2017-03-31 14:41 | SOAPPROG ---
SOAP Progress Note Assessment/Plan: Assessment: 1. Metastatic esophageal cancer 2. 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 Chronic cancer pain 4. Constipation-narcotic induced 5. Dilated biliary system due to narcotic and focal left lobe involvement with malignancy Plan: 1. No acute issues. Pain better managed 2. Plan is for SNF for some rehab to see if she can strengthen to tolerate more Rx 3. Bowel regimen should include Movantik 25mg po daily to help with narcotic induced constipation 4. ADAT 5. PPI BID lifelong Will sign off. Call with questions. Family aware of the stomach and liver involvement with esophageal malignancy. 03/31/17 14:38 Subjective: CC: Abdominal pain Somewhat better today. Eating better. Objective: Vital Signs Temp Pulse Resp BP Pulse Ox 36.8 C 106 H 15 131/86 H 91 L 03/31/17 12:46 03/31/17 12:46 03/31/17 12:46 03/31/17 12:46 03/31/17 12:46 Laboratory Results 03/31/17 08:45 03/29/17 06:20 03/30/17 03/31/17 04/01/17 05:59 05:59 05:59 Intake Total 800 200 Output Total 350 50 Balance 450 150 PT 16.8 SEC (12.0-15.0) H 03/18/17 13:10 INR 1.34 (0.83-1.16) H 03/18/17 13:10 Physical Exam - Physical Exam General Appearance: no apparent distress EENT: pharynx normal Neck: supple Respiratory: lungs clear Cardiac/Chest: regular rate, rhythm Abdomen: non-tender, soft, No distended, No guarding, No rebound ICD10 Worksheet Patient Problems: Problems Problem Status Onset Dehydration Acute Pain Acute Back pain Acute Esophageal cancer Acute Intractable pain Acute Metastatic cancer Acute Obstructive uropathy Acute Palliative care encounter Acute Prosthetic hip infection Acute Urinary tract infection Acute
[2017-03-31] MEDS ORDERED: morphINE SR 15 MG TAB PO SCH (16:00)
== END 2017-03-31 15:21 | disposition hospice, home (50) | DRG 917 ==
LOC: F1N 04:59 → OBSVTOIN 03-18 07:33
PROVIDERS: ADMIT Student in an Organized Health Care Education/Training Program; ATTEND Student in an Organized Health Care Education/Training Program
PROC: 0DB68ZX Excision of Stomach, Via Natural or Artificial Opening Endoscopic, Diagnostic (ICD-10-PCS; principal; 2017-03-29 10:00)
DX: T42.4X1A Poisoning by benzodiazepines, accidental (unintentional), initial encounter (principal); T40.2X1A Poisoning by other opioids, accidental (unintentional), initial encounter; T48.1X1A Poisoning by skeletal muscle relaxants [neuromuscular blocking agents], accidental (unintentional), initial encounter; G92 Toxic encephalopathy; G89.3 Neoplasm related pain (acute) (chronic); E44.1 Mild protein-calorie malnutrition; D63.8 Anemia in other chronic diseases classified elsewhere; K59.00 Constipation, unspecified; L89.152 Pressure ulcer of sacral region, stage 2; S72.91XD Unspecified fracture of right femur, subsequent encounter for closed fracture with routine healing; C78.7 Secondary malignant neoplasm of liver and intrahepatic bile duct; C79.51 Secondary malignant neoplasm of bone; C78.6 Secondary malignant neoplasm of retroperitoneum and peritoneum; C78.89 Secondary malignant neoplasm of other digestive organs; Z85.01 Personal history of malignant neoplasm of esophagus; Z87.440 Personal history of urinary (tract) infections; Z96.649 Presence of unspecified artificial hip joint; Z98.1 Arthrodesis status; Z79.01 Long term (current) use of anticoagulants; Z86.718 Personal history of other venous thrombosis and embolism; Z92.3 Personal history of irradiation
CPT/HCPCS: 92507-GN; 92523-GN; 96374; 97110-GP; 97116-GP; 97163-GP; 97166-GO; 97530-GO; 97530-GP; 97535-GO; A9585; G0378; J1170; J1630; J2060; J2405